=== PATIENT | female | born 1935 | race Caucasian/White ===

== ENCOUNTER 2023-12-22 16:27 | Observation (INO) | payer MEDICARE, OTHER, SELFPAY ==
[2023-12-22 12:46] VITALS: BP 139/81
--- NOTE | 2023-12-22 13:15 | EDRN ---
Patient stated that she tripped and fell during the night. Patient with c/o right rib and right hip pain. Patient stated that she has difficulty walking.
[2023-12-22 13:51] VITALS: BMI 22.0
[2023-12-22] MEDS: TYLENOL 1000 MG PO ×2 (13:51→22:45)
--- NOTE | 2023-12-22 14:22 | ED.GENMED ---
History of Present Illness
General
Chief Complaint: Fall
Source: patient
Time Seen by Provider: 12/22/23 13:06
Travel History
Have you had any contact with someone who has COVID-19?: No
Do you have any symptoms of coronavirus? Fever > 100 degrees, chills, cough, shortness of breath, sore throat, loss of taste or smell, muscle aches, or headache?: No
History of Present Illness
History of Present Illness:
88-year-old female with past medical history of hyperlipidemia, diabetes, valvular disease presenting the emergency department for evaluation after she had an accidental fall around 4 AM last night stating she fell onto the right side of her body
injuring her hip and rib. She states that she was able to get herself up off the ground back into bed and fell back asleep but upon awakening again this morning had continued pain and difficulty ambulating. Patient was brought to the ER for
further evaluation. She denies any head injury, loss consciousness, vomiting, visual changes or any other concerns. Takes an 81 mg aspirin but denies any other anticoagulants. She is denying any headache, visual changes, focal weakness or
numbness or any other problems today.
Past History
Past History
ED Past Medical History: Hypercholesterolemia, IDDM, Valvular disease and Hypothyroidism
ED Past Surgical History: Cardiac and Orthopedic (Right knee replacement)
Social History
Tobacco: Non-smoker
Alcohol: Occasional
Drug: None
Personal:
Living: with family
Employment: Not employed
Family History
Family History: Other (Noncontributory)
Review of Systems
Review of Systems
All Other Systems: ROS reviewed and negative except as documented in HPI and ROS
Phy Exam
Physical Exam
Physical Exam:
GENERAL: Alert , in no apparent distress
EYE: conjunctiva clear
NECK: Supple,
ENT: o/p clr, mmm.
CARDIAC: Regular rate and rhythm, systolic murmur left sternal border
LUNGS: Clear breath sounds bilaterally, no acute respiratory distress, no wheezes/rales/rhonchi
Chest wall: Mild tenderness over the anterolateral right 8th-9th rib without signs of trauma
abdomen: Soft, nontender, nondistended
NEUROLOGICAL: Alert and oriented
SKIN: Warm and dry, skin intact.
MUSCULOSKELETAL: well perfused. Patient allows for full passive range of motion but is having some difficulty with range of motion of the left hip without assistance. Extremities are otherwise neurovascularly intact.
PSYCH: Normal and appropriate interaction.
Scores
Heart Failure Risk
Heart Failure Risk Score: Not Applicable
Heart Score for Chest Pain Patients
STEMI patient?: Not applicable
Withdrawal Assessment of Alcohol
Withdrawal Assessment Completed?: Not applicable
Course
Orders/Labs/Results
Orders:
Orders
12/22/23 12:52
CR Ribs-right 3 Vw W/pa Chest* Urgent
Comment:
Reason For Exam: fall
Hip, Right 2-3 Views [CR Hip - RT w/wo Pel 2-3 Vw*] Urgent
Comment:
Reason For Exam: fall
Include a pelvis x-ray?: Yes
12/22/23 13:45
CT Chest/abd/pel Wo Iv Cont Urgent
Reason For Exam: fall, right sided anterolateral rib pain
PT Consult [Pt Eval And Treat] Urgent
Activity Level: Ambulate
12/22/23 13:46
Acetaminophen [Tylenol] 1,000 mg PO NOW STA
12/22/23 13:47
Acetaminophen [Tylenol] 1,000 mg .ROUTE .STK-MED ONE
12/22/23 14:48
Ibuprofen [Motrin] 600 mg PO NOW STA
Vital Signs
Initial and Last Documented VS:
Initial Vital Signs
Temp Pulse Resp BP Pulse Ox
98.1 F 85 18 139/81 96
12/22/23 12:46 12/22/23 12:46 12/22/23 12:46 12/22/23 12:46 12/22/23 12:46
Last Documented Vital Signs
Temp Pulse Resp BP Pulse Ox
98.1 F 85 18 139/81 96
12/22/23 12:46 12/22/23 12:46 12/22/23 12:46 12/22/23 12:46 12/22/23 12:46
MDM/Problems Addressed
Differential Diagnosis Includes:
Rib fracture, pelvic fracture, hip fracture, contusion
MDM/Problems Addressed:
88-year-old female presenting the emergency department for evaluation after an accidental fall with earlier this morning, was able to get up off the ground and back into bed but having worsening pain throughout the day. X-ray of the hip/pelvis and
ribs were ordered from triage. There does appear to be a older appearing pelvic fracture on x-ray but no acute findings. X-ray of the ribs shows questionable eighth rib fracture. I added on CT of the chest abdomen pelvis to further evaluate.
*Radiology
Radiology exam reviewed: preliminary read by ED provider (Possible pubic rami fracture)
*Pulse Oximetry
Patient hypoxic: no
*Critical Care Note
Total Time (30-74mins, 75-104mins- exclusive of procedures): Not Applicable
Patient Management
Discussion with other providers: Hospitalist
Escalation/DeEscalation of care consider admission/obs:
CT shows pubic rami and body of the symphysis fracture on the right. She was seen by physical therapy and was able to get around with a walker albeit with significant disc. Patient is resistant to taking any opioid medications due to side effects
from these medications in the past. Amenable to an additional dose of Motrin. Patient lives at home with her who was unfortunately seen in the emergency department here earlier today and diagnosed with a debilitating stroke and is
currently in the ICU. Patient has no family living with her other than her , difficult time with stairs and is already a fall risk. While she was able to ambulate with a walker I do have hesitation to send patient home for her own safety
and concern for possible worsening injury. Patient is amenable to being admitted overnight, case management consult and will likely need either a SNF or rehab facility until pain is better controlled. Hospitalist is aware and accepts patient for
continued evaluation and treatment.
ED Attending Note
-
Portions of this chart may have been created with voice recognition software.� Occasional wrong word or��sound alike� substitutions may have occurred due to the inherent limitations of voice recognition software.
Discharge Plan
Departure
Patient Disposition: Admit
Date of Disposition: 12/22/23
Time of Disposition: 15:00
Presentation/result/management discussed w/ accepting MD/DO: Hospitalist
Discharge Problem:
Fracture of ramus of right pubis, Contusion of rib, Accidental fall
Prescriptions:
No Action
levothyroxine 100 MCG tablet
100 mcg PO DAILY
simvastatin 20 MG tablet
20 mg PO DAILY
omega-3 fatty acids Capsule
1 cap PO DAILY Qty: 0
Priti A Day Womens Vitamin
1 tab PO DAILY
ibuprofen 200 mg Tablet
400 mg PO Q6H PRN (Reason: pain)
calcium carbonate-vitamin D3 600-125 mg-unit Tablet
1 tab PO Daily
Rx Instructions:
1200mg Calcium with 1600 D3
PreserVision AREDS-2 250-90-40-1 mg Capsule
2 tab PO DAILY
Toujeo SoloStar U-300 Insulin 300 unit/mL (1.5 mL) Insulin Pen
15 unit SC DAILY
metformin 500 mg Tablet Extended Release 24 Hr
1,000 mg PO DAILY
Hold Instructions: Resume on 01/22/23. Hold Tuesday01/21/23. Restart as previously taking on Tuesday01/22/23 in AM.
insulin aspart U-100 [Novolog FlexPen U-100 Insulin] 100 unit/mL (3 mL) Insulin Pen
6 unit SC .BID @ 1200, 1800
Myrbetriq 50 mg Tablet Extended Release 24 Hr
50 mg PO DAILY
Prolia 60 mg/mL Syringe
60 mg SC [id number]
acetaminophen 325 mg Tablet
650 mg PO Q4HPRN PRN (Reason: MALHOTRA, mild pain, or fever >101F) Qty: 0 0RF
Rx Instructions:
Please purchase over the counter
aspirin 81 mg Tablet,Chewable
81 mg PO DAILY Qty: 0 0RF
Rx Instructions:
Please purchase over the counter
Referrals:
Ryne West MD [Family Provider] -
Interventions
Interventions:
*Risk Screen - Suicide Last Done: 12/22/23 13:05
*Neglect/Abuse Screening Last Done: 12/22/23 13:05
ED- Fall Risk Assessment Last Done: 12/22/23 13:15
ED-Musculoskeletal Assessment Last Done: 12/22/23 13:05
ED- Neurological Assessment Last Done: 12/22/23 13:05
[2023-12-22] MEDS: MOTRIN 600 MG PO ×2 (15:08→23:39)
--- NOTE | 2023-12-22 15:26 | HPS.HSE ---
Family Physician
<ITZEL Rollins - Last Filed: 12/22/23 16:14>
-
Family Physician: Ryne West
Chief Complaint
<ITZEL Rollins - Last Filed: 12/22/23 16:14>
-
fall right hip and right rib pain
History of Present Illness
88-year-old female who reports while getting out of bed at 4 AM last night she fell onto her right side injuring her right hip and right rib. She reports she was able to get back into bed and fell asleep but upon wakening this morning she still
continued with pain and had difficulty ambulating. She denies LOC, headache, blurred vision, chest pain, palpitations, shortness breath, cough, abdominal pain, nausea, vomiting, diarrhea, urinary symptoms. To note her was also brought in
today for stroke requiring IAT. Patient has past medical history of falls with rib fractures, diverticulosis, compression fracture deformity T6 and T7, chronic diastolic CHF, pulm HTN moderate, DM2, hypothyroidism, urinary frequency.
Medical History
<ITZEL Rollins - Last Filed: 12/22/23 16:14>
Past Medical History
Past Medical History: Reports Other
Additional Past Medical History:
falls with rib fractures, diverticulosis, compression fracture deformity T6 and T7, chronic diastolic CHF, pulm HTN moderate, DM2, hypothyroidism, urinary frequency.
Past Surgical History: Reports Other
Additional Past Surgical History:
Right knee arthroscopy 2003, 08/05/2012,
bilateral cataract extraction
TAVR 2021
Social History
Tobacco: Non-smoker
Alcohol: None
Drug: None
Personal:
Living: With Family ()
Employment: Retired
Family History
Family History: Other (father cancer unsure type)
Allergies / Home Medications
Allergies reflects when Allergies were last updated in [facility].
Home Medications with original date entered in [facility]
Allergy/Medication List:
Allergies
Allergy/AdvReac Type Severity Reaction Status Date / Time
Iodinated Contrast Media Allergy Severe Verified 12/22/23 12:46
Prolonged
Itching
Sulfa (Sulfonamide Allergy Rash Verified 12/22/23 12:46
Antibiotics)
Home Medications
simvastatin 20 mg tablet 20 mg PO QPM High cholesterol 07/03/12
insulin glargine U-300 conc 300 unit/mL (1.5 mL) subcutaneous pen (Toujeo SoloStar U-300 Insulin) 15 unit SC DAILY Diabetes 12/03/22
insulin aspart U-100 100 unit/mL (3 mL) subcutaneous pen (Novolog FlexPen U-100 Insulin aspart) 6 unit SC BID Diabetes 01/10/23
metformin 500 mg tablet,extended release 24 hr 1,000 mg PO DAILY Diabetes 01/10/23
mirabegron 50 mg tablet,extended release 24 hr (Myrbetriq) 50 mg PO DAILY Urinary issue 01/10/23
aspirin 81 mg chewable tablet 81 mg PO DAILY Blood Clot Prevention/Tx 12/22/23
calcium carbonate 500 mg-vitamin D3 10 mcg (400 unit) tablet (Calcium 500 + D) 1 tab PO DAILY Supplement 12/22/23
levothyroxine 75 mcg tablet (Synthroid) 75 mcg PO DAILY Thyroid 12/22/23
Review of Systems
Philiplt;ITZEL Rollins - Last Filed: 12/22/23 16:14>
-
History Source: Patient and Family (daughter and son at bedside )
A 12 point ROS was completed and negative except as noted: Yes
Constitutional: Denies Fever or Chills
EENT: Denies Sore Throat or Runny Nose
Respiratory: Denies Cough or Trouble Breathing
Cardiac: Reports Other (right rib pain ); Denies Chest Pain, Diaphoresis, Palpitations or Syncope
Abdomen/GI: Denies Abdominal Pain, Nausea, Vomiting, Diarrhea, Constipated or Bloody Stools
: Denies Dysuria, Frequency, Flank Pain, Incontinence, Difficulty Voiding or Urgency
Musculoskeletal: Reports Joint Pain (right hip/inner groin pain ); Denies Edema
Skin: Denies Itching or Rash
Neurological: Denies Dizzy, Headache or Weakness
Endocrine: Reports No Symptoms
Hematologic/Lymphatic: Reports No Symptoms
Psych: Reports Calm
Physical Exam
<ITZEL Rollins - Last Filed: 12/22/23 16:14>
Vital Signs
Vital Signs
Temp Pulse Resp BP Pulse Ox
98.1 F 85 18 139/81 96
12/22/23 12:46 12/22/23 12:46 12/22/23 12:46 12/22/23 12:46 12/22/23 12:46
Physical Exam
General: Comfortable and Conversant; No Pain, Fever or Chills
HEENT: NormoCephalic, Anicteric, Moist mucous membranes, Atraumatic, PERRLA, [place] Conjunctivae, No Ptosis and Neck Nontender
Respiratory: Clear; No Wheezes, Rales or Rhonchi
Cardiac: S1/S2 and Regular Rhythm; No Murmur, Rub, Gallop or Peripheral Edema
Breast: Deferred by me
GI: Soft, Non Tender, Non Distended, Normal Bowel Sounds and No Hepatosplenomegaly
Rectal: Deferred by Provider
Genito-urinary: Deferred by me
Musculoskeletal: No Clubbing, No Cyanosis, No Edema and Other (right hip inner groin painn no visible contusion or hematoma, right rib pain no visible contusion)
Skin: Warm and Dry; No Rash
Neuro: AO x 3, No Motor Deficits, Nonfocal/grossly intact, Cranial Nerves Intact and No Sensory Deficits; No Slurred Speech, Facial Droop or Tremors
Psych: Calm
Data Reviewed
<ITZEL Rollins - Last Filed: 12/22/23 16:14>
-
CT Scan: Report Reviewed by me
Impression/Plan
<ITZEL Rollins - Last Filed: 12/22/23 16:14>
-
Impression/plan:
OBS MedSurg
#Mechanical fall with right superior pubic ramus fracture
-PT/OT/case management consult
-Pain control tylenol 1000 tid , tramadol 50 mg q6h prn mod severe pain , bowel regimen
-Consult ortho
-Check CBC, CMP
CT chest abdomen pelvis:
1. Subtle nondisplaced fracture involving the superior pubic ramus and right symphysis body
2. Old healed left symphysis fracture
3. Multiple bilateral chronic rib fractures
4.Stable chronic compression fracture deformities T6 and T7
5.Small amount fluid within the esophagus which could reflect reflux or dysmotility
6. Mild nonspecific stable pericarinal adenopathy measuring 11 mm
7. Mild sigmoid diverticulosis
#Prior falls with chronic rib fractures
# chronic fracture T6-T7
#old healed left symphysis fracture
#TAVR 2021
#Chronic diastolic CHF
Follows with [facility]
2D echo 07/07/2023: EF 75%, mild to moderate left LVH, mild MR and dilated left atrium, #23 Fonseca ONDINA aortic valve
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
#DM2
-Accu-Cheks with SSI, check HgbA1c
Continue NovoLog with meals
- consult para educator
#Hypothyroidism
-Continue levothyroxine
-Check TSH with free T4 reflex
# Chronic urinary frequency
-Continue Myrbetriq
DVT prophylaxis
Subcu Lovenox
Full code
<Saira Starkey MD - Last Filed: 12/22/23 16:22>
-
Impression/plan:
OBS MedSurg
#Mechanical fall with right superior pubic ramus fracture
-PT/OT/case management consult
-Pain control tylenol 1000 tid , tramadol 50 mg q6h prn mod severe pain , bowel regimen
-Consult ortho
-Check CBC, CMP
CT chest abdomen pelvis:
1. Subtle nondisplaced fracture involving the superior pubic ramus and right symphysis body
2. Old healed left symphysis fracture
3. Multiple bilateral chronic rib fractures
4.Stable chronic compression fracture deformities T6 and T7
5.Small amount fluid within the esophagus which could reflect reflux or dysmotility
6. Mild nonspecific stable pericarinal adenopathy measuring 11 mm
7. Mild sigmoid diverticulosis
#Prior falls with chronic rib fractures
# chronic fracture T6-T7
#old healed left symphysis fracture
#TAVR 2021
#Chronic diastolic CHF
Follows with [facility]
2D echo 07/07/2023: EF 75%, mild to moderate left LVH, mild MR and dilated left atrium, #23 Fonseca ONDINA aortic valve
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
#DM2
-Accu-Cheks with SSI, check HgbA1c
Continue NovoLog with meals
- consult para educator
#Hypothyroidism
-Continue levothyroxine
-Check TSH with free T4 reflex
# Chronic urinary frequency
-Continue Myrbetriq
DVT prophylaxis
Subcu Lovenox
Full code
I saw and examined the patient.
The CARPENTER MATE or PA's note was reviewed and I agree with the note.
Comment:
88 years old female presented after a fall and was found to have right pubic rami fracture. Patient reported multiple falls in the past. No head trauma. No confusion. No loss of consciousness. Her fall was mechanical.
Physical Exam
General: Comfortable and Conversant; No Pain, Fever or Chills
HEENT: NormoCephalic, Anicteric, Moist mucous membranes, Atraumatic, PERRLA, [place] Conjunctivae, No Ptosis and Neck Nontender
Respiratory: Clear; No Wheezes, Rales or Rhonchi
Cardiac: S1/S2 and Regular Rhythm; No Murmur, Rub, Gallop or Peripheral Edema
GI: Soft, Non Tender, Non Distended, Normal Bowel Sounds and No Hepatosplenomegaly
Rectal: No bleeding
Genito-urinary: No Granda
Musculoskeletal: No Clubbing, No Cyanosis, No Edema and Other (right hip inner groin painn no visible contusion or hematoma, right rib pain no visible contusion)
Skin: Warm and Dry; No Rash
Neuro: AO x 3, No Motor Deficits, Nonfocal/grossly intact, Cranial Nerves Intact and No Sensory Deficits; No Slurred Speech, Facial Droop or Tremors
Psych: Calm
Assessment and plan
# #Acute nondisplaced fracture involving the superior right pubic ramus and right symphysis body.
No evidence of right hip fracture. No abdominal pain.
Pain control with Tylenol [id number]
As needed tramadol
Appreciate orthopedic input
#History of falls. Imaging study showed multiple bilateral chronic rib fractures, chronic compression deformities of T6 and T7.
Consult PT/OT
#TAVR 2021
#Chronic diastolic CHF
Follows with [facility]
2D echo 07/07/2023:�EF 75%, mild to moderate left LVH, mild MR and dilated left atrium, #23 Fonseca ONDINA aortic valve
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
#DM2
-Accu-Cheks with SSI, check HgbA1c
Continue NovoLog with meals
- consult para educator
#Hypothyroidism
-Continue levothyroxine
-Check TSH with free T4 reflex
# Chronic urinary frequency
-Continue Myrbetriq
DVT prophylaxis
Subcu Lovenox
Total time spent to see the patient, examine the patient on the floor, review data and lab results, discuss treatment plan with patient, her son, nursing staff and ER doctor around 75 minutes
--- NOTE | 2023-12-22 17:28 | EDRN ---
Patient taken to see her in ICU prior to going to room 2126 in a wheelchair with carpet technician and family. Spoke to receiving RN and gave updated report.
--- NOTE | 2023-12-22 18:25 | CON.ORTHO ---
Consultation
-
Date/Time Consultation Requested: 12/22/2023 1605
Date/Time Consultation Performed: 12/22/20231814
Requesting Provider: Shazia Celeste
Performing Provider: Jaylan Wynne
Reason for Consultation: R pelvic ring injury
Consultation - Orthopedics
History
Orthopedic Surgery Note
CC: Right hip pain
HPI: 88-year-old female with right groin and pubic pain after sustaining a fall last night. She tripped and landed from a standing height onto carpet. After that she had pain with bearing weight on the right leg. She presented to [facility] emergency department where x-rays and CT showed signs of a nondisplaced fracture of the superior pubic ramus. She denies pain elsewhere throughout her body. Of note, her is being treated after a stroke last night.
PMH/PSH: diverticulosis, CHF, Pulm HTN, DMII, hypothroid
Medications: reviewed
Family History: Family history was reviewed. Noncontributory
Social history: Nonsmoker, no illicit drugs
Exam
General appearance: Pleasant. No acute distress.
Head: Normocephalic/atraumatic
Nose: No lesions or discharge.
Skin: No obvious rashes or open wounds
Lungs: No audible wheezing, no cough or sputum production
Musculoskeletal:
RLE:
full active motion of knee and ankle
sensation intact to light touch distally s/s/sp/dp/t
Toes wwp, 1+ DP
Hip exam defered due to known fracture
Imagin12/22/3023 Right hip and pelvis x-rays performed [facility] emergency department were reviewed by me. I also reviewed a CT scan of the pelvis. This shows a nondisplaced fracture of the superior pubic ramus. No signs of posterior
ring injury. No signs of proximal femur fracture.
AP: 88-year-old female with a nondisplaced superior pubic ramus fracture sustained after a fall overnight. I discussed with the patient treatment options and the natural history of this injury. We discussed weight-bear as tolerated on the right
lower extremity using a walker for 4 weeks. She will limit her activity based on pain. She may follow-up in 4 weeks with repeat x-rays to assess for clinical change. In 4 weeks the plan will be to start outpatient physical therapy. She is
presently undergoing some vestibular therapy which she may continue with and modify with use of walker. All questions were answered.
Jaylan Wynne MD
> 75 minutes was spent reviewing the clinical information, evaluating the patient, and formulating clinical plan.
Allergies / Home Medications
Allergy/AdvReac Type Severity Reaction Status Date / Time
Iodinated Contrast Media Allergy Severe Verified 12/22/23 12:46
Prolonged
Itching
Sulfa (Sulfonamide Allergy Rash Verified 12/22/23 12:46
Antibiotics)
Medication Instructions Recorded
simvastatin 20 mg tablet 20 mg PO QPM High cholesterol 07/03/12
insulin glargine U-300 conc 300 15 unit SC DAILY Diabetes 12/03/22
unit/mL (1.5 mL) subcutaneous pen
(Toujeo SoloStar U-300 Insulin)
insulin aspart U-100 100 unit/mL 6 unit SC BID Diabetes 01/10/23
(3 mL) subcutaneous pen (Novolog
FlexPen U-100 Insulin aspart)
metformin 500 mg tablet,extended 1,000 mg PO DAILY Diabetes 01/10/23
release 24 hr
mirabegron 50 mg tablet,extended 50 mg PO DAILY Urinary issue 01/10/23
release 24 hr (Myrbetriq)
aspirin 81 mg chewable tablet 81 mg PO DAILY Blood Clot 12/22/23
Prevention/Tx
calcium carbonate 500 mg-vitamin 1 tab PO DAILY Supplement 12/22/23
D3 10 mcg (400 unit) tablet
(Calcium 500 + D)
levothyroxine 75 mcg tablet 75 mcg PO DAILY Thyroid 12/22/23
(Synthroid)
Vital Signs / Lab Results
Temp Pulse Resp BP Pulse Ox
98.1 F 85 18 139/81 96
12/22/23 12:46 12/22/23 12:46 12/22/23 12:46 12/22/23 12:46 12/22/23 12:46
--- NOTE | 2023-12-22 18:30 | PTCARENOTE ---
Received patient from ED into room 2125. Patient AAOx3, VSS, x1 assist stand and pivot from wheelchair to bed. Order for activity as tolerated, patient states pain in RLE rated 3-4 upon ambulation and unable to bear full weight on R leg; rolling
walker provided to patient from ED. Patient oriented to room and call [place], educated on importance of ringing for assistance; patient verbalized understanding. Family at bedside, accucheck 152 and dinner ordered for patient, patient states family
member placed new Dexcom on R abdomen earlier. Patient and family state fluctuating blood sugar levels from '50 to 400' over last few weeks; diabetic education consult already ordered in ED. Patient and family state no concerns at this time.
[2023-12-22 18:32] VITALS: BP 170/81; BMI 20.7
[2023-12-22 18:33] LABS: Glucose - Point of Care 152 mg/dl (70-99)
[2023-12-22] MEDS: LIPITOR 10 MG PO (18:46)
[2023-12-22 19:51] LABS: Glucose - Point of Care 136 mg/dl (70-99)
[2023-12-22 20:24] LABS: % Basophils 0.7 % (0-2); % Eosinophils 3.4 % (0-6); % Immature Granulocytes 0.4 % (0-0.5); % Neutrophils 68.5 % (42.2-75.2); Absolute Basophils 0.1 10^3/uL (0-0.2); Absolute Eosinophils 0.3 10^3/uL (0-0.7); Absolute Lymphocytes 1.2 10^3/uL (1.2-3.4); Absolute Monocytes 0.8 10^3/uL (0.1-0.6); Absolute Neutrophils 5.2 10^3/uL (1.4-6.5); Hematocrit 36.3 % (37.0-47.0); Hemoglobin 11.9 g/dL (12.0-16.0); Mean Corp Hgb Conc. 32.8 g/dL (33.0-37.0); Mean Corpuscular Hgb 29.1 pg (27.0-31.0); Mean Corpuscular Volume 88.8 fL (81.0-99.0); Mean Platelet Volume 11.1 fL (7.4-10.4); Nucleated Red Blood Cells % 0 %; Platelet Count 181 10^3/uL (130-400); Red Blood Cell Count 4.09 10^6/uL (4.20-5.40); Red Cell Dist. Width 13.7 % (11.5-14.5); White Blood Cell Count 7.6 10^3/uL (4.8-10.8)
[2023-12-22 20:44] LABS: ALT (SGPT) 19 U/L (0-35); AST (SGOT) 23 U/L (14-36); Albumin 3.7 g/dl (3.5-5.0); Alkaline Phosphatase 62 U/L (38-126); Blood Urea Nitrogen 21 mg/dl (7-17); Calcium 9.1 mg/dl (8.4-10.2); Carbon Dioxide 25 mmol/L (22-30); Chloride 103 mmol/L (98-107); Estimated Creatinine Clearance 40 ml/min; Glucose 165 mg/dl (70-99); Potassium 4.2 mmol/L (3.5-5.1); Sodium 136 mmol/L (135-145); Total Bilirubin 0.7 mg/dl (0.2-1.3); Total Protein 6.4 g/dl (6.3-8.2); eGFR > 60.00
[2023-12-22] MEDS: SENOKOT PO ×2 (22:45→22:49)
[2023-12-22] MEDS: LOVENOX 40 MG SC (22:46)
[2023-12-22 22:55] LABS: Glucose - Point of Care 236 mg/dl (70-99)
[2023-12-22 23:34] VITALS: BP 148/80
[2023-12-23 05:59] VITALS: BMI 20.6
[2023-12-23 06:15] LABS: % Basophils 0.8 % (0-2); % Eosinophils 6.4 % (0-6); % Immature Granulocytes 0.3 % (0-0.5); % Lymphocytes 20.1 % (20.5-51.1); % Monocytes 12.2 % (1.7-9.3); % Neutrophils 60.2 % (42.2-75.2); Absolute Basophils 0.1 10^3/uL (0-0.2); Absolute Eosinophils 0.4 10^3/uL (0-0.7); Absolute Lymphocytes 1.3 10^3/uL (1.2-3.4); Absolute Monocytes 0.8 10^3/uL (0.1-0.6); Absolute Neutrophils 3.7 10^3/uL (1.4-6.5); Hematocrit 32.7 % (37.0-47.0); Hemoglobin 10.8 g/dL (12.0-16.0); Mean Corpuscular Volume 87.9 fL (81.0-99.0); Mean Platelet Volume 11.6 fL (7.4-10.4); Nucleated Red Blood Cells % 0 %; Platelet Count 158 10^3/uL (130-400); Red Blood Cell Count 3.72 10^6/uL (4.20-5.40); Red Cell Dist. Width 13.6 % (11.5-14.5); White Blood Cell Count 6.2 10^3/uL (4.8-10.8)
[2023-12-23] MEDS: SYNTHROID 75 MCG PO (06:30)
[2023-12-23 06:49] LABS: Blood Urea Nitrogen 20 mg/dl (7-17); Calcium 8.3 mg/dl (8.4-10.2); Carbon Dioxide 26 mmol/L (22-30); Chloride 108 mmol/L (98-107); Estimated Creatinine Clearance 40 ml/min; Glucose 171 mg/dl (70-99); Sodium 134 mmol/L (135-145); eGFR > 60.00
[2023-12-23 07:06] LABS: Glucose - Point of Care 142 mg/dl (70-99)
--- NOTE | 2023-12-23 07:12 | W.PN.HOSP.TC ---
Addendum entered and electronically signed by Saira Starkey MD 12/23/23 13:47:
Addendum
Patient was evaluated by physical therapy and bottle caser. Patient wants to go home. Patient reports good family support at home and would rather go home tonight.
Will reach out to case management to arrange discharge
Total discharge time spent to see the patient, examine the patient on the floor, review data and lab results, discuss treatment plan with patient, bottle caser, nursing staff around 65 minutes
Original Note:
Today's Communication/Plan
-
PT /OT
pain control
Assessment / Plan
Assessment / Plan
Physical Exam
General: Comfortable and Conversant; No Pain, Fever or Chills
HEENT: Normocephalic, Anicteric, Moist mucous membranes, Atraumatic, PERRLA, [place] Conjunctivae, No Ptosis and Neck Nontender
Respiratory: Clear; No Wheezes, Rales or Rhonchi
Cardiac: S1/S2
GI: Soft, Non Tender, Non Distended,
Rectal: No bleeding
Genito-urinary: No Granda
Musculoskeletal: No Clubbing, No Cyanosis, No Edema and Other (right hip inner groin painn no visible contusion or hematoma, right rib pain no visible contusion)
Skin: Warm and Dry; No Rash
Neuro: AO x 3, No Motor Deficits, No Slurred Speech, Facial Droop or Tremors
Psych: Calm
#Acute nondisplaced fracture involving the superior right pubic ramus and right symphysis body.
No evidence of right hip fracture.� No abdominal pain.
Pain control with Tylenol [id number] As needed tramadol & Motrin
Weight-bear as tolerated on the right lower extremity using a walker for 4 weeks.�
Appreciate orthopedic input
#History of falls.� Imaging study showed multiple bilateral chronic rib fractures, chronic compression deformities of T6 and T7.
Consult PT/OT
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
Will add PRN hydralazine
#Chronic diastolic CHF
Follows with [facility]ology
2D echo 07/07/2023:�EF 75%, mild to moderate left LVH, mild MR and dilated left atrium, #23 Fonseca ONDINA aortic valve
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
# Hyponatremia, mild.
c/w diet
#DM2
AM blood glucose 142
-Accu-Cheks with SSI, check HgbA1c
Continue NovoLog with meals
Appreciate health educator
#Hypothyroidism
-Continue levothyroxine
# Chronic urinary frequency
-Continue Myrbetriq
DVT prophylaxis
Subcu Lovenox
Total time spent to see the patient, examine the patient on the floor, review data and lab results, discuss treatment plan with patient, her son,� nursing staff around 55 minutes
Anticipated Discharge: 24 - 48 hours
Subjective/Interval History
-
Date of Service: December 23, 2023
Objective Data
-
Labs:
Laboratory Results
12/22/23 12/23/23
20:19 05:00
WBC 7.6 6.2
Hgb 11.9 L 10.8 L
Hct 36.3 L 32.7 L
Plt Count 181 158
Sodium 136 134 L
Potassium 4.2 4.0
Chloride 103 108 H
Carbon Dioxide 25 26
BUN 21 H 20 H
Creatinine 0.8 0.8
Glucose 165 H 171 H
Calcium 9.1 8.3 L
Total Bilirubin 0.7
AST 23
ALT 19
Alkaline Phosphatase 62
Vital Signs:
Vital Signs
Temp Pulse Resp BP Pulse Ox
98.1 F 79 18 148/80 96
12/22/23 23:34 12/22/23 23:34 12/22/23 23:34 12/22/23 23:34 12/22/23 23:34
I&O
12/22/23 12/23/23 12/24/23
06:59 06:59 06:59
Intake Total 480 / 480
Balance 480 / 480
[2023-12-23] MEDS: MYRBETRIQ EXTENDED RELEASE 50 MG PO (07:41)
[2023-12-23] MEDS: LOW STRENGTH ASPIRIN 81 MG PO (07:43)
[2023-12-23] MEDS: OSCAL 500 + D 500 MG PO (07:43)
[2023-12-23] MEDS: TYLENOL 1000 MG PO (07:43)
[2023-12-23] MEDS: SENOKOT 8.59999999999999964 MG PO (07:44)
[2023-12-23 07:58] VITALS: BP 145/73
[2023-12-23] MEDS: NOVOLOG FLEXPEN 4 UNITS SC ×2 (08:27→12:50)
[2023-12-23] MEDS: LANTUS 0.119999999999999996 UNITS SC (08:27)
[2023-12-23 08:45] LABS: Glycohemoglobin (HgbA1c) 8.2 % (4.0-5.6)
--- NOTE | 2023-12-23 10:03 | PN.DE.MGMTRT ---
Insulin Management
- -
12/23/2023 Diabetes Management Consult
Patient admitted 12/21 s/p fall with acute non displaced fx R pubic ramus & R symphysis body. PMH HLD, diabetes, valvular disease. Patient seen at the bedside, her son is also present. A1C is 8.2%, cr .8 and eGFR >60. She is awake alert and
oriented and able to participate in the discussion regarding her diabetes management.
Prior to admission patient states she was taking 14 units of Toujeo in the morning with novolog 6 units with each meal and metformin 1000 mg daily. Patient and son both report that glucose can be 45 one minute then 300 the next with no consistent
pattern. They state that she very often will have low blood sugars defined as less than 50. Aiyana does not count carbs but regardless of what she eats she takes the same dose of insulin.
Discussed with patient that novolog dose will be reduced to 4 units AC, Toujeo will remain 12 units at this time. After discharge she will write down glucose results from before each meal and 2 and 3 hours after each meal. She will call me Tuesday
to further discuss insulin doses.
Diabetes History
- -
Type of Diabetes: 2 requiring insulin
Pre-Admission Diabetes Regimen
12/22/23 12/23/23
20:19 05:00
Creatinine 0.8 0.8
Lab Results
Hemoglobin A1c 8.2 % (4.0-5.6) H 12/23/23 05:00
Insulin Pump Settings
IP Diabetes Regimen
12/22/23 12/22/23 12/22/23
18:31 19:48 20:19
Glucose 165 H
POC Glucose 152 H 136 H
12/22/23 12/23/23 12/23/23
22:53 05:00 07:04
Glucose 171 H
POC Glucose 236 H 142 H
Patient Education
[2023-12-23 12:06] VITALS: BP 172/91; PULSE 80
[2023-12-23 12:07] LABS: Glucose - Point of Care 140 mg/dl (70-99)
--- NOTE | 2023-12-23 13:39 | W.DCSUMMARY ---
Discharge Summary
Discharge Data
Date of Admission: 12/22/23
Date of Discharge: 12/23/23
-
Pending Results: No
Hospital Course
88 years old female presented to the emergency room after a fall. Imaging studies showed nondisplaced fracture involving the superior right pubic ramus at the right symphysis body. No evidence of right hip fracture. No abdominal pain or
hemodynamic instability. Patient was evaluated by orthopedic doctor. Recommended to weight-bear as tolerated on the right lower extremity using a walker for 4 weeks and outpatient follow-up to repeat imaging study. Pain was controlled with
Tylenol. Patient declined tramadol. Motrin was given for severe pain as needed. Patient was evaluated by physical therapy and recommended home health therapy. Patient had good social support at home. Patient had diabetes and reported issues
with diabetes management and control at home. early childhood educator aide was consulted and patient was counseled. Patient verbalized understanding to the instructions. Patient remained hemodynamically stable and was discharged in a stable condition.
Discharge Plan
-
Patient Disposition: Home with Home Care
Discharge Diagnosis/Procedures: Acute nondisplaced fracture involving the superior right pubic ramus and right symphysis body. Weight-bear as tolerated on the right lower extremity using a walker for 4 weeks.
Diet: As tolerated
Activity: With Walker
Referrals:
Ryne West MD [Family Provider] - in one to two weeks
Aaron Wynne MD [Active] - in one month
Prescriptions:
New
acetaminophen [Tylenol Extra Strength] 500 mg Tablet
1,000 mg PO TIDPRN PRN (Reason: mild to moderate pain) Qty: 10 0RF
ibuprofen 200 mg Tablet
200 mg PO Q6HPRN PRN (Reason: severe pain) Qty: 10 0RF
Continued
simvastatin 20 MG tablet
20 mg PO QPM
insulin glargine U-300 conc [Toujeo SoloStar U-300 Insulin] 300 unit/mL (1.5 mL) Insulin Pen
15 unit SC DAILY
metformin 500 mg Tablet Extended Release 24 Hr
1,000 mg PO DAILY
Hold Instructions: Resume on 01/22/23. Hold Tuesday01/21/23. Restart as previously taking on Tuesday01/22/23 in AM.
Myrbetriq 50 mg Tablet Extended Release 24 Hr
50 mg PO DAILY
levothyroxine [Synthroid] 75 mcg Tablet
75 mcg PO DAILY
calcium carbonate-vitamin D3 [Calcium 500 + D] 500 mg-10 mcg (400 unit) Tablet
1 tab PO DAILY
aspirin 81 mg tablet,chewable
81 mg PO DAILY
Changed
insulin aspart U-100 [Novolog FlexPen U-100 Insulin] 100 unit/mL (3 mL) Insulin Pen
4 unit SC AC Qty: 0 0RF
Discharge Orders:
Discharge Patient (As Directed); Ordered 12/23/23
Ordered By: Saira Starkey
--- NOTE | 2023-12-23 15:51 | PTCARENOTE ---
Patient discharged home with VN and PT/OT. This RN reviewed discharge instructions with patient and patient's daughter, both verbalized understanding. No IV access or night monitor on patient. Patient dressed and belongings gathered in room by
daughter, patient taken down to [facility] via staff escort and wheelchair.
--- NOTE | 2023-12-23 15:52 | CM ---
Initial assessment completed with patient and daughter in room. FRONT OFFICE SPEC patient was independent in ADL's, drove, lives with her in a 2 story home with basement with no steps to enter, B/B on 2nd floor and 1/2 bath on 1st, no DME or services, no
psychiatric history. Pharmacy is [facility] in [place], PCP is Dr. Ryne West. Discharge Plan of care is home with [facility] VN/PT/OT and patient's son owns [employer], they will provide aides to assist patient. JUAN M signed.
is currently in ICU.
--- NOTE | 2023-12-23 16:00 | CM ---
Patient has been medically cleared for discharge to home with [facility] VN/PT/OT and patient's son owns [employer], they will provide aides to assist patient. Daughter will transport home. OBS status.
== END 2023-12-23 16:00 | disposition home health service (06) ==
LOC: 2 NORTH 16:27
PROVIDERS: Clinical Nurse Specialist Family Health; ADMITTING PHYSICIAN Internal Medicine; CONSULT PHYSICIAN Orthopaedic Surgery; EMERGENCY PHYSICIAN Emergency Medicine; FAMILY PHYSICIAN Family Medicine
DX: S32.591A Other specified fracture of right pubis, initial encounter for closed fracture (principal); R26.2 Difficulty in walking, not elsewhere classified; E11.9 Type 2 diabetes mellitus without complications; E03.9 Hypothyroidism, unspecified; E78.00 Pure hypercholesterolemia, unspecified; W19.XXXA Unspecified fall, initial encounter; Y93.9 Activity, unspecified; Y92.009 Unspecified place in unspecified non-institutional (private) residence as the place of occurrence of the external cause; R07.81 Pleurodynia; I50.32 Chronic diastolic (congestive) heart failure; E87.1 Hypo-osmolality and hyponatremia; I11.0 Hypertensive heart disease with heart failure; K57.30 Diverticulosis of large intestine without perforation or abscess without bleeding; R59.9 Enlarged lymph nodes, unspecified; M95.4 Acquired deformity of chest and rib; I27.20 Pulmonary hypertension, unspecified; R35.0 Frequency of micturition; Z88.2 Allergy status to sulfonamides; Z79.890 Hormone replacement therapy; Z79.4 Long term (current) use of insulin; Z79.84 Long term (current) use of oral hypoglycemic drugs; Z79.82 Long term (current) use of aspirin; Z91.041 Radiographic dye allergy status; Z95.2 Presence of prosthetic heart valve; Z91.81 History of falling
CPT/HCPCS: 71101; 71250; 73502; 74176; 80048; 80053; 82962; 83036; 85025; 97116; 99285; G0378

== ENCOUNTER → 2024-01-31 09:17 | Outpatient (REF) | payer MEDICARE, OTHER, SELFPAY ==
[2024-01-31 11:06] LABS: ALT (SGPT) 14 U/L (0-35); AST (SGOT) 21 U/L (14-36); Albumin 3.9 g/dl (3.5-5.0); Alkaline Phosphatase 94 U/L (38-126); Blood Urea Nitrogen 20 mg/dl (7-17); Calcium 9.4 mg/dl (8.4-10.2); Carbon Dioxide 25 mmol/L (22-30); Chloride 102 mmol/L (98-107); Glucose 201 mg/dl (70-99); HDL Cholesterol 77 mg/dl; LDL Cholesterol, Calculated 38 mg/dl; Potassium 4.4 mmol/L (3.5-5.1); Sodium 136 mmol/L (135-145); Total Bilirubin 0.6 mg/dl (0.2-1.3); Total Cholesterol 132 mg/dl (50-199); Total Protein 6.5 g/dl (6.3-8.2); Triglyceride 85 mg/dl (10-149); Very Low Density Lipoprotein 17 mg/dl (0-30); eGFR > 60.00
[2024-01-31 11:37] LABS: Glycohemoglobin (HgbA1c) 7.1 % (4.0-5.6)
== END ==
LOC: RCS 09:17
PROVIDERS: ATTENDING PHYSICIAN Family Medicine
DX: E11.65 Type 2 diabetes mellitus with hyperglycemia (principal); Z95.2 Presence of prosthetic heart valve; I35.0 Nonrheumatic aortic (valve) stenosis; I35.1 Nonrheumatic aortic (valve) insufficiency
CPT/HCPCS: 36415; 80053; 80061; 83036; 93306

== ENCOUNTER 2024-04-05 18:37 | Emergency (ER) | payer MEDICARE, OTHER, SELFPAY ==
[2024-04-05] VITALS (11 sets, daily range): BP systolic 142–225; BP diastolic 64–160; BMI 20.1
[2024-04-05 19:25] LABS: % Basophils 0.9 % (0-2); % Eosinophils 1.7 % (0-6); % Immature Granulocytes 0.2 % (0-0.5); % Lymphocytes 11.7 % (20.5-51.1); % Monocytes 5.1 % (1.7-9.3); % Neutrophils 80.4 % (42.2-75.2); Absolute Basophils 0.1 10^3/uL (0-0.2); Absolute Eosinophils 0.1 10^3/uL (0-0.7); Absolute Lymphocytes 0.8 10^3/uL (1.2-3.4); Absolute Monocytes 0.3 10^3/uL (0.1-0.6); Absolute Neutrophils 5.3 10^3/uL (1.4-6.5); Hematocrit 38.4 % (37.0-47.0); Hemoglobin 12.9 g/dL (12.0-16.0); Mean Corp Hgb Conc. 33.6 g/dL (33.0-37.0); Mean Corpuscular Hgb 29.1 pg (27.0-31.0); Mean Corpuscular Volume 86.5 fL (81.0-99.0); Mean Platelet Volume 11.1 fL (7.4-10.4); Nucleated Red Blood Cells % 0 %; Platelet Count 177 10^3/uL (130-400); Red Blood Cell Count 4.44 10^6/uL (4.20-5.40); Red Cell Dist. Width 13.5 % (11.5-14.5); White Blood Cell Count 6.6 10^3/uL (4.8-10.8)
[2024-04-05 19:45] LABS: ALT (SGPT) 16 U/L (0-35); AST (SGOT) 23 U/L (14-36); Albumin 4.3 g/dl (3.5-5.0); Alkaline Phosphatase 90 U/L (38-126); Blood Urea Nitrogen 19 mg/dl (7-17); Calcium 9.5 mg/dl (8.4-10.2); Carbon Dioxide 21 mmol/L (22-30); Estimated Creatinine Clearance 53 ml/min; Glucose 238 mg/dl (70-99); Total Bilirubin 0.7 mg/dl (0.2-1.3); Total Protein 6.9 g/dl (6.3-8.2); eGFR > 60.00
[2024-04-05 20:00] LABS: Chloride 102 mmol/L (98-107); Potassium 4.7 mmol/L (3.5-5.1); Sodium 133 mmol/L (135-145)
[2024-04-05] MEDS: ANTIVERT 25 MG PO (21:15)
--- NOTE | 2024-04-05 22:17 | ED.GENMED ---
History of Present Illness
General
Chief Complaint: Blood Pressure Problem
Source: patient
Exam Limitations: none
Time Seen by Provider: 04/05/24 18:50
History of Present Illness
History of Present Illness:
88-year-old female who presents for evaluation of her blood pressure. 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 The patient states that she has had the symptoms in the past and has
seen vestibular specialist. Patient does have a history of diabetes but her blood pressure is typically much better controlled. No chest pain. No shortness of breath. No vision changes. No motor weakness. No abdominal pain. She has been
nauseous associated with the symptoms. She states laying in bed she feels well when she goes to sit up she feels dizzy and nauseous
Past History
Past History
ED Past Medical History: Hypercholesterolemia, IDDM, Valvular disease and Hypothyroidism
ED Past Surgical History: Cardiac and Orthopedic (Right knee replacement)
Social History
Tobacco: Non-smoker
Alcohol: Occasional
Drug: None
Personal:
Living: with family
Employment: Not employed
Family History
Family History: Other (Noncontributory)
Phy Exam
Physical Exam
Physical Exam:
CONSTITUTIONAL Patient alert and oriented to person, place and time. Well-appearing. Vital signs reviewed.
HEAD atraumatic, normocephalic.
EYES eyelids normal to inspection, Pupils equally round and reactive to light, Extraocular muscles intact, Conjunctiva normal, Sclera normal.
NECK normal range of motion, Trachea midline, no jugular venous distention.
RESPIRATORY CHEST No respiratory distress noted, Chest expansion equal, Bilateral breath sounds clear.
CARDIOVASCULAR regular rate and rhythm, Heart sounds normal.
ABDOMEN abdomen nontender, Bowel sounds normal. No distention.
BACK normal inspection, no obvious deformities
UPPER EXTREMITY range of motion normal, Motor strength normal, no cyanosis, no edema.
LOWER EXTREMITY range of motion normal, Motor strength normal, no cyanosis, no edema.
NEURO Speech normal, No focal motor deficits, [place] coma scale 15, Memory normal, Cranial Nerves intact to screening exam. Normal [id number]. no pronator drift.
SKIN skin warm, dry, and normal in color.
PSYCHIATRIC patient oriented to person place and time, Normal affect.
Course
Orders/Labs/Results
Orders:
Orders
04/05/24 18:40
Electrocardiogram (*1) Urgent
Reason for Study: Tachycardia
04/05/24 18:41
EKG- Treatment ONCE
04/05/24 19:06
Cardiac Monitoring- Treatment ONCE
04/05/24 19:16
Complete Blood Count/With Diff Urgent
Comprehensive Metabolic Panel Urgent
TSH Urgent
04/05/24 20:52
CT Head W/o Iv Contrast Urgent
Comment:
Reason For Exam: dizzy, htn
04/05/24 21:03
Meclizine [Antivert] 25 mg PO NOW STA
Abnormal Lab Results
04/05/24
19:16
MPV 11.1 H fL
(7.4-10.4)
Absolute Lymphs (auto) 0.8 L 10^3/uL
(1.2-3.4)
Neutrophils % 80.4 H %
(42.2-75.2)
Lymphocytes % 11.7 L %
(20.5-51.1)
Sodium 133 L mmol/L
(135-145)
Carbon Dioxide 21 L mmol/L
(22-30)
BUN 19 H mg/dl
(7-17)
Glucose 238 H mg/dl
(70-99)
04/05/24 19:16
04/05/24 19:16
Vital Signs
Initial and Last Documented VS:
Initial Vital Signs
Temp Pulse Resp BP Pulse Ox
98.2 F 145 18 225/160 95
04/05/24 18:38 04/05/24 18:38 04/05/24 18:38 04/05/24 18:38 04/05/24 18:38
Last Documented Vital Signs
Temp Pulse Resp BP Pulse Ox
98.2 F 90 17 160/64 95
04/05/24 18:38 04/05/24 22:15 04/05/24 22:15 04/05/24 22:00 04/05/24 20:30
MDM/Problems Addressed
MDM/Problems Addressed:
hypertension, dizziness, vertigo
*Radiology
Radiology exam reviewed: preliminary read by ED provider (No obvious intracranial hemorrhage) and radiology read reviewed
*Pulse Oximetry
Patient hypoxic: no
*EKG
Interpreted by ED Provider?: Yes
Interpretation: abnormal
Rate: tachycardiac
[place]: left axis deviation
QRS Pattern: poor R-wave progression and left vent hypertrophy
Ischemia: non-specific ST changes
*Character Impersonator Interpretation
Rate: normal
Interpretation: normal
Rhythm: sinus
*Critical Care Note
Total Time (30-74mins, 75-104mins- exclusive of procedures): Not Applicable
Data Reviewed
Source: patient
Further Testing Considered But Not Given:
Consider CTA but no clinical concern for acute vascular occlusion
Patient Management
Escalation/DeEscalation of care consider admission/obs:
Patient already on aspirin. Has had the symptoms in the past. CT noted. Will recommend PCP follow-up. Her exam here is at baseline. Feels much better. Patient would like outpatient management. Blood pressure is improved but will recommend
close follow-up with PCP. Gait is normal. Anion gap is normal. Blood sugar is noted the patient states she has not really eaten anything I do not want to get aggressive with her blood sugar. She is scheduled to have her Lantus and will take it
at home. Do not suspect DKA. No further vomiting. States that after meclizine she feels much improved. Family to observe blood pressure and blood sugar at home. Suspect initial blood pressure measurement was inaccurate as it was repeated by me
shortly after and blood pressure was much lower.
ED Attending Note
-
Portions of this chart may have been created with voice recognition software.� Occasional wrong word or��sound alike� substitutions may have occurred due to the inherent limitations of voice recognition software.
Discharge Plan
Departure
Patient Disposition: Home (Routine Discharge)
Date of Disposition: 04/05/24
Time of Disposition: 22:26
Patient with high blood pressure during this ER visit?: Yes
Discharge Problem:
Uncontrolled hypertension, Dizziness
Instructions: High Blood Pressure (DC), Dizziness, BLOOD PRESSURE
Prescriptions:
New
meclizine 25 mg tablet
25 mg PO TID PRN (Reason: dizziness) Qty: 20 0RF
No Action
simvastatin 20 MG tablet
20 mg PO HS
insulin glargine U-300 conc [Toujeo SoloStar U-300 Insulin] 300 unit/mL (1.5 mL) Insulin Pen
12 unit SC HS
metformin 500 mg Tablet Extended Release 24 Hr
1,000 mg PO DAILY
Hold Instructions: Resume on 01/22/23. Hold Tuesday01/21/23. Restart as previously taking on Tuesday01/22/23 in AM.
mirabegron [Myrbetriq] 50 mg Tablet Extended Release 24 Hr
50 mg PO DAILY
levothyroxine [Synthroid] 75 mcg Tablet
75 mcg PO DAILY
calcium carbonate-vitamin D3 [Calcium 500 + D] 500 mg-10 mcg (400 unit) Tablet
1 tab PO DAILY
aspirin 81 mg tablet,chewable
81 mg PO DAILY
escitalopram oxalate 10 mg tablet
10 mg PO DAILY
acetaminophen [Tylenol Extra Strength] 500 mg tablet
1,000 mg PO TIDPRN PRN (Reason: mild pain)
ibuprofen 200 mg tablet
200 mg PO Q6HPRN PRN (Reason: mild pain)
insulin aspart U-100 [Novolog FlexPen U-100 Insulin] 100 unit/mL (3 mL) insulin pen
6 unit SC BID@1130,1730
Patient Comments:
04/05/2024: Before Lunch & Dinner
Referrals:
Ryne West MD [Family Provider] -
Activity Restrictions/Additional Instructions:
Please continue your current medications. Please see your doctor in the next 2 to 3 days for follow-up and reevaluation. Return immediately for difficulty walking, chest pain, vision changes, motor weakness or any other concerns
Interventions
Interventions:
*Risk Screen - Suicide Last Done: 04/05/24 18:38
*General Assessment Last Done: 04/05/24 18:38
*Neglect/Abuse Screening Last Done: 04/05/24 18:38
ED- Fall Risk Assessment Last Done: 04/05/24 19:00
*ED COVID-19 Vaccine History Last Done: 04/05/24 18:38
ED- Cardiac Assessment Last Done: 04/05/24 19:00
ED- Neurological Assessment Last Done: 04/05/24 19:00
ED- Pulmonary Assessment Last Done: 04/05/24 19:00
Discharge Date and Time
Print Language: SERBIAN
== END 2024-04-05 23:12 | disposition home or self-care (01) ==
LOC: EMR 18:37
PROVIDERS: EMERGENCY PHYSICIAN Emergency Medicine; FAMILY PHYSICIAN Family Medicine
DX: I10 Essential (primary) hypertension (principal); R42 Dizziness and giddiness; R11.0 Nausea; E11.9 Type 2 diabetes mellitus without complications; E78.00 Pure hypercholesterolemia, unspecified; I38 Endocarditis, valve unspecified; E03.9 Hypothyroidism, unspecified; Z96.651 Presence of right artificial knee joint; Z79.4 Long term (current) use of insulin; Z79.82 Long term (current) use of aspirin; Z88.2 Allergy status to sulfonamides; Z91.041 Radiographic dye allergy status
CPT/HCPCS: 99284; 70450; 80053; 84443; 85025; 93005

== ENCOUNTER 2024-04-16 15:44 | Emergency (ER) | payer MEDICARE, OTHER, SELFPAY ==
[2024-04-16 15:46] VITALS: BP 106/66
[2024-04-16 15:49] LABS: Glucose - Point of Care 181 mg/dl (70-99)
[2024-04-16 16:02] LABS: % Basophils 0.4 % (0-2); % Eosinophils 0.4 % (0-6); % Immature Granulocytes 0.3 % (0-0.5); % Lymphocytes 7.4 % (20.5-51.1); % Monocytes 6.6 % (1.7-9.3); % Neutrophils 84.9 % (42.2-75.2); Absolute Lymphocytes 0.8 10^3/uL (1.2-3.4); Absolute Monocytes 0.7 10^3/uL (0.1-0.6); Absolute Neutrophils 8.7 10^3/uL (1.4-6.5); Hematocrit 38.8 % (37.0-47.0); Hemoglobin 12.8 g/dL (12.0-16.0); Mean Corpuscular Volume 87.8 fL (81.0-99.0); Nucleated Red Blood Cells % 0 %; Platelet Count 184 10^3/uL (130-400); Red Blood Cell Count 4.42 10^6/uL (4.20-5.40); Red Cell Dist. Width 13.8 % (11.5-14.5); White Blood Cell Count 10.2 10^3/uL (4.8-10.8)
[2024-04-16 16:19] LABS: ALT (SGPT) 11 U/L (0-35); AST (SGOT) 17 U/L (14-36); Albumin 3.8 g/dl (3.5-5.0); Alkaline Phosphatase 63 U/L (38-126); Blood Urea Nitrogen 24 mg/dl (7-17); Calcium 9.4 mg/dl (8.4-10.2); Carbon Dioxide 25 mmol/L (22-30); Chloride 104 mmol/L (98-107); Glucose 226 mg/dl (70-99); Potassium 5.2 mmol/L (3.5-5.1); Sodium 136 mmol/L (135-145); Total Bilirubin 0.7 mg/dl (0.2-1.3); Total Protein 6.3 g/dl (6.3-8.2); eGFR 54.19
[2024-04-16] MEDS: NSS 1000 IV (18:35)
[2024-04-16 18:37] VITALS: BP 147/64
[2024-04-16 18:55] LABS: Lipase 59 U/L (23-300)
[2024-04-16 21:45] LABS: Urine Albumin Negative (Neg - Trace); Urine Bilirubin Negative (Negative); Urine Character Clear (Clear); Urine Color Yellow; Urine Glucose Negative (Negative); Urine Ketone 1+ (Negative); Urine Leukocyte 1+ (Negative); Urine Nitrite Negative (Negative); Urine Occult Blood Negative (Negative); Urine Urobilinogen Negative (Neg - 1+)
[2024-04-16 21:55] LABS: Urine Bacteria Moderate (Negative); Urine Red Blood Cell 0-2 /HPF (0-2)
[2024-04-16 22:00] VITALS: BP 141/53
[2024-04-16 23:00] VITALS: BP 122/51
--- NOTE | 2024-04-16 23:06 | ED.GENMED ---
History of Present Illness
General
Chief Complaint: Abdominal Symptoms
Source: patient, family and patient care nursing assistant
Exam Limitations: none
Time Seen by Provider: 04/16/24 17:55
Nursing documentation reviewed up to this point in time: agreed with
History of Present Illness
History of Present Illness:
Patient to ED for n/v/d, hypotension. Symptoms started this AM Denies fever/chills. Denies any SOB, cp/pressure. Has not had anything to eat or drink today due to nausea. 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
Past History
Past History
ED Past Medical History: Hypercholesterolemia, IDDM, Valvular disease and Hypothyroidism
ED Past Surgical History: Cardiac and Orthopedic (Right knee replacement)
Social History
Tobacco: Non-smoker
Alcohol: Occasional
Drug: None
Personal:
Living: with family
Employment: Not employed
Family History
Family History: Other (Noncontributory)
Review of Systems
Review of Systems
Allergies reviewed?: Yes
All Other Systems: ROS reviewed and negative except as documented in HPI and ROS
Constitutional: Reports fatigue
EENT: Reports no symptoms
Respiratory: Reports no symptoms
Cardiac: Reports no symptoms
ABD/GI: Reports abdominal pain, nausea, vomiting and diarrhea
: Reports no symptoms
Musculoskeletal: Reports no symptoms
Skin: Reports no symptoms
Neurological: Reports weakness
Psychiatric: Reports no symptoms
Phy Exam
General Physical Exam
General Presentation: well appearing and no apparent distress
General age: appears stated age
General Skin: warm and dry
General Habitus: normal
General Mental: alert
Cardiovascular Exam
Cardiovascular Exam: regular rate/rhythm and no edema
Pulmonary Exam
Pulmonary Exam: lungs clear and no respiratory distress
Gastrointestinal Exam
Gastrointestinal Exam: normal bowel sounds, soft, no organomegaly, no pulsatile mass, non distended and no cva tenderness
Palpation: generalized: Minimal tenderness
Musculoskeletal Exam
Musculoskeletal Exam: full ROM and neuro vasc intact
Skin Exam
Skin Exam: normal color, warm/dry and no rash
Psychiatric Exam
Psychiatric Exam: normal mood/affect
Course
Orders/Labs/Results
Orders:
Orders
04/16/24 15:55
CMP [Comprehensive Metabolic Panel] Urgent
Complete Blood Count/With Diff Urgent
Lipase Urgent
Comment: ADD ON
04/16/24 18:09
Add On- LAB Urgent
Tests Added?: lipase
0.9% Sodium Chloride 1000 ml [Nss] 1,000 ml IV BOLUS
04/16/24 21:29
Urinalysis Reflex To Culture Urgent
Date Specimen was Collected: 04/16/24
Time Specimen was Collected: 20:15
Urine Microscopic Reflex Cult Urgent
Urine Culture Urgent
THERESA Source: U
Specimen Description:
Date Specimen was Collected: 04/16/24
Time Specimen was Collected: 20:15
04/16/24 21:35
CT Abd/pel Without Iv Or Oral Urgent
Comment:
Reason For Exam: diffuse abd. pain
04/17/24 00:12
Cephalexin Monohydrate [Keflex] 500 mg PO NOW STA
Abnormal Lab Results
04/16/24 04/16/24 04/16/24
15:48 15:55 21:29
MPV 11.0 H fL
(7.4-10.4)
Absolute Neuts (auto) 8.7 H 10^3/uL
(1.4-6.5)
Absolute Lymphs (auto) 0.8 L 10^3/uL
(1.2-3.4)
Absolute Monos (auto) 0.7 H 10^3/uL
(0.1-0.6)
Neutrophils % 84.9 H %
(42.2-75.2)
Lymphocytes % 7.4 L %
(20.5-51.1)
Potassium 5.2 H mmol/L
(3.5-5.1)
BUN 24 H mg/dl
(7-17)
Glucose 226 H mg/dl
(70-99)
Urine Ketones 1+ A
(Negative)
Leukocyte Esterase Rfl 1+ A
(Negative)
Urine WBC (Reflex) 11-15 A /HPF
(0-5)
Urine Bacteria (Reflex) Moderate A
(Negative)
POC Glucose 181 H mg/dl
(70-99)
04/16/24 15:55
04/16/24 15:55
Vital Signs
Initial and Last Documented VS:
Initial Vital Signs
Temp Pulse Resp BP Pulse Ox
98.7 F 98 20 106/66 98
04/16/24 15:46 04/16/24 15:46 04/16/24 15:46 04/16/24 15:46 04/16/24 15:46
Last Documented Vital Signs
Temp Pulse Resp BP Pulse Ox
98.7 F 78 18 133/56 97
04/16/24 15:46 04/17/24 00:30 04/17/24 00:30 04/17/24 00:30 04/17/24 00:30
*Radiology
Radiology exam reviewed: radiology read reviewed
*Pulse Oximetry
Patient hypoxic: no
*Critical Care Note
Total Time (30-74mins, 75-104mins- exclusive of procedures): Not Applicable
ED Attending Note
-
Portions of this chart may have been created with voice recognition software.� Occasional wrong word or��sound alike� substitutions may have occurred due to the inherent limitations of voice recognition software.
Discharge Plan
Departure
Patient Disposition: Home (Routine Discharge)
Patient with high blood pressure during this ER visit?: No
Condition: Good
Covid-19: Not Applicable
Discharge Problem:
Vomiting and diarrhea
Instructions: Diarrhea in teens and adults, Dehydration, Adult (DC), Nausea and Vomiting, Adult (DC)
Prescriptions:
New
cephalexin 500 mg capsule
500 mg PO BID 7 Days Qty: 14 0RF
No Action
simvastatin 20 MG tablet
20 mg PO HS
insulin glargine U-300 conc [Toujeo SoloStar U-300 Insulin] 300 unit/mL (1.5 mL) Insulin Pen
12 unit SC HS
metformin 500 mg Tablet Extended Release 24 Hr
1,000 mg PO DAILY
Hold Instructions: Resume on 01/22/23. Hold Tuesday01/21/23. Restart as previously taking on Tuesday01/22/23 in AM.
mirabegron [Myrbetriq] 50 mg Tablet Extended Release 24 Hr
50 mg PO DAILY
levothyroxine [Synthroid] 75 mcg Tablet
75 mcg PO DAILY
calcium carbonate-vitamin D3 [Calcium 500 + D] 500 mg-10 mcg (400 unit) Tablet
1 tab PO DAILY
aspirin 81 mg tablet,chewable
81 mg PO DAILY
escitalopram oxalate 10 mg tablet
10 mg PO DAILY
acetaminophen [Tylenol Extra Strength] 500 mg tablet
1,000 mg PO TIDPRN PRN (Reason: mild pain)
ibuprofen 200 mg tablet
200 mg PO Q6HPRN PRN (Reason: mild pain)
insulin aspart U-100 [Novolog FlexPen U-100 Insulin] 100 unit/mL (3 mL) insulin pen
6 unit SC BID@1130,1730
Patient Comments:
04/05/2024: Before Lunch & Dinner
meclizine 25 mg tablet
25 mg PO TID PRN (Reason: dizziness) Qty: 20 0RF
Referrals:
Ryne West MD [Family Provider] - Tomorrow
Interventions
Interventions:
*Risk Screen - Suicide Last Done: 04/16/24 15:46
*General Assessment Last Done: 04/16/24 15:46
*Neglect/Abuse Screening Last Done: 04/16/24 15:46
ED- Fall Risk Assessment Last Done: 04/16/24 19:00
*ED COVID-19 Vaccine History Last Done: 04/16/24 19:00
*Nursing Disposition Last Done: 04/17/24 02:50
NU-Ltnlvm-Jjedyalotv Assessment Last Done: 04/16/24 19:00
Discharge Date and Time
Discharge Date/Time: 04/17/24 02:51
Print Language: [place]
[2024-04-17 00:30] VITALS: BP 133/56
[2024-04-17] MEDS: KEFLEX 500 MG PO (02:04)
== END 2024-04-17 02:51 | disposition home or self-care (01) ==
LOC: EMR 15:44
PROVIDERS: Emergency Medicine; Nurse Practitioner; EMERGENCY PHYSICIAN Student in an Organized Health Care Education/Training Program; FAMILY PHYSICIAN Family Medicine
DX: R19.7 Diarrhea, unspecified (principal); R11.2 Nausea with vomiting, unspecified; I95.9 Hypotension, unspecified; E11.9 Type 2 diabetes mellitus without complications; E78.00 Pure hypercholesterolemia, unspecified; E03.9 Hypothyroidism, unspecified; N32.81 Overactive bladder; M19.90 Unspecified osteoarthritis, unspecified site; F41.9 Anxiety disorder, unspecified; Z95.2 Presence of prosthetic heart valve; Z88.2 Allergy status to sulfonamides; Z91.041 Radiographic dye allergy status; Z79.82 Long term (current) use of aspirin
CPT/HCPCS: 99284; 96360; 74176; 80053; 81003; 81015; 82962; 83690; 85025; 87086

== ENCOUNTER 2024-07-20 11:56 | Inpatient (IN) | payer MEDICARE, OTHER, SELFPAY ==
[2024-07-20] VITALS (51 sets, daily range): BP systolic 75–129; BP diastolic 35–90; BMI 17.5
[2024-07-20] MEDS: LR 1000 IV ×2 (09:50→11:20)
[2024-07-20] MEDS: CARDIZEM 125 IV ×2 (09:50→19:17)
[2024-07-20 09:51] LABS: Glucose - Point of Care > 600 mg/dl (70-99)
--- NOTE | 2024-07-20 10:08 | ED.GENMED ---
History of Present Illness
General
Chief Complaint: Heart Rate Problem
Time Seen by Provider: 07/20/24 09:34
History of Present Illness
History of Present Illness:
80-year-old female with history of insulin-dependent diabetes and aortic stenosis status post TAVR presents to the emergency department via EMS for eval ration of elevated heart rate and undetectably high blood sugar. Patient notes that she had a
cortisone injection in the right shoulder earlier this week and feels this caused her high sugars. Per EMS the patient's heart rates exceeded 200 and her blood pressure was undetectable, blood glucose was reading as high.,. Normal she lethargic
but oriented fully
Past History
Past History
ED Past Medical History: Hypercholesterolemia, IDDM, Valvular disease and Hypothyroidism
ED Past Surgical History: Cardiac and Orthopedic (Right knee replacement)
Social History
Tobacco: Non-smoker
Alcohol: Occasional
Drug: None
Personal:
Living: with family
Employment: Not employed
Family History
Family History: Other (Noncontributory)
Review of Systems
Review of Systems
Allergies reviewed?: Yes
All Other Systems: ROS reviewed and negative except as documented in HPI and ROS
Phy Exam
Physical Exam
Physical Exam:
GEN: Toxic appearing, lethargic but answers questions appropriately
Eyes: PERRLA, EOMs intact, no scleral icterus
HENT: NCAT, oral mucosa dry
Lungs: Tachypneic and hypercapnic, lungs clear to auscultation
Cardiac: Markedly tachycardic, thready radial pulses, nonpalpable DP pulses
Abdomen: Soft/flat, nontender
Neuro: Lethargic, answers questions appropriately, moves all extremities freely
MSK: No gross deformity or ecchymosis. No edema.
Skin: No rashes, petechiae. Normal color, no pallor or jaundice.
Psych: Calm, cooperative, proper hygiene
Course
Orders/Labs/Results
Orders:
Orders
07/20/24
Electrocardiogram (*1) Stat
Comment: DONE EMR
07/20/24 09:45
Diltiazem 125 mg/125 ml Nss [Cardizem] 125 mg in 125 ml IV PER PROTOCOL
Initial dose in mg/hr, then titrate:: 5
Titrate to keep:: Heart rate 80-100 bpm
Titrate by mg/hr:: 5 mg/hr
Frequency of titrations (minutes):: 15
Maximum dose in mg/hr:: 15
Lactated Ringers [Lr] 1,000 ml IV BOLUS
07/20/24 09:50
Diltiazem 125 mg/125 ml Nss [Cardizem] 125 mg in 125 ml .ROUTE .STK-MED
07/20/24 09:57
Acetone [B-Hydroxybutyrate] Urgent
Complete Blood Count/With Diff Urgent
Comprehensive Metabolic Panel Urgent
Lactic Acid Urgent
Venous Blood Gas Urgent
%Oxygen/Room Air: 98
07/20/24 10:28
CR Chest Portable - 1 View Urgent
Comment:
Reason For Exam: SOB
Reason Study Needs to be Portable: Patient Unstable
07/20/24 10:37
Bedside Glucose- Treatment Q1H
IV Insert/Care/Rem.- Treatment PRN
Cefepime HCl [Maxipime] 2,000 mg IV NOW STA
Insulin Human Regular [Novolin R] 4 units IV NOW STA
Reg Insulin 100 Units/100 ml [Novolin R Insulin Infusion] 100 units in 100 ml IV NOW
Sodium Bicarbonate 100 meq Sterile Water For Inj [Sterile Water For Injection 500 ml] 400 ml IV ONCE
07/20/24 10:38
Lactated Ringers [Lr] 1,000 ml IV BOLUS
07/20/24 10:45
Basic Metabolic Panel Q2H
07/20/24 10:[address] Non Medication Order As Directed
Physician Order: PTT 6 hours after initial start of Heparin infusion
07/20/24 10:59
Granda Placement- Treatment ONCE
Reason for insertion: I&O's Critical Care
07/20/24 11:00
Heparin 26492 Units/250 ml 25,000 units in 250 ml IV PER PROTOCOL
Weight to be used for heparin protocol in kilograms (kg):: 42.1
Protocol:: Cardiac Tx/Acute Coronary
PTT Goal Range to be used:: PTT 73 to 111 seconds
Order type:: Initial
INITIAL Infusion Dose (UNITS/KG/hr) & then follow protocol:: 12 units/kg/hr
Infusion Dose in UNITS/hr & then follow protocol (UNITS/hr):: 500
INFUSION RATE in mL/hr & then follow protocol (mL/hr):: 5
PTT less than or equal to 64 seconds:: Increase rate by 200 units/hr (+ 2 mL/hr)
PTT 64.1 to 72.9 seconds:: Increase rate by 100 units/hr (+ 1 mL/hr)
PTT 73 to 111 seconds:: Target Range. No change in rate.
PTT 111.1 to 130.9 seconds:: Decrease rate by 100 units/hr (- 1 mL/hr)
PTT 131 to 199.9 seconds:: HOLD for 1 hr. Then decrease rate by 200 units/hr (- 2 mL/hr)
PTT greater than or equal to 200 seconds:: HOLD for 2 hrs & Notify Provider. Then decrease by 200 units/hr (-
2 mL/hr)
Lab follow-up:: Each change, PTT q6h until 2 consecutive are therapeutic. Then PTT
daily.
07/20/24 11:23
PTT Urgent
Comment: Obtain baseline before beginning heparin infusion if not already collected
Blood Culture Routine
THERESA Source: Blood/Venous
Specimen Description:
Blood Culture Urgent
THERESA Source: Blood/Venous
Specimen Description:
07/20/24 11:28
0.9% Sodium Chloride 1000 ml [Nss] 1,000 ml IV BOLUS
07/20/24 11:40
Admit/Transfer Patient As Directed
Co-Sign Provider:
Level of Care: Inpatient admission
Assign to:: ICU
Physician / Group: Hospitalist
Diagnosis: DKA
Reason for Hospitalization: .
Expected length of stay greater than two midnights?: Yes
ELOS- Estimated Length of Stay in days: 3
I certify the patient meets the requirements for IP care: Yes
PRN Pain Medication Management As Directed
May give lesser potent ordered pain med per pt: Yes
preference::
Protocol:: Medication orders for pain may be administered in a
manner that supports deferring to patient preference
when the pt is:
- Requesting an ordered lesser potent pain medication.
Least to most potent pain medications are defined
as: acetaminophen < NSAID < tramadol < opioids
(morphine, oxycodone, hydromorphone).
- Requesting a lesser dose of the same medication IF
ORDERED.
- Requesting a less intrusive route of administration
if both routes are prescribed by the provider (PO <
IV).
07/20/24 11:41
Code Status As Directed
Resuscitation Status: Do not resuscitate
Reached after discussion with pt or family/Healthcare POA: Yes
DNR Bracelet Application ONCE
07/20/24 11:44
Consult Cardiology [CARDIOLOGY CONSULT] Routine
Consulting Provider: Cesar Keys
Was physician already notified: Yes
Reason for consult: Afib
Consult Resistance Welder [Resistance Welder Consult] Routine
Consulting Provider: Liana Gaffney
Was physician already notified: Yes
Reason for consult: DKA
Urinalysis Reflex To Culture Urgent
Date Specimen was Collected: 07/20/24
Time Specimen was Collected: 11:43
Urine Microscopic Reflex Cult Urgent
Urine Culture Urgent
THERESA Source: U
Specimen Description:
Date Specimen was Collected: 07/20/24
Time Specimen was Collected: 11:43
07/20/24 12:33
Basic Metabolic Panel Q2H
07/20/24 13:54
0.9% Sodium Chloride 1000 ml [Nss] 1,000 ml IV 250 mls/hr
Reg Insulin 100 Units/100 ml [Novolin R Insulin Infusion] 100 units in 100 ml IV PER PROTOCOL
Currently infusing. Continue current dose and titrate:: Yes
07/20/24 13:54
Bedside Glucose Monitoring As Directed
Frequency: Q1H
Notify MD As Directed
Notify physician if: Nurse to contact provider when glucose reaches 250 to obtain orders for D5 0.45 NaCl
Weight As Directed
Frequency: Daily
07/20/24 14:00
Potassium Q2
Comment: report result to provider till Potassium >/= 3.3 to 5.3 mEq/L
07/20/24 14:19
Basic Metabolic Panel Q2H
07/20/24 16:00
Potassium Q2
Comment: report result to provider till Potassium >/= 3.3 to 5.3 mEq/L
07/20/24 18:00
Potassium Q2
Comment: report result to provider till Potassium >/= 3.3 to 5.3 mEq/L
07/20/24 20:00
Potassium Q2
Comment: report result to provider till Potassium >/= 3.3 to 5.3 mEq/L
07/20/24 22:00
Potassium Q2
Comment: report result to provider till Potassium >/= 3.3 to 5.3 mEq/L
07/21/24 00:00
Potassium Q2
Comment: report result to provider till Potassium >/= 3.3 to 5.3 mEq/L
07/21/24 02:00
Potassium Q2
Comment: report result to provider till Potassium >/= 3.3 to 5.3 mEq/L
07/21/24 04:00
Potassium Q2
Comment: report result to provider till Potassium >/= 3.3 to 5.3 mEq/L
Abnormal Lab Results
07/20/24 07/20/24 07/20/24
09:49 09:57 11:44
WBC 20.3 H 10^3/uL
(4.8-10.8)
MCHC 31.8 L g/dL
(33.0-37.0)
MPV 10.8 H fL
(7.4-10.4)
Abs Immat Gran (auto) 0.6 H 10^3/uL
(0-0.05)
Absolute Neuts (auto) 18.3 H 10^3/uL
(1.4-6.5)
Absolute Lymphs (auto) 0.8 L 10^3/uL
(1.2-3.4)
Immature Gran % 2.7 H %
(0-0.5)
Neutrophils % 90.3 H %
(42.2-75.2)
Lymphocytes % 4.1 L %
(20.5-51.1)
VBG pH 6.90 L*
(7.32-7.43)
VBG pO2 63 H mmHg
(30-50)
VBG HCO3 6.9 L mmol/L
(22-27)
Potassium 6.1 H* mmol/L
(3.5-5.1)
Carbon Dioxide < 5 L* mmol/L
(22-30)
BUN 37 H mg/dl
(7-17)
Creatinine 1.4 H mg/dL
(0.6-1.0)
Glucose 765 H* mg/dl
(70-99)
Lactic Acid 5.4 H* mmol/L
(0.7-2.0)
Urine Ketones 3+ A
(Negative)
Leukocyte Esterase Rfl Trace A
(Negative)
Urine WBC (Reflex) 11-15 A /HPF
(0-5)
Urine Glucose 3+ A
(Negative)
B-Hydroxybutyrate > 9.0 H mmol/L
(0.02-0.27)
POC Glucose > 600 H* mg/dl
(70-99)
07/20/24 09:57
Vital Signs
Initial and Last Documented VS:
Initial Vital Signs
Temp Pulse Resp BP
98 F 170 18 88/62
07/20/24 09:38 07/20/24 09:38 07/20/24 09:38 07/20/24 09:38
Last Documented Vital Signs
Temp Pulse Resp BP Pulse Ox
98 F 134 20 121/64 100
07/20/24 09:38 07/20/24 13:45 07/20/24 13:45 07/20/24 13:30 07/20/24 13:45
MDM/Problems Addressed
MDM/Problems Addressed:
88-year-old female presenting via EMS markedly unstable with heart rate exceeding 160-200 on occasion and low blood pressure. She was noted to be markedly hyperglycemic prehospital. Although this is a new onset of A-fib she is not appropriate
cardioversion candidate due to underlying metabolic derangements. She was started on aggressive IV fluid control and due to markedly elevated heart rates a low-dose Cardizem drip was started with moderate improvement in heart rates as well as
systolic blood pressure. After resolution of VBG and CMP, the patient was started promptly on IV sodium bicarb infusion as well as insulin drip, and a bolus was given due to the hyperkalemia. Lastly heparin was initiated due to the patient being
in a persistent atrial fibrillation. She was admitted to the intensive care unit for further management.
Comment
Comment:
Initial EKG independently interpreted by me shows a rapid atrial fibrillation with diffuse ST depressions consistent with subendocardial injury
*Critical Care Note
Total Time (30-74mins, 75-104mins- exclusive of procedures): 85 minutes
comment:
Critical care time: 85 minutes
Critical care time was exclusive of: Separately billable procedures, treating other patients, and teaching time
Critical care was necessary to treat or prevent imminent or life-threatening deterioration of the following conditions: DKA, unstable rapid atrial fibrillation, metabolic acidosis, hyperkalemia
Critical care time spent personally by me on the following activities:
[x] Review of old charts
[x] Obtaining history from patient or surrogate
[x] Ordering and review of the laboratory studies
[x] Ordering and review of radiographic studies
[x] Ordering and performing treatments and interventions
[x] Patient patient's response to treatment
[x] Development of treatment plan with patient or surrogate
ED Attending Note
-
Portions of this chart may have been created with voice recognition software.� Occasional wrong word or��sound alike� substitutions may have occurred due to the inherent limitations of voice recognition software.
Discharge Plan
Departure
Patient Disposition: Admit
Date of Disposition: 07/20/24
Time of Disposition: 10:55
Admit to: ICU
Presentation/result/management discussed w/ accepting MD/DO: Hospitalist
Discharge Problem:
DKA (diabetic ketoacidosis), Atrial fibrillation with RVR
Interventions
Interventions:
*Risk Screen - Suicide Last Done: 07/20/24 10:30
*General Assessment Last Done: 07/20/24 09:38
*Neglect/Abuse Screening Last Done: 07/20/24 09:38
*ED COVID-19 Vaccine History Last Done: 07/20/24 10:30
*Nursing Disposition Last Done: 07/20/24 14:00
ED- Cardiac Assessment Last Done: 07/20/24 10:30
ED- Pulmonary Assessment Last Done: 07/20/24 10:30
Discharge Date and Time
Discharge Date/Time: 07/20/24 14:01
[2024-07-20 10:11] LABS: % Basophils 0.4 % (0-2); % Immature Granulocytes 2.7 % (0-0.5); % Lymphocytes 4.1 % (20.5-51.1); % Monocytes 2.5 % (1.7-9.3); % Neutrophils 90.3 % (42.2-75.2); Absolute Basophils 0.1 10^3/uL (0-0.2); Absolute Immature Granulocytes 0.6 10^3/uL (0-0.05); Absolute Lymphocytes 0.8 10^3/uL (1.2-3.4); Absolute Monocytes 0.5 10^3/uL (0.1-0.6); Absolute Neutrophils 18.3 10^3/uL (1.4-6.5); Hematocrit 42.8 % (37.0-47.0); Hemoglobin 13.6 g/dL (12.0-16.0); Mean Corp Hgb Conc. 31.8 g/dL (33.0-37.0); Mean Corpuscular Hgb 30.1 pg (27.0-31.0); Mean Corpuscular Volume 94.7 fL (81.0-99.0); Mean Platelet Volume 10.8 fL (7.4-10.4); Nucleated Red Blood Cells % 0 %; Platelet Count 330 10^3/uL (130-400); Red Blood Cell Count 4.52 10^6/uL (4.20-5.40); Red Cell Dist. Width 13.4 % (11.5-14.5); Venous Blood Gas B.E. -25.6 mmol/L (-4 to +4); Venous Blood Gas HCO3 6.9 mmol/L (22-27); Venous Blood Gas O2 Sat % 91.4 %; Venous Blood Gas pCO2 35 mmHg (35-48); Venous Blood Gas pO2 63 mmHg (30-50); White Blood Cell Count 20.3 10^3/uL (4.8-10.8)
[2024-07-20 10:37] LABS: ALT (SGPT) 20 U/L (0-35); AST (SGOT) 22 U/L (14-36); Albumin 4.5 g/dl (3.5-5.0); Alkaline Phosphatase 94 U/L (38-126); Blood Urea Nitrogen 37 mg/dl (7-17); Carbon Dioxide < 5 mmol/L (22-30); Chloride 99 mmol/L (98-107); Estimated Creatinine Clearance 18 ml/min; Potassium 6.1 mmol/L (3.5-5.1); Sodium 137 mmol/L (135-145); Total Bilirubin 0.5 mg/dl (0.2-1.3); Total Protein 6.5 g/dl (6.3-8.2); eGFR 36.19
[2024-07-20 10:38] LABS: Lactic Acid 5.4 mmol/L (0.7-2.0)
[2024-07-20] MEDS: MAXIPIME 2000 MG IV (11:04)
[2024-07-20] MEDS: NOVOLIN R 4 UNITS IV (11:09)
[2024-07-20 11:18] LABS: Glucose 765 mg/dl (70-99)
[2024-07-20] MEDS: NOVOLIN R INSULIN INFUSION 100 IV (11:27)
[2024-07-20] MEDS: HEPARIN 25000 UNITS/250 ML IV (11:29)
[2024-07-20 11:30] LABS: B-Hydroxybutyrate > 9.0 mmol/L (0.02-0.27)
[2024-07-20] MEDS: NSS 1000 IV ×2 (11:31→14:29)
--- NOTE | 2024-07-20 11:40 | HPS.HSE ---
Family Physician
-
Family Physician: Ryne West
Chief Complaint
-
Nausea vomiting with hyperglycemia
History of Present Illness
88 years old female was brought in from home. Patient's caregiver noticed that the patient was having dehydration, vomiting and hyperglycemia. Patient reported that she had diarrhea for 3 days and started to have vomiting last night. She felt
dehydrated with severe weakness. No fevers. No abdominal pain, bloody diarrhea or chest pain. Upon presentation to the ER, she was found in hyperglycemia with acidosis and diagnosed with diabetic ketoacidosis. She was found also rapid atrial
fibrillation started on Cardizem and intravenous heparin. Family reported significant weight loss after of her . Ambulatory dysfunction and recent cortisone injection to the right shoulder for osteoarthritis.
Medical History
Past Medical History
Past Medical History: Reports Other (Gait dysfunction, osteoarthritis, chronic diastolic heart failure, status post TAVR, mitral regurgitation, hyponatremia, diabetes, hypothyroidism, chronic urinary incontinence, weight loss)
Past Surgical History: Reports Other (No recent major surgery)
Social History
Tobacco: Non-smoker
Alcohol: None
Drug: None
Personal:
Living: Alone (With caregiver)
Employment: Retired
Family History
Family History: Not pertinent
Allergies / Home Medications
Allergies reflects when Allergies were last updated in [employer].
Home Medications with original date entered in [employer]
Allergy/Medication List:
Allergies
Allergy/AdvReac Type Severity Reaction Status Date / Time
Iodinated Contrast Media Allergy Severe Verified 04/16/24 15:45
Prolonged
Itching
Sulfa (Sulfonamide Allergy Rash Verified 04/16/24 15:45
Antibiotics)
Home Medications
simvastatin 20 mg tablet 20 mg PO HS High cholesterol 07/03/12
insulin glargine U-300 conc 300 unit/mL (1.5 mL) subcutaneous pen (Toujeo SoloStar U-300 Insulin) 8 unit SC HS Diabetes 12/03/22
metformin 500 mg tablet,extended release 24 hr 1,000 mg PO DAILY Diabetes 01/10/23
mirabegron 50 mg tablet,extended release 24 hr (Myrbetriq) 50 mg PO DAILY Urinary issue 01/10/23
aspirin 81 mg chewable tablet 81 mg PO DAILY Blood Clot Prevention/Tx 12/22/23
calcium 500 mg (as carbonate)-vitamin D3 10 mcg (400 unit) tablet (Calcium 500 + D) 1 tab PO DAILY Supplement 12/22/23
levothyroxine 75 mcg tablet (Synthroid) 75 mcg PO DAILY Thyroid 12/22/23
acetaminophen 500 mg tablet (Tylenol Extra Strength) 1,000 mg PO TIDPRN PRN mild pain 04/05/24
escitalopram oxalate 10 mg tablet 10 mg PO DAILY 04/05/24
insulin aspart U-100 100 unit/mL (3 mL) subcutaneous pen (Novolog FlexPen U-100 Insulin aspart) 6 unit SC AC Diabetes 04/05/24
Review of Systems
-
History Source: Patient
A 12 point ROS was completed and negative except as noted: Yes
Constitutional: Reports Weight Loss; Denies Fever
EENT: Denies Sore Throat
Respiratory: Denies Cough
Cardiac: Denies Chest Pain
Abdomen/GI: Reports Vomiting, Diarrhea (None blood) and Anorexia
: Reports Frequency
Musculoskeletal: Reports Joint Pain (Right shoulder) and Muscle Pain
Skin: Denies Rash
Neurological: Reports Weakness
Endocrine: Denies Temp Intolerance
Hematologic/Lymphatic: Denies Bruising
Psych: Denies Panic Disorder
Physical Exam
Vital Signs
Vital Signs
Temp Pulse Resp BP
98 F 170 18 88/62
07/20/24 09:38 07/20/24 09:38 07/20/24 09:38 07/20/24 09:38
Physical Exam
General: Poor Appetite, Appears Chronically Ill and Cachectic
HEENT: Other (Dry mucous membrane, no deformities)
Respiratory: Decreased Breath Sounds
Cardiac: S1/S2, Irregular Rhythm and Tachycardia
GI: Soft, Non Tender and Non Distended
Genito-urinary: No costovertebral tender
Musculoskeletal: No Cyanosis and No Edema
Skin: No Decubitus Ulcers
Neuro: AO x 3 and Nonfocal/grossly intact
Psych: Calm; No Agitated
Laboratory Results
-
07/20/24 09:57
Laboratory Results
Lactic Acid 5.4 mmol/L (0.7-2.0) H* 07/20/24 09:57
Total Bilirubin 0.5 mg/dl (0.2-1.3) 07/20/24 09:57
AST 22 U/L (14-36) 07/20/24 09:57
ALT 20 U/L (0-35) 07/20/24 09:57
Alkaline Phosphatase 94 U/L (38-126) 07/20/24 09:57
Impression/Plan
-
88 years old female presented diabetic ketoacidosis, acute kidney injury, metabolic acidosis hyperkalemia, atrial fibrillation, leukocytosis, history of nausea/vomiting/diarrhea for a few days duration a
Assessment and plan
# Diabetic ketoacidosis /history of diabetes/insulin-dependent diabetes
Likely precipitated by gastrointestinal etiology versus others
Patient reported history of diarrhea 3 days before the admission with vomiting last 24 hours
Admit the patient to ICU
Start the patient on intravenous insulin drip, Accu-Chek every hour, DKA protocol
Start the patient on intravenous fluid normal saline for now monitor. Potassium and glucose level and adjust fluid appropriately
Blood culture, urine culture
Empiric cefepime given.
Treatment for atrial fibrillation, IV fluid for hypotension.
Check hemoglobin A1c
Consult ICU doctor
# Lactic acidosis/leukocytosis/nausea vomiting, sepsis/septic shock present on admission
So far she meets the criteria for sepsis, until we rule out infectious source, will consider it as sepsis.
Etiology possibly gastrointestinal versus others
No history of cough or respiratory problem. Chest radiography, no active cardiopulmonary disease.
History of nausea/vomiting/diarrhea
No history of dysuria although she has chronic incontinence, follow-up with urine culture
Follow-up with blood culture
Empiric cefepime and vancomycin
Stool testing
Hold metformin, continue with insulin treatment for diabetes
# New onset atrial fibrillation with rapid ventricular response
No history of atrial fibrillation before.
EKG consistent with atrial fibrillation. Some nonspecific ST changes noted
Check troponin
Patient denies chest pain today or in the last few days
Start the patient on intravenous Cardizem as blood pressure tolerates.
Intravenous heparin for stroke prevention. [id number] around 6
Will consult cardiology
# Acute kidney injury, metabolic acidosis/lactic acidosis
Secondary to diabetic ketoacidosis
Start the patient on intravenous fluid, bladder scan, insert Granda for input/output monitoring
Avoid nephrotoxic
Check urine sodium
Avoid potassium containing fluids
# Hyperkalemia
Treat DKA, recheck potassium level. Intravenous insulin will help drive potassium lower.
#History of significant osteoarthritis with recent cortisone injection to right shoulder
History of falls/chronic rib fractures/chronic compression deformities
Follow precautions
Bedrest while critically ill
Eventual PT/OT
# Status post TAVR 2021
Last echo in January 2024 showed well-seated TAVR with peak/mean gradients across the aortic valve at 25/14 mmHg. Trace echo aortic regurgitation.
#Chronic diastolic CHF
Follows with [facility]
She is not in acute failure
Last echo in January 2024 showed LVEF 68%, mild to moderate MR, dilated left atrium, well-seated TAVR, mild aortic regurgitation, mild tricuspid regurgitation, pulmonary artery pressure of 40 mmHg, dilated right atrium.
Currently she is volume depleted, will continue with IV fluid and monitor volume status closely
#Hypothyroidism
-Continue levothyroxine
# Chronic urinary frequency/incontinence
-Continue Myrbetriq when appropriate
# Code status, DNR
Confirmed with family
DVT prophylaxis
Subcu heparin
Total critical time spent to see the patient, examine the patient on the floor, review data and lab results, discuss treatment plan with patient, her son at bed side, daughter on the phone, nursing staff and ER doctor around 85 minutes
[2024-07-20 11:51] LABS: APTT 23.8 Sec (23.4-35.0)
[2024-07-20 12:00] LABS: Urine Albumin Trace (Neg - Trace); Urine Bilirubin Negative (Negative); Urine Character Clear (Clear); Urine Color Yellow; Urine Glucose 3+ (Negative); Urine Ketone 3+ (Negative); Urine Leukocyte Trace (Negative); Urine Nitrite Negative (Negative); Urine Occult Blood Negative (Negative); Urine Specific Gravity 1.015 (<1.030); Urine Urobilinogen Negative (Neg - 1+)
[2024-07-20 12:11] LABS: Urine Hyaline Cast 0-2 /LPF (0-2); Urine Squamous Cell 0-2 /LPF (Few)
[2024-07-20 12:12] LABS: Urine Red Blood Cell None Seen /HPF (0-2)
[2024-07-20] MEDS: SODIUM BICARBONATE 500 MEQ IV (12:19)
[2024-07-20 12:52] LABS: Glucose - Point of Care > 600 mg/dl (70-99)
[2024-07-20] MEDS: ZOFRAN 4 MG IV (13:09)
--- NOTE | 2024-07-20 13:27 | CON.INTV ---
Consultation
Consultation Request
Date/Time Consultation Requested: 07/20/24
Date/Time Consultation Performed: 07/20/24
Performing Provider: Yeimy
Reason for Consultation: ICU
Medical History
-
History of Present Illness:
Patient patient is an 88-year-old female with previous history of chronic diastolic heart failure, TAVR, MR, diabetes brought in from home for dehydration, vomiting and hyperglycemia. Patient reported that she had diarrhea for the past 3 days and
then started to have vomiting overnight. She has severe weakness. She has not eaten over the past 2 months following the of her . She has lost 29 pounds unintentionally. Upon presentation to the ER, she was notably in DKA with
severe acidosis. She has rapid A-fib with RVR started on Cardizem and IV heparin. She admits to severe depression but does not want to seek psychiatric evaluation. She does not wish to continue eating, but has declined artificial means for
nutrition. She received 3L in ER and is started on an insulin drip. She is admitted to ICU with DKA.
.
Allergies / Home Medications
Allergies
Allergy/AdvReac Type Severity Reaction Status Date / Time
Iodinated Contrast Media Allergy Severe Verified 04/16/24 15:45
Prolonged
Itching
Sulfa (Sulfonamide Allergy Rash Verified 04/16/24 15:45
Antibiotics)
Home Medications
�Medication �Instructions �Recorded �Confirmed �Last Taken �Type
simvastatin 20 mg tablet 20 mg PO HS High cholesterol 07/03/12 07/20/24 07/19/24 History
insulin glargine U-300 conc 300 8 unit SC HS Diabetes 12/03/22 07/20/24 07/19/24 History
unit/mL (1.5 mL) subcutaneous pen
(Toujeo SoloStar U-300 Insulin)
metformin 500 mg tablet,extended 1,000 mg PO DAILY Diabetes 01/10/23 07/20/24 07/19/24 History
release 24 hr
mirabegron 50 mg tablet,extended 50 mg PO DAILY Urinary issue 01/10/23 07/20/24 07/19/24 History
release 24 hr (Myrbetriq)
aspirin 81 mg chewable tablet 81 mg PO DAILY Blood Clot 12/22/23 07/20/24 07/19/24 History
Prevention/Tx
calcium 500 mg (as 1 tab PO DAILY Supplement 12/22/23 07/20/24 07/19/24 History
carbonate)-vitamin D3 10 mcg (400
unit) tablet (Calcium 500 + D)
levothyroxine 75 mcg tablet 75 mcg PO DAILY Thyroid 12/22/23 07/20/24 07/19/24 History
(Synthroid)
acetaminophen 500 mg tablet 1,000 mg PO TIDPRN PRN mild pain 04/05/24 07/20/24 Unknown History
(Tylenol Extra Strength)
escitalopram oxalate 10 mg tablet 10 mg PO DAILY 04/05/24 07/20/24 07/19/24 History
insulin aspart U-100 100 unit/mL 6 unit SC AC Diabetes 04/05/24 07/20/24 07/19/24 History
(3 mL) subcutaneous pen (Novolog
FlexPen U-100 Insulin aspart)
Review of Systems
Vitals / Labs / Diagnostic Testing
Vital Signs
Temp Pulse Resp BP
98 F 170 18 88/62
07/20/24 09:38 07/20/24 09:38 07/20/24 09:38 07/20/24 09:38
Lab Data
07/20/24 09:57
Laboratory Results
07/20/24
11:23
APTT 23.8
Diagnostic Testing:
Assessment
-
Patient patient is an 88-year-old female with previous history of chronic diastolic heart failure, TAVR, MR, diabetes brought in from home for dehydration, vomiting and hyperglycemia. Patient reported that she had diarrhea for the past 3 days and
then started to have vomiting overnight. She has severe weakness. She has not eaten over the past 2 months following the of her . She has lost 29 pounds unintentionally. Upon presentation to the ER, she was notably in DKA with
severe acidosis. She has rapid A-fib with RVR started on Cardizem and IV heparin. She admits to severe depression but does not want to seek psychiatric evaluation. She does not wish to continue eating, but has declined artificial means for
nutrition. She received 3L in ER and is started on an insulin drip. She is admitted to ICU with DKA.
DKA
Severe HAGMA
Poor po intake, with unintentional weight loss of 29lbs in the past few months
Severe depression w/ FTT
Leukocytosis
Hyperkalemia
TIMOTHY, creatinine 1.4 (baseline 0.6)
Lactic acidosis
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
Gait dysfunction s/p fall with hip/rib fx
Osteoarthritis
Chronic diastolic heart failure
status post TAVR
Mitral regurgitation
Hyponatremia
Diabetes
Hypothyroidism
Chronic urinary incontinence
Plan
Currently awake/mentating--can answer appropriately
Psychiatric history noted above including severe depression but has not sought treatment
She has stopped eating/does not want to eat moving forward
Denies pain at this time.
Pain/sedation: PRN
RASS goals: 0
Fall risk, multiple fx in past
Hemodynamically stable, not requiring pressors.
Cardiac history reviewed--HTN, TAVR, MR, chronic HF
Prior ECHO reviewed indicating stage II DD
Resume home meds as tolerated
Afib wtih RVR, cards eval, on cardizem gtt
Monitor on telemetry
Oxygen needs: stable on RA
Prior history of lung disease: none
Supplemental O2 as indicated to maintain sats > 89%
CXR/CT reviewed indicating NAD
NPO, resume diet oer DKA protocol
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
Aspiration precautions, HOB > 30 degrees
Speech therapy eval can be considered if at elevated risk
GI prophylaxis if indicated for mechanical ventilation >48 hours, prior history of GERD, stress ulcer formation in the critically ill
She has declined PO intake but has also declined tube feeding, this was discussed with family at bedside
TIMOTHY present
Creat at baseline, 0.6
No history of renal disease
Void trials
Follow urine output, critical I/Os
Replete electrolytes as needed
Given IVFs in ER, 3L
Repeat labs
No signs/symptoms suspicious for infectious etiology at this time
Would observe off antibiotics for now
Follow fever trend, WBC count
Lactate elevated on admission, continue to trend until <2
CBC stable, no signs of bleeding or coagulopathy.
DVT prophylaxis as assessed based on risk, including mechanical SCDs
Can transfuse if indicated for Hb <7, plt < 10
INR WNL
DKA, on insulin
H/o diabetes, can bridge when able
HbA1c 7.1
H/o hypothyroidism, can continue on home synthroid dose
Discussed with family at bedside
Will discuss as family
She is DNR now
Diagnostic Data
Chest X-Ray: 07/20/24- No active cardiopulmonary disease. TAVR type aortic valve prosthetic aortic valve. Osteopenia with old healed fracture of the right humeral neck. Degenerative osteoarthritis of both shoulders with narrowing of the subacromial
spaces suggesting the presence of rotator cuff pathology
CT Scan: CAP 12/22/23- Subtle nondisplaced fracture involving the superior right pubic ramus and right symphysis body. No right hip femoral head or neck fracture. No right hip periacetabular iliac fracture. No acute rib fracture. Multiple bilateral
chronic rib fractures. No vertebral compression deformity. Stable chronic compression deformities of T6 and T7. No evidence to suggest acute intrathoracic, abdominal, or pelvic injury. Small amount of fluid within the esophagus, which could reflect
reflux or dysmotility. Mild nonspecific stable precarinal adenopathy, measuring 11 mm.
Stable chronic compression deformities involving T6 and T7. No acute thoracic vertebral compression deformity. Mild sigmoid diverticulosis without acute diverticulitis. Mild colonic fecal burden.
Mild chronic cortical deformity of the left symphysis, consistent with old healed fracture.
Echo: 01/31/24- Left ventricle is small in size. Mild to moderate concentric LVH. Normal left ventricular systolic function. Normal regional wall motion. Left ventricular ejection fraction is 68 % by Mccormick's method of discs. Stage II diastolic
dysfunction suggestive of abnormal relaxation and increased filling pressures. Mitral valve opens normally. Thickened mitral valve leaflets with posterior
mitral annular calcification. There is at least mild to moderate mitral regurgitation which may have been underestimated due to mitral annular calcification. Moderately dilated left atrium. Indexed LA volume is moderately abnormal (42-48 mL/m2).
Well seated #23 mm Fonseca Curtis TAVR with peak/mean gradients across the aortic valve at 25/14 mmHg, respectively. Trace aortic regurgitation is seen. Tricuspid valve opens normally. Mild tricuspid regurgitation. Estimated pulmonary artery
pressure of 40 mmHg assuming a right atrial pressure of 3 mmHg. Mildly dilated right atrium. Normal right ventricular size and function. Since echocardiogram 07/07/2023, there is no significant change. MR may have worsened slightly from mild to at
least mild-moderate.
PFT's:
Reports and relevant images were personally reviewed.
-----
Critical care time 75 mins -- this includes review of history, physical exam, medications, hemodynamic/ventilator parameters, laboratory data, imaging and discussion with house staff, pharmacy, respiratory therapy, binder stripper hand, and nursing. Discussed
GOC with family.
--- NOTE | 2024-07-20 13:30 | CON.CAR ---
Addendum entered and electronically signed by Alejandro La MD 07/20/24 14:29:
Agree with TIMOTHY Miller's note and assessment
Agree with TIMOTHY Miller's plan
Patient seen and examined
88-year-old female who presents with nausea and vomiting for multiple days after a Medrol Dosepak for shoulder pain. She presents with DKA, severe metabolic acidosis, poor nutrition and currently uninterested in eating, and appears severely
depressed. She recently lost her who is a radiologist here for many decades. She also has new onset atrial fibrillation initial rates in the 170s upon presentation and have calm down to the 120s on IV Cardizem. She is currently on an IV
heparin drip due to elevated stroke risk. I had a discussion with patient at the bedside and she is willing to meet with a psychiatrist to discuss her appropriate grieving and possible major depressive disorder. She currently does not report any
chest pain pressure dyspnea dyspnea exertion. She has a well-seated TAVR at last echocardiogram with normal ejection fraction and a history of diastolic dysfunction. She is also noted to have marked laboratory abnormalities including leukocytosis,
hyperkalemia, elevated creatinine, venous blood gas of 6.9 pH, and is currently on sodium bicarb and saline.
Examination:
Cachectic
Psychomotor depressed
Alert and orient x 3
Otherwise nonfocal neurologically
Core: Irregularly irregular no murmurs rubs or gallops
Lungs are clear to auscultation bilaterally
Abdomen soft nontender positive bowel sounds
No extremity edema
PCP: Ryne West
Lapel Padder Blindstitch: [facility]
Impression:
Presents 07/20/2024 with weakness, excessive thirst, tachycardia and hyperglycemia
DKA
TIMOTHY
Hyperkalemia
Leukocytosis
Lactic acidosis
A-fib with rapid ventricular response, new diagnosis
Hypotension
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
Insulin-dependent diabetes
Hyperlipidemia
Hypothyroidism
DVT
Depression with recent weight loss
Gait dysfunction
Osteoarthritis
Mitral regurgitation
Chronic urinary incontinence
Ambulatory dysfunction with falls
Echo 01/31/2024: EF 68%. Mild to moderate concentric LVH. Stage II DD. Moderately dilated left atrium. Mildly dilated right atrium. Mild to moderate MR. Well seated #23 mm Fonseca Curtis TAVR with peak/mean gradients 25/14 mmHg, trace AI. Mild
TR
Cardiac cath 12/03/2022: LM: Okay. LAD: LI, mid 30% stenosis. Left circumflex: LI. RCA LI.
Plan:
-Presents 07/20/2024 with weakness, excessive thirst, tachycardia and hyperglycemia.
-Found to have DKA with lactic acidosis glucose 765. Currently on insulin drip, IV saline fluid as well as lactated ringer solution.
-Hyperkalemia with potassium 6.1. Would hold on giving any additional potassium at this point. Needs to be followed closely
-TIMOTHY secondary to DKA and recent GI illness with vomiting and diarrhea. Hopefully will improve with repletion of fluids
-Leukocytosis, no clear evidence of infectious process. Did get dose of antibiotics in emergency department. May be secondary to recent steroid injection and then Medrol dose pack which was completed 07/19/2024. Continue to monitor and trend
-Found to have new onset A-fib with rapid ventricular response. Patient was in sinus rhythm at office visit on 07/13/2024. Most likely this is exacerbated by electrolyte derangement and DKA.
-Continue IV diltiazem drip. Hopefully heart rates will improve with correction of hyperglycemia and fluid resuscitation. Would be willing to tolerate elevated heart rates in the 100-140 range forward at least a few days given her metabolic
dyscrasias so do not want to debora overall heart rate too much. Agree with IV hydration for now and careful monitoring of I's and O's.
-Agree with heparin drip to reduce risk of thromboembolic event. Patient has had multiple falls over the last 3 to 4 months. Will need to decide risk versus benefit of long-term anticoagulation.
-Troponin pending. Patient had no significant coronary artery disease on catheterization November 2022.
-I had a discussion with Aiyana at the bedside and she is willing to meet with psychiatry to discuss her probable major depressive episode as well as appropriate grieving. This might be a good start as hopefully she would be within willing to
consider improving her nutrition which would aid management of her DKA and metabolic dyscrasias. We will follow closely with you
Original Note:
Consultation
Consultation Request
Date/Time Consultation Requested: 07/20/2024
Date/Time Consultation Performed: 07/20/2024
Requesting Provider: Dr. Starkey
Performing Provider: Ayde Miller PA-C for Dr. Lawrence
Reason for Consultation: A-fib with rapid ventricular response
Medical History
-
History of Present Illness:
Patient is an 88-year-old female with past medical history of aortic stenosis status post TAVR January 2023, insulin-dependent diabetes, hyperlipidemia, hypothyroidism, depression and prior DVT who presents to emergency department 07/20/2024 with
complaints of nausea, vomiting, diarrhea, excessive thirst, tachycardia and elevated blood sugar. Patient reports she has been dealing with right shoulder injury since May and had steroid injection with orthopedic 07/09/2024. Unfortunately there
was minimal relief and she was placed on Medrol Dosepak 07/14/2024. Following placement of Medrol Dosepak patient's blood sugars became elevated and she noted increased thirst and urination. She became very nauseous within the last 24 hours and had
multiple episodes diarrhea for the past few days and vomiting overnight. Her aide found her blood sugars elevated and she was tachycardic with increased weakness and was brought to the emergency department. Blood sugar on arrival was 765. Weight
cell count was elevated at 20.3, potassium 6.1, mild TIMOTHY with creatinine of 1.4. Venous blood gas pH 6.9. She was found to be in atrial fibrillation with rapid ventricular response and hypotensive. Patient placed on insulin drip as well as sodium
bicarb and saline. She was started on diltiazem drip for atrial fibrillation with some improvement of heart rate. Patient denied chest pain. Troponin is pending.
At time of this evaluation patient looks weak lying in bed. She denies chest pain, shortness of breath or palpitations.
Past medical history:
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
Insulin-dependent diabetes
Hyperlipidemia
Hypothyroidism
DVT
Depression with recent weight loss
Gait dysfunction
Osteoarthritis
Mitral regurgitation
Chronic urinary incontinence
Ambulatory dysfunction with falls
Past Medical History
Past Medical History: Other (See HPI)
Past Surgical History: Cardiac (TAVR #23 mm Fonseca CURTIS valve) and Orthopedic (Arthroscopic knee surgery)
Social History
Tobacco: Non-Smoker
Alcohol: None
Drug: None
Personal:
Living: Other (Aide/caregiver)
Family History
Family History: Other (Father of stomach cancer, mother had diabetes)
Allergies / Home Medications
Allergy/AdvReac Type Severity Reaction Status Date / Time
Iodinated Contrast Media Allergy Severe Verified 04/16/24 15:45
Prolonged
Itching
Sulfa (Sulfonamide Allergy Rash Verified 04/16/24 15:45
Antibiotics)
�Medication �Instructions �Recorded �Confirmed �Type
simvastatin 20 mg tablet 20 mg PO HS High cholesterol 07/03/12 07/20/24 History
insulin glargine U-300 conc 300 8 unit SC HS Diabetes 12/03/22 07/20/24 History
unit/mL (1.5 mL) subcutaneous pen
(Candido SoloStar U-300 Insulin)
metformin 500 mg tablet,extended 1,000 mg PO DAILY Diabetes 01/10/23 07/20/24 History
release 24 hr
mirabegron 50 mg tablet,extended 50 mg PO DAILY Urinary issue 01/10/23 07/20/24 History
release 24 hr (Myrbetriq)
aspirin 81 mg chewable tablet 81 mg PO DAILY Blood Clot 12/22/23 07/20/24 History
Prevention/Tx
calcium 500 mg (as 1 tab PO DAILY Supplement 12/22/23 07/20/24 History
carbonate)-vitamin D3 10 mcg (400
unit) tablet (Calcium 500 + D)
levothyroxine 75 mcg tablet 75 mcg PO DAILY Thyroid 12/22/23 07/20/24 History
(Synthroid)
acetaminophen 500 mg tablet 1,000 mg PO TIDPRN PRN mild pain 04/05/24 07/20/24 History
(Tylenol Extra Strength)
escitalopram oxalate 10 mg tablet 10 mg PO DAILY 04/05/24 07/20/24 History
insulin aspart U-100 100 unit/mL 6 unit SC AC Diabetes 04/05/24 07/20/24 History
(3 mL) subcutaneous pen (Novolog
FlexPen U-100 Insulin aspart)
Review of Systems
-
History Source: Patient
All other systems: Negative unless noted
Physical Exam
Vital Signs
Temp Pulse Resp BP
98 F 170 18 88/62
07/20/24 09:38 07/20/24 09:38 07/20/24 09:38 07/20/24 09:38
GEN: Thin, frail and weak appearing
HEENT: supple, anicteric, mucous membranes dry
LUNGS: CTA, no wheezes/rales
CV: Irregularly irregular, tachycardic, S1/S2, 1/6 murmur, no rub or gallop
ABD: soft, BS+, NT/ND
EXT: No edema, clubbing or cyanosis
NEURO: Gross non-focal, although somewhat lethargic
SKIN: No rash, warm, dry, pink
Lab Results
07/20/24 09:57
Impression / Plan
-
PCP: Ryne West
Lapel Padder Blindstitch: [facility]
Impression:
Presents 07/20/2024 with weakness, excessive thirst, tachycardia and hyperglycemia
DKA
TIMOTHY
Hyperkalemia
Leukocytosis
Lactic acidosis
A-fib with rapid ventricular response, new diagnosis
Hypotension
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
Insulin-dependent diabetes
Hyperlipidemia
Hypothyroidism
DVT
Depression with recent weight loss
Gait dysfunction
Osteoarthritis
Mitral regurgitation
Chronic urinary incontinence
Ambulatory dysfunction with falls
Echo 01/31/2024: EF 68%. Mild to moderate concentric LVH. Stage II DD. Moderately dilated left atrium. Mildly dilated right atrium. Mild to moderate MR. Well seated #23 mm Fonseca Curtis TAVR with peak/mean gradients 25/14 mmHg, trace AI. Mild
TR
Cardiac cath 12/03/2022: LM: Okay. LAD: LI, mid 30% stenosis. Left circumflex: LI. RCA LI.
Plan:
-Presents 07/20/2024 with weakness, excessive thirst, tachycardia and hyperglycemia.
-Found to have DKA with lactic acidosis glucose 765. Currently on insulin drip, IV saline fluid as well as lactated ringer solution.
-Hyperkalemia with potassium 6.1. Would hold on giving any additional potassium at this point. Needs to be followed closely
-TIMOTHY secondary to DKA and recent GI illness with vomiting and diarrhea. Hopefully will improve with repletion of fluids
-Leukocytosis, no clear evidence of infectious process. Did get dose of antibiotics in emergency department. May be secondary to recent steroid injection and then Medrol dose pack which was completed 07/19/2024. Continue to monitor and trend
-Found to have new onset A-fib with rapid ventricular response. Patient was in sinus rhythm at office visit on 07/13/2024. Most likely this is exacerbated by electrolyte derangement and DKA.
-Continue IV diltiazem drip. Hopefully heart rates will improve with correction of hyperglycemia and fluid resuscitation.
-Agree with heparin drip to reduce risk of thromboembolic event. Patient has had multiple falls over the last 3 to 4 months. Will need to decide risk versus benefit of long-term anticoagulation.
-Troponin pending. Patient had no significant coronary artery disease on catheterization November 2022.
-History of TAVR with most recent echo January 2024 preserved ejection fraction with mild to moderate MR and well-seated TAVR.
HPI 07/20/2024:
Patient is an 88-year-old female with past medical history of aortic stenosis status post TAVR January 2023, insulin-dependent diabetes, hyperlipidemia, hypothyroidism, depression and prior DVT who presents to emergency department 07/20/2024 with
complaints of nausea, vomiting, diarrhea, excessive thirst, tachycardia and elevated blood sugar. Patient reports she has been dealing with right shoulder injury since May and had steroid injection with orthopedic 07/09/2024. Unfortunately there
was minimal relief and she was placed on Medrol Dosepak 07/14/2024. Following placement of Medrol Dosepak patient's blood sugars became elevated and she noted increased thirst and urination. She became very nauseous within the last 24 hours and had
multiple episodes diarrhea for the past few days and vomiting overnight. Her aide found her blood sugars elevated and she was tachycardic with increased weakness and was brought to the emergency department. Blood sugar on arrival was 765. Weight
cell count was elevated at 20.3, potassium 6.1, mild TIMOTHY with creatinine of 1.4. Venous blood gas pH 6.9. She was found to be in atrial fibrillation with rapid ventricular response and hypotensive. Patient placed on insulin drip as well as sodium
bicarb and saline. She was started on diltiazem drip for atrial fibrillation with some improvement of heart rate. Patient denied chest pain. Troponin is pending.
At time of this evaluation patient looks weak lying in bed. She denies chest pain, shortness of breath or palpitations.
Data Reviewed
-
EKG: Report Reviewed by me, Discussed with Physician, Discussed with Nurse, Discussed with Patient and Discussed with Family
Radiology: Report Reviewed by me, Discussed with Physician, Discussed with Nurse, Discussed with Patient and Discussed with Family
Labs: Labs Reviewed by me, Discussed with Physician, Discussed with Nurse, Discussed with Patient and Discussed with Family
Old Records: Reviewed
[2024-07-20 13:57] LABS: Troponin I 0.047 ng/ml
[2024-07-20 14:00] LABS: Blood Urea Nitrogen 37 mg/dl (7-17); Calcium 9.1 mg/dl (8.4-10.2); Carbon Dioxide < 5 mmol/L (22-30); Chloride 103 mmol/L (98-107); Estimated Creatinine Clearance 20 ml/min; Glucose 628 mg/dl (70-99); Potassium 5.1 mmol/L (3.5-5.1); Sodium 139 mmol/L (135-145); eGFR 39.55
[2024-07-20 14:19] LABS: Glucose - Point of Care 490 mg/dl (70-99)
--- NOTE | 2024-07-20 15:00 | PHA.VAN.IN ---
Assessment
- Assessment
Renal Function: Appears elevated from baseline (SCR 1.3 vs ~0.8 but possibly trending down from admission of 1.4)
Concomitant Antimicrobials: cefepime
Plan
- Plan
Initial / Loading Dose: 1000mg - administration pending
Maintenance Regimen: dosing by level - give additional 500mg x1 at 2200
Monitorin/5 06
Since TIMOTHY may improve with hydration - will give supplemental dosing to ensure patient maintains levels in first 24H of dosing
Additionally, patient may require higher mg/kg dosing then population PK due to BMI < 20
Pharmacokinetics Vancomycin I
- -
Patient Age: 88
Patient Sex: Female
Vancomycin Day #: 1
Indication: Genito-Urinary Tract
Requesting Provider: Dr. Starkey
Pertinent Antimicrobial Allergies:
sulfonamide antibiotics - rash
Height / Weight:
Height 5 ft 1 in
Actual Weight 42.1 kg
IBW in k.8
Pertinent Past Medical History: BMI ~17.5, DM
- Vital Signs / Lab Results
Temp Pulse Resp BP Pulse Ox
98 F 134 20 121/64 100
07/20/24 09:38 07/20/24 13:45 07/20/24 13:45 07/20/24 13:30 07/20/24 13:45
Lab Results - Hematology
07/20/24
09:57
WBC 20.3 H
Lab Results - Chemistry
07/20/24 07/20/24
09:57 12:33
BUN 37 H 37 H
Creatinine 1.4 H 1.3 H
Estimated Creat Clear 18 20
Albumin 4.5
07/20/24
09:57
Lactic Acid 5.4 H*
Lab Results - Urine
07/20/24
11:44
Urine Nitrite (Reflex) Negative
Leukocyte Esterase Rfl Trace A
Urine WBC (Reflex) 11-15 A
Ur Squamous Epith Cells 0-2
[2024-07-20] MEDS: VANCOCIN 200 IV (15:19)
[2024-07-20 15:21] LABS: Blood Urea Nitrogen 37 mg/dl (7-17); Calcium 8.8 mg/dl (8.4-10.2); Carbon Dioxide 14 mmol/L (22-30); Chloride 102 mmol/L (98-107); Estimated Creatinine Clearance 23 ml/min; Glucose 440 mg/dl (70-99); Potassium 4.5 mmol/L (3.5-5.1); Sodium 140 mmol/L (135-145); eGFR 48.33
[2024-07-20 15:41] LABS: Glucose - Point of Care 372 mg/dl (70-99)
[2024-07-20 16:41] LABS: Glucose - Point of Care 397 mg/dl (70-99)
--- NOTE | 2024-07-20 17:15 | PTCARENOTE ---
Pt received from ED in stretcher, transferred over to unit bed. [facility] cloth bed bath and oral care provided. AAOx3. Denying pain. Pt lethargic and withdrawn. Answers all questions and follows commands. SaO2 98% on 2L NC. Trialed on room air and SaO2
96%; remains on room air. Lungs clear to auscultation. Atrial Fibrillation on bus driver/monitor. HR 110s - 140s. Cardizem gtt infusing @ max rate of 15mg/hr with order to maintain HR < 140. Heparin gtt infusing @ 500 units/hr with goal of PTT
73-111. No edema. Hypoactive bowel sounds. Pt reporting no appetite. States that she has had no desire to eat since of 2 months ago and has lost 29lbs in that time. Passed bedside swallow screening for clear liquid sips. Granda catheter
draining clear yellow urine. Wound care provided to prior to admission left knee and left henderson abrasions. NSS @ 250ml/hr discontinued by Dr. Serrano. Insulin gtt infusing per DKA order. Scheduled labs drawn and sent.
[2024-07-20 17:55] LABS: Glucose - Point of Care 387 mg/dl (70-99)
[2024-07-20 18:35] LABS: APTT 76.8 Sec (23.4-35.0)
[2024-07-20 18:44] LABS: Glucose - Point of Care 369 mg/dl (70-99)
[2024-07-20 18:55] LABS: Blood Urea Nitrogen 37 mg/dl (7-17); Calcium 9.5 mg/dl (8.4-10.2); Carbon Dioxide 14 mmol/L (22-30); Chloride 102 mmol/L (98-107); Estimated Creatinine Clearance 26 ml/min; Glucose 401 mg/dl (70-99); Potassium 4.8 mmol/L (3.5-5.1); Sodium 139 mmol/L (135-145); eGFR 54.19
--- NOTE | 2024-07-20 19:30 | PTCARENOTE ---
Pt is drowsy, wakens to verbal stimuli, able to answer orientation question, flat affect. Uncontrolled Afib on monitor, Cardizem at 15mg, Heparin infusing at 500units/hour, and insulin at 6units/hr. Q1 hour BG checks. Trending troponin and BMP.
Skin tear on left henderson, dressing CDI, and left knee has scabbed area open to air. pt turns self in bed, needs reminders. Granda in place.
[2024-07-20 19:46] LABS: Glucose - Point of Care 279 mg/dl (70-99)
[2024-07-20 20:39] LABS: Glucose - Point of Care 251 mg/dl (70-99)
[2024-07-20] MEDS: NEO-SYNEPHRINE 250 IV (21:29)
[2024-07-20] MEDS: VANCOCIN HCL 500 MG 100 IV (21:33)
[2024-07-20 21:47] LABS: Glucose - Point of Care 215 mg/dl (70-99)
[2024-07-20] MEDS: D5/0.45%NSS with KCL 20 MEQ 1000 IV (22:28)
[2024-07-20 22:38] LABS: Glucose - Point of Care 190 mg/dl (70-99)
[2024-07-20 22:58] LABS: Lactic Acid 1.8 mmol/L (0.7-2.0)
[2024-07-20 23:07] LABS: Blood Urea Nitrogen 36 mg/dl (7-17); Calcium 9.4 mg/dl (8.4-10.2); Carbon Dioxide 18 mmol/L (22-30); Chloride 104 mmol/L (98-107); Estimated Creatinine Clearance 29 ml/min; Glucose 200 mg/dl (70-99); Magnesium 1.5 mg/dl (1.6-2.3); Potassium 4.3 mmol/L (3.5-5.1); Sodium 138 mmol/L (135-145); eGFR > 60.00
[2024-07-20 23:43] LABS: Glucose - Point of Care 235 mg/dl (70-99)
[2024-07-21] VITALS (34 sets, daily range): BP systolic 76–155; BP diastolic 44–130; BMI 18.8
--- NOTE | 2024-07-21 00:30 | PTCARENOTE ---
Pt becoming increasingly, but pleasantly confused over night, still able to answer orientation questions but asking where her is. She removed 2 IVs, 1 was replaced. Phenylephrine started for hypotension. BG trending down, D5 w/ k started.
[2024-07-21] MEDS: STERILE WATER FOR INJECTION 10 ML IV ×2 (00:47→11:51)
[2024-07-21] MEDS: MAXIPIME 1000 MG IV ×2 (00:47→11:51)
[2024-07-21 00:48] LABS: Glucose - Point of Care 246 mg/dl (70-99)
[2024-07-21 01:32] LABS: INR 1.33; PT 16.3 Sec (11.4-14.6)
[2024-07-21 01:33] LABS: APTT 50.4 Sec (23.4-35.0)
[2024-07-21 01:44] LABS: Glucose - Point of Care 248 mg/dl (70-99)
[2024-07-21 01:46] LABS: Blood Urea Nitrogen 34 mg/dl (7-17); Calcium 8.9 mg/dl (8.4-10.2); Carbon Dioxide 20 mmol/L (22-30); Chloride 107 mmol/L (98-107); Estimated Creatinine Clearance 32 ml/min; Glucose 244 mg/dl (70-99); Potassium 4.7 mmol/L (3.5-5.1); Sodium 138 mmol/L (135-145); eGFR > 60.00
[2024-07-21 02:45] LABS: Glucose - Point of Care 211 mg/dl (70-99)
[2024-07-21 03:48] LABS: Glucose - Point of Care 218 mg/dl (70-99)
[2024-07-21] MEDS: D5/0.45%NSS with KCL 20 MEQ 1000 IV ×3 (04:49→19:21)
[2024-07-21] MEDS: CARDIZEM 125 IV (04:49)
[2024-07-21 04:51] LABS: Glucose - Point of Care 192 mg/dl (70-99)
[2024-07-21 05:08] LABS: Venous Blood Gas B.E. -3.2 mmol/L (-4 to +4); Venous Blood Gas HCO3 22.7 mmol/L (22-27); Venous Blood Gas O2 Sat % 99.2 %; Venous Blood Gas pCO2 43 mmHg (35-48); Venous Blood Gas pH 7.33 (7.32-7.43); Venous Blood Gas pO2 83 mmHg (30-50)
[2024-07-21 05:10] LABS: Venous Blood Gas O2 Therapy ROOM AIR
[2024-07-21 05:39] LABS: Hematocrit 30.5 % (37.0-47.0); Hemoglobin 10.6 g/dL (12.0-16.0); Mean Corp Hgb Conc. 34.8 g/dL (33.0-37.0); Mean Corpuscular Hgb 30.9 pg (27.0-31.0); Mean Corpuscular Volume 88.9 fL (81.0-99.0); Mean Platelet Volume 10.9 fL (7.4-10.4); Platelet Count 221 10^3/uL (130-400); Red Blood Cell Count 3.43 10^6/uL (4.20-5.40); Red Cell Dist. Width 13.3 % (11.5-14.5); White Blood Cell Count 26.2 10^3/uL (4.8-10.8)
[2024-07-21 05:47] LABS: Glucose - Point of Care 155 mg/dl (70-99)
[2024-07-21 05:54] LABS: ALT (SGPT) 18 U/L (0-35); AST (SGOT) 25 U/L (14-36); Albumin 2.8 g/dl (3.5-5.0); Alkaline Phosphatase 55 U/L (38-126); Blood Urea Nitrogen 30 mg/dl (7-17); Calcium 8.3 mg/dl (8.4-10.2); Carbon Dioxide 20 mmol/L (22-30); Chloride 107 mmol/L (98-107); Estimated Creatinine Clearance 35 ml/min; Glucose 284 mg/dl (70-99); Magnesium 1.5 mg/dl (1.6-2.3); Phosphorus 1.6 mg/dl (2.5-4.5); Potassium 4.8 mmol/L (3.5-5.1); Sodium 137 mmol/L (135-145); Total Bilirubin 0.2 mg/dl (0.2-1.3); eGFR > 60.00
--- NOTE | 2024-07-21 06:11 | PTCARENOTE ---
Pt remains confused, but follows commands. AFib on monitor, denies pain. bath completed, pt has open sacrum, partially healed with scab and pink margins, cleanses foam applied. q2 turns with pillow, heels elevated. Trops trending downs.
[2024-07-21] MEDS: SYNTHROID 75 MCG PO (06:21)
[2024-07-21] MEDS: MAGNESIUM SULFATE 50 IV (06:22)
[2024-07-21 06:44] LABS: Glucose - Point of Care 162 mg/dl (70-99)
--- NOTE | 2024-07-21 06:45 | W.PN.HOSP.TC ---
Today's Communication/Plan
-
# Likely Type II [place] due to DKA and sepsis
No chest pain
Troponin is coming down
Get EKG this morning
C/W IV heparin gtt
Give aspirin
Pressure support with Levophed gtt
Will order Echo
# DKA, good improvement in labs, pt feels better, denies nausea, will switch back to SQ insulin regimen, will d/w nursing staff
Assessment / Plan
Assessment / Plan
Physical Exam
General: Poor Appetite, Appears Chronically Ill and Cachectic
HEENT: Other (Dry mucous membrane, no deformities)
Respiratory: Decreased Breath Sounds
Cardiac: S1/S2, Irregular Rhythm and Tachycardia
GI: Soft, Non Tender and Non Distended
Genito-urinary: No costovertebral tender
Musculoskeletal: No Cyanosis and No Edema
Skin: No Decubitus Ulcers
Neuro: AO x 3 and Nonfocal/grossly intact
Psych: Calm; No Agitated
88 years old female presented diabetic ketoacidosis, acute kidney injury, metabolic acidosis hyperkalemia, atrial fibrillation, leukocytosis, history of nausea/vomiting/diarrhea for a few days duration a
Assessment and plan
# Diabetic ketoacidosis /history of diabetes/insulin-dependent diabetes
Likely precipitated by gastrointestinal etiology versus others
Patient reported history of diarrhea 3 days before the admission with vomiting last 24 hours
Currently she is less acidotic
On Insulin gtt with D5 potassium gtt
Blood glucose less than 200
No more nausea, we can change to SQ insulin and introduce oral diet
Will follow
# Lactic acidosis/leukocytosis/nausea vomiting, sepsis/septic shock present on admission
She met the criteria for sepsis, until we rule out infectious source, continue with TX of sepsis.
Etiology possibly gastrointestinal versus others
No history of cough or respiratory problem. Chest radiography, no active cardiopulmonary disease.
History of nausea/vomiting/diarrhea which seem to resolve now
No history of dysuria although she has chronic incontinence, follow-up with urine culture
Follow-up with blood culture
Empiric cefepime and vancomycin
Stool testing, doubt C Diff
Held metformin, continue with insulin treatment for diabetes
# New onset atrial fibrillation with rapid ventricular response
No history of atrial fibrillation before.
EKG consistent with atrial fibrillation. Some nonspecific ST changes noted
Check troponin
Patient denies chest pain today or in the last few days
Start the patient on intravenous Cardizem as blood pressure tolerates.
Intravenous heparin for stroke prevention. [id number] around 6
Appreciate cardiology input
# Likely Type II [place] due to DKA and sepsis
No chest pain
Troponin is coming down
Get EKG this morning
C/W IV heparin gtt
Give aspirin
Pressure support with Levophed gtt
Will order Echo
# Acute kidney injury, metabolic acidosis/lactic acidosis
Resolved
# Hyperkalemia
Resolved.
# hypomagnesemia / hypophosphatemia
Replace
#History of significant osteoarthritis with recent cortisone injection to right shoulder
History of falls/chronic rib fractures/chronic compression deformities
Fall precautions
Eventual PT/OT
# Status post TAVR 2021
Last echo in January 2024 showed well-seated TAVR with peak/mean gradients across the aortic valve at 25/14 mmHg. Trace echo aortic regurgitation.
#Chronic diastolic CHF
Follows with [facility] cardiology
Currently she was volume depleted due to GI loos and DKA, will continue with IV fluid and monitor volume status/ weight closely
She is not in acute failure
Last echo in January 2024 showed LVEF 68%, mild to moderate MR, dilated left atrium, well-seated TAVR, mild aortic regurgitation, mild tricuspid regurgitation, pulmonary artery pressure of 40 mmHg, dilated right atrium.
# Severe protein caloric malnutrition
Consulted nutrition
#Hypothyroidism
-Continue levothyroxine
# Chronic urinary frequency/incontinence
-Continue Myrbetriq when appropriate
# Code status, DNR
Confirmed with family
DVT prophylaxis
Subcu heparin
Total time spent to see the patient, examine the patient on the floor, review data and lab results, discuss treatment plan with patient, nursing staff around 85 minutes
Anticipated Discharge: > 48 hours
Subjective/Interval History
-
Date of Service: July 21, 2024
No sob
No chest pain
She denies nausea, diarrhea
Objective Data
-
Labs:
Laboratory Results
07/20/24 07/20/24 07/21/24
18:09 22:36 01:11
WBC
Hgb
Hct
Plt Count
PT 16.3 H
INR 1.33
APTT 50.4 H
Sodium 139 138
Potassium 4.8 4.3
Chloride 102 104
Carbon Dioxide 14 L* 18 L
BUN 37 H 36 H
Creatinine 1.0 0.9
Glucose 401 H 200 H
Calcium 9.5 9.4
Total Bilirubin
AST
ALT
Alkaline Phosphatase
07/21/24 07/21/24 07/21/24
01:11 05:01 08:00
WBC 26.2 H
Hgb 10.6 L D
Hct 30.5 L
Plt Count 221 D
PT
INR
APTT Cancelled Pending
Sodium 138 137
Potassium 4.7 4.8
Chloride 107 107
Carbon Dioxide 20 L 20 L
BUN 34 H 30 H
Creatinine 0.8 0.8
Glucose 244 H 284 H
Calcium 8.9 8.3 L
Total Bilirubin 0.2
AST 25
ALT 18
Alkaline Phosphatase 55
07/21/24 07/21/24 07/21/24
10:00 14:00 18:00
WBC
Hgb
Hct
Plt Count
PT
INR
APTT
Sodium Pending Pending Pending
Potassium Pending Pending Pending
Chloride Pending Pending Pending
Carbon Dioxide Pending Pending Pending
BUN Pending Pending Pending
Creatinine Pending Pending Pending
Glucose Pending Pending Pending
Calcium Pending Pending Pending
Total Bilirubin
AST
ALT
Alkaline Phosphatase
07/21/24
22:00
WBC
Hgb
Hct
Plt Count
PT
INR
APTT
Sodium Pending
Potassium Pending
Chloride Pending
Carbon Dioxide Pending
BUN Pending
Creatinine Pending
Glucose Pending
Calcium Pending
Total Bilirubin
AST
ALT
Alkaline Phosphatase
Vital Signs:
Vital Signs
Temp Pulse Resp BP Pulse Ox
98.2 F 85 21 133/76 94
07/21/24 03:49 07/21/24 06:30 07/21/24 06:30 07/21/24 06:00 07/21/24 06:30
I&O
07/19/24 07/20/24 07/21/24
06:59 06:59 06:59
Intake Total 2157.7 / 2157.7
Output Total 1250 / 1250
Balance 907.7 / 907.7
--- NOTE | 2024-07-21 07:30 | W.PN.INTV ---
Today's Communication / Plan
Recommendations
Wean off pressors and cardizem, resume home meds
Insulin gtt remains, she is still refusing PO intake
DM BISQUE BRUSHER consult
If still not able to tolerate diet, will need to discuss GOC with family again
Assessment
-
Patient patient is an 88-year-old female with previous history of chronic diastolic heart failure, TAVR, MR, diabetes brought in from home for dehydration, vomiting and hyperglycemia. Patient reported that she had diarrhea for the past 3 days and
then started to have vomiting overnight. She has severe weakness. She has not eaten over the past 2 months following the of her . She has lost 29 pounds unintentionally. Upon presentation to the ER, she was notably in DKA with
severe acidosis. She has rapid A-fib with RVR started on Cardizem and IV heparin. She admits to severe depression but does not want to seek psychiatric evaluation. She does not wish to continue eating, but has declined artificial means for
nutrition. She received 3L in ER and is started on an insulin drip. She is admitted to ICU with DKA.
DKA
Severe HAGMA
Poor po intake, with unintentional weight loss of 29lbs in the past few months
Severe depression w/ FTT
Leukocytosis
Hyperkalemia
TIMOTHY, creatinine 1.4 (baseline 0.6)
Lactic acidosis
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
Gait dysfunction s/p fall with hip/rib fx
Osteoarthritis
Chronic diastolic heart failure
status post TAVR
Mitral regurgitation
Hyponatremia
Diabetes
Hypothyroidism
Chronic urinary incontinence
Plan
Currently awake/mentating--can answer appropriately
Psychiatric history noted above including severe depression but has not sought treatment
She has stopped eating/does not want to eat moving forward
Denies pain at this time.
Pain/sedation: PRN
RASS goals: 0
Fall risk, multiple fx in past
Hemodynamically stable, required low dose pressor overnight but weaning off this AM
Cardiac history reviewed--HTN, TAVR, MR, chronic HF
Prior ECHO reviewed indicating stage II DD
Resume home meds as tolerated
Afib wtih RVR, cards eval, on cardizem gtt--wean off
Monitor on telemetry
Oxygen needs: stable on RA
Prior history of lung disease: none
Supplemental O2 as indicated to maintain sats > 89%
CXR/CT reviewed indicating NAD
NPO, resume diet per DKA protocol
She has still declined PO intake
Rn House Supervisor recommendations
Aspiration precautions, HOB > 30 degrees
Speech therapy eval can be considered if at elevated risk
GI prophylaxis if indicated for mechanical ventilation >48 hours, prior history of GERD, stress ulcer formation in the critically ill
If continues to refuse meals, will need to discuss again with family
TIMOTHY present, resolved with IVFs
Creat at baseline, 0.6
No history of renal disease
Void trials
Follow urine output, critical I/Os
Replete electrolytes as needed
No signs/symptoms suspicious for infectious etiology at this time
Would observe off antibiotics for now
Follow fever trend, WBC count
Lactate elevated on admission, continue to trend until <2
CBC stable, no signs of bleeding or coagulopathy.
DVT prophylaxis as assessed based on risk, including mechanical SCDs
Can transfuse if indicated for Hb <7, plt < 10
INR WNL
DKA, on insulin
H/o diabetes, can bridge when able
HbA1c 7.1
H/o hypothyroidism, can continue on home synthroid dose
DM BISQUE BRUSHER consult
Discussed with family at bedside
Will discuss as family
She is DNR now
Diagnostic Data
Chest X-Ray: 07/20/24- No active cardiopulmonary disease. TAVR type aortic valve prosthetic aortic valve. Osteopenia with old healed fracture of the right humeral neck. Degenerative osteoarthritis of both shoulders with narrowing of the subacromial
spaces suggesting the presence of rotator cuff pathology
CT Scan: CAP 12/22/23- Subtle nondisplaced fracture involving the superior right pubic ramus and right symphysis body. No right hip femoral head or neck fracture. No right hip periacetabular iliac fracture. No acute rib fracture. Multiple bilateral
chronic rib fractures. No vertebral compression deformity. Stable chronic compression deformities of T6 and T7. No evidence to suggest acute intrathoracic, abdominal, or pelvic injury. Small amount of fluid within the esophagus, which could reflect
reflux or dysmotility. Mild nonspecific stable precarinal adenopathy, measuring 11 mm.
Stable chronic compression deformities involving T6 and T7. No acute thoracic vertebral compression deformity. Mild sigmoid diverticulosis without acute diverticulitis. Mild colonic fecal burden.
Mild chronic cortical deformity of the left symphysis, consistent with old healed fracture.
Echo: 01/31/24- Left ventricle is small in size. Mild to moderate concentric LVH. Normal left ventricular systolic function. Normal regional wall motion. Left ventricular ejection fraction is 68 % by Mccormick's method of discs. Stage II diastolic
dysfunction suggestive of abnormal relaxation and increased filling pressures. Mitral valve opens normally. Thickened mitral valve leaflets with posterior
mitral annular calcification. There is at least mild to moderate mitral regurgitation which may have been underestimated due to mitral annular calcification. Moderately dilated left atrium. Indexed LA volume is moderately abnormal (42-48 mL/m2).
Well seated #23 mm Fonseca Curtis TAVR with peak/mean gradients across the aortic valve at 25/14 mmHg, respectively. Trace aortic regurgitation is seen. Tricuspid valve opens normally. Mild tricuspid regurgitation. Estimated pulmonary artery
pressure of 40 mmHg assuming a right atrial pressure of 3 mmHg. Mildly dilated right atrium. Normal right ventricular size and function. Since echocardiogram 07/07/2023, there is no significant change. MR may have worsened slightly from mild to at
least mild-moderate.
PFT's:
Reports and relevant images were personally reviewed.
-----
Critical care time 35 mins -- this includes review of history, physical exam, medications, hemodynamic/ventilator parameters, laboratory data, imaging and discussion with house staff, pharmacy, respiratory therapy, farmworker rice, and nursing. Discussed
GOC with family.
Subjective Dataa
Subjective Data
Date of Service:
Date of Service: July 21, 2024
Chief Complaint: Supervisor Frame Assembly Follow Up
Subjective:
Remains on insulin gtt
Cardizem at max dose, pressor needed overnight
Still refusing to eat
Objective Data
Data Reviewed
Vital Signs / I&O / Oxygen:
Vital Signs
Temp Pulse Resp BP Pulse Ox
98.2 F 85 21 133/76 94
07/21/24 03:49 07/21/24 06:30 07/21/24 06:30 07/21/24 06:00 07/21/24 06:30
Intake and Output
07/20/24 07/21/24 07/22/24
06:59 06:59 06:59
Intake Total 2157.7 / 2157.7
Output Total 1250 / 1250
Balance 907.7 / 907.7
SaO2 94
Physical Exam
General: Comfortable and Other (NAD)
HEENT: Normocephalic, Anicteric and Moist Mucous Membranes
Cardiovascular: S1-S2 and Regular Rhythm
Respiratory: Clear and Non-Labored Respirations
GI: Soft, Non Distended and Non Tender
Neurology: Awake, Alert, Oriented, No Motor Deficits and Depressed
Skin: Warm and Dry
Labs/Micro/Reports
Lab Data
07/21/24 05:01
Laboratory Results
07/20/24 07/20/24 07/21/24
11:23 18:09 01:11
PT 16.3 H
INR 1.33
APTT 23.8 76.8 H 50.4 H
07/21/24
01:11
PT
INR
APTT Cancelled
[2024-07-21] MEDS: NEUTRA-PHOS POWDER PACKET 250 MG PO (07:54)
[2024-07-21] MEDS: LEXAPRO 10 MG PO (07:54)
--- NOTE | 2024-07-21 08:26 | PHA.VAN.FU ---
Vancomycin Assessment / Plan
- Assessment
Renal Function: Stable
WBC's are: Trending Up
In the past 24 hrs, patient has been: Afebrile
Concomitant Antimicrobials: CEFEPIME
- Assessment - Therapeutic Drug Monitoring
Random Level: 14
- Dosing Plan
Dosing by Level: Re-dose today (500MG)
- Monitoring Plan
Random Level: 10/6 IN AM
- Follow Up
Pharmacy will continue to follow.
Vancomycin Follow UP
- -
Patient Age: 88
Patient Sex: Female
Vancomycin Day #: 2
Indication: Genito-Urinary Tract
Requesting Provider: Dr. Starkey
Pertinent Antimicrobial Allergies:
sulfonamide antibiotics - rash
Height / Weight:
Height 5 ft 1 in
Actual Weight 45.2 kg
IBW in k.8
Pertinent Past Medical History: BMI ~17.5, DM
- Vital Signs / Lab Results
Temp Pulse Resp BP Pulse Ox
98.2 F 80 22 115/57 96
07/21/24 03:49 07/21/24 08:00 07/21/24 08:00 07/21/24 07:00 07/21/24 08:00
Lab Results - Hematology
07/20/24 07/21/24
09:57 05:01
WBC 20.3 H 26.2 H
Lab Results - Chemistry
07/20/24 07/20/24 07/20/24
09:57 10:45 12:33
BUN 37 H Cancelled 37 H
Creatinine 1.4 H Cancelled 1.3 H
Estimated Creat Clear 18 Cancelled 20
Albumin 4.5
07/20/24 07/20/24 07/20/24
14:19 18:09 22:36
BUN 37 H 37 H 36 H
Creatinine 1.1 H 1.0 0.9
Estimated Creat Clear 23 26 29
Albumin
07/21/24 07/21/24
01:11 05:01
BUN 34 H 30 H
Creatinine 0.8 0.8
Estimated Creat Clear 32 35
Albumin 2.8 L D
07/20/24 07/20/24
09:57 22:36
Lactic Acid 5.4 H* 1.8
Lab Results - Urine
07/20/24
11:44
Urine Nitrite (Reflex) Negative
Leukocyte Esterase Rfl Trace A
Ur Squamous Epith Cells 0-2
Therapeutic Drug Monitoring
Random Vancomycin 14.0 ug/ml 07/21/24 05:01
--- NOTE | 2024-07-21 09:00 | PTCARENOTE ---
pt drowsy , opens eyes , she is confused to place , pleasant , pt Afib on monitor , HR 95- 100s on IV Cardizem , pt seen by cardiology and will order PO Cardizem , pt is now off of IV neosynephrine gtt for map 77 , she continues on insulin gtt , her
anion gap is 10 , labs noted
[2024-07-21] MEDS: CARDIZEM 30 MG PO ×4 (09:47→21:38)
[2024-07-21 10:19] LABS: APTT 49.5 Sec (23.4-35.0)
[2024-07-21 10:49] LABS: Glucose - Point of Care 208 mg/dl (70-99)
[2024-07-21 11:49] LABS: Glucose - Point of Care 219 mg/dl (70-99)
[2024-07-21 12:39] LABS: Glucose - Point of Care 175 mg/dl (70-99)
[2024-07-21] MEDS: NOVOLIN R INSULIN INFUSION 100 IV (13:10)
[2024-07-21] MEDS: NITROSTAT (SUBLINGUAL) 0.4 MG SL ×3 (13:14→13:27)
--- NOTE | 2024-07-21 13:22 | PTCARENOTE ---
pt having acute abdominal and epigastric pain , rate of 8 on scale 1-10 , EKG done , Dr Starkey notified , x 1 SL nitro given now , pt to have troponin level done with next set of labs due at 1400 , no relief from 1 st nitro will given second dose in
5 min , pt family at bedside and updated on current plan of care and condition
[2024-07-21 13:40] LABS: Glucose - Point of Care 177 mg/dl (70-99)
[2024-07-21] MEDS: MORPHINE SULFATE 1 MG IV ×2 (13:50→21:44)
--- NOTE | 2024-07-21 14:05 | PTCARENOTE ---
pt had x 3 of NTG SQ without relief from epigastric pain , she was given 1mg IV morphine at 13:50 , she is now asleep , labs sent for troponin and BMP
[2024-07-21 14:21] LABS: Troponin I 0.855 ng/ml
--- NOTE | 2024-07-21 14:22 | CM ---
CM following re: discharge planning.
Reviewed pt's chart, met with pt. Pt's daughter, 2 sons, caregiver and family friend at bedside.
Pt is a 88 year old female, admitted with primary dx of DKA
Pt lives alone in a 2SH, 2 steps to enter, has 4 supportive children and pt has 24/7 caregiver services at home. Pt ambulates with a walker at baseline. Per daughter, pt has been falling a lot at home in the past months, has VN services and she does
not know the name of VN provider.
PT and OT will evaluate the pt to determine a level of care at discharge.
D/C plan: uncertain at this time. Awaiting for PT/OT evaluations.
CM will follow with discharge plan updates as hospitalization progresses
[2024-07-21] MEDS: VANCOCIN HCL 500 MG 100 IV (14:48)
[2024-07-21 15:01] LABS: Glucose - Point of Care 188 mg/dl (70-99)
[2024-07-21 15:37] LABS: Calcium 8.4 mg/dl (8.4-10.2); Carbon Dioxide 20 mmol/L (22-30); Chloride 107 mmol/L (98-107); Estimated Creatinine Clearance 40 ml/min; Glucose 179 mg/dl (70-99); Potassium 4.4 mmol/L (3.5-5.1); Sodium 136 mmol/L (135-145); eGFR > 60.00
[2024-07-21 15:38] LABS: Blood Urea Nitrogen 20 mg/dl (7-17)
[2024-07-21 15:43] LABS: Glucose - Point of Care 204 mg/dl (70-99)
--- NOTE | 2024-07-21 15:43 | PTCARENOTE ---
pt looks more comfortable , anion gap 9.0 now , troponin 0.855
[2024-07-21 16:25] LABS: Glucose - Point of Care 225 mg/dl (70-99)
[2024-07-21 16:25] LABS: Glucose - Point of Care 162 mg/dl (70-99)
[2024-07-21 16:25] LABS: Glucose - Point of Care 165 mg/dl (70-99)
[2024-07-21 16:44] LABS: Glucose - Point of Care 166 mg/dl (70-99)
[2024-07-21 17:34] LABS: Glucose - Point of Care 177 mg/dl (70-99)
[2024-07-21 17:53] LABS: APTT 143.3 Sec (23.4-35.0)
[2024-07-21 18:37] LABS: Glucose - Point of Care 164 mg/dl (70-99)
--- NOTE | 2024-07-21 18:55 | W.PN.CARDCBS ---
Today's Communication / Plan
-
Transition IV diltiazem to p.o. heart rate goal less than 110 bpm
Continue heparin for cardioembolic prophylaxis, consider transition to Eliquis prior to discharge
Impression / Plan
-
PCP: Ryne West
Tie Worker: Siddharth House
Impression:
Presents 07/20/2024 with weakness, excessive thirst, tachycardia and hyperglycemia
DKA
TIMOTHY
Hyperkalemia
Leukocytosis
Lactic acidosis
A-fib with rapid ventricular response, new diagnosis
Hypotension
Elevated troponin, suspect Nonischemic myocardial injury troponin elevation
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
Insulin-dependent diabetes
Hyperlipidemia
Hypothyroidism
DVT
Depression with recent weight loss
Gait dysfunction
Osteoarthritis
Mitral regurgitation
Chronic urinary incontinence
Ambulatory dysfunction with falls
Echo 01/31/2024: EF 68%. Mild to moderate concentric LVH. Stage II DD. Moderately dilated left atrium. Mildly dilated right atrium. Mild to moderate MR. Well seated #23 mm Fonseca Curtis TAVR with peak/mean gradients 25/14 mmHg, trace AI. Mild
TR
Cardiac cath 12/03/2022: LM: Okay. LAD: LI, mid 30% stenosis. Left circumflex: LI. RCA LI.
Plan:
-Presents 07/20/2024 with weakness, excessive thirst, tachycardia and hyperglycemia.
-Found to have DKA with lactic acidosis glucose 765
-Found to have new onset A-fib with rapid ventricular response. Patient was in sinus rhythm at office visit on 07/13/2024. Most likely this is exacerbated by electrolyte derangement and DKA.
-Transition IV to PO diltiazem, goal HR <110 bpm
-Agree with heparin drip to reduce risk of thromboembolic event. Patient has had multiple falls over the last 3 to 4 months. Will need to decide risk versus benefit of long-term anticoagulation.
-Elevated troponin noted, suspect Nonischemic myocardial injury troponin elevation in the setting of tachycardia and DKA
-History of TAVR with most recent echo January 2024 preserved ejection fraction with mild to moderate MR and well-seated TAVR.
HPI 07/20/2024:
Patient is an 88-year-old female with past medical history of aortic stenosis status post TAVR January 2023, insulin-dependent diabetes, hyperlipidemia, hypothyroidism, depression and prior DVT who presents to emergency department 07/20/2024 with
complaints of nausea, vomiting, diarrhea, excessive thirst, tachycardia and elevated blood sugar. Patient reports she has been dealing with right shoulder injury since May and had steroid injection with orthopedic 07/09/2024. Unfortunately there
was minimal relief and she was placed on Medrol Dosepak 07/14/2024. Following placement of Medrol Dosepak patient's blood sugars became elevated and she noted increased thirst and urination. She became very nauseous within the last 24 hours and had
multiple episodes diarrhea for the past few days and vomiting overnight. Her aide found her blood sugars elevated and she was tachycardic with increased weakness and was brought to the emergency department. Blood sugar on arrival was 765. Weight
cell count was elevated at 20.3, potassium 6.1, mild TIMOTHY with creatinine of 1.4. Venous blood gas pH 6.9. She was found to be in atrial fibrillation with rapid ventricular response and hypotensive. Patient placed on insulin drip as well as sodium
bicarb and saline. She was started on diltiazem drip for atrial fibrillation with some improvement of heart rate. Patient denied chest pain. Troponin is pending.
At time of this evaluation patient looks weak lying in bed. She denies chest pain, shortness of breath or palpitations.
Progress Note - Tie Worker
Subjective
Date of Service: July 21, 2024
Patient seen on morning rounds
Resting comfortably in bed, no cardiac complaints, no palpitations, chest discomfort or shortness of breath
Objective
Labs:
07/21/24 05:01
07/21/24 22:00
Labs
Hgb 10.6 g/dL (12.0-16.0) L D 07/21/24 05:01
Hct 30.5 % (37.0-47.0) L 07/21/24 05:01
Plt Count 221 10^3/uL (130-400) D 07/21/24 05:01
PT 16.3 Sec (11.4-14.6) H 07/21/24 01:11
INR 1.33 07/21/24 01:11
APTT 143.3 Sec (23.4-35.0) H 07/21/24 17:26
Sodium Cancelled 07/21/24 22:00
Potassium Cancelled 07/21/24 22:00
BUN Cancelled 07/21/24 22:00
Creatinine Cancelled 07/21/24 22:00
Glucose Cancelled 07/21/24 22:00
Troponins
07/20/24 07/20/24 07/21/24
12:33 22:36 05:01
Troponin I 0.047 H* 2.480 H* 1.890 H*
07/21/24
13:43
Troponin I 0.855 H*
Vital Signs and I&O:
Vital Signs
Temp Pulse Resp BP Pulse Ox
98.7 F 109 19 90/51 96
07/21/24 15:19 07/21/24 18:30 07/21/24 18:30 07/21/24 18:00 07/21/24 18:30
Vital Signs
Temp Pulse Resp BP Pulse Ox
98.7 F 109 19 90/51 96
07/21/24 15:19 07/21/24 18:30 07/21/24 18:30 07/21/24 18:00 07/21/24 18:30
Intake & Output
07/19/24 07/20/24 07/21/24 07/22/24
06:59 06:59 06:59 06:59
Intake Total 2157.7 / 2326.7 2207 / 2207
Output Total 1250 / 1290 445 / 445
Balance 907.7 / 1036.7 1762 / 1762
Physical Exam
Physical Exam
Gen: NAD, AA
HEENT: NC/AT, sclera anicteric
Neck: No JVD
CV: irregular irregular, NL s1/s2, 2/6 CT at the base
Lungs: CTAB
Abd: S/ND
Ext: No LE edema
Skin: Warm, dry
Neuro: Non-focal
[2024-07-21 19:38] LABS: Glucose - Point of Care 144 mg/dl (70-99)
--- NOTE | 2024-07-21 19:38 | PTCARENOTE ---
Pt Aox2, disoriented to time. Uncontrolled Afib on monitor, denies pain, remains on Insulin gtt, restarted Heparin gtt, continues on IVF. Home pet care associate at the bedside.
[2024-07-21 20:42] LABS: Glucose - Point of Care 170 mg/dl (70-99)
[2024-07-21] MEDS: TYLENOL PO (21:38)
[2024-07-21 21:45] LABS: Glucose - Point of Care 182 mg/dl (70-99)
[2024-07-21 22:43] LABS: Glucose - Point of Care 165 mg/dl (70-99)
[2024-07-21 23:42] LABS: Glucose - Point of Care 145 mg/dl (70-99)
[2024-07-22] VITALS (25 sets, daily range): BP systolic 107–171; BP diastolic 67–124; BMI 19.6
[2024-07-22] MEDS: MAXIPIME 1000 MG IV (00:47)
[2024-07-22] MEDS: STERILE WATER FOR INJECTION 10 ML IV (00:47)
[2024-07-22 00:49] LABS: Glucose - Point of Care 156 mg/dl (70-99)
[2024-07-22] MEDS: HEPARIN 25000 UNITS/250 ML IV (00:53)
[2024-07-22] MEDS: D5/0.45%NSS with KCL 20 MEQ 1000 IV ×4 (01:46→22:43)
[2024-07-22 01:51] LABS: Glucose - Point of Care 209 mg/dl (70-99)
[2024-07-22 02:24] LABS: Hematocrit 32.5 % (37.0-47.0); Hemoglobin 11.2 g/dL (12.0-16.0); Mean Corp Hgb Conc. 34.5 g/dL (33.0-37.0); Mean Corpuscular Hgb 29.9 pg (27.0-31.0); Mean Corpuscular Volume 86.9 fL (81.0-99.0); Mean Platelet Volume 10.8 fL (7.4-10.4); Platelet Count 222 10^3/uL (130-400); Red Blood Cell Count 3.74 10^6/uL (4.20-5.40); Red Cell Dist. Width 14.1 % (11.5-14.5); White Blood Cell Count 20.4 10^3/uL (4.8-10.8)
[2024-07-22 02:35] LABS: APTT 88.9 Sec (23.4-35.0)
[2024-07-22 03:09] LABS: Vancomycin Random 11.6 ug/ml
[2024-07-22 03:17] LABS: Blood Urea Nitrogen 12 mg/dl (7-17); Calcium 8.4 mg/dl (8.4-10.2); Carbon Dioxide 19 mmol/L (22-30); Chloride 105 mmol/L (98-107); Estimated Creatinine Clearance 46 ml/min; Glucose 249 mg/dl (70-99); Potassium 4.8 mmol/L (3.5-5.1); Sodium 134 mmol/L (135-145); eGFR > 60.00
[2024-07-22 03:21] LABS: Glucose - Point of Care 185 mg/dl (70-99)
[2024-07-22 04:28] LABS: Glucose - Point of Care 170 mg/dl (70-99)
[2024-07-22 05:16] LABS: Glucose - Point of Care 191 mg/dl (70-99)
[2024-07-22 06:25] LABS: Glucose - Point of Care 171 mg/dl (70-99)
[2024-07-22] MEDS: SYNTHROID PO (06:39)
--- NOTE | 2024-07-22 06:53 | W.PN.HOSP.TC ---
Addendum entered and electronically signed by Saira Starkey MD 07/22/24 08:59:
Addendum
Will evaluate pt later today for starting SQ insulin.
End
Original Note:
Today's Communication/Plan
-
Stop IV ABx
Hope we can wean off insulin drip but its challenging with lack of oral intake
c/w Cardizem gtt and oral, will add BB to control HR, might need more options as Digoxin depending on HR and BP
GOC discussed with Daughter, Unique, she will continue to help with decisions.
Patient green snot want heroic measures.
Assessment / Plan
Assessment / Plan
Physical Exam
General: Poor Appetite, Appears Chronically Ill and Cachectic
HEENT: Other (Dry mucous membrane, no deformities)
Respiratory: Decreased Breath Sounds
Cardiac: S1/S2, Irregular Rhythm and Tachycardia
GI: Soft, Non Tender and Non Distended
Genito-urinary: No costovertebral tender
Musculoskeletal: No Cyanosis and No Edema
Skin: No Decubitus Ulcers
Neuro: AO x 3 and Nonfocal/grossly intact
Psych: Calm; No Agitated
88 years old female presented diabetic ketoacidosis, acute kidney injury, metabolic acidosis hyperkalemia, atrial fibrillation, leukocytosis, history of nausea/vomiting/diarrhea for a few days duration a
Assessment and plan
# Diabetic ketoacidosis /history of diabetes/insulin-dependent diabetes
Likely precipitated by gastrointestinal etiology versus others
Patient reported history of diarrhea 3 days before the admission with vomiting last 24 hours
Currently she is less acidotic
On Insulin gtt with D5 potassium gtt
Blood glucose less than 200
No more nausea, we can change to SQ insulin and introduce oral diet
Will follow
# Lactic acidosis/leukocytosis/nausea vomiting, sepsis/septic shock present on admission
She met the criteria for sepsis, no source found yet.
Etiology possibly gastrointestinal versus inflammatory response due to severe DKA
No history of cough or respiratory problem. Chest radiography, no active cardiopulmonary disease.
History of nausea/vomiting/diarrhea. No diarrhea in hospital. Nausea mostly related to DKA
No history of dysuria.
Blood & urine cultures no growth
Will stop Empiric cefepime and vancomycin
Stool testing, doubt C Diff
Held metformin, continue with insulin treatment for diabetes
# New onset atrial fibrillation with rapid ventricular response
No history of atrial fibrillation before.
EKG consistent with atrial fibrillation. ST changes noted
Repeat troponin coming down
Patient denies chest pain in the last few days
Start the patient on intravenous Cardizem as blood pressure tolerates. Will add oral BB
Intravenous heparin for stroke prevention. [id number] around 6
Appreciate cardiology input
# Likely Type II DC due to DKA and sepsis
No chest pain
Troponin is coming down
EKG showing ST changes
C/W IV heparin gtt
c/w aspirin
s/p Pressure support with Levophed gtt
Echo is ordered
#Chronic diastolic CHF
Follows with [facility]ology
She was volume depleted due to GI loos and DKA, on IV fluid and monitor volume status/ weight closely
Last echo in January 2024 showed LVEF 68%, mild to moderate MR, dilated left atrium, well-seated TAVR, mild aortic regurgitation, mild tricuspid regurgitation, pulmonary artery pressure of 40 mmHg, dilated right atrium.
She might slip in CHF due to uncontrolled A fib
# Acute kidney injury, metabolic acidosis/lactic acidosis
Resolved
# Hyperkalemia
Resolved.
# hypomagnesemia / hypophosphatemia
Replace
Recheck
#History of significant osteoarthritis with recent cortisone injection to right shoulder
History of falls/chronic rib fractures/chronic compression deformities
Fall precautions
Eventual PT/OT
# Status post TAVR 2021
Last echo in January 2024 showed well-seated TAVR with peak/mean gradients across the aortic valve at 25/14 mmHg. Trace echo aortic regurgitation.
# Severe protein caloric malnutrition
Consulted nutrition
#Hypothyroidism
-Continue levothyroxine
# Chronic urinary frequency/incontinence
-Continue Myrbetriq when appropriate
# Code status, DNR
Confirmed with family
DVT prophylaxis
IV heparin
Total time spent to see the patient, examine the patient on the floor, review data and lab results, discuss treatment plan with patient and her family, nursing staff around 85 minutes
Anticipated Discharge: > 48 hours
Subjective/Interval History
-
Date of Service: July 22, 2024
No chest pain
No sob
No fevers
Objective Data
-
Labs:
Laboratory Results
07/22/24 07/22/24
02:01 09:00
WBC 20.4 H
Hgb 11.2 L
Hct 32.5 L
Plt Count 222
APTT 88.9 H Pending
Sodium 134 L
Potassium 4.8
Chloride 105
Carbon Dioxide 19 L
BUN 12
Creatinine 0.6
Glucose 249 H
Calcium 8.4
Vital Signs:
Vital Signs
Temp Pulse Resp BP Pulse Ox
98.7 F 121 19 142/89 96
07/22/24 04:21 07/22/24 05:30 07/22/24 05:30 07/22/24 05:00 07/22/24 05:30
I&O
07/20/24 07/21/24 07/22/24
06:59 06:59 06:59
Intake Total 2157.7 / 2326.7 4114 / 4114
Output Total 1250 / 1290 995 / 995
Balance 907.7 / 1036.7 3119 / 3119
[2024-07-22 07:12] LABS: Glucose - Point of Care 192 mg/dl (70-99)
--- NOTE | 2024-07-22 07:37 | W.PN.INTV ---
Today's Communication / Plan
Recommendations
Difficulty with PO meds, speech eval
Diet advancement but she is still refusing to eat/DHT placement
Maintained on gtts with no endpoint
GOC discussions today
Assessment
-
Patient patient is an 88-year-old female with previous history of chronic diastolic heart failure, TAVR, MR, diabetes brought in from home for dehydration, vomiting and hyperglycemia. Patient reported that she had diarrhea for the past 3 days and
then started to have vomiting overnight. She has severe weakness. She has not eaten over the past 2 months following the of her . She has lost 29 pounds unintentionally. Upon presentation to the ER, she was notably in DKA with
severe acidosis. She has rapid A-fib with RVR started on Cardizem and IV heparin. She admits to severe depression but does not want to seek psychiatric evaluation. She does not wish to continue eating, but has declined artificial means for
nutrition. She received 3L in ER and is started on an insulin drip. She is admitted to ICU with DKA.
DKA
Severe HAGMA
Poor po intake, with unintentional weight loss of 29lbs in the past few months
Severe depression w/ FTT
Leukocytosis
Hyperkalemia
TIMOTHY, creatinine 1.4 (baseline 0.6)
Lactic acidosis
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
Gait dysfunction s/p fall with hip/rib fx
Osteoarthritis
Chronic diastolic heart failure
status post TAVR
Mitral regurgitation
Hyponatremia
Diabetes
Hypothyroidism
Chronic urinary incontinence
Plan
Currently awake/mentating--can answer appropriately
Psychiatric history noted above including severe depression but has not sought treatment
She has stopped eating/does not want to eat moving forward/still insistent today on not eating
Denies pain at this time.
Pain/sedation: PRN
RASS goals: 0
Fall risk, multiple fx in past
Hemodynamically stable, required low dose pressor overnight but weaning off this AM
Cardiac history reviewed--HTN, TAVR, MR, chronic HF
Prior ECHO reviewed indicating stage II DD
Resume home meds as tolerated
Afib wtih RVR, cards eval, on cardizem gtt--wean off
Monitor on telemetry
Oxygen needs: stable on RA
Prior history of lung disease: none
Supplemental O2 as indicated to maintain sats > 89%
CXR/CT reviewed indicating NAD
Diet advacement
She has still declined PO intake
Telehealth Nurse recommendations
Aspiration precautions, HOB > 30 degrees
Speech therapy eval --difficulty with PO meds
GI prophylaxis if indicated for mechanical ventilation >48 hours, prior history of GERD, stress ulcer formation in the critically ill
If continues to refuse meals, will need to discuss again with family
TIMOTHY present, resolved with IVFs
Creat at baseline, 0.6
No history of renal disease
Void trials
Follow urine output, critical I/Os
Replete electrolytes as needed
No signs/symptoms suspicious for infectious etiology at this time
Would observe off antibiotics for now
Follow fever trend, WBC count
Lactate elevated on admission, continue to trend until <2
CBC stable, no signs of bleeding or coagulopathy.
DVT prophylaxis as assessed based on risk, including mechanical SCDs
Can transfuse if indicated for Hb <7, plt < 10
INR WNL
DKA, on insulin
H/o diabetes, can bridge when able
HbA1c 7.1
H/o hypothyroidism, can continue on home synthroid dose
DM ENGRAVER AUTOMATIC consult
Discussed with family at bedside
Will discuss as family
She is DNR now
Diagnostic Data
Chest X-Ray: 07/20/24- No active cardiopulmonary disease. TAVR type aortic valve prosthetic aortic valve. Osteopenia with old healed fracture of the right humeral neck. Degenerative osteoarthritis of both shoulders with narrowing of the subacromial
spaces suggesting the presence of rotator cuff pathology
CT Scan: [facility] 12/22/23- Subtle nondisplaced fracture involving the superior right pubic ramus and right symphysis body. No right hip femoral head or neck fracture. No right hip periacetabular iliac fracture. No acute rib fracture. Multiple bilateral
chronic rib fractures. No vertebral compression deformity. Stable chronic compression deformities of T6 and T7. No evidence to suggest acute intrathoracic, abdominal, or pelvic injury. Small amount of fluid within the esophagus, which could reflect
reflux or dysmotility. Mild nonspecific stable precarinal adenopathy, measuring 11 mm.
Stable chronic compression deformities involving T6 and T7. No acute thoracic vertebral compression deformity. Mild sigmoid diverticulosis without acute diverticulitis. Mild colonic fecal burden.
Mild chronic cortical deformity of the left symphysis, consistent with old healed fracture.
Echo: 01/31/24- Left ventricle is small in size. Mild to moderate concentric LVH. Normal left ventricular systolic function. Normal regional wall motion. Left ventricular ejection fraction is 68 % by Mccormick's method of discs. Stage II diastolic
dysfunction suggestive of abnormal relaxation and increased filling pressures. Mitral valve opens normally. Thickened mitral valve leaflets with posterior
mitral annular calcification. There is at least mild to moderate mitral regurgitation which may have been underestimated due to mitral annular calcification. Moderately dilated left atrium. Indexed LA volume is moderately abnormal (42-48 mL/m2).
Well seated #23 mm Fonseca Curtis TAVR with peak/mean gradients across the aortic valve at 25/14 mmHg, respectively. Trace aortic regurgitation is seen. Tricuspid valve opens normally. Mild tricuspid regurgitation. Estimated pulmonary artery
pressure of 40 mmHg assuming a right atrial pressure of 3 mmHg. Mildly dilated right atrium. Normal right ventricular size and function. Since echocardiogram 07/07/2023, there is no significant change. MR may have worsened slightly from mild to at
least mild-moderate.
PFT's:
Reports and relevant images were personally reviewed.
-----
Critical care time 35 mins -- this includes review of history, physical exam, medications, hemodynamic/ventilator parameters, laboratory data, imaging and discussion with house staff, pharmacy, respiratory therapy, sawsmith, and nursing. Discussed
GOC with family.
Subjective Dataa
Subjective Data
Date of Service:
Date of Service: July 22, 2024
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
Subjective:
No events ON, remains on insulin gtt
Still refusing to eat, having a difficult time taking PO meds
Objective Data
Data Reviewed
Vital Signs / I&O / Oxygen:
Vital Signs
Temp Pulse Resp BP Pulse Ox
98.7 F 121 19 142/89 96
07/22/24 07:00 07/22/24 05:30 07/22/24 05:30 07/22/24 05:00 07/22/24 05:30
Intake and Output
07/21/24 07/22/24 07/23/24
06:59 06:59 06:59
Intake Total 2157.7 / 2326.7 4114 / 4114
Output Total 1250 / 1290 995 / 995
Balance 907.7 / 1036.7 3119 / 3119
SaO2 96
Physical Exam
General: Comfortable and Other (NAD)
HEENT: Normocephalic, Anicteric and Moist Mucous Membranes
Cardiovascular: S1-S2 and Regular Rhythm
Respiratory: Clear and Non-Labored Respirations
GI: Soft, Non Distended and Non Tender
Neurology: Awake, Alert, Oriented, No Motor Deficits and Depressed
Skin: Warm and Dry
Labs/Micro/Reports
Lab Data
07/22/24 02:01
07/22/24 02:01
Laboratory Results
07/21/24 07/21/24 07/22/24
09:36 17:26 02:01
APTT 49.5 H 143.3 H 88.9 H
Microbiology
07/20/24 11:44 Urine Urine Culture - Final
No Significant Growth
07/20/24 11:23 Blood/Venous Blood Culture - Preliminary
No Growth in 24 hours- Final report to follow
07/20/24 11:23 Blood/Venous Blood Culture - Preliminary
No Growth in 24 hours- Final report to follow
[2024-07-22] MEDS: LEXAPRO 10 MG PO (08:16)
[2024-07-22] MEDS: CARDIZEM 30 MG PO ×4 (08:16→21:29)
[2024-07-22] MEDS: ZOFRAN 4 MG IV ×2 (08:17→15:24)
[2024-07-22 08:18] LABS: Glucose - Point of Care 179 mg/dl (70-99)
[2024-07-22] MEDS: SYNTHROID 75 MCG PO (08:21)
--- NOTE | 2024-07-22 08:28 | PHA.VAN.FU ---
Vancomycin Assessment / Plan
- Assessment
Renal Function: SCR Decreasing
WBC's are: Trending Down
In the past 24 hrs, patient has been: Afebrile
Concomitant Antimicrobials: CEFEPIME
- Assessment - Therapeutic Drug Monitoring
Random Level: 11.6
- Dosing Plan
Adjust Regimen to: 750MG Q24H
New Regimen Predicts: AUC (527), Peak (34.8), Trough (12.6)
- Monitoring Plan
No level(s) ordered at this time: CONSIDER AT STEADY STATE
- Follow Up
Pharmacy will continue to follow.
Vancomycin Follow UP
- -
Patient Age: 88
Patient Sex: Female
Vancomycin Day #: 3
Indication: Genito-Urinary Tract
Requesting Provider: Dr. Starkey
Pertinent Antimicrobial Allergies:
sulfonamide antibiotics - rash
Height / Weight:
Height 5 ft 1 in
Actual Weight 47 kg
IBW in k.8
Pertinent Past Medical History: BMI ~17.5, DM
- Vital Signs / Lab Results
Temp Pulse Resp BP Pulse Ox
98.7 F 130 19 138/76 96
07/22/24 07:00 07/22/24 08:16 07/22/24 05:30 07/22/24 08:16 07/22/24 05:30
Lab Results - Hematology
07/20/24 07/21/24 07/22/24
09:57 05:01 02:01
WBC 20.3 H 26.2 H 20.4 H
Lab Results - Chemistry
07/20/24 07/20/24 07/20/24
09:57 10:45 12:33
BUN 37 H Cancelled 37 H
Creatinine 1.4 H Cancelled 1.3 H
Estimated Creat Clear 18 Cancelled 20
Albumin 4.5
07/20/24 07/20/24 07/20/24
14:19 18:09 22:36
BUN 37 H 37 H 36 H
Creatinine 1.1 H 1.0 0.9
Estimated Creat Clear 23 26 29
Albumin
07/21/24 07/21/24 07/21/24
01:11 05:01 10:00
BUN 34 H 30 H Cancelled
Creatinine 0.8 0.8 Cancelled
Estimated Creat Clear 32 35 Cancelled
Albumin 2.8 L D
07/21/24 07/21/24 07/21/24
13:43 14:00 18:00
BUN 20 H Cancelled Cancelled
Creatinine 0.7 Cancelled Cancelled
Estimated Creat Clear 40 Cancelled Cancelled
Albumin
07/21/24 07/22/24
22:00 02:01
BUN Cancelled 12
Creatinine Cancelled 0.6
Estimated Creat Clear Cancelled 46
Albumin
07/20/24 07/20/24
09:57 22:36
Lactic Acid 5.4 H* 1.8
Microbiology Results
07/20/24 11:44 Urine Culture - Final
Urine No Significant Growth
07/20/24 11:23 Blood Culture - Preliminary
Blood/Venous No Growth in 24 hours- Final report to follow
07/20/24 11:23 Blood Culture - Preliminary
Blood/Venous No Growth in 24 hours- Final report to follow
Therapeutic Drug Monitoring
Random Vancomycin 11.6 ug/ml 07/22/24 02:01
--- NOTE | 2024-07-22 09:00 | PTCARENOTE ---
pt drowsy this am , aware she is in hospital , Afib on monitor , her HR is up to 130s -140s at times before she is due for her oral Cardizem , Dr Jalloh here and aware , pt to start on metroprol for HR control , she has a diet ordered she is
currently refusing any po intake , family at bedside and discussed some GOC for patient , pt daughter here and wants to encourage po intake for patient improvement in outcome , pt speech therapy consulted re pt swallow eval , noted pt gagging with
taking oral medication
[2024-07-22 09:03] LABS: Glucose - Point of Care 174 mg/dl (70-99)
[2024-07-22 10:15] LABS: Glucose - Point of Care 170 mg/dl (70-99)
[2024-07-22] MEDS: LOPRESSOR 25 MG PO ×4 (10:55→23:40)
[2024-07-22] MEDS: VANCOCIN 150 IV (11:07)
[2024-07-22 11:12] LABS: Glucose - Point of Care 191 mg/dl (70-99)
--- NOTE | 2024-07-22 11:39 | PTOTSP ---
ST Acute Care Evaluation
Pt currently presents with clinical symptoms of mild pharyngoesophageal dysphagia characterized by occasional delayed throat clearing following both solids and liquids along with persistent eructation after PO intake.
Recommendations:
- Continue with regular solids, thin liquids, meds whole in puree.
- Aspiration and reflux precautions: HOB upright for all PO intake and for at least 60 minutes after PO intake; small bites/sips; eat/drink slowly; alternate solids/liquids.
- MD to consider reflux medication.
- MD to consider consult to registered dietitian for supplemental nutrition (i.e., pt likes ice cream - Magic cup?).
- SHIFT PRODUCTION ASSOCIATE to f/u re: pt's diet tolerance and airway protection with current diet recommendations as well as to determine whether pt would benefit from an instrumental swallow study.
[2024-07-22 12:37] LABS: Glucose - Point of Care 184 mg/dl (70-99)
--- NOTE | 2024-07-22 12:39 | W.PN.CARDCBS ---
Today's Communication / Plan
-
Continue p.o. diltiazem
Add metoprolol for better rate control of A-fib
Continues on heparin for cardioembolic prophylaxis
Impression / Plan
-
PCP: Ryne West
Nurse Consultant: Siddharth oHuse
Impression:
Presents 07/20/2024 with weakness, excessive thirst, tachycardia and hyperglycemia
DKA
TIMOTHY
Hyperkalemia
Leukocytosis
Lactic acidosis
A-fib with rapid ventricular response, new diagnosis
Hypotension
Elevated troponin, suspect Nonischemic myocardial injury troponin elevation
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
Insulin-dependent diabetes
Hyperlipidemia
Hypothyroidism
DVT
Depression with recent weight loss
Gait dysfunction
Osteoarthritis
Mitral regurgitation
Chronic urinary incontinence
Ambulatory dysfunction with falls
Echo 01/31/2024: EF 68%. Mild to moderate concentric LVH. Stage II DD. Moderately dilated left atrium. Mildly dilated right atrium. Mild to moderate MR. Well seated #23 mm Fonseca Curtis TAVR with peak/mean gradients 25/14 mmHg, trace AI. Mild
TR
Cardiac cath 12/03/2022: LM: Okay. LAD: LI, mid 30% stenosis. Left circumflex: LI. RCA LI.
Plan:
-Presents 07/20/2024 with weakness, excessive thirst, tachycardia and hyperglycemia.
-Found to have DKA with lactic acidosis and glucose 765
-Also new onset A-fib with rapid ventricular response. Patient was in sinus rhythm at office visit on 07/13/2024. Most likely this is exacerbated by electrolyte derangement and DKA.
-Cont PO diltiazem
-Add metoprolol
-Goal HR <110 bpm
-Agree with heparin drip to reduce risk of thromboembolic event. Plan for transition to Eliquis 2.5mg BID on discharge.
-Elevated troponin noted, suspect Nonischemic myocardial injury troponin elevation in the setting of tachycardia and DKA
-History of TAVR with most recent echo January 2024 preserved ejection fraction with mild to moderate MR and well-seated TAVR.
Discussed with nursing
HPI 07/20/2024:
Patient is an 88-year-old female with past medical history of aortic stenosis status post TAVR January 2023, insulin-dependent diabetes, hyperlipidemia, hypothyroidism, depression and prior DVT who presents to emergency department 07/20/2024 with
complaints of nausea, vomiting, diarrhea, excessive thirst, tachycardia and elevated blood sugar. Patient reports she has been dealing with right shoulder injury since May and had steroid injection with orthopedic 07/09/2024. Unfortunately there
was minimal relief and she was placed on Medrol Dosepak 07/14/2024. Following placement of Medrol Dosepak patient's blood sugars became elevated and she noted increased thirst and urination. She became very nauseous within the last 24 hours and had
multiple episodes diarrhea for the past few days and vomiting overnight. Her aide found her blood sugars elevated and she was tachycardic with increased weakness and was brought to the emergency department. Blood sugar on arrival was 765. Weight
cell count was elevated at 20.3, potassium 6.1, mild TIMOTHY with creatinine of 1.4. Venous blood gas pH 6.9. She was found to be in atrial fibrillation with rapid ventricular response and hypotensive. Patient placed on insulin drip as well as sodium
bicarb and saline. She was started on diltiazem drip for atrial fibrillation with some improvement of heart rate. Patient denied chest pain. Troponin is pending.
At time of this evaluation patient looks weak lying in bed. She denies chest pain, shortness of breath or palpitations.
Progress Note - Nurse Consultant
Subjective
Date of Service: July 22, 2024
No acute overnight events. She is resting comfortably in bed in the ICU. Heart rates remain rapid at times.
Objective
Labs:
07/22/24 02:01
07/22/24 02:01
Labs
Hgb 11.2 g/dL (12.0-16.0) L 07/22/24 02:01
Hct 32.5 % (37.0-47.0) L 07/22/24 02:01
Plt Count 222 10^3/uL (130-400) 07/22/24 02:01
PT 16.3 Sec (11.4-14.6) H 07/21/24 01:11
INR 1.33 07/21/24 01:11
APTT Cancelled 07/22/24 12:12
Sodium 134 mmol/L (135-145) L 07/22/24 02:01
Potassium 4.8 mmol/L (3.5-5.1) 07/22/24 02:01
BUN 12 mg/dl (7-17) 07/22/24 02:01
Creatinine 0.6 mg/dL (0.6-1.0) 07/22/24 02:01
Glucose 249 mg/dl (70-99) H 07/22/24 02:01
Troponins
07/20/24 07/20/24 07/21/24
12:33 22:36 05:01
Troponin I 0.047 H* 2.480 H* 1.890 H*
07/21/24
13:43
Troponin I 0.855 H*
Vital Signs and I&O:
Vital Signs
Temp Pulse Resp BP Pulse Ox
98.4 F 119 19 143/97 96
07/22/24 11:00 07/22/24 10:55 07/22/24 05:30 07/22/24 10:55 07/22/24 05:30
Vital Signs
Temp Pulse Resp BP Pulse Ox
98.4 F 119 19 143/97 96
07/22/24 11:00 07/22/24 10:55 07/22/24 05:30 07/22/24 10:55 07/22/24 05:30
Intake & Output
10/04/24 10/05/24 10/06/24 10/07/24
06:59 06:59 06:59 06:59
Intake Total 2157.7 / 2326.7 4114 / 4114
Output Total 1250 / 1290 995 / 995
Balance 907.7 / 1036.7 3119 / 3119
Physical Exam
Physical Exam
Gen: NAD, awake
HEENT: NC/AT, sclera anicteric
Neck: No JVD
CV: irregularly irreuglar
Lungs: CTAB
Abd: S/ND
Ext: No LE edema
Skin: Warm, dry
Neuro: Non-focal
[2024-07-22] MEDS: PROTONIX 40 MG PO (12:52)
[2024-07-22] MEDS: LANTUS 0.15 UNITS SC (12:52)
[2024-07-22 12:57] LABS: APTT 66.6 Sec (23.4-35.0)
[2024-07-22 13:00] LABS: Glucose - Point of Care 169 mg/dl (70-99)
--- NOTE | 2024-07-22 13:53 | PTCARENOTE ---
speech therapy noted pt having some reflux , pt started on a PPI , she is now eating very small amounts of sherbert and ice-cream for her meals she now has a dietary supplement ordered with her meals , daughter and hospice spiritual care coordinator in room to encourage PO
intake , Dr Starkey aware of pts PO status ordered 15 units of lantus , pt continues on IV insulin gt with hourly accu checks , she has been at 2 units of insulin for the day her blood glucoses range from 169-192
[2024-07-22 14:09] LABS: Glucose - Point of Care 206 mg/dl (70-99)
[2024-07-22] MEDS: MORPHINE SULFATE 1 MG IV (16:35)
[2024-07-22 16:52] LABS: Glucose - Point of Care 84 mg/dl (70-99)
--- NOTE | 2024-07-22 19:50 | PTCARENOTE ---
Received pt via handoff. Pt AOx3, able to TOTH but has generalized weakness throughout. A Fib. 95% on RA, slightly diminished bilaterally throughout. Hypoactive bowel sounds in all 4 quadrants. Granda CDI draining clear yellow urine. Skin CDI with
foam on stage 2 sacral injury. Insulin, heparin and fluid gtts running see flowsheet. Call madison within reach, caregiver at bedside. Will continue to monitor.
[2024-07-22 19:51] LABS: APTT 62.8 Sec (23.4-35.0)
[2024-07-22 19:53] LABS: Blood Urea Nitrogen 5 mg/dl (7-17); Calcium 7.7 mg/dl (8.4-10.2); Carbon Dioxide 22 mmol/L (22-30); Chloride 98 mmol/L (98-107); Estimated Creatinine Clearance 48 ml/min; Glucose 186 mg/dl (70-99); Potassium 4.2 mmol/L (3.5-5.1); Sodium 128 mmol/L (135-145); eGFR > 60.00
--- NOTE | 2024-07-22 20:30 | PTCARENOTE ---
Granda removed, labs drawn, hygiene performed, will continue to monitor.
[2024-07-22 22:13] LABS: Glucose - Point of Care 129 mg/dl (70-99)
[2024-07-23] VITALS (33 sets, daily range): BP systolic 90–171; BP diastolic 62–120; PULSE 101; O2SAT 98; BMI 19.7
--- NOTE | 2024-07-23 | PTCARENOTE ---
Reassessed all systems, pt remains asleep, will continue to monitor. Call madison at bedside.
[2024-07-23 00:11] LABS: Glucose - Point of Care 136 mg/dl (70-99)
[2024-07-23 02:07] LABS: APTT 134.1 Sec (23.4-35.0)
[2024-07-23 02:10] LABS: Glucose - Point of Care 130 mg/dl (70-99)
[2024-07-23 02:58] LABS: Hematocrit 32.3 % (37.0-47.0); Hemoglobin 11.1 g/dL (12.0-16.0); Mean Corp Hgb Conc. 34.4 g/dL (33.0-37.0); Mean Corpuscular Volume 87.3 fL (81.0-99.0); Platelet Count 186 10^3/uL (130-400); Red Cell Dist. Width 13.9 % (11.5-14.5); White Blood Cell Count 13.9 10^3/uL (4.8-10.8)
[2024-07-23 03:17] LABS: Blood Urea Nitrogen 5 mg/dl (7-17); Calcium 7.8 mg/dl (8.4-10.2); Carbon Dioxide 22 mmol/L (22-30); Chloride 101 mmol/L (98-107); Estimated Creatinine Clearance 48 ml/min; Glucose 104 mg/dl (70-99); Magnesium 1.6 mg/dl (1.6-2.3); Potassium 4.2 mmol/L (3.5-5.1); Sodium 132 mmol/L (135-145); eGFR > 60.00
[2024-07-23 04:10] LABS: Glucose - Point of Care 143 mg/dl (70-99)
[2024-07-23] MEDS: D5/0.45%NSS with KCL 20 MEQ 1000 IV ×2 (04:59→13:04)
[2024-07-23] MEDS: LOPRESSOR 25 MG PO (05:03)
[2024-07-23] MEDS: VANCOCIN 150 IV (05:03)
[2024-07-23] MEDS: SYNTHROID 75 MCG PO (05:04)
--- NOTE | 2024-07-23 05:14 | PTCARENOTE ---
All systems reassessed, status remains unchanged. Antibiotic gtt started, will continue to monitor.
[2024-07-23 06:13] LABS: Glucose - Point of Care 169 mg/dl (70-99)
--- NOTE | 2024-07-23 07:33 | PN.DE.MGMTRT ---
Insulin Management
- -
07/23/2024: Diabetes Management Consult
88 year old female with PMH: Chronic diastolic HF, TAVR, MR, Insulin dependent T2DM, admitted on 07/20 with weakness, excessive thirst, tachycardia and hyperglycemia. Found to have DKA with lactic acidosis and glucose 765. Also new onset A-fib with
rapid ventricular response.
Pt unable to interview or answer diabetes related questions. All information obtained form chart review and home agent at bedside.
According to the care administrative tech, pt was taking Toujeo 8 units @ HS, NovoLog 6 units AC and Metformin 1000 mg BID INVOICING SPECIALIST.
Pt is noted for poor PO intake prior to admission. She has not eaten over the past 2 months following the of her and has lost 29lbs unintentionally. Evelyn review indicates severe depression but pt does not want to seek psychiatric
evaluation and does not wish to continue eating, but has declined artificial means for nutrition. A1C 8.6%, Cr 0.5, eGFR >60
Pt sleeping in bed, does not open eyes to name calling, unable to discuss diabetes management
Currently on insulin infusion, glucose range 130 to 169, requiring 1-2 units of insulin/hr.
Will transition off drip to SQ insulin. Give Lantus 8 units NOW and turn drip off 1 hr after stopping drip
Pt is ordered a diet but has declined to eat. Will start low corrective Q6 hrs. Cont to follow and make further insulin adjustments if needed
Diabetes History
- -
Type of Diabetes: 2 requiring insulin
Pre-Admission Diabetes Regimen
07/22/24 07/23/24
19:29 02:21
Creatinine 0.5 L 0.5 L
Insulin Pump Settings
IP Diabetes Regimen
07/22/24 07/22/24 07/22/24
08:07 08:52 10:03
Glucose
POC Glucose 179 H 174 H 170 H
07/22/24 07/22/24 07/22/24
11:01 12:25 12:50
Glucose
POC Glucose 191 H 184 H 169 H
07/22/24 07/22/24 07/22/24
13:58 16:41 19:29
Glucose 186 H
POC Glucose 206 H 84
07/22/24 07/23/24 07/23/24
22:02 00:00 01:59
Glucose
POC Glucose 129 H 136 H 130 H
07/23/24 07/23/24 07/23/24
02:21 03:59 06:02
Glucose 104 H
POC Glucose 143 H 169 H
Meal type: Dinner
Meal type: Lunch
Meal type: Breakfast
Amount consumed: 10%
Amount consumed: 5%
Amount consumed: 0
Patient Education
--- NOTE | 2024-07-23 08:00 | PTCARENOTE ---
Received patient from search engine optimization specialist. Patient is sleepy, easily arousable, pleasant cooperative. AAOx3. She is on room air, afib noted on monitor. Patient is on heparin, insulin gtt as documented in handoff. She is pale & thin in appearance.
Currently on 1800 denilson diet but states she has no interest in eating. Patient has had marked weight loss in recent months. Purewick in place draining clear/yellow urine. Will review orders.
[2024-07-23] MEDS: LEXAPRO 10 MG PO (08:06)
[2024-07-23] MEDS: CARDIZEM 30 MG PO (08:06)
[2024-07-23 08:16] LABS: Glucose - Point of Care 195 mg/dl (70-99)
[2024-07-23 08:16] LABS: Glucose - Point of Care 109 mg/dl (70-99)
[2024-07-23 08:19] LABS: Glucose - Point of Care 127 mg/dl (70-99)
[2024-07-23 08:55] LABS: Glycohemoglobin (HgbA1c) 8.6 % (4.0-5.6)
[2024-07-23 10:22] LABS: Glucose - Point of Care 184 mg/dl (70-99)
[2024-07-23] MEDS: LANTUS 0.08 UNITS SC (10:53)
[2024-07-23] MEDS: ZOFRAN 4 MG IV ×2 (11:35→14:02)
--- NOTE | 2024-07-23 11:46 | W.PN.CARDCBS ---
Today's Communication / Plan
-
Transition IV to oral medications
Impression / Plan
-
PCP: Ryne West
Electroneurodiagnostic Technologist: Siddharth House
Impression:
Presents 07/20/2024 with weakness, excessive thirst, tachycardia and hyperglycemia
DKA
TIMOTHY
Hyperkalemia
Leukocytosis
Lactic acidosis
A-fib with rapid ventricular response, new diagnosis
Hypotension
Elevated troponin, suspect Nonischemic myocardial injury troponin elevation
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
Insulin-dependent diabetes
Hyperlipidemia
Hypothyroidism
DVT
Depression with recent weight loss
Gait dysfunction
Osteoarthritis
Mitral regurgitation
Chronic urinary incontinence
Ambulatory dysfunction with falls
Echo 01/31/2024: EF 68%. Mild to moderate concentric LVH. Stage II DD. Moderately dilated left atrium. Mildly dilated right atrium. Mild to moderate MR. Well seated #23 mm Fonseca Curtis TAVR with peak/mean gradients 25/14 mmHg, trace AI. Mild
TR
Cardiac cath 12/03/2022: LM: Okay. LAD: LI, mid 30% stenosis. Left circumflex: LI. RCA LI.
Plan:
Presented 07 20 in diabetic ketoacidosis with acute kidney injury, metabolic acidosis/hyperkalemia with known type 2 diabetes mellitus
-Management per poundmaster/hospitalist and diabetic nurse practitioner
-Patient admits to overall poor appetite and weight loss complicating depression after recent loss of her and a close friend
-Hemoglobin A1c 6.8%
New onset rapid atrial fibrillation, asymptomatic
-Remains in atrial fibrillation with better controlled heart rates
-She was sinus rhythm at office visit on 07/13/2024.
-We reviewed diagnosis, pathophysiology, treatment options as well as stroke risk and stroke risk reduction
-Will transition IV heparin to Eliquis 2.5 mg twice daily for stroke risk reduction
-Will transition short acting diltiazem and metoprolol tartrate to long-acting formulations to improve compliance: Toprol XL 25 mg twice daily; diltiazem CD 120mg daily
-2D echocardiogram ordered and pending today
-Check TSH
- troponin noted, suspect Nonischemic myocardial injury troponin elevation in the setting of tachycardia and DKA
-Denies chest pain or pressure
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
-Check fasting lipid profile
-History of TAVR with most recent echo January 2024 preserved ejection fraction with mild to moderate MR and well-seated TAVR.
-Repeat echocardiogram pending
Depression/anorexia
-Patient has expressed no to staff and family that she has lost her will to keep going
-She did take oral medications this morning although has no desire to eat
-Discussed with poundmaster and family members consult to psychiatry
Plan discussed with daughter and family friend/school psychometrist at bedside
Discussed with poundmaster
Updated patient's outpatient clinical nursing director, Dr. House
HPI 07/20/2024:
Patient is an 88-year-old female with past medical history of aortic stenosis status post TAVR January 2023, insulin-dependent diabetes, hyperlipidemia, hypothyroidism, depression and prior DVT who presents to emergency department 07/20/2024 with
complaints of nausea, vomiting, diarrhea, excessive thirst, tachycardia and elevated blood sugar. Patient reports she has been dealing with right shoulder injury since May and had steroid injection with orthopedic 07/09/2024. Unfortunately there
was minimal relief and she was placed on Medrol Dosepak 07/14/2024. Following placement of Medrol Dosepak patient's blood sugars became elevated and she noted increased thirst and urination. She became very nauseous within the last 24 hours and had
multiple episodes diarrhea for the past few days and vomiting overnight. Her aide found her blood sugars elevated and she was tachycardic with increased weakness and was brought to the emergency department. Blood sugar on arrival was 765. Weight
cell count was elevated at 20.3, potassium 6.1, mild TIMOTHY with creatinine of 1.4. Venous blood gas pH 6.9. She was found to be in atrial fibrillation with rapid ventricular response and hypotensive. Patient placed on insulin drip as well as sodium
bicarb and saline. She was started on diltiazem drip for atrial fibrillation with some improvement of heart rate. Patient denied chest pain. Troponin is pending.
At time of this evaluation patient looks weak lying in bed. She denies chest pain, shortness of breath or palpitations.
Progress Note - Electroneurodiagnostic Technologist
Subjective
Date of Service: July 23, 2024
Seen and examined. Patient offers no specific complaints. Denies chest pain or pressure. No shortness of breath. No palpitations
Objective
Labs:
07/23/24 02:21
07/23/24 02:21
Labs
Hgb 11.1 g/dL (12.0-16.0) L 07/23/24 02:21
Hct 32.3 % (37.0-47.0) L 07/23/24 02:21
Plt Count 186 10^3/uL (130-400) 07/23/24 02:21
PT 16.3 Sec (11.4-14.6) H 07/21/24 01:11
INR 1.33 07/21/24 01:11
APTT 74.0 Sec (23.4-35.0) H 07/23/24 10:06
Sodium 132 mmol/L (135-145) L 07/23/24 02:21
Potassium 4.2 mmol/L (3.5-5.1) 07/23/24 02:21
BUN 5 mg/dl (7-17) L 07/23/24 02:21
Creatinine 0.5 mg/dL (0.6-1.0) L 07/23/24 02:21
Glucose 104 mg/dl (70-99) H 07/23/24 02:21
Troponins
07/20/24 07/20/24 07/21/24
12:33 22:36 05:01
Troponin I 0.047 H* 2.480 H* 1.890 H*
07/21/24
13:43
Troponin I 0.855 H*
Vital Signs and I&O:
Vital Signs
Temp Pulse Resp BP Pulse Ox
98 F 87 18 167/84 95
07/23/24 08:00 07/23/24 08:45 07/23/24 08:45 07/23/24 08:06 07/23/24 09:03
Vital Signs
Temp Pulse Resp BP Pulse Ox
98 F 87 18 167/84 95
07/23/24 08:00 07/23/24 08:45 07/23/24 08:45 07/23/24 08:06 07/23/24 09:03
Intake & Output
07/21/24 07/22/24 07/23/24 07/24/24
06:59 06:59 06:59 06:59
Intake Total 2157.7 / 2326.7 4114 / 4273 4278.0 / 4438.0 479 / 479
Output Total 1250 / 1290 995 / 1195 3675 / 3675 800 / 800
Balance 907.7 / 1036.7 3119 / 3078 603.0 / 763.0 -321 / -321
Physical Exam
Physical Exam
Gen: NAD, AAOx3
HEENT: NC/AT, sclera anicteric
Neck: No JVD
CV: irregularly irregular +S1S2 1/6 SM
Lungs: CTAB
Abd: S/ND
Ext: No LE edema
Skin: Warm, dry
Neuro: Non-focal
[2024-07-23] MEDS: ELIQUIS 2.5 MG PO ×2 (12:02→21:01)
[2024-07-23] MEDS: NOVOLOG FLEXPEN-LOW RESISTANCE SC (12:11)
--- NOTE | 2024-07-23 12:11 | W.PN.INTV ---
Today's Communication / Plan
Recommendations
Transition to subcu insulin
Hopefully patient can start eating
Continue antidepressant
Consider psychiatry evaluation
Follow electrolytes
Goals of cares discussions
Continue heart rate control per atrial fibrillation
To be transition on Eliquis
Physical therapy/Occupational Therapy
Assessment
-
Patient patient is an 88-year-old female with previous history of chronic diastolic heart failure, TAVR, MR, diabetes brought in from home for dehydration, vomiting and hyperglycemia. Patient reported that she had diarrhea for the past 3 days and
then started to have vomiting overnight. She has severe weakness. She has not eaten over the past 2 months following the of her . She has lost 29 pounds unintentionally. Upon presentation to the ER, she was notably in DKA with
severe acidosis. She has rapid A-fib with RVR started on Cardizem and IV heparin. She admits to severe depression but does not want to seek psychiatric evaluation. She does not wish to continue eating, but has declined artificial means for
nutrition. She received 3L in ER and is started on an insulin drip. She is admitted to ICU with DKA.
DKA
Severe HAGMA
Poor po intake, with unintentional weight loss of 29lbs in the past few months
Severe depression w/ FTT
Leukocytosis
Hyperkalemia
TIMOTHY, creatinine 1.4 (baseline 0.6)
Lactic acidosis
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
Gait dysfunction s/p fall with hip/rib fx
Osteoarthritis
Chronic diastolic heart failure
status post TAVR
Mitral regurgitation
Hyponatremia
Diabetes
Hypothyroidism
Chronic urinary incontinence
Plan
No overnight events
Alert, cooperative.
Does not want to eat. Was able to take medications this morning.
Currently awake/mentating--can answer appropriately
Psychiatric history noted above including severe depression but has not sought treatment
Consider psychiatry evaluation.
Currently onLexapro
Denies pain at this time.
Fall risk, multiple fx in past
No longer requiring vasopressors.
Cardiac history reviewed--HTN, TAVR, MR, chronic HF
Prior ECHO reviewed indicating stage II DD
Resume home meds as tolerated
Afib wtih RVR-improved. Cardiology following
Monitor on telemetry to be transition to Eliquis
DKA-resolved.
Back on subcu insulin
HbA1c 7.1
H/o hypothyroidism, can continue on home synthroid dose
DM GENERAL SERVICE TECHNICIAN consult ongoing. Now on subcu insulin
Diet advacement
She has still declined PO intake
Sewer Digger recommendations
Aspiration precautions, HOB > 30 degrees
Speech therapy eval --difficulty with PO meds
If continues to refuse meals, will need to discuss again with family, If continues to refuse to eat may need to place an NG tube.
TIMOTHY present, resolved with IVFs
Creat at baseline, 0.6
No history of renal disease
No signs/symptoms suspicious for infectious etiology at this time
Would observe off antibiotics for now
Follow fever trend, WBC count
Lactate elevated on admission, continue to trend until <2
CBC stable, no signs of bleeding or coagulopathy.
DVT prophylaxis as assessed based on risk, including mechanical SCDs
Can transfuse if indicated for Hb <7, plt < 10
INR WNL
Start physical therapy/Occupational Therapy
Dr. Galvan updated daughter at the bedside 07/23/2024. Patient significantly depressed. Patient herself does not want aggressive care. This is an ongoing discussion.
Dr. Serrano discussed with family at bedside
Case discussed with primary team, cardiology, nursing.
She is DNR now
Diagnostic Data
Chest X-Ray: 07/20/24- No active cardiopulmonary disease. TAVR type aortic valve prosthetic aortic valve. Osteopenia with old healed fracture of the right humeral neck. Degenerative osteoarthritis of both shoulders with narrowing of the subacromial
spaces suggesting the presence of rotator cuff pathology
CT Scan: CAP 12/22/23- Subtle nondisplaced fracture involving the superior right pubic ramus and right symphysis body. No right hip femoral head or neck fracture. No right hip periacetabular iliac fracture. No acute rib fracture. Multiple bilateral
chronic rib fractures. No vertebral compression deformity. Stable chronic compression deformities of T6 and T7. No evidence to suggest acute intrathoracic, abdominal, or pelvic injury. Small amount of fluid within the esophagus, which could reflect
reflux or dysmotility. Mild nonspecific stable precarinal adenopathy, measuring 11 mm.
Stable chronic compression deformities involving T6 and T7. No acute thoracic vertebral compression deformity. Mild sigmoid diverticulosis without acute diverticulitis. Mild colonic fecal burden.
Mild chronic cortical deformity of the left symphysis, consistent with old healed fracture.
Echo: 01/31/24- Left ventricle is small in size. Mild to moderate concentric LVH. Normal left ventricular systolic function. Normal regional wall motion. Left ventricular ejection fraction is 68 % by Mccormick's method of discs. Stage II diastolic
dysfunction suggestive of abnormal relaxation and increased filling pressures. Mitral valve opens normally. Thickened mitral valve leaflets with posterior
mitral annular calcification. There is at least mild to moderate mitral regurgitation which may have been underestimated due to mitral annular calcification. Moderately dilated left atrium. Indexed LA volume is moderately abnormal (42-48 mL/m2).
Well seated #23 mm Fonseca Curtis TAVR with peak/mean gradients across the aortic valve at 25/14 mmHg, respectively. Trace aortic regurgitation is seen. Tricuspid valve opens normally. Mild tricuspid regurgitation. Estimated pulmonary artery
pressure of 40 mmHg assuming a right atrial pressure of 3 mmHg. Mildly dilated right atrium. Normal right ventricular size and function. Since echocardiogram 07/07/2023, there is no significant change. MR may have worsened slightly from mild to at
least mild-moderate.
PFT's:
Reports and relevant images were personally reviewed.
-----
Subjective Dataa
Subjective Data
Date of Service:
Date of Service: July 23, 2024
Chief Complaint: Decorator Inspector Follow Up
Subjective:
She offers no new complaints.
Feeling tired
Does not want to eat, depressed mood
Review of Systems
Cardiopulmonary: Dyspnea (n) and Dyspnea on Exertion (n)
GI: Abdominal Pain (n), Nausea and Vomiting (n)
Objective Data
Data Reviewed
Vital Signs / I&O / Oxygen:
Vital Signs
Temp Pulse Resp BP Pulse Ox
97.7 F 87 18 167/84 95
07/23/24 12:00 07/23/24 08:45 07/23/24 08:45 07/23/24 08:06 07/23/24 09:03
Intake and Output
07/22/24 07/23/24 07/24/24
06:59 06:59 06:59
Intake Total 4114 / 4273 4278.0 / 4438.0 479 / 479
Output Total 995 / 1195 3675 / 3675 800 / 800
Balance 3119 / 3078 603.0 / 763.0 -321 / -321
SaO2 95
Nasal Cannula flow liters per 96
minute
Physical Exam
General: Comfortable and Other (NAD)
HEENT: Normocephalic, Anicteric and Moist Mucous Membranes
Cardiovascular: S1-S2 and Regular Rhythm
Respiratory: Clear and Non-Labored Respirations
GI: Soft, Non Distended and Non Tender
Neurology: Awake, Alert, Oriented, No Motor Deficits and Depressed
Skin: Warm and Dry
Labs/Micro/Reports
Lab Data
07/23/24 02:21
07/23/24 02:21
Laboratory Results
07/22/24 07/22/24 07/22/24
12:12 12:32 19:29
APTT Cancelled 66.6 H 62.8 H
07/23/24 07/23/24
01:45 10:06
APTT 134.1 H 74.0 H
Microbiology
07/20/24 11:23 Blood/Venous Blood Culture - Preliminary
No Growth in 72 hours- Final report to follow
07/20/24 11:23 Blood/Venous Blood Culture - Preliminary
No Growth in 72 hours- Final report to follow
07/20/24 11:44 Urine Urine Culture - Final
No Significant Growth
[2024-07-23] MEDS: TOPROL XL 25 MG PO ×2 (12:15→21:01)
[2024-07-23 12:25] LABS: Glucose - Point of Care 108 mg/dl (70-99)
--- NOTE | 2024-07-23 13:11 | CM ---
CM following re: discharge planning.
Reviewed pt's chart, met with pt and daughter Unique at bedside.
Hospice consult noted. Pt preferred hospice for information.
A referral to hospice made.
D/C plan: uncertain at this time and will depend on pt's progress.
CM will follow with discharge plan updates as hospitalization progresses
--- NOTE | 2024-07-23 13:15 | PTCARENOTE ---
Patient has been transitioned off insulin gtt. Lantus administered. Also off the heparin gtt. Eliquis administered. PAtient was able to eat 75% of 1 yogurt but now feels nauseated. Zofran given. ongoing plan of care discussions with family,
daughter Unique at bedside.
--- NOTE | 2024-07-23 13:33 | W.PN.HOSP.TC ---
Today's Communication/Plan
-
CM/Hospice referral for information
encourage po intake
monitor POC
po meds switched
pt/ot/oob
Assessment / Plan
Assessment / Plan
Physical Exam
General: Poor Appetite, Appears Chronically Ill and Cachectic
HEENT: Other (Dry mucous membrane, no deformities)
Respiratory: Decreased Breath Sounds
Cardiac: S1/S2, Irregular Rhythm and Tachycardia
GI: Soft, Non Tender and Non Distended
Genito-urinary: No costovertebral tender
Musculoskeletal: No Cyanosis and No Edema
Skin: No Decubitus Ulcers
Neuro: AO x 3 and Nonfocal/grossly intact
Psych: Calm; No Agitated, flat affected
88 years old female presented diabetic ketoacidosis, acute kidney injury, metabolic acidosis hyperkalemia, atrial fibrillation, leukocytosis, history of nausea/vomiting/diarrhea for a few days duration a
Assessment and plan
# Diabetic ketoacidosis /history of diabetes/insulin-dependent diabetes
Likely precipitated by gastrointestinal etiology versus others
encourage po intake
off insulin gtt with plan to switch to lantus and ISS for now. Can start bolus regimen based on po intake.
#Septic shock Etiology possibly viral gastroenteritis
No history of cough or respiratory problem. Chest radiography, no active cardiopulmonary disease.
History of nausea/vomiting/diarrhea. No diarrhea in hospital. Nausea mostly related to DKA
No history of dysuria.
Blood & urine cultures no growth
Will stop Empiric cefepime and vancomycin
Stool testing if with diarrhea
#Flat affect/dec po intake ? underlying depression
-will ask Psych for input
# New onset atrial fibrillation with rapid ventricular response
No history of atrial fibrillation before.
EKG consistent with atrial fibrillation. ST changes noted
Repeat troponin coming down
Patient denies chest pain in the last few days
s/p cardizem gtt and now cardizem 120mg and toprol 25mg BID
[id number] around 6 off hep gtt and now on Eliquis
Appreciate cardiology input
# Elevated trop Likely Type II NE due to DKA and sepsis
No chest pain
Troponin is coming down
EKG showing ST changes
c/w aspirin
s/p Pressure support with Levophed gtt
Echo is ordered
#Chronic diastolic CHF
Follows with [facility] cardiology
She was volume depleted due to GI loss and DKA, on IV fluid and monitor volume status/ weight closely
Last echo in January 2024 showed LVEF 68%, mild to moderate MR, dilated left atrium, well-seated TAVR, mild aortic regurgitation, mild tricuspid regurgitation, pulmonary artery pressure of 40 mmHg, dilated right atrium.
# Acute kidney injury, metabolic acidosis/lactic acidosis
Resolved
# Hyperkalemia
Resolved.
# hypomagnesemia / hypophosphatemia
Replace
Recheck
#History of significant osteoarthritis with recent cortisone injection to right shoulder
History of falls/chronic rib fractures/chronic compression deformities
Fall precautions
Eventual PT/OT
# Status post TAVR 2021
Last echo in January 2024 showed well-seated TAVR with peak/mean gradients across the aortic valve at 25/14 mmHg. Trace echo aortic regurgitation.
# Severe protein caloric malnutrition
Consulted nutrition
#Hypothyroidism
-Continue levothyroxine
# Chronic urinary frequency/incontinence
-Continue Myrbetriq when appropriate
# Code status, DNR
Confirmed with family
DVT prophylaxis -Eliquis
d/w wtih daughter at bedside. Pt and daughter would like to get more info on hospice
Anticipated Discharge: > 48 hours
Subjective/Interval History
-
Date of Service: July 23, 2024
remains with poor appetite
will try to eat little bit more
on insulin gtt earlier today
Objective Data
-
Labs:
Laboratory Results
07/23/24 07/23/24 07/23/24
01:45 02:21 10:06
WBC 13.9 H
Hgb 11.1 L
Hct 32.3 L
Plt Count 186
APTT 134.1 H 74.0 H
Sodium 132 L
Potassium 4.2
Chloride 101
Carbon Dioxide 22
BUN 5 L
Creatinine 0.5 L
Glucose 104 H
Calcium 7.8 L
Vital Signs:
Vital Signs
Temp Pulse Resp BP Pulse Ox
97.7 F 106 18 151/89 95
07/23/24 12:00 07/23/24 12:15 07/23/24 08:45 07/23/24 12:15 07/23/24 09:03
I&O
07/22/24 07/23/24 07/24/24
06:59 06:59 06:59
Intake Total 4114 / 4273 4278.0 / 4438.0 639 / 639
Output Total 995 / 1195 3675 / 3675 1550 / 1550
Balance 3119 / 3078 603.0 / 763.0 -911 / -911
Data Reviewed
-
Total Time Spent with Patient (in minutes): 56
--- NOTE | 2024-07-23 14:37 | W.PN.UPDATE ---
Update Note
Progress Note Update
Remains hemodynamically stable
Off insulin drip
Will advance diet as able
Increase activity
Transferred to intermediate care unit
Critical care team will sign off
--- NOTE | 2024-07-23 15:01 | HOSPNOTE ---
Hospice referral received. Spoke to patients daughter. Daughter reports that psych and pt evals are pending. She also reports that her brother Rayray will be in from [place] this evening and advised hospice nurse to call and speak to him tomorrow
regarding hospice. After that, then a family meeting can be arranged. Plan is to call and speak to Rayray tomorrow. More information to follow.
--- NOTE | 2024-07-23 16:12 | PN.CDI ---
CDI
- -
CDI:
Physician Documentation Request
Admit Date: 07/20/24 11:56
Dear Doctor Laurita,
Clinical Indicators:
Patient admitted with DKA and sepsis.
07/21 RN skin wound assessment: Sacrum Stage 2 Pressure Injury, POA
Treatment: Silicone border foam dressing
Physician documentation of the type and location of wounds is required for compliant documentation. Based on the above clinical findings and your assessment, please provide the following in your progress note:
1. Location of the ulcer/wound, including laterality.
2. Type (etiology) of ulcer/wound:
- Pressure (decubitus) ulcer
- Other
- Unable to determine
3. If a pressure ulcer, please also include the stage* of the ulcer:
- Stage 1 - Skin intact, non-blanchable redness
- Stage 2 - Partial thickness loss of dermis, includes intact or open blister
- Stage 3 - Full thickness tissue not including bone, tendon or muscle
- Stage 4 - Full thickness tissue loss, including exposed bone, tendon or muscle
- Unstageable - Full thickness loss in which the base of the ulcer is covered by slough (yellow, grady, ventura, green or brown) and/or eschar (grady, brown or black) in the wound bed.
- Unable to determine
Use of terms such as suspected, likely, concern for, or probable (associated with a specific diagnosis that is being evaluated, monitored, or treated as if it exists) are acceptable and can be coded in the inpatient setting, when documented at the
time of discharge.
Thank you,
Melissa Carey RN BSN
CDI Specialist
available via tiger text
Please use your independent medical judgment in providing your response.
*Source: National Pressure Ulcer Advisory Panel (NPUAP)
--- NOTE | 2024-07-23 16:19 | CS.PSYCHR ---
Consult Summary - Psychiatry
-
Pt is an 88 yo female who presented with dehydration, weakness, severely elevated glucose, admitted with diabetic ketoacidosis and new-onset A fib. Pt has persistent poor po intake, loss of appetite, noted feeling that she has lost the will to
keep going. Pt noted to have significant weight loss since her ( 68 years) at in December of this year. Pt seen with dtr and son present. Pt states she feels overwhelmed, c/o persistent nausea, worse over the past few days.
Dtr reports pt fell and injured her shoulder about one month ago, needed opioid medication to manage the pain. She was given an injection and a steroid dose pack, which may have further complicated her other conditions. Pt was placed on Lexapro
2.5 mg daily a couple months after her , increased to 5 mg daily a couple months ago, then increased to 10 mg QD this admission- starting 07/21/24. Pt is considering Hospice, although she has asked her dtr to make the decision for
her. Family is looking at rehab. Pt states she has lost interest in things, although she is still close with her children and grandchildren, smiles when reminded of them. Pt denies any suicidal ideation. Dtr reports pt's stomach tends to be
sensitive.
PMH: Aortic stenosis S/P TAVR January 2023,Insulin-dependent diabetes, Hyperlipidemia, Hypothyroidism, DVT, Osteoarthritis, Mitral regurgitation, Chronic urinary incontinence, Ambulatory dysfunction with falls
Psych Hx: denied
FHx: son on Sertraline with good response
SH: December 2023 after 68 years of marriage. Has 4 children, grandchildren and great-grandchildren. 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 Resides with 24-hour caregiver.
MSE: cachectic, frail, resting under blankets, making eye contact and answering questions, oriented. Psychomotor slowed, somewhat hard of hearing. Affect dysphoric, blunted, able to smile about her children/grandchildren. Pt reports loss of
interest/enjoyment. Speech/thought coherent/goal-directed. Denies SI
Imp: Unspecified depressive d/o, in setting of bereavement- loss of spouse after many years of marriage
Increased Lexapro could be further worsening appetite/adding to nausea. Family states the 5 mg dose of Lexapro did not give benefit
Rec: Would taper Lexapro back to 5 mg Daily and start low dose of Remeron with possibility of switching over
Psychiatry will follow
[2024-07-23] MEDS: CARDIZEM CD 120 MG PO (17:44)
[2024-07-23 17:45] LABS: Glucose - Point of Care 237 mg/dl (70-99)
--- NOTE | 2024-07-23 18:06 | PTCARENOTE ---
Patient written for IMU status. Continues to not eat any meals. notified Christine Syed of patient's blood sugar 237. Will dose corrective. Called for novolog pen from pharmacy.
[2024-07-23] MEDS: NOVOLOG FLEXPEN-LOW RESISTANCE 3 UNITS SC (20:59)
[2024-07-23] MEDS: REMERON 7.5 MG PO (21:04)
[2024-07-23 21:10] LABS: Glucose - Point of Care 266 mg/dl (70-99)
[2024-07-23] MEDS: NOVOLOG FLEXPEN-LOW RESISTANCE 5 UNITS SC (23:46)
[2024-07-23 23:57] LABS: Glucose - Point of Care 360 mg/dl (70-99)
[2024-07-24] VITALS (25 sets, daily range): BP systolic 75–173; BP diastolic 52–110; BMI 19.7
[2024-07-24] MEDS: NOVOLOG FLEXPEN-LOW RESISTANCE 3 UNITS SC (06:47)
[2024-07-24 07:00] LABS: Glucose - Point of Care 269 mg/dl (70-99)
--- NOTE | 2024-07-24 07:30 | PTCARENOTE ---
Received patient from analyst programmer. No change since prior shift assessment. Patient remains sleepy but arousable. Seems depressed/fatigued. Wishes to sleep and requested I come back with medication at a later time. She is AAOx3, on room air,
oxygen saturation at 95%. Patient is in afib on monitor. She still is refusing breakfast. Denies any appetite, states that her pills 'gag' her. Repositioned patient in bed. Purewick is in place and draining clear yellow urine. Will review
orders and keep patient comfortable.
[2024-07-24] MEDS: LANTUS 0.08 UNITS SC (08:12)
--- NOTE | 2024-07-24 08:14 | PN.DE.MGMTRT ---
Insulin Management
- -
07/24/2024: Diabetes Management Consult Follow up
Patient admitted 07/20 with weakness, excessive thirst, tachycardia and hyperglycemia. Found to have DKA with lactic acidosis and glucose 765. Also new onset A-fib with rapid ventricular response. PMH: Chronic diastolic HF, TAVR, MR, Insulin
dependent T2DM.
Pt unable to interview or answer diabetes related questions. All information obtained form chart review and child psychometrist at bedside.
According to the progressive care nurse, pt was taking Toujeo 8 units @ HS, NovoLog 6 units AC and Metformin 1000 mg BID [employer].
Pt is noted for poor PO intake prior to admission. She has not eaten over the past 2 months following the of her and has lost 29lbs unintentionally. Chart review indicates severe depression but pt does not want to seek psychiatric
evaluation and does not wish to continue eating, but has declined artificial means for nutrition. A1C 8.6%, Cr 0.5, eGFR >60
Pt sleeping in bed, does not open eyes to name calling, unable to discuss diabetes management
Transitioned from insulin infusion to lantus 8 units sq and low corrective insulin, glucose fasting 07/24 269. Will increase corrective insulin to moderate.
Pt is ordered a diet but has declined to eat. Will start low corrective Q6 hrs. Cont to follow and make further insulin adjustments if needed
Diabetes History
- -
Type of Diabetes: 2 requiring insulin
Pre-Admission Diabetes Regimen
07/24/24
05:52
Creatinine Cancelled
Lab Results
Hemoglobin A1c 8.6 % (4.0-5.6) H 07/23/24 02:21
Insulin Pump Settings
IP Diabetes Regimen
07/22/24 07/22/24 07/23/24
18:03 20:01 08:03
Glucose
POC Glucose 109 H 195 H 127 H
07/23/24 07/23/24 07/23/24
10:10 12:08 17:33
Glucose
POC Glucose 184 H 108 H 237 H
07/23/24 07/23/24 07/24/24
20:57 23:46 05:52
Glucose Cancelled
POC Glucose 266 H 360 H
07/24/24
06:47
Glucose
POC Glucose 269 H
Meal type: Lunch
Meal type: Lunch
Amount consumed: 5%
Patient Education
[2024-07-24] MEDS: SYNTHROID 75 MCG PO (08:41)
[2024-07-24] MEDS: TOPROL XL 25 MG PO (08:41)
[2024-07-24] MEDS: LEXAPRO 5 MG PO (08:42)
[2024-07-24] MEDS: CARDIZEM CD 120 MG PO (08:42)
[2024-07-24] MEDS: ELIQUIS 2.5 MG PO ×2 (08:42→21:20)
--- NOTE | 2024-07-24 09:13 | W.PN.CARDCBS ---
Today's Communication / Plan
-
RECOMMENDATION:
-Continue Cardizem CD 120 mg daily
-I gave an additional 25 mg of metoprolol XL this morning and increase standing dose to 50 mg p.o. twice daily
-Continue apixaban
-Will start GI prophylaxis given illness and need for anticoagulation
Impression / Plan
-
PCP: Ryne West
Staffing Program Manager: Siddharth House
Impression:
Presents 07/20/2024 with weakness, excessive thirst, tachycardia and hyperglycemia
DKA
TIMOTHY
Hyperkalemia
Leukocytosis
Lactic acidosis
A-fib with rapid ventricular response, new diagnosis
Hypotension
Elevated troponin, suspect Nonischemic myocardial injury troponin elevation
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
Insulin-dependent diabetes
Hyperlipidemia
Hypothyroidism
DVT
Depression with recent weight loss
Gait dysfunction
Osteoarthritis
Mitral regurgitation
Chronic urinary incontinence
Ambulatory dysfunction with falls
Echo: 07/23/2024: LV: Mild concentric LVH. Small chamber size. EF 55%. Indeterminate diastolic function due to atrial fibrillation. RV: Normal, LA: Severely dilated, RA: Moderately dilated, MV: Moderate MR, AV: A 23 mm Fonseca CURTIS TAVR valve
is in the aortic position with mean gradient of 7. No AI. TV: Mild-moderate TR estimated PAP 27 mmHg.
Echo 01/31/2024: EF 68%. Mild to moderate concentric LVH. Stage II DD. Moderately dilated left atrium. Mildly dilated right atrium. Mild to moderate MR. Well seated #23 mm Fonseca Curtis TAVR with peak/mean gradients 25/14 mmHg, trace AI. Mild
TR
Cardiac cath 12/03/2022: LM: Okay. LAD: LI, mid 30% stenosis. Left circumflex: LI. RCA LI.
Plan:
Presented 10 4 in diabetic ketoacidosis with acute kidney injury, metabolic acidosis/hyperkalemia with known type 2 diabetes mellitus
-Management per pit supervisor/hospitalist and diabetic nurse practitioner
-Patient admits to overall poor appetite and weight loss complicating depression after recent loss of her and a close friend
-Hemoglobin A1c 6.8%
New onset rapid atrial fibrillation, asymptomatic
Remains in atrial fibrillation with better controlled heart rates
She was sinus rhythm at office visit on 07/13/2024.
On Eliquis 2.5 mg bid which is appropriate. HR this am was 110
Hgb is stable, TSH was normal
Toprol XL 25 mg twice daily (increasing to 50mg bid today); diltiazem CD 120mg daily
Blood pressures remain high and have increased Toprol-XL to 50 mg p.o. twice daily
Preserved LVEF
Troponin noted, suspect Nonischemic myocardial injury troponin elevation in the setting of tachycardia and DKA: Normal EF by echo
-Denies chest pain or pressure
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
-Check fasting lipid profile
-History of TAVR with most recent echo January 2024 preserved ejection fraction with mild to moderate MR and well-seated TAVR.
-Repeat echocardiogram pending
Depression/anorexia
-Patient has expressed no to staff and family that she has lost her will to keep going
-She did take oral medications this morning although has no desire to eat
-Discussed with pit supervisor and family members consult to psychiatry
Plan discussed with daughter and family friend/home management supervisor at bedside
Discussed with pit supervisor
Updated patient's outpatient manager architectural, Dr. House
HPI 07/20/2024:
Patient is an 88-year-old female with past medical history of aortic stenosis status post TAVR January 2023, insulin-dependent diabetes, hyperlipidemia, hypothyroidism, depression and prior DVT who presents to emergency department 07/20/2024 with
complaints of nausea, vomiting, diarrhea, excessive thirst, tachycardia and elevated blood sugar. Patient reports she has been dealing with right shoulder injury since May and had steroid injection with orthopedic 07/09/2024. Unfortunately there
was minimal relief and she was placed on Medrol Dosepak 07/14/2024. Following placement of Medrol Dosepak patient's blood sugars became elevated and she noted increased thirst and urination. She became very nauseous within the last 24 hours and had
multiple episodes diarrhea for the past few days and vomiting overnight. Her aide found her blood sugars elevated and she was tachycardic with increased weakness and was brought to the emergency department. Blood sugar on arrival was 765. Weight
cell count was elevated at 20.3, potassium 6.1, mild TIMOTHY with creatinine of 1.4. Venous blood gas pH 6.9. She was found to be in atrial fibrillation with rapid ventricular response and hypotensive. Patient placed on insulin drip as well as sodium
bicarb and saline. She was started on diltiazem drip for atrial fibrillation with some improvement of heart rate. Patient denied chest pain. Troponin is pending.
At time of this evaluation patient looks weak lying in bed. She denies chest pain, shortness of breath or palpitations.
Progress Note - Staffing Program Manager
Subjective
Date of Service: July 24, 2024
Resting comfortably. She arouses but appears quite fatigued and is not interested in engagement. She is appropriate
Objective
Labs:
07/23/24 02:21
Labs
Hgb 11.1 g/dL (12.0-16.0) L 07/23/24 02:21
Hct 32.3 % (37.0-47.0) L 07/23/24 02:21
Plt Count 186 10^3/uL (130-400) 07/23/24 02:21
PT 16.3 Sec (11.4-14.6) H 07/21/24 01:11
INR 1.33 07/21/24 01:11
APTT 74.0 Sec (23.4-35.0) H 07/23/24 10:06
Sodium Cancelled 07/24/24 05:52
Potassium Cancelled 07/24/24 05:52
BUN Cancelled 07/24/24 05:52
Creatinine Cancelled 07/24/24 05:52
Glucose Cancelled 07/24/24 05:52
Troponins
07/21/24
13:43
Troponin I 0.855 H*
Vital Signs and I&O:
Vital Signs
Temp Pulse Resp BP Pulse Ox
98.3 F 128 20 161/89 97
07/24/24 08:04 07/24/24 04:15 07/24/24 04:15 07/24/24 08:41 07/24/24 04:15
Vital Signs
Temp Pulse Resp BP Pulse Ox
98.3 F 128 20 161/89 97
07/24/24 08:04 07/24/24 04:15 07/24/24 04:15 07/24/24 08:41 07/24/24 04:15
Intake & Output
07/21/24 07/22/24 07/23/24 07/24/24
23:59 23:59 23:59 23:59
Intake Total 4183 / 4341 4128.0 / 4128.0 2702 / 2782 120 / 120
Output Total 995 / 1145 2775 / 2775 2700 / 2700 750 / 750
Balance 3188 / 3196 1353.0 / 1353.0 -630 / -630
Physical Exam
Physical Exam
GEN: Elderly thin female lying in bed in no acute distress. She is lying flat. She she will answer questions appropriately and is oriented
HEENT: NC/AT, sclera are anicteric,
LUNGS: Clear in lateral lungs. No wheezing
CV: Irreg Irreg. Tachy Normal S1/S2.
ABD : Soft, Bowel sounds are present.
EXT: No CCE
NEURO: No focal neurologic deficits
--- NOTE | 2024-07-24 10:01 | HOSPNOTE ---
Spoke with son Rayray and discussed hospice and the philosophy. Family would like a psych consult and son would like to speak with his mom and make some decisions. Will continue to follow.
[2024-07-24] MEDS: PROTONIX PO (10:57)
[2024-07-24] MEDS: NOVOLOG FLEXPEN-MODERATE RESISTANCE SC ×2 (12:12→18:09)
[2024-07-24] MEDS: NSS 1000 IV (12:16)
[2024-07-24 12:22] LABS: Glucose - Point of Care 142 mg/dl (70-99)
[2024-07-24 13:24] LABS: ALT (SGPT) 18 U/L (0-35); AST (SGOT) 16 U/L (14-36); Alkaline Phosphatase 74 U/L (38-126); Blood Urea Nitrogen 10 mg/dl (7-17); Calcium 8.8 mg/dl (8.4-10.2); Carbon Dioxide 26 mmol/L (22-30); Chloride 98 mmol/L (98-107); Estimated Creatinine Clearance 41 ml/min; Glucose 191 mg/dl (70-99); HDL Cholesterol 71 mg/dl; LDL Cholesterol, Calculated 80 mg/dl; Potassium 4.1 mmol/L (3.5-5.1); Sodium 130 mmol/L (135-145); Total Bilirubin 0.6 mg/dl (0.2-1.3); Total Cholesterol 175 mg/dl (50-199); Total Protein 5.4 g/dl (6.3-8.2); Triglyceride 120 mg/dl (10-149); Very Low Density Lipoprotein 24 mg/dl (0-30); eGFR > 60.00
--- NOTE | 2024-07-24 13:24 | W.PN.HOSP.TC ---
Today's Communication/Plan
-
Encourage po intake
toprol dose adjusted
Continue remeron
MCC prognosis guarded if remains with decrease po intake
Assessment / Plan
Assessment / Plan
Physical Exam
General: Poor Appetite, Appears Chronically Ill and Cachectic
HEENT: Other (Dry mucous membrane, no deformities)
Respiratory: Decreased Breath Sounds
Cardiac: S1/S2, Irregular Rhythm and Tachycardia
GI: Soft, Non Tender and Non Distended
Genito-urinary: No costovertebral tender
Musculoskeletal: No Cyanosis and No Edema
Skin: No Decubitus Ulcers
Neuro: AO x 3 and Nonfocal/grossly intact
Psych: Calm; No Agitated, flat affected
88 years old female presented diabetic ketoacidosis, acute kidney injury, metabolic acidosis hyperkalemia, atrial fibrillation, leukocytosis, history of nausea/vomiting/diarrhea for a few days duration a
Assessment and plan
# Diabetic ketoacidosis /history of diabetes/insulin-dependent diabetes
Likely precipitated by gastrointestinal etiology versus others
encourage po intake
off insulin gtt with plan to switch to lantus and ISS for now. Can start bolus regimen based on po intake.
#Septic shock Etiology possibly viral gastroenteritis
No history of cough or respiratory problem. Chest radiography, no active cardiopulmonary disease.
History of nausea/vomiting/diarrhea. No diarrhea in hospital. Nausea mostly related to DKA
No history of dysuria.
Blood & urine cultures no growth
Will stop Empiric cefepime and vancomycin
Stool testing if with diarrhea
#Flat affect/dec po intake ? 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
-Psych decreased Lexapro to 5 mg and started remeron 7.5mg qhs. Monitor for side effects/increased sleepiness
-Encourage increased p.o. intake.
# New onset atrial fibrillation with rapid ventricular response
No history of atrial fibrillation before.
s/p cardizem gtt and now cardizem 120mg and toprol increased to 50mg BID
[id number] around 6 off hep gtt and now on Eliquis
Left ventricular EF of 55%. Diastolic function is indeterminate. Severe left atrial dilatation and moderate right atrial dilatation. Moderate mitral regurgitation. No aortic insufficiency. Mild-moderate tricuspid regurgitation.
Appreciate cardiology input
# Elevated trop Likely Type II VT due to DKA and sepsis
No chest pain
Troponin is coming down
EKG showing ST changes
c/w aspirin
s/p Pressure support with Levophed gtt
#Chronic diastolic CHF
Follows with [facility] cardiology
She was volume depleted due to GI loss and DKA, on IV fluid and monitor volume status/ weight closely
# Acute kidney injury, metabolic acidosis/lactic acidosis
Resolved
# Hyperkalemia
Resolved.
# hypomagnesemia / hypophosphatemia
Replete/monitor
#History of significant osteoarthritis with recent cortisone injection to right shoulder
History of falls/chronic rib fractures/chronic compression deformities
Fall precautions
Eventual PT/OT
# Status post TAVR 2021
Last echo in January 2024 showed well-seated TAVR with peak/mean gradients across the aortic valve at 25/14 mmHg. Trace echo aortic regurgitation.
# Severe protein caloric malnutrition
Consulted nutrition
#Hypothyroidism
-Continue levothyroxine
# Chronic urinary frequency/incontinence
-Continue Myrbetriq when appropriate
Sacrum Stage 2 Pressure Injury, POA
wound care
# Code status, DNR
Confirmed with family
DVT prophylaxis -Eliquis
PT/OT/OOB
d/w wtih daughter and 2 sons at bedside.
Anticipated Discharge: > 48 hours
Subjective/Interval History
-
Date of Service: July 24, 2024
remains without much appetite
2 sons at bedside
Objective Data
-
Labs:
Laboratory Results
07/24/24 07/24/24
05:52 11:43
Sodium Cancelled Pending
Potassium Cancelled Pending
Chloride Cancelled Pending
Carbon Dioxide Cancelled Pending
BUN Cancelled Pending
Creatinine Cancelled Pending
Glucose Cancelled Pending
Calcium Cancelled Pending
Total Bilirubin Cancelled Pending
AST Cancelled Pending
ALT Cancelled Pending
Alkaline Phosphatase Cancelled Pending
Vital Signs:
Vital Signs
Temp Pulse Resp BP Pulse Ox
98.3 F 100 19 121/77 95
07/24/24 08:04 07/24/24 11:00 07/24/24 11:00 07/24/24 11:00 07/24/24 11:00
I&O
07/23/24 07/24/24 07/25/24
06:59 06:59 06:59
Intake Total 4278.0 / 4438.0 1559 / 1559 0 / 0
Output Total 3675 / 3675 2300 / 2300
Balance 603.0 / 763.0 -741 / -741 0 / 0
Data Reviewed
-
Total Time Spent with Patient (in minutes): 52
--- NOTE | 2024-07-24 13:27 | PTCARENOTE ---
no change in patient's assessment. patient's family continues to visit. ongoing plan of care discussions. patient does not want to eat/participate in occupational or physical therapy, etc. support provided. Chaplain Leida Rivera came up and
spoke with patient and family. Dr. Shay also came and spoke with family.
--- NOTE | 2024-07-24 14:06 | PN.CDI ---
CDI
- -
CDI:
Physician Documentation Request
Admit Date: 07/20/24 11:56
Dear Doctor Laurita,
Clinical Indicators:
Patient admitted with sepsis/septic shock & DKA.
07/23 Cardiology PN, 'suspect Nonischemic myocardial injury troponin elevation in the setting of tachycardia and DKA: Normal EF by echo-Denies chest pain or pressure.'
07/24 PN, 'Elevated trop Likely Type II W[place] due to DKA and sepsis No chest pain...EKG showing ST changes'
Troponin trend:
07/20/24 07/20/24 07/21/24
12:33 22:36 05:01
Troponin I 0.047 H* 2.480 H* 1.890 H*
07/21/24
13:43
Troponin I 0.855 H*
Due to potentially conflicting documentation, please clarify the etiology of the troponin elevation:
Non ischemic myocardial injury
Type 2 W[place] (documentation complete)
Other, please specify
Use of terms such as suspected, likely, concern for, or probable (associated with a specific diagnosis that is being evaluated, monitored, or treated as if it exists) are acceptable and can be coded in the inpatient setting, when documented at the
time of discharge.
Thank you,
Melissa Carey RN BSN
CDI Specialist
available via tiger text
Please use your independent medical judgment in providing your response.
--- NOTE | 2024-07-24 14:30 | W.PN.UPDATE ---
Update Note
Progress Note Update
Pt seen with son present. She is overall unchanged, still c/o having no appetite, no interest in food. Pt alert and oriented, calm, making eye contact, answering. Started Remeron 7.5 mg last night and decreased Lexapro 5 mg today. Affect is more
full/less flat today. Mood remains depressed. Pt was sleepy through the morning per son- may have been from exhaustion. Pt reportedly having a lot of visitors today.
Imp: Unspecified depressive d/o, in setting of bereavement- loss of spouse earlier this year
loss of appetite, very poor po intake- likely multifactorial
Rec: continue tapered Lexapro 5 mg Daily for now. Continue trial of Remeron 7.5 mg HS, monitor for daytime sedation. Consider further dose titration/switch over, pending tolerability
Psychiatry will follow
--- NOTE | 2024-07-24 16:25 | CHAP ---
Ongoing emotional and spiritual support provided for Mrs. Maciel and family as they wrestle with possibilities and decision. Will continue to follow.
[2024-07-24 18:22] LABS: Glucose - Point of Care 164 mg/dl (70-99)
[2024-07-24] MEDS: REMERON 7.5 MG PO (21:19)
[2024-07-24] MEDS: TOPROL XL 50 MG PO (21:20)
[2024-07-24] MEDS: ZOFRAN 4 MG IV (21:39)
[2024-07-25] VITALS (20 sets, daily range): BP systolic 68–151; BP diastolic 35–91; BMI 19.7
[2024-07-25] MEDS: NOVOLOG FLEXPEN-MODERATE RESISTANCE SC ×2 (00:29→18:27)
[2024-07-25 00:36] LABS: Glucose - Point of Care 112 mg/dl (70-99)
--- NOTE | 2024-07-25 00:52 | PTCARENOTE ---
Pt received as transfer from ICU in bed. AAOx2 (time), flat, withdrawn, limited engagement w/staff. Telemetry = afib. Full physical assessment documented (refer to worklist). Pt attempted to refuse HS meds, stating 'why are you getting me up so
early', reoriented to time. Took meds whole in [place] then immediately states 'I feel nauseated', PRN antiemetic administered (refer to MAR). Purewick external catheter changed and maintained, sacral foam changed. Turned and positioned for
comfort, attempted mouth care --> pt refused. NSS infusing via #22 LFA without complication. Call madison within reach. Plan of care ongoing.
[2024-07-25] MEDS: NSS 1000 IV ×2 (02:41→15:58)
[2024-07-25 05:58] LABS: ALT (SGPT) 18 U/L (0-35); AST (SGOT) 19 U/L (14-36); Albumin 2.9 g/dl (3.5-5.0); Alkaline Phosphatase 76 U/L (38-126); Blood Urea Nitrogen 14 mg/dl (7-17); Calcium 8.7 mg/dl (8.4-10.2); Carbon Dioxide 25 mmol/L (22-30); Chloride 100 mmol/L (98-107); Estimated Creatinine Clearance 36 ml/min; Glucose 170 mg/dl (70-99); Potassium 4.2 mmol/L (3.5-5.1); Sodium 135 mmol/L (135-145); Total Bilirubin 0.4 mg/dl (0.2-1.3); Total Protein 5.3 g/dl (6.3-8.2); eGFR > 60.00
[2024-07-25] MEDS: SYNTHROID PO (06:19)
[2024-07-25] MEDS: NOVOLOG FLEXPEN-MODERATE RESISTANCE 1 UNITS SC (06:27)
[2024-07-25 06:29] LABS: Glucose - Point of Care 162 mg/dl (70-99)
--- NOTE | 2024-07-25 07:34 | PN.DE.MGMTRT ---
Insulin Management
- -
07/25/2024: Diabetes Management Consult Follow up
Patient admitted 07/20 with weakness, excessive thirst, tachycardia and hyperglycemia. Found to have DKA with lactic acidosis and glucose 765. Also new onset A-fib with rapid ventricular response. PMH: Chronic diastolic HF, TAVR, MR, Insulin
dependent T2DM.
Pt unable to interview or answer diabetes related questions. All information obtained form chart review and home service consultant at bedside.
According to the care professional, pt was taking Toujeo 8 units @ HS, NovoLog 6 units AC and Metformin 1000 mg BID [employer].
Pt is noted for poor PO intake prior to admission. She has not eaten over the past 2 months following the of her and has lost 29lbs unintentionally. Chart review indicates severe depression but pt does not want to seek psychiatric
evaluation and does not wish to continue eating, but has declined artificial means for nutrition. A1C 8.6%, Cr 0.8, eGFR >60
Pt sleeping in bed, did open eyes in response to name, dozes right back, unable to discuss diabetes management
Transitioned from insulin infusion to lantus 8 units in AM and low corrective insulin, glucose fasting 07/24 269. Will increase corrective insulin to moderate.
Pt is ordered a diet but has declined to eat.
Will follow and make further insulin adjustments if needed.
Diabetes History
- -
Type of Diabetes: 2 requiring insulin
Pre-Admission Diabetes Regimen
07/24/24 07/25/24
11:43 04:43
Creatinine 0.7 0.8
Lab Results
Hemoglobin A1c 8.6 % (4.0-5.6) H 07/23/24 02:21
Insulin Pump Settings
IP Diabetes Regimen
07/24/24 07/24/24 07/24/24
11:43 12:01 18:06
Glucose 191 H
POC Glucose 142 H 164 H
07/25/24 07/25/24 07/25/24
00:15 04:43 06:18
Glucose 170 H
POC Glucose 112 H 162 H
Meal type: Breakfast
Patient Education
--- NOTE | 2024-07-25 09:05 | W.PN.CARDCBS ---
Today's Communication / Plan
-
Remains in A-fib with adequately controlled rates. Blood pressure remains very labile. Continue Toprol and diltiazem.
Continue Eliquis.
Echo has stable transcatheter aortic valve with moderate MR.
Biggest issue seems to be her depression and not eating.
Continue treatment for diabetes.
Impression / Plan
-
PCP: Ryne West
Automobile Accessories Installer: Siddharth House
Impression:
Presents 07/20/2024 with weakness, excessive thirst, tachycardia and hyperglycemia
DKA
TIMOTHY
Hyperkalemia
Leukocytosis
Lactic acidosis
A-fib with rapid ventricular response, new diagnosis
Hypotension
Elevated troponin, suspect Nonischemic myocardial injury troponin elevation
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
Insulin-dependent diabetes
Hyperlipidemia
Hypothyroidism
DVT
Depression with recent weight loss
Gait dysfunction
Osteoarthritis
Mitral regurgitation
Chronic urinary incontinence
Ambulatory dysfunction with falls
Echo: 07/23/2024: LV: Mild concentric LVH. Small chamber size. EF 55%. Indeterminate diastolic function due to atrial fibrillation. RV: Normal, LA: Severely dilated, RA: Moderately dilated, MV: Moderate MR, AV: A 23 mm Fonseca CURTIS TAVR valve
is in the aortic position with mean gradient of 7. No AI. TV: Mild-moderate TR estimated PAP 27 mmHg.
Echo 01/31/2024: EF 68%. Mild to moderate concentric LVH. Stage II DD. Moderately dilated left atrium. Mildly dilated right atrium. Mild to moderate MR. Well seated #23 mm Fonseca Curtis TAVR with peak/mean gradients 25/14 mmHg, trace AI. Mild
TR
Cardiac cath 12/03/2022: LM: Okay. LAD: LI, mid 30% stenosis. Left circumflex: LI. RCA LI.
Plan:
Presented 10 4 in diabetic ketoacidosis with acute kidney injury, metabolic acidosis/hyperkalemia with known type 2 diabetes mellitus
-Management per embroidery finisher/hospitalist and diabetic nurse practitioner
-Patient admits to overall poor appetite and weight loss complicating depression after recent loss of her and a close friend
-Hemoglobin A1c 6.8%
New onset rapid atrial fibrillation, asymptomatic
Remains in atrial fibrillation with better controlled heart rates
She was sinus rhythm at office visit on 07/13/2024.
Continue Eliquis, Toprol 50 mg p.o. twice daily and diltiazem 120 mg daily. Blood pressure is very labile. Continue to follow.
Troponin noted, suspect Nonischemic myocardial injury troponin elevation in the setting of tachycardia and DKA: Normal EF by echo
-Denies chest pain or pressure
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
-Check fasting lipid profile
-History of TAVR with most recent echo January 2024 preserved ejection fraction with mild to moderate MR and well-seated TAVR.
-Echo 07/23, EF 55%, mod MR, TAVR with mean gr 7, PA 27
Depression/anorexia
-Patient has expressed no to staff and family that she has lost her will to keep going
-She did take oral medications this morning although has no desire to eat
-Discussed with embroidery finisher and family members consult to psychiatry
Plan discussed with daughter and family friend/home builder at bedside
Discussed with embroidery finisher
Updated patient's outpatient internet developer, Dr. House
HPI 07/20/2024:
Patient is an 88-year-old female with past medical history of aortic stenosis status post TAVR January 2023, insulin-dependent diabetes, hyperlipidemia, hypothyroidism, depression and prior DVT who presents to emergency department 07/20/2024 with
complaints of nausea, vomiting, diarrhea, excessive thirst, tachycardia and elevated blood sugar. Patient reports she has been dealing with right shoulder injury since May and had steroid injection with orthopedic 07/09/2024. Unfortunately there
was minimal relief and she was placed on Medrol Dosepak 07/14/2024. Following placement of Medrol Dosepak patient's blood sugars became elevated and she noted increased thirst and urination. She became very nauseous within the last 24 hours and had
multiple episodes diarrhea for the past few days and vomiting overnight. Her aide found her blood sugars elevated and she was tachycardic with increased weakness and was brought to the emergency department. Blood sugar on arrival was 765. Weight
cell count was elevated at 20.3, potassium 6.1, mild TIMOTHY with creatinine of 1.4. Venous blood gas pH 6.9. She was found to be in atrial fibrillation with rapid ventricular response and hypotensive. Patient placed on insulin drip as well as sodium
bicarb and saline. She was started on diltiazem drip for atrial fibrillation with some improvement of heart rate. Patient denied chest pain. Troponin is pending.
At time of this evaluation patient looks weak lying in bed. She denies chest pain, shortness of breath or palpitations.
Progress Note - Automobile Accessories Installer
Subjective
Date of Service: July 25, 2024
Lying in bed, opens eyes but not following commands or answering questions.
Objective
Labs:
07/23/24 02:21
07/25/24 04:43
Labs
Hgb 11.1 g/dL (12.0-16.0) L 07/23/24 02:21
Hct 32.3 % (37.0-47.0) L 07/23/24 02:21
Plt Count 186 10^3/uL (130-400) 07/23/24 02:21
PT 16.3 Sec (11.4-14.6) H 07/21/24 01:11
INR 1.33 07/21/24 01:11
APTT 74.0 Sec (23.4-35.0) H 07/23/24 10:06
Sodium 135 mmol/L (135-145) 07/25/24 04:43
Potassium 4.2 mmol/L (3.5-5.1) 07/25/24 04:43
BUN 14 mg/dl (7-17) 07/25/24 04:43
Creatinine 0.8 mg/dL (0.6-1.0) 07/25/24 04:43
Glucose 170 mg/dl (70-99) H 07/25/24 04:43
Vital Signs and I&O:
Vital Signs
Temp Pulse Resp BP Pulse Ox
97.6 F 100 25 85/55 98
07/25/24 07:58 07/25/24 06:05 07/25/24 06:05 07/25/24 06:05 07/25/24 06:01
Vital Signs
Temp Pulse Resp BP Pulse Ox
97.6 F 100 25 85/55 98
07/25/24 07:58 07/25/24 06:05 07/25/24 06:05 07/25/24 06:05 07/25/24 06:01
Intake & Output
07/23/24 07/24/24 07/25/24 07/26/24
06:59 06:59 06:59 06:59
Intake Total 4278.0 / 4438.0 1559 / 1559 1200 / 1200
Output Total 3675 / 3675 2300 / 2300 150 / 150
Balance 603.0 / 763.0 -741 / -741 1050 / 1050
Physical Exam
Physical Exam
GEN: No distress, not following commands
HEENT: supple, anicteric, mmm
LUNGS: CTA, no wheezes/rales
CV: irreg, S1/S2, 1/6 syst LSB, no gallop
ABD: soft, BS+, NT/ND
EXT: No edema
NEURO: Gross non-focal
SKIN: No rash
[2024-07-25] MEDS: ELIQUIS 2.5 MG PO (09:17)
[2024-07-25] MEDS: TOPROL XL 50 MG PO (09:17)
[2024-07-25] MEDS: SYNTHROID 75 MCG PO (09:17)
[2024-07-25] MEDS: LEXAPRO 5 MG PO (09:17)
[2024-07-25] MEDS: CARDIZEM CD 120 MG PO (09:18)
[2024-07-25] MEDS: PROTONIX 20 MG PO (09:18)
[2024-07-25] MEDS: LANTUS 0.08 UNITS SC (09:47)
[2024-07-25] MEDS: DULCOLAX 10 MG PO (11:13)
[2024-07-25] MEDS: NOVOLOG FLEXPEN-MODERATE RESISTANCE 3 UNITS SC (11:18)
[2024-07-25 11:27] LABS: Glucose - Point of Care 224 mg/dl (70-99)
--- NOTE | 2024-07-25 12:06 | W.PN.HOSP.TC ---
Today's Communication/Plan
-
Encourage po intake
?increase remeron but may need to monitor daytime drowsiness.
OOB
Bowel regimen
Assessment / Plan
Assessment / Plan
Physical Exam
General: Poor Appetite, Appears Chronically Ill and Cachectic
HEENT: Other (Dry mucous membrane, no deformities)
Respiratory: Decreased Breath Sounds
Cardiac: S1/S2, Irregular Rhythm and Tachycardia
GI: Soft, Non Tender and Non Distended
Genito-urinary: No costovertebral tender
Musculoskeletal: No Cyanosis and No Edema
Skin: No Decubitus Ulcers
Neuro: AO x 3 and Nonfocal/grossly intact
Psych: Calm; No Agitated, flat affected
88 years old female presented diabetic ketoacidosis, acute kidney injury, metabolic acidosis hyperkalemia, atrial fibrillation, leukocytosis, history of nausea/vomiting/diarrhea for a few days duration a
Assessment and plan
# Diabetic ketoacidosis /history of diabetes/insulin-dependent diabetes
Likely precipitated by gastrointestinal etiology versus others
encourage po intake
Off insulin gtt with plan to switch to lantus and ISS for now. Can start bolus regimen based on po intake.
#Septic shock Etiology possibly viral gastroenteritis
No history of cough or respiratory problem. Chest radiography, no active cardiopulmonary disease.
History of nausea/vomiting/diarrhea. No diarrhea in hospital. Nausea mostly related to DKA
No history of dysuria.
Blood & urine cultures no growth
Will stop Empiric cefepime and vancomycin
Stool testing if with diarrhea
#Flat affect/dec po intake ? 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
-Psych decreased Lexapro to 5 mg and started remeron 7.5mg qhs. Monitor for side effects/increased sleepiness
-IVF in the interim and can be stopped once appetite improves
-Encourage increased p.o. intake.
-bowel regimen
# New onset atrial fibrillation with rapid ventricular response
No history of atrial fibrillation before.
s/p cardizem gtt and now cardizem 120mg and toprol increased to 50mg BID
ICD6-NF6-BPRv around 6 off hep gtt and now on Eliquis
Left ventricular EF of 55%. Diastolic function is indeterminate. Severe left atrial dilatation and moderate right atrial dilatation. Moderate mitral regurgitation. No aortic insufficiency. Mild-moderate tricuspid regurgitation.
Appreciate cardiology input
# Elevated trop Likely Type II ID due to DKA and sepsis
No chest pain
Troponin is coming down
EKG showing ST changes
c/w aspirin
s/p Pressure support with Levophed gtt
#Chronic diastolic CHF
Follows with [facility]ology
She was volume depleted due to GI loss and DKA, on IV fluid and monitor volume status/ weight closely
# Acute kidney injury, metabolic acidosis/lactic acidosis
Resolved
# Hyperkalemia
Resolved.
# hypomagnesemia / hypophosphatemia
Replete/monitor
#History of significant osteoarthritis with recent cortisone injection to right shoulder
History of falls/chronic rib fractures/chronic compression deformities
Fall precautions
Eventual PT/OT
# Status post TAVR 2021
Last echo in January 2024 showed well-seated TAVR with peak/mean gradients across the aortic valve at 25/14 mmHg. Trace echo aortic regurgitation.
# Severe protein caloric malnutrition
Consulted nutrition
#Hypothyroidism
-Continue levothyroxine
# Chronic urinary frequency/incontinence
-Continue Myrbetriq when appropriate
Sacrum Stage 2 Pressure Injury, POA
wound care
# Code status, DNR
Confirmed with family
DVT prophylaxis -Eliquis
PT/OT/OOB
d/w wtih daughter and multiple other members at bedside.
Anticipated Discharge: > 48 hours
Subjective/Interval History
-
Date of Service: July 25, 2024
remains with poor appetite
ate some yogurt
Objective Data
-
Labs:
Laboratory Results
07/25/24
04:43
Sodium 135
Potassium 4.2
Chloride 100
Carbon Dioxide 25
BUN 14
Creatinine 0.8
Glucose 170 H
Calcium 8.7
Total Bilirubin 0.4
AST 19
ALT 18
Alkaline Phosphatase 76
Vital Signs:
Vital Signs
Temp Pulse Resp BP Pulse Ox
98.6 F 96 20 142/87 98
07/25/24 11:20 07/25/24 08:52 07/25/24 08:52 07/25/24 08:52 07/25/24 08:00
I&O
07/24/24 07/25/24 07/26/24
06:59 06:59 06:59
Intake Total 1559 / 1559 1200 / 1200
Output Total 2300 / 2300 150 / 150
Balance -741 / -741 1050 / 1050
--- NOTE | 2024-07-25 13:33 | HOSPNOTE ---
Met with daughter at her request and discussed hospice and the philosophy. The daughter feels hospice is the appropriate choice and for patient to go home with hospice. The brothers are all not in agreement. The daughter will try to talk with
family this evening and come to a decision. Will continue to follow.
--- NOTE | 2024-07-25 14:38 | STATUS ---
SITUATION:
On BSC, states she doesn't feel good, BP 86/73 becoming diaphoretic BP 68/35 placed back to bed BP 115/74.
BACKGROUND:
Received Dulcolax earlier for no BM x5 days.
ASSESSMENT:
Incontinent loose stool in the recliner chair- assisted to bsc and there became diaphoretic hypotensive. IVF infusing. PLaced back in bed still c/o needing to go to bathroom. BP resolved in bed. Family has been asked not to get her up again.
RECOMMENDATION:
D/w Dr. Shay. No new orders.
--- NOTE | 2024-07-25 16:09 | W.PN.UPDATE ---
Update Note
Progress Note Update
patient seen chart reviewed. spoke with nursing and with hospital manager paper mrs baltazar. the patient was sleeping and i did not wake her. i spoke with the family ...her son and d who were present with their significant other. the family is
struggling to make a decision re hospice or to continue to pursue rx for their mother. son particularly is conflicted feeling he needs to hear from mom whether she wishes to go home on hospice or whether she wants to 'spend more time with her
family'. d said when they asked mom this she replied 'I don'tknow...it is up to you'.i suggested to the family that perhaps mrs ch felt 'guilty ' about wishing to and could not admit it to them. they told me about mrs ch ..how hard it
is to imagine her gone...what a great mother and role model she was. they told me about their father's in december of this year and how devastating that was tto mrs ch. will come by tomorrow to offer support.
--- NOTE | 2024-07-25 16:56 | CM ---
Patient with Dx DKA, septic shock, new Afib, Likely Type II SD. Room air. Receiving IVF.
As per [facility], she met with daughter who agrees with plan for patient to go home with hospice, however the brothers are all not in agreement. Daughter will try to talk with family this evening and come to a decision.
Plan follow up with family tomorrow and Hospice.
--- NOTE | 2024-07-25 18:30 | PTCARENOTE ---
Family came out tearful told me that she finally told them she does not want to at home she wants to stay here and they are ready to make her comfortable. TT to Dr. Shay will discuss with them in am- family agreeable- pt refused accu check at
dinner. She had few incontinent episodes of stool since Dulcolax given. IVF still infusing. PO intake is poor. Turning q 2 with air cushion
--- NOTE | 2024-07-25 20:31 | PTCARENOTE ---
Pt received in bed w/family at bedside. AAOx3, smiling at times, mostly with eyes closed. Attempted to give scheduled medications, pt declined stating 'I just want to go to sleep and for this to be over'. Asked patient if she wishes to go home on
hospice or inpatient, pt responded 'I don't want hospice, I just want to go' Explained hospice model to patient and family, pt then verbalizing she does not want to go home and wants to stay in hospital. Emotional support provided to patient and
family. Full physical assessment competed (refer to worklist). Call [facility] within reach. Family at bedside.
[2024-07-25] MEDS: ELIQUIS PO (20:46)
[2024-07-25] MEDS: SENOKOT-S PO (20:46)
[2024-07-25] MEDS: TOPROL XL PO (20:46)
[2024-07-25] MEDS: REMERON PO (20:47)
[2024-07-25] MEDS: MORPHINE SULFATE 1 MG IV (21:25)
--- NOTE | 2024-07-25 23:06 | PTCARENOTE ---
CNRP covering house made aware of patient refusals.
[2024-07-26] VITALS (13 sets, daily range): BP systolic 77–131; BP diastolic 41–103
[2024-07-26] MEDS: NOVOLOG FLEXPEN-MODERATE RESISTANCE SC ×2 (00:25→07:12)
[2024-07-26] MEDS: NSS 1000 IV ×2 (04:00→17:23)
[2024-07-26] MEDS: SYNTHROID PO (07:12)
--- NOTE | 2024-07-26 08:16 | PN.DE.MGMTRT ---
Insulin Management
- -
07/26/2024: Diabetes Management Consult Follow up
Patient admitted 07/20 with weakness, excessive thirst, tachycardia and hyperglycemia. Found to have DKA with lactic acidosis and glucose 765. Also new onset A-fib with rapid ventricular response. PMH: Chronic diastolic HF, TAVR, MR, Insulin
dependent T2DM. Prior to admission was taking 8 units Toujeo @ HS with novolog 6 units AC and metformin 1000 mg BID. A1C on admission 8.6%, cr .5, EGFR > 60.
Patient is awake alert and oriented today 07/26, states she wants to live, will eat! Remembered my name from previous appointments and inpatient stays.
Pt is noted for poor PO intake prior to admission. She has PO intake has been minimal over the past 2 months following the of her and has lost 29lbs unintentionally. Chart review indicates severe depression but pt does not want to
seek psychiatric evaluation.
07/26 Patient had a muffin and yogurt. Will resume 5 units novolog AC please HOLD if patient does not eat with moderate corrective and lantus 8 units in AM. I spoke with patient nurse.
Will follow
Diabetes History
- -
Type of Diabetes: 2 requiring insulin
Pre-Admission Diabetes Regimen
Lab Results
Hemoglobin A1c 8.6 % (4.0-5.6) H 07/23/24 02:21
Insulin Pump Settings
IP Diabetes Regimen
07/25/24
11:16
POC Glucose 224 H
Meal type: Breakfast
Amount consumed: Patient refused
Patient Education
--- NOTE | 2024-07-26 08:38 | PTCARENOTE ---
Assumed care of patient this morning. She states she is a little hungry and agreed to let me order an apple juice and yogurt. She refused any medications and blood sugar check. Pt was soiled this morning, from loose pure wick but also IV had fallen
out with IVF running. Bathing performed by SN. Assessment, care and VS as charted.
--- NOTE | 2024-07-26 08:50 | PTOTSP ---
SPOKE WITH RN. PATIENT REFUSING MEDS, FOOD AND MAY BE TRANSITIONING TO HOSPICE CARE. WILL DISCHARGE FROM P.T. SERVICES AT THIS TIME.
[2024-07-26] MEDS: ELIQUIS PO (09:05)
[2024-07-26] MEDS: CARDIZEM CD PO (09:05)
[2024-07-26] MEDS: LEXAPRO PO (09:06)
[2024-07-26] MEDS: PROTONIX PO (09:06)
[2024-07-26] MEDS: SENOKOT-S PO ×2 (09:06→19:38)
[2024-07-26] MEDS: LANTUS SC (09:06)
[2024-07-26] MEDS: TOPROL XL PO (09:06)
--- NOTE | 2024-07-26 09:23 | W.PN.CARDCBS ---
Today's Communication / Plan
-
A-fib remains adequately controlled on diltiazem and Toprol.
Blood pressure remains marginal.
She continues to be depressed and is considering hospice.
Echo reveals a stable transcatheter aortic valve and moderate MR. This is stable.
Impression / Plan
-
PCP: Ryne West
Burn Out Scarfing Operator: Siddharth House
Impression:
Presents 07/20/2024 with weakness, excessive thirst, tachycardia and hyperglycemia
DKA
TIMOTHY
Hyperkalemia
Leukocytosis
Lactic acidosis
A-fib with rapid ventricular response, new diagnosis
Hypotension
Elevated troponin, suspect Nonischemic myocardial injury troponin elevation
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
Insulin-dependent diabetes
Hyperlipidemia
Hypothyroidism
DVT
Depression with recent weight loss
Gait dysfunction
Osteoarthritis
Mitral regurgitation
Chronic urinary incontinence
Ambulatory dysfunction with falls
Echo: 07/23/2024: LV: Mild concentric LVH. Small chamber size. EF 55%. Indeterminate diastolic function due to atrial fibrillation. RV: Normal, LA: Severely dilated, RA: Moderately dilated, MV: Moderate MR, AV: A 23 mm Fonseca CURTIS TAVR valve
is in the aortic position with mean gradient of 7. No AI. TV: Mild-moderate TR estimated PAP 27 mmHg.
Echo 01/31/2024: EF 68%. Mild to moderate concentric LVH. Stage II DD. Moderately dilated left atrium. Mildly dilated right atrium. Mild to moderate MR. Well seated #23 mm Fonseca Curtis TAVR with peak/mean gradients 25/14 mmHg, trace AI. Mild
TR
Cardiac cath 12/03/2022: LM: Okay. LAD: LI, mid 30% stenosis. Left circumflex: LI. RCA LI.
Plan:
Presented 10 4 in diabetic ketoacidosis with acute kidney injury, metabolic acidosis/hyperkalemia with known type 2 diabetes mellitus
-Management per bilingual loan processor/hospitalist and diabetic nurse practitioner
-Patient admits to overall poor appetite and weight loss complicating depression after recent loss of her and a close friend
-Hemoglobin A1c 6.8%
New onset rapid atrial fibrillation, asymptomatic
Remains in atrial fibrillation with better controlled heart rates
She was sinus rhythm at office visit on 07/13/2024.
Continue Eliquis, Toprol 50 mg p.o. twice daily and diltiazem 120 mg daily. Blood pressure is very labile. Continue to follow.
Troponin noted, suspect Nonischemic myocardial injury troponin elevation in the setting of tachycardia and DKA: Normal EF by echo
-Denies chest pain or pressure
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
-Check fasting lipid profile
-History of TAVR with most recent echo January 2024 preserved ejection fraction with mild to moderate MR and well-seated TAVR.
-Echo 07/23, EF 55%, mod MR, TAVR with mean gr 7, PA 27
Depression/anorexia
-Patient has expressed no to staff and family that she has lost her will to keep going
-She did take oral medications this morning although has no desire to eat
-Discussed with bilingual loan processor and family members consult to psychiatry
-Considering hospice
HPI 07/20/2024:
Patient is an 88-year-old female with past medical history of aortic stenosis status post TAVR January 2023, insulin-dependent diabetes, hyperlipidemia, hypothyroidism, depression and prior DVT who presents to emergency department 07/20/2024 with
complaints of nausea, vomiting, diarrhea, excessive thirst, tachycardia and elevated blood sugar. Patient reports she has been dealing with right shoulder injury since May and had steroid injection with orthopedic 07/09/2024. Unfortunately there
was minimal relief and she was placed on Medrol Dosepak 07/14/2024. Following placement of Medrol Dosepak patient's blood sugars became elevated and she noted increased thirst and urination. She became very nauseous within the last 24 hours and had
multiple episodes diarrhea for the past few days and vomiting overnight. Her aide found her blood sugars elevated and she was tachycardic with increased weakness and was brought to the emergency department. Blood sugar on arrival was 765. Weight
cell count was elevated at 20.3, potassium 6.1, mild TIMOTHY with creatinine of 1.4. Venous blood gas pH 6.9. She was found to be in atrial fibrillation with rapid ventricular response and hypotensive. Patient placed on insulin drip as well as sodium
bicarb and saline. She was started on diltiazem drip for atrial fibrillation with some improvement of heart rate. Patient denied chest pain. Troponin is pending.
At time of this evaluation patient looks weak lying in bed. She denies chest pain, shortness of breath or palpitations.
Progress Note - Burn Out Scarfing Operator
Subjective
Date of Service: July 26, 2024
More alert today. Still not eating much. Considering hospice
Objective
Labs:
07/23/24 02:21
07/25/24 04:43
Labs
Hgb 11.1 g/dL (12.0-16.0) L 07/23/24 02:21
Hct 32.3 % (37.0-47.0) L 07/23/24 02:21
Plt Count 186 10^3/uL (130-400) 07/23/24 02:21
PT 16.3 Sec (11.4-14.6) H 07/21/24 01:11
INR 1.33 07/21/24 01:11
APTT 74.0 Sec (23.4-35.0) H 07/23/24 10:06
Sodium 135 mmol/L (135-145) 07/25/24 04:43
Potassium 4.2 mmol/L (3.5-5.1) 07/25/24 04:43
BUN 14 mg/dl (7-17) 07/25/24 04:43
Creatinine 0.8 mg/dL (0.6-1.0) 07/25/24 04:43
Glucose 170 mg/dl (70-99) H 07/25/24 04:43
Vital Signs and I&O:
Vital Signs
Temp Pulse Resp BP Pulse Ox
97.8 F 100 18 131/73 96
07/26/24 08:49 07/26/24 08:36 07/26/24 08:36 07/26/24 08:36 07/25/24 12:00
Vital Signs
Temp Pulse Resp BP Pulse Ox
97.8 F 100 18 131/73 96
07/26/24 08:49 07/26/24 08:36 07/26/24 08:36 07/26/24 08:36 07/25/24 12:00
Intake & Output
07/24/24 07/25/24 07/26/24 07/27/24
06:59 06:59 06:59 06:59
Intake Total 1559 / 1559 1200 / 1200 2200 / 2200
Output Total 2300 / 2300 150 / 150 200 / 200
Balance -741 / -741 1050 / 1050 1999 / 1999
Physical Exam
Physical Exam
GEN: No distress, awake
HEENT: supple, anicteric, mmm
LUNGS: CTA, no wheezes/rales
CV: Irreg, S1/S2, 1/6 syst LSB, no gallop
ABD: soft, BS+, NT/ND
EXT: No edema
NEURO: Gross non-focal
SKIN: No rash
--- NOTE | 2024-07-26 09:49 | PTOTSP ---
ST Follow-Up
Chart reviewed. Pt seen by psych. Pt refusing PO meds, oral care, vitals. Pt decided she wants to go on hospice in the hospital. Pt had an episode of hypotension yesterday. Pt afebrile and on room air. No new labs.
Pt seen at bedside with her caregiver. Pt repositioned in bed - HOB raised to an upright position where it would be safer for PO intake. Pt fully awake, alert, and oriented x3. Pt with no recollection of the past few days. Pt pleasantly engaged in
conversation with VAUDEVILLE ACTOR and willingly took PO trials presented to her for dysphagia tx session. Pt's caregiver explained to pt her previously stated wishes - pt was shocked she ever said something like that. When caregiver inquired as to whether she
wanted to live, pt stated yes. When caregiver inquried as to whether she wanted to take her medications, pt stated yes.
Pt seen with PO trials at bedside - regular solids and thin liquids via straw. Oral, pharyngeal, and esophageal phases WFL - no overt s/s of penetration or aspiration noted at bedside. No esophageal s/s. No complaints of any nausea or regurgitation.
Pt presents with oral, pharyngeal, and esophageal parameters that are safe for PO intake of all solids and liquids.
Recommendations:
- Continue with regular solids, thin liquids, and meds as tolerated.
- General aspiration and reflux precautions.
- VAUDEVILLE ACTOR to sign off as no skilled VAUDEVILLE ACTOR services deemed warranted at this time.
[2024-07-26] MEDS: TOPROL XL 50 MG PO ×2 (10:16→20:10)
[2024-07-26] MEDS: LANTUS 0.08 UNITS SC (10:16)
[2024-07-26] MEDS: LEXAPRO 5 MG PO (10:16)
[2024-07-26] MEDS: ELIQUIS 2.5 MG PO ×2 (10:16→20:10)
[2024-07-26] MEDS: CARDIZEM CD 120 MG PO (10:16)
[2024-07-26] MEDS: PROTONIX 20 MG PO (10:17)
[2024-07-26 10:26] LABS: Glucose - Point of Care 228 mg/dl (70-99)
--- NOTE | 2024-07-26 10:41 | PTCARENOTE ---
Hospice contacted and came to bedside. Patient now agreeable to all care and taking medications. Pt reports she wants to live. Medications given orally without difficulty, see MAR. Pt ate some breakfast. Coverage changed per [employer].
--- NOTE | 2024-07-26 10:48 | HOSPNOTE ---
Spoke at length with patient by myself, the patient states she wants to continue living does not wish for hospice care and wants to go home with VN and therapy. I encouraged the patient to try to continue eating and participate in therapy. Will sign
off, if you need further assistance please reach out.
[2024-07-26] MEDS: NOVOLOG FLEXPEN 5 UNITS SC (11:13)
[2024-07-26] MEDS: NOVOLOG FLEXPEN-MODERATE RESISTANCE 3 UNITS SC (11:14)
[2024-07-26 11:49] LABS: Glucose - Point of Care 304 mg/dl (70-99)
--- NOTE | 2024-07-26 12:09 | CM ---
Per hydrate thickener operator, she spoke with patient at length when she was alone; patient stated she wants to continue living; does not wish for hospice care and wants to go home with [facility] and therapy
CM met with patient and her daughter at the bedside; patient is agreeable to Home Health services with [facility] when stable for discharge; referral sent to [facility] liaison via [employer]
Plan: Discharge to home w/ [facility] home health when stable
--- NOTE | 2024-07-26 13:09 | W.PN.UPDATE ---
Update Note
Progress Note Update
reviewed chart and spoke with nursing insurance case manager and patient's 24 hour career resource technician. the patient was sleeping and i did not wake her. bingo cashier felt that there were people in an out all morning and the parade of staff tired mrs ch out. i am
reluctant to have mrs ch tell her story to yet another person at this point. i am told by cm and nursing that patient has made a decision to move forward full throttle with her treatment and go home when medically cleared. she does not want
hospice and she has refused snf. she wants to go home meically cleared. discussed with bingo cashier my recommendations re antidepressant. will dc lexapro. in a week or so consider whether to increase remeron to 15 mg. explained that it does have
anticholinergic side effects and explained what they are but it may be a + in that it can increase appetite. in assessing for level of depression need to keep in mind bereavement and the loss of her of 68 years in december. if mrs ch wants
to talk to psych please let me know and i will return tomorrow otherwise psych i signing off.
--- NOTE | 2024-07-26 13:41 | W.PN.HOSP.TC ---
Today's Communication/Plan
-
monitor poc
basal/bolus reigmen
oob/pt
encourage po intake
Assessment / Plan
Assessment / Plan
Physical Exam
General: Poor Appetite, Appears Chronically Ill and Cachectic
HEENT: Other (Dry mucous membrane, no deformities)
Respiratory: Decreased Breath Sounds
Cardiac: S1/S2, Irregular Rhythm and Tachycardia
GI: Soft, Non Tender and Non Distended
Genito-urinary: No costovertebral tender
Musculoskeletal: No Cyanosis and No Edema
Skin: No Decubitus Ulcers
Neuro: AO x 3 and Nonfocal/grossly intact
Psych: Calm; No Agitated, flat affected
88 years old female presented diabetic ketoacidosis, acute kidney injury, metabolic acidosis hyperkalemia, atrial fibrillation, leukocytosis, history of nausea/vomiting/diarrhea for a few days duration a
Assessment and plan
# Diabetic ketoacidosis /history of diabetes/insulin-dependent diabetes
Likely precipitated by gastrointestinal etiology versus others
Off insulin gtt
Po intake improving
Lantus and premeal added. Hold pre-meal insulin if patient not eating. iss and accucheckes
#Septic shock Etiology possibly viral gastroenteritis
No history of cough or respiratory problem. Chest radiography, no active cardiopulmonary disease.
History of nausea/vomiting/diarrhea. No diarrhea in hospital. Nausea mostly related to DKA
No history of dysuria.
Blood & urine cultures no growth
Will stop Empiric cefepime and vancomycin
Stool testing if with diarrhea
#Flat affect/dec po intake ? 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
-Psych decreased Lexapro to 5 mg and started remeron 7.5mg qhs. Monitor for side effects/increased sleepiness
-IVF stop later today.
-Encourage increased p.o. intake.
-bowel regimen
# New onset atrial fibrillation with rapid ventricular response
No history of atrial fibrillation before.
s/p cardizem gtt and now cardizem 120mg and toprol increased to 50mg BID
[id number] around 6 off hep gtt and now on Eliquis
Left ventricular EF of 55%. Diastolic function is indeterminate. Severe left atrial dilatation and moderate right atrial dilatation. Moderate mitral regurgitation. No aortic insufficiency. Mild-moderate tricuspid regurgitation.
Appreciate cardiology input
# Elevated trop Likely Non ischemic myocardial injury
No chest pain
Troponin is coming down
EKG showing ST changes
c/w aspirin
s/p Pressure support with Levophed gtt
#Chronic diastolic CHF
Follows with [facility]ology
She was volume depleted due to GI loss and DKA, on IV fluid and monitor volume status/ weight closely
# Acute kidney injury, metabolic acidosis/lactic acidosis
Resolved
# Hyperkalemia
Resolved.
# hypomagnesemia / hypophosphatemia
Replete/monitor
#History of significant osteoarthritis with recent cortisone injection to right shoulder
History of falls/chronic rib fractures/chronic compression deformities
Fall precautions
Eventual PT/OT
# Status post TAVR 2021
Last echo in January 2024 showed well-seated TAVR with peak/mean gradients across the aortic valve at 25/14 mmHg. Trace echo aortic regurgitation.
# Severe protein caloric malnutrition
Consulted nutrition
#Hypothyroidism
-Continue levothyroxine
# Chronic urinary frequency/incontinence
-Continue Myrbetriq when appropriate
Sacrum Stage 2 Pressure Injury, POA
wound care
# Code status, DNR
Confirmed with family
DVT prophylaxis -Eliquis
PT/OT/OOB
d/w wtih caregiver at bedside
Anticipated Discharge: > 48 hours
Subjective/Interval History
-
Date of Service: July 26, 2024
awake
smiling and in good spirits
ate muffin and yogurt earlier
Objective Data
-
Vital Signs:
Vital Signs
Temp Pulse Resp BP Pulse Ox
98.7 F 112 15 122/63 96
07/26/24 11:50 07/26/24 10:16 07/26/24 10:00 07/26/24 10:16 07/25/24 12:00
I&O
07/25/24 07/26/24 07/27/24
06:59 06:59 06:59
Intake Total 1200 / 1200 2200 / 2200
Output Total 150 / 150 200 / 200
Balance 1050 / 1050 1999 / 1999
--- NOTE | 2024-07-26 14:52 | VNURNOTE ---
Home Health Liaison met with patient and multiple family members at bedside to discuss [facility] nurse/therapy, visits, schedule and homebound status. Patient is agreeable and understands that visits at home will be 2-3 x per week to assess and teach
medical management.
[facility] brochure provided with contact information. Patient is aware that [facility] will contact them for start of care in 1-2 days after discharge from .
[facility] referral completed in [facility].
[2024-07-26] MEDS: NOVOLOG FLEXPEN 6 UNITS SC (17:22)
[2024-07-26] MEDS: NOVOLOG FLEXPEN-MODERATE RESISTANCE 5 UNITS SC (17:23)
[2024-07-26 17:29] LABS: Glucose - Point of Care 284 mg/dl (70-99)
[2024-07-26] MEDS: REMERON 7.5 MG PO (20:10)
[2024-07-26 21:26] LABS: Glucose - Point of Care 178 mg/dl (70-99)
[2024-07-27] VITALS (15 sets, daily range): BP systolic 92–129; BP diastolic 50–100; PULSE 101–105; O2SAT 96; BMI 20.5
[2024-07-27] MEDS: NSS 1000 IV (05:21)
[2024-07-27] MEDS: SYNTHROID 75 MCG PO (05:21)
--- NOTE | 2024-07-27 06:32 | PTCARENOTE ---
assumed care of patient, pt is AAOx3 but forgetful. bed alarm on. pt given full bed bath, brushed teeth before bed. VSS, able to make needs known. a-fib on the monitor. pt not urinating at all during shift, stated she feels like she is not emptying.
pt assisted to BSC x2- pt knees buckling, unsafe to get on commode at this time. pt tried using bedpan and was only able to get a minimal amount. unable to use PW- pt bladder scanned for >1000ml. notified covering HUMANITIES TEACHER, orders entered for esquivel, 14F
esquivel placed. pt oriented but more forgetful, stating she just wants to go home and see her . care ongoing.
--- NOTE | 2024-07-27 06:36 | W.PN.UPDATE ---
Update Note
Progress Note Update
pt with large volume of urine in bladder (>1000ml). Will have esquivel placed.
--- NOTE | 2024-07-27 07:50 | PN.DE.MGMTRT ---
Insulin Management
- -
07/27/2024: Diabetes Management F/U:
Patient admitted 07/20 with weakness, excessive thirst, tachycardia and hyperglycemia. Found to have DKA with lactic acidosis and glucose 765. Also new onset A-fib with rapid ventricular response. PMH: Chronic diastolic HF, TAVR, MR, Insulin
dependent T2DM. Prior to admission was taking 8 units Toujeo @ HS with NovoLog 6 units AC and metformin 1000 mg BID. A1C on admission 8.6%, cr .5, EGFR > 60.
Patient is awake, A/O, currently working with PT in room, offers no complaints, in home nanny at bedside.
Pt's PO intake has been minimal over past 2 months following the of her .
She is noted for 29 lbs unintentional wt loss. Chart review indicates severe depression but pt does not want to seek psychiatric evaluation.
07/26 glucose trended up to 304 pre-lunch, pt received 5 units AC NovoLog. Glucose remained elevated >200, was 284 pre-dinner. AC dose increased to 6 units, HS blood sugar was 178. Will increase AC NovoLog to 8 units and Lantus to 10 units in AM.
Please HOLD AC NovoLog if patient does not eat 50% of her meal and use moderate corrective.
Discussed with Pt's nurse. Will follow
Diabetes History
- -
Type of Diabetes: 2 requiring insulin
Pre-Admission Diabetes Regimen
Lab Results
Hemoglobin A1c 8.6 % (4.0-5.6) H 07/23/24 02:21
Insulin Pump Settings
IP Diabetes Regimen
07/26/24 07/26/24 07/26/24
10:14 11:38 17:18
POC Glucose 228 H 304 H 284 H
07/26/24
21:15
POC Glucose 178 H
Meal type: Dinner
Meal type: Lunch
Meal type: Breakfast
Amount consumed: 35%
Amount consumed: 30%
Amount consumed: 50%
Patient Education
--- NOTE | 2024-07-27 07:53 | W.PN.CARDCBS ---
Today's Communication / Plan
-
Cardiac status overall improved though heart rate relatively tachycardic
May need to uptitrate diltiazem if blood pressure permits
Continue Eliquis, continue to observe
Impression / Plan
-
PCP: Ryne West
Mica Plate Layer: [facility]
Impression:
DKA
Lactic acidosis
A-fib with rapid ventricular response, new diagnosis
Hypotension
Elevated troponin, suspect Nonischemic myocardial injury troponin elevation
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
Insulin-dependent diabetes
Hyperlipidemia
Hypothyroidism
DVT
Depression/weight loss
Gait dysfunction
Osteoarthritis
Mitral regurgitation, mild-moderate
Chronic urinary incontinence
Ambulatory dysfunction with falls
Echo: 07/23/2024: LV: Mild concentric LVH. Small chamber size. EF 55%. Indeterminate diastolic function due to atrial fibrillation. RV: Normal, LA: Severely dilated, RA: Moderately dilated, MV: Moderate MR, AV: A 23 mm Fonseca CURTIS TAVR valve
is in the aortic position with mean gradient of 7. No AI. TV: Mild-moderate TR estimated PAP 27 mmHg.
Echo 01/31/2024: EF 68%. Mild to moderate concentric LVH. Stage II DD. Moderately dilated left atrium. Mildly dilated right atrium. Mild to moderate MR. Well seated #23 mm Fonseca Curtis TAVR with peak/mean gradients 25/14 mmHg, trace AI. Mild
TR
Cardiac cath 12/03/2022: LM: Okay. LAD: LI, mid 30% stenosis. Left circumflex: LI. RCA LI.
Plan:
At this point she looks reasonably well, is considerably improved, but is very deconditioned. Her acidosis is corrected. There is no evidence of heart failure, and she has no chest pain. Chest pain. Her echocardiogram was reasonable.
Her ventricular response to atrial fibrillation is still somewhat rapid, on metoprolol ER 50 mg twice daily and diltiazem ER 120 mg daily.
Blood pressure is marginal, unclear that she will be able to tolerate more metoprolol or diltiazem.
Continue to observe for now on current regimen. We may need to double diltiazem ER to 120 mg twice daily if blood pressure permits.
Continue Eliquis 2.5 mg twice daily
Increase activity.
Her mood is considerably better, and she wants to press on and get home.
We will arrange for outpatient follow-up.
[facility] 07/20/2024:
Patient is an 88-year-old female with past medical history of aortic stenosis status post TAVR January 2023, insulin-dependent diabetes, hyperlipidemia, hypothyroidism, depression and prior DVT who presents to emergency department 07/20/2024 with
complaints of nausea, vomiting, diarrhea, excessive thirst, tachycardia and elevated blood sugar. Patient reports she has been dealing with right shoulder injury since May and had steroid injection with orthopedic 07/09/2024. Unfortunately there
was minimal relief and she was placed on Medrol Dosepak 07/14/2024. Following placement of Medrol Dosepak patient's blood sugars became elevated and she noted increased thirst and urination. She became very nauseous within the last 24 hours and had
multiple episodes diarrhea for the past few days and vomiting overnight. Her aide found her blood sugars elevated and she was tachycardic with increased weakness and was brought to the emergency department. Blood sugar on arrival was 765. Weight
cell count was elevated at 20.3, potassium 6.1, mild TIMOTHY with creatinine of 1.4. Venous blood gas pH 6.9. She was found to be in atrial fibrillation with rapid ventricular response and hypotensive. Patient placed on insulin drip as well as sodium
bicarb and saline. She was started on diltiazem drip for atrial fibrillation with some improvement of heart rate. Patient denied chest pain. Troponin is pending.
At time of this evaluation patient looks weak lying in bed. She denies chest pain, shortness of breath or palpitations.
Progress Note - Mica Plate Layer
Subjective
Date of Service: July 27, 2024:
PMH/PSH/FH/SH: Reviewed
Allergies: Iodine and sulfa
Outpatient meds: Reviewed, was on metformin
Current medications: Levothyroxine 75 mcg daily, apixaban 2.5 twice daily, diltiazem ER 120 mg a day, Lexapro 5 mg a day, Remeron 7.5 mg a day, metoprolol ER 50 mg twice daily, pantoprazole 20 mg a day, Lantus, 10 mg a day, metformin, insulin
ROS: Negative except as above
126/100, 91/41, pulse 70s to 90s, sats 96% on room air, weight is 49.2 kg, temporal wasting, cachectic, lungs are clear, irregular rate and rhythm, soft systolic murmur, JVD okay, no edema, abdomen benign, neuro nonfocal, psych, mood is brighter,
conversant
Objective
Labs:
07/23/24 02:21
07/25/24 04:43
Labs
Hgb 11.1 g/dL (12.0-16.0) L 07/23/24 02:21
Hct 32.3 % (37.0-47.0) L 07/23/24 02:21
Plt Count 186 10^3/uL (130-400) 07/23/24 02:21
PT 16.3 Sec (11.4-14.6) H 07/21/24 01:11
INR 1.33 07/21/24 01:11
APTT 74.0 Sec (23.4-35.0) H 07/23/24 10:06
Sodium 135 mmol/L (135-145) 07/25/24 04:43
Potassium 4.2 mmol/L (3.5-5.1) 07/25/24 04:43
BUN 14 mg/dl (7-17) 07/25/24 04:43
Creatinine 0.8 mg/dL (0.6-1.0) 07/25/24 04:43
Glucose 170 mg/dl (70-99) H 07/25/24 04:43
Vital Signs and I&O:
Vital Signs
Temp Pulse Resp BP Pulse Ox
36.6 C 105 17 126/100 96
07/27/24 03:02 07/27/24 06:00 07/27/24 06:00 07/27/24 06:00 07/26/24 20:54
Vital Signs
Temp Pulse Resp BP Pulse Ox
36.6 C 105 17 126/100 96
07/27/24 03:02 07/27/24 06:00 07/27/24 06:00 07/27/24 06:00 07/26/24 20:54
Intake & Output
07/24/24 07/25/24 07/26/24 07/27/24
07:59 07:59 07:59 07:59
Intake Total 1399 / 1399 1200 / 1200 2200 / 2200 1380 / 1380
Output Total 2300 / 2300 150 / 150 200 / 200 650 / 650
Balance -901 / -901 1050 / 1050 1999 / 1999 730 / 730
Physical Exam
Physical Exam
See above
[2024-07-27 08:02] LABS: Glucose - Point of Care 186 mg/dl (70-99)
[2024-07-27] MEDS: ELIQUIS 2.5 MG PO ×2 (08:50→20:02)
[2024-07-27] MEDS: CARDIZEM CD 120 MG PO (08:50)
[2024-07-27] MEDS: LEXAPRO 5 MG PO (08:50)
[2024-07-27] MEDS: TOPROL XL 50 MG PO ×2 (08:51→20:02)
[2024-07-27] MEDS: PROTONIX 20 MG PO (08:51)
[2024-07-27] MEDS: SENOKOT-S 1 TABLET PO (08:51)
[2024-07-27] MEDS: NOVOLOG FLEXPEN-MODERATE RESISTANCE 1 UNITS SC ×2 (08:52→13:00)
[2024-07-27] MEDS: NOVOLOG FLEXPEN 8 UNITS SC ×2 (08:53→13:00)
[2024-07-27] MEDS: NOVOLOG FLEXPEN SC ×2 (09:02→18:07)
[2024-07-27] MEDS: GLUCOPHAGE 1000 MG PO (09:02)
[2024-07-27] MEDS: LANTUS 0.1 UNITS SC (09:11)
--- NOTE | 2024-07-27 10:46 | CM ---
Addendum entered by Maricruz Preston RN 07/27/24 16:28:
Discussed family request for [facility] with Dr Shay- Physiatry Consult ordered.
Referral placed for [facility].
Plan follow up with [facility] re; acceptance.
Addendum entered by Maricruz Preston RN 07/27/24 15:37:
Met with daughter Unique and sister in law; they are asking if patient could go to [facility] rather than SNF. Explained that [facility] is a higher level of care and patient would need to be able to tolerate 3 hrs rehab/day and [facility] would need to approve.
Agreed to speak with [facility] Liaison to review for consideration.
Spoke with [facility] Liaison; she will review the patient's chart and let CM know if she may be an appropriate acute rehab referral.
Plan follow up with yTesha from [facility].
Original Note:
Patient with Dx DKA, septic shock possibly viral gastroenteritis, new Afib, Likely Type II RI. Room air. Receiving IVF. [facility]. Seen by Psych for depression. Seen by lamp cleaner for malnutrition. Seen by DM Educator. PT/OT; requires assist of 2,
recommend skilled rehab.
Spoke with patient's belinda Calhoun; discussed patient's current functional status. Daughter hoping patient will improve in her mobility by d/c and be able to go home, however she doesn't want to overload her 24 hr caregiver if her mother still needs
assist of 2 and is mostly non-ambulatory. In that case she would want her mother to go to SNF short term for rehab. Discussed local SNFs near [place] and provided [facility] ratings. Daughter would like SNF list to do some research on the
facilities ---> sent to her email at [email or web address]. She is aware that patient is currently set up with [facility].
Plan follow patient's mobility and follow up with patient/daughter re; SNF vs HH.
--- NOTE | 2024-07-27 11:50 | W.PN.HOSP.TC ---
Today's Communication/Plan
-
OOB/PT
Encourage po intake
dc IVF
Assessment / Plan
Assessment / Plan
Physical Exam
General: Poor Appetite, Appears Chronically Ill and Cachectic
HEENT: Other (Dry mucous membrane, no deformities)
Respiratory: Decreased Breath Sounds
Cardiac: S1/S2, Irregular Rhythm and Tachycardia
GI: Soft, Non Tender and Non Distended
Genito-urinary: No costovertebral tender
Musculoskeletal: No Cyanosis and No Edema
Neuro: AO x 3 and Nonfocal/grossly intact
Psych: Calm; No Agitated, flat affected
88 years old female presented diabetic ketoacidosis, acute kidney injury, metabolic acidosis hyperkalemia, atrial fibrillation, leukocytosis, history of nausea/vomiting/diarrhea for a few days duration a
Assessment and plan
# Diabetic ketoacidosis /history of diabetes/insulin-dependent diabetes
Likely precipitated by gastrointestinal etiology versus others
Off insulin gtt
Po intake improving
Lantus and premeal added. Hold pre-meal insulin if patient not eating. iss and AccuCheck
#Septic shock Etiology possibly viral gastroenteritis
No history of cough or respiratory problem. Chest radiography, no active cardiopulmonary disease.
History of nausea/vomiting/diarrhea. No diarrhea in hospital. Nausea mostly related to DKA
No history of dysuria.
Blood & urine cultures no growth
Will stop Empiric cefepime and vancomycin
Stool testing if with diarrhea
#Flat affect/dec po intake ? 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
-Psych decreased Lexapro to 5 mg and started remeron 7.5mg qhs. Monitor for side effects/increased sleepiness
-IVF stop later today.
-Encourage increased p.o. intake.
-bowel regimen
#Urinary retention likely 2/2 decrease mobility
-Esquivel catheter placed
-TOV prior to dc
-OOB/ambulate
# New onset atrial fibrillation with rapid ventricular response
No history of atrial fibrillation before.
s/p cardizem gtt and now cardizem 120mg and toprol increased to 50mg BID
[id number] around 6 off hep gtt and now on Eliquis
Left ventricular EF of 55%. Diastolic function is indeterminate. Severe left atrial dilatation and moderate right atrial dilatation. Moderate mitral regurgitation. No aortic insufficiency. Mild-moderate tricuspid regurgitation.
Appreciate cardiology input
# Elevated trop Likely Non ischemic myocardial injury
No chest pain
Troponin is coming down
EKG showing ST changes
c/w aspirin
s/p Pressure support with Levophed gtt
#Chronic diastolic CHF
Follows with [facility] cardiology
She was volume depleted due to GI loss and DKA, on IV fluid and monitor volume status/ weight closely
# Acute kidney injury, metabolic acidosis/lactic acidosis
Resolved
# Hyperkalemia
Resolved.
# hypomagnesemia / hypophosphatemia
Replete/monitor
#History of significant osteoarthritis with recent cortisone injection to right shoulder
History of falls/chronic rib fractures/chronic compression deformities
Fall precautions
Eventual PT/OT
# Status post TAVR 2021
Last echo in January 2024 showed well-seated TAVR with peak/mean gradients across the aortic valve at 25/14 mmHg. Trace echo aortic regurgitation.
# Severe protein caloric malnutrition
Consulted nutrition
#Hypothyroidism
-Continue levothyroxine
# Chronic urinary frequency/incontinence
-Continue Myrbetriq when appropriate
Sacrum Stage 2 Pressure Injury, POA
wound care
# Code status, DNR
Confirmed with family
DVT prophylaxis -Eliquis
PT/OT/OOB
d/w wtih caregiver at bedside
Anticipated Discharge: > 48 hours
Subjective/Interval History
-
Date of Service: July 27, 2024
states feeling weak
required esquivel catheter placement overnight
Objective Data
-
Vital Signs:
Vital Signs
Temp Pulse Resp BP Pulse Ox
97.8 F 105 17 126/100 96
07/27/24 03:02 07/27/24 06:00 07/27/24 06:00 07/27/24 06:00 07/26/24 20:54
I&O
07/26/24 07/27/24 07/28/24
06:59 06:59 06:59
Intake Total 2200 / 2200 1380 / 1380
Output Total 200 / 200 650 / 650
Balance 1999 / 1999 730 / 730
[2024-07-27 12:34] LABS: Glucose - Point of Care 163 mg/dl (70-99)
[2024-07-27 17:36] LABS: Glucose - Point of Care 53 mg/dl (70-99)
[2024-07-27 17:57] LABS: Glucose - Point of Care 73 mg/dl (70-99)
[2024-07-27] MEDS: NOVOLOG FLEXPEN-MODERATE RESISTANCE SC (18:05)
[2024-07-27] MEDS: GLUCOPHAGE PO (18:08)
--- NOTE | 2024-07-27 18:30 | PTCARENOTE ---
pts pre dinner blood sugar 53. 4 oz juice given and sugar increased to 73 at 15 minute check. dinnertime insulin not given. diabetic ed made aware .see nursing assessmnet. family at bedside.
[2024-07-27] MEDS: SENOKOT-S PO (19:57)
[2024-07-27 20:01] LABS: Glucose - Point of Care 89 mg/dl (70-99)
[2024-07-27] MEDS: REMERON 7.5 MG PO (20:02)
[2024-07-27 21:25] LABS: Glucose - Point of Care 108 mg/dl (70-99)
[2024-07-28] VITALS (15 sets, daily range): BP systolic 89–138; BP diastolic 42–89; BMI 20.4
[2024-07-28 03:52] LABS: Glucose - Point of Care 167 mg/dl (70-99)
[2024-07-28] MEDS: SYNTHROID PO (05:34)
--- NOTE | 2024-07-28 06:51 | PTCARENOTE ---
no acute events overnight, pt slept all night, refused HS oral care and meds in the morning. accu checks checked per protocol and remained WNL. care ongoing.
[2024-07-28 08:09] LABS: Glucose - Point of Care 202 mg/dl (70-99)
--- NOTE | 2024-07-28 08:17 | W.PN.CARDCBS ---
Today's Communication / Plan
-
Continue a rate control strategy for A-fib. Continue Toprol 50 mg p.o. twice daily and diltiazem 120 mg p.o. daily.
Cont Eliquis.
With blood pressure continues to be labile would accept ventricular rates in the 90-110 range.
Impression / Plan
-
PCP: Ryne West
[facility]: Siddharth House
Impression:
DKA
Lactic acidosis
A-fib with rapid ventricular response, new diagnosis
Hypotension
Elevated troponin, suspect Nonischemic myocardial injury troponin elevation
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
Insulin-dependent diabetes
Hyperlipidemia
Hypothyroidism
DVT
Depression/weight loss
Gait dysfunction
Osteoarthritis
Mitral regurgitation, mild-moderate
Chronic urinary incontinence
Ambulatory dysfunction with falls
Echo: 07/23/2024: LV: Mild concentric LVH. Small chamber size. EF 55%. Indeterminate diastolic function due to atrial fibrillation. RV: Normal, LA: Severely dilated, RA: Moderately dilated, MV: Moderate MR, AV: A 23 mm Fonseca CURTIS TAVR valve
is in the aortic position with mean gradient of 7. No AI. TV: Mild-moderate TR estimated PAP 27 mmHg.
Echo 01/31/2024: EF 68%. Mild to moderate concentric LVH. Stage II DD. Moderately dilated left atrium. Mildly dilated right atrium. Mild to moderate MR. Well seated #23 mm Fonseca Curtis TAVR with peak/mean gradients 25/14 mmHg, trace AI. Mild
TR
Cardiac cath 12/03/2022: LM: Okay. LAD: LI, mid 30% stenosis. Left circumflex: LI. RCA LI.
Plan:
Remains in atrial fibrillation. Her rate control is adequate. Blood pressure continues to be somewhat labile.
For now would continue Toprol 50 mg p.o. twice daily and diltiazem 120 mg daily.
Continue to observe for now on current regimen. We may need to double diltiazem ER to 120 mg twice daily if blood pressure permits.
Continue Eliquis 2.5 mg twice daily
Increase activity.
Her mood seems to be better.
Her echo this admission has a stable transcatheter aortic valve with moderate MR.
HPI 07/20/2024:
Patient is an 88-year-old female with past medical history of aortic stenosis status post TAVR January 2023, insulin-dependent diabetes, hyperlipidemia, hypothyroidism, depression and prior DVT who presents to emergency department 07/20/2024 with
complaints of nausea, vomiting, diarrhea, excessive thirst, tachycardia and elevated blood sugar. Patient reports she has been dealing with right shoulder injury since May and had steroid injection with orthopedic 07/09/2024. Unfortunately there
was minimal relief and she was placed on Medrol Dosepak 07/14/2024. Following placement of Medrol Dosepak patient's blood sugars became elevated and she noted increased thirst and urination. She became very nauseous within the last 24 hours and had
multiple episodes diarrhea for the past few days and vomiting overnight. Her aide found her blood sugars elevated and she was tachycardic with increased weakness and was brought to the emergency department. Blood sugar on arrival was 765. Weight
cell count was elevated at 20.3, potassium 6.1, mild TIMOTHY with creatinine of 1.4. Venous blood gas pH 6.9. She was found to be in atrial fibrillation with rapid ventricular response and hypotensive. Patient placed on insulin drip as well as sodium
bicarb and saline. She was started on diltiazem drip for atrial fibrillation with some improvement of heart rate. Patient denied chest pain. Troponin is pending.
At time of this evaluation patient looks weak lying in bed. She denies chest pain, shortness of breath or palpitations.
Progress Note - [facility]
Subjective
Date of Service: July 28, 2024
Resting in bed. Denies complaints.
Objective
Labs:
07/23/24 02:21
07/25/24 04:43
Labs
Hgb 11.1 g/dL (12.0-16.0) L 07/23/24 02:21
Hct 32.3 % (37.0-47.0) L 07/23/24 02:21
Plt Count 186 10^3/uL (130-400) 07/23/24 02:21
PT 16.3 Sec (11.4-14.6) H 07/21/24 01:11
INR 1.33 07/21/24 01:11
APTT 74.0 Sec (23.4-35.0) H 07/23/24 10:06
Sodium 135 mmol/L (135-145) 07/25/24 04:43
Potassium 4.2 mmol/L (3.5-5.1) 07/25/24 04:43
BUN 14 mg/dl (7-17) 07/25/24 04:43
Creatinine 0.8 mg/dL (0.6-1.0) 07/25/24 04:43
Glucose 170 mg/dl (70-99) H 07/25/24 04:43
Vital Signs and I&O:
Vital Signs
Temp Pulse Resp BP Pulse Ox
97.9 F 84 13 120/68 95
07/28/24 08:01 07/28/24 06:00 07/28/24 06:00 07/28/24 06:00 07/27/24 20:45
Vital Signs
Temp Pulse Resp BP Pulse Ox
97.9 F 84 13 120/68 95
07/28/24 08:01 07/28/24 06:00 07/28/24 06:00 07/28/24 06:00 07/27/24 20:45
Intake & Output
07/26/24 07/27/24 07/28/24 07/29/24
06:59 06:59 06:59 06:59
Intake Total 2200 / 2200 1380 / 1380 240 / 240
Output Total 200 / 200 650 / 650 1075 / 1075
Balance 1999 / 1999 730 / 730 -835 / -835
Physical Exam
Physical Exam
GEN: No distress, opens eyes
HEENT: supple, anicteric, mmm
LUNGS: CTA, no wheezes/rales
CV: irreg, S1/S2, 1/6 syst LSB, no gallop
ABD: soft, BS+, NT/ND
EXT: No edema
NEURO: Gross non-focal
SKIN: No rash
[2024-07-28] MEDS: CARDIZEM CD 120 MG PO (08:30)
[2024-07-28] MEDS: LEXAPRO 5 MG PO (08:30)
[2024-07-28] MEDS: PROTONIX 20 MG PO (08:30)
[2024-07-28] MEDS: GLUCOPHAGE 1000 MG PO ×2 (08:31→17:29)
[2024-07-28] MEDS: NOVOLOG FLEXPEN-MODERATE RESISTANCE 3 UNITS SC (08:31)
[2024-07-28] MEDS: ELIQUIS 2.5 MG PO ×2 (08:31→20:29)
[2024-07-28] MEDS: TOPROL XL 50 MG PO (08:31)
[2024-07-28] MEDS: NOVOLOG FLEXPEN 8 UNITS SC ×3 (08:31→17:30)
[2024-07-28] MEDS: SENOKOT-S PO ×2 (08:38→20:27)
[2024-07-28] MEDS: LANTUS 0.1 UNITS SC (08:49)
[2024-07-28] MEDS: NOVOLOG FLEXPEN-MODERATE RESISTANCE 7 UNITS SC (12:01)
[2024-07-28 12:09] LABS: Glucose - Point of Care 333 mg/dl (70-99)
--- NOTE | 2024-07-28 12:43 | W.PN.HOSP.TC ---
Today's Communication/Plan
-
PMR eval
encourage po intake
poc monitor
ofF ivf
Assessment / Plan
Assessment / Plan
Physical Exam
General: Poor Appetite, Appears Chronically Ill and Cachectic
HEENT: Other (Dry mucous membrane, no deformities)
Respiratory: Decreased Breath Sounds
Cardiac: S1/S2, Irregular Rhythm and Tachycardia
GI: Soft, Non Tender and Non Distended
Genito-urinary: No costovertebral tender
Musculoskeletal: No Cyanosis and No Edema
Neuro: AO x 3 and Nonfocal/grossly intact
Psych: Calm; No Agitated, flat affected
88 years old female presented diabetic ketoacidosis, acute kidney injury, metabolic acidosis hyperkalemia, atrial fibrillation, leukocytosis, history of nausea/vomiting/diarrhea for a few days duration a
Assessment and plan
# Diabetic ketoacidosis /history of diabetes/insulin-dependent diabetes
Likely precipitated by gastrointestinal etiology versus others
Off insulin gtt
Po intake improving
Lantus and premeal added. Hold pre-meal insulin if patient not eating. iss and AccuCheck
#Septic shock Etiology possibly viral gastroenteritis
No history of cough or respiratory problem. Chest radiography, no active cardiopulmonary disease.
History of nausea/vomiting/diarrhea. No diarrhea in hospital. Nausea mostly related to DKA
No history of dysuria.
Blood & urine cultures no growth
Will stop Empiric cefepime and vancomycin
Stool testing if with diarrhea
#Flat affect/dec po intake ? 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
-Psych decreased Lexapro to 5 mg and started remeron 7.5mg qhs. Monitor for side effects/increased sleepiness
-IVF stop
-Encourage increased p.o. intake.
-bowel regimen
#Urinary retention likely 2/2 decrease mobility
-Granda catheter placed
-TOV prior to dc
-OOB/ambulate
# New onset atrial fibrillation with rapid ventricular response
No history of atrial fibrillation before.
s/p cardizem gtt and now cardizem 120mg and toprol increased to 50mg BID
[id number] around 6 off hep gtt and now on Eliquis
Left ventricular EF of 55%. Diastolic function is indeterminate. Severe left atrial dilatation and moderate right atrial dilatation. Moderate mitral regurgitation. No aortic insufficiency. Mild-moderate tricuspid regurgitation.
Appreciate cardiology input
# Elevated trop Likely Non ischemic myocardial injury
No chest pain
Troponin is coming down
EKG showing ST changes
c/w aspirin
s/p Pressure support with Levophed gtt
#Chronic diastolic CHF
Follows with [facility]
She was volume depleted due to GI loss and DKA, on IV fluid and monitor volume status/ weight closely
# Acute kidney injury, metabolic acidosis/lactic acidosis
Resolved
# Hyperkalemia
Resolved.
# hypomagnesemia / hypophosphatemia
Replete/monitor
#History of significant osteoarthritis with recent cortisone injection to right shoulder
History of falls/chronic rib fractures/chronic compression deformities
Fall precautions
Eventual PT/OT
# Status post TAVR 2021
Last echo in January 2024 showed well-seated TAVR with peak/mean gradients across the aortic valve at 25/14 mmHg. Trace echo aortic regurgitation.
# Severe protein caloric malnutrition
Consulted nutrition
#Hypothyroidism
-Continue levothyroxine
# Chronic urinary frequency/incontinence
-Continue Myrbetriq when appropriate
Sacrum Stage 2 Pressure Injury, POA
wound care
# Code status, DNR
DVT prophylaxis -Eliquis
PT/OT/OOB-famiyl requested ARB. PMR Consulted.
d/w wtih caregiver at bedside
Anticipated Discharge: > 48 hours
Subjective/Interval History
-
Date of Service: July 28, 2024
states yogurt and breakfast
Objective Data
-
Vital Signs:
Vital Signs
Temp Pulse Resp BP Pulse Ox
98.1 F 92 18 99/57 95
07/28/24 11:26 07/28/24 10:00 07/28/24 10:00 07/28/24 10:00 07/27/24 20:45
I&O
07/27/24 07/28/24 07/29/24
06:59 06:59 06:59
Intake Total 1380 / 1380 240 / 240
Output Total 650 / 650 1075 / 1075
Balance 730 / 730 -835 / -835
[2024-07-28] MEDS: NOVOLOG FLEXPEN-MODERATE RESISTANCE 1 UNITS SC (17:29)
[2024-07-28 17:39] LABS: Glucose - Point of Care 177 mg/dl (70-99)
--- NOTE | 2024-07-28 20:24 | PTCARENOTE ---
Received pt from sabine RODRIGUEZ. Pt is AAOx3, forgetful @ times. Afib w/ PVCs on the monitor. 1999 Metoprolol held for BP 95/50, HR 86 (ITZEL Hickman notified). On RA, lungs diminished. Granda in place, hygiene provided. Q2T provided. Pt is laying in bed
with call madison in reach.
[2024-07-28] MEDS: REMERON 7.5 MG PO (20:30)
[2024-07-28] MEDS: TOPROL XL PO (20:31)
[2024-07-28 21:01] LABS: Glucose - Point of Care 139 mg/dl (70-99)
[2024-07-29] VITALS (17 sets, daily range): BP systolic 93–121; BP diastolic 43–86; PULSE 102; O2SAT 96; BMI 20.8
[2024-07-29] MEDS: SYNTHROID 75 MCG PO (05:31)
--- NOTE | 2024-07-29 09:28 | W.PN.UPDATE ---
Update Note
Progress Note Update
The patient was resting comfortably this morning so I did not wake her. I reviewed her telemetry with acceptable rate control so continue current medicines and we will follow daily with you while she remains hospitalized
[2024-07-29] MEDS: NOVOLOG FLEXPEN-MODERATE RESISTANCE 5 UNITS SC ×2 (10:02→12:16)
[2024-07-29] MEDS: NOVOLOG FLEXPEN 8 UNITS SC ×3 (10:02→17:51)
[2024-07-29] MEDS: LANTUS 0.1 UNITS SC (10:04)
[2024-07-29] MEDS: ELIQUIS 2.5 MG PO ×2 (10:06→20:13)
[2024-07-29] MEDS: CARDIZEM CD 120 MG PO (10:06)
[2024-07-29] MEDS: PROTONIX 20 MG PO (10:07)
[2024-07-29] MEDS: LEXAPRO 5 MG PO (10:07)
[2024-07-29] MEDS: GLUCOPHAGE 1000 MG PO ×2 (10:07→17:50)
[2024-07-29] MEDS: TOPROL XL 50 MG PO ×2 (10:08→20:13)
[2024-07-29] MEDS: SENOKOT-S PO ×2 (10:08→20:05)
[2024-07-29 10:13] LABS: Glucose - Point of Care 263 mg/dl (70-99)
--- NOTE | 2024-07-29 10:33 | W.PN.HOSP.TC ---
Today's Communication/Plan
-
Await PMR eval
oob
encourage po intake
Assessment / Plan
Assessment / Plan
Physical Exam
General: Poor Appetite, Appears Chronically Ill and Cachectic
HEENT: Other (Dry mucous membrane, no deformities)
Respiratory: Decreased Breath Sounds
Cardiac: S1/S2, Irregular Rhythm and Tachycardia
GI: Soft, Non Tender and Non Distended
Genito-urinary: No costovertebral tender
Musculoskeletal: No Cyanosis and No Edema
Neuro: AO x 3 and Nonfocal/grossly intact
Psych: Calm; No Agitated, flat affected
88 years old female presented diabetic ketoacidosis, acute kidney injury, metabolic acidosis hyperkalemia, atrial fibrillation, leukocytosis, history of nausea/vomiting/diarrhea for a few days duration a
Assessment and plan
# Diabetic ketoacidosis /history of diabetes/insulin-dependent diabetes
Likely precipitated by gastrointestinal etiology versus others
Off insulin gtt
Po intake improving
Lantus and premeal added. Hold pre-meal insulin if patient not eating. iss and AccuCheck
#Septic shock Etiology possibly viral gastroenteritis
No history of cough or respiratory problem. Chest radiography, no active cardiopulmonary disease.
History of nausea/vomiting/diarrhea. No diarrhea in hospital. Nausea mostly related to DKA
No history of dysuria.
Blood & urine cultures no growth
Will stop Empiric cefepime and vancomycin. Remains afebrile.
Stool testing if with diarrhea
#Flat affect/dec po intake ? 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
-Psych decreased Lexapro to 5 mg and started remeron 7.5mg qhs. Monitor for side effects/increased sleepiness
-IVF stop
-Encourage increased p.o. intake.
-bowel regimen
#Urinary retention likely 2/2 decrease mobility
-Granda catheter placed
-TOV prior to dc
-OOB/ambulate
# New onset atrial fibrillation with rapid ventricular response
No history of atrial fibrillation before.
s/p cardizem gtt and now cardizem 120mg and toprol increased to 50mg BID
[id number] around 6 off hep gtt and now on Eliquis
Left ventricular EF of 55%. Diastolic function is indeterminate. Severe left atrial dilatation and moderate right atrial dilatation. Moderate mitral regurgitation. No aortic insufficiency. Mild-moderate tricuspid regurgitation.
Appreciate cardiology input
# Elevated trop Likely Non ischemic myocardial injury
No chest pain
Troponin is coming down
EKG showing ST changes
c/w aspirin
s/p Pressure support with Levophed gtt
#Chronic diastolic CHF
Follows with [facility]
She was volume depleted due to GI loss and DKA, on IV fluid and monitor volume status/ weight closely
# Acute kidney injury, metabolic acidosis/lactic acidosis
Resolved
# Hyperkalemia
Resolved.
# hypomagnesemia / hypophosphatemia
Replete/monitor
#History of significant osteoarthritis with recent cortisone injection to right shoulder
History of falls/chronic rib fractures/chronic compression deformities
Fall precautions
Eventual PT/OT
# Status post TAVR 2021
Last echo in January 2024 showed well-seated TAVR with peak/mean gradients across the aortic valve at 25/14 mmHg. Trace echo aortic regurgitation.
# Severe protein caloric malnutrition
Consulted nutrition
#Hypothyroidism
-Continue levothyroxine
# Chronic urinary frequency/incontinence
-Continue Myrbetriq when appropriate
Sacrum Stage 2 Pressure Injury, POA
wound care
# Code status, DNR
DVT prophylaxis -Eliquis
PT/OT/OOB- family requested ARB. PMR Consulted.
d/w wtih caregiver at bedside
Anticipated Discharge: > 48 hours
Subjective/Interval History
-
Date of Service: July 29, 2024
States now wants to go home
states appetite is improving
Objective Data
-
Vital Signs:
Vital Signs
Temp Pulse Resp BP Pulse Ox
97.9 F 109 23 121/74 90
07/29/24 04:09 07/29/24 10:08 07/29/24 10:00 07/29/24 10:08 07/29/24 00:40
I&O
07/28/24 07/29/24 07/30/24
06:59 06:59 06:59
Intake Total 240 / 240 100 / 100
Output Total 1075 / 1075 220 / 220
Balance -835 / -835 -120 / -120
[2024-07-29] MEDS: TYLENOL 1000 MG PO ×2 (11:26→20:13)
--- NOTE | 2024-07-29 11:59 | PTCARENOTE ---
Patient out of bed to chair with 2 person assist. Moderate Sacral pain treated with Tylenol and relieved with positioned in chair. Patient has good appetite. checkroom attendant at bedside. Patient verbalizing that she wants to go home, notified
hospitalist. Therapeutic communication provided.
[2024-07-29 12:26] LABS: Glucose - Point of Care 261 mg/dl (70-99)
--- NOTE | 2024-07-29 12:42 | PTCARENOTE ---
Addendum entered by Rianna Butler RN 07/29/24 13:57:
Toradol 12.5 administered as per doctors orders. Patient is now objectively and subjectively more comfortable. Out of bed with family. Pain level improved, patient is smiling.
Original Note:
Patient stating that her sacral pain is back. SHe is sitting in a chair and Tylenol was administered. Discussed with Dr. Shay and new orders obtained. Family at bedside , TV on for distraction.
[2024-07-29] MEDS: ULTRAM 12.5 MG PO (12:52)
[2024-07-29 17:01] LABS: Glucose - Point of Care 92 mg/dl (70-99)
[2024-07-29] MEDS: NOVOLOG FLEXPEN-MODERATE RESISTANCE SC (17:03)
[2024-07-29] MEDS: REMERON 7.5 MG PO (20:14)
--- NOTE | 2024-07-29 21:03 | PTCARENOTE ---
Received pt from sabine RODRIGUEZ. Family @ bedside. Pt is AAOx3. Afib w/ PVCs on the monitor. On RA. Granda in place, hygiene provided. Pt assisted x2 to the BSC. Incont of loose stool. Pt c/o sacrum pain, PRN Tylenol given (see MAR). Hygiene and Q2T
provided. Pt is laying in bed with call madison in reach.
[2024-07-29 21:29] LABS: Glucose - Point of Care 49 mg/dl (70-99)
[2024-07-29 21:51] LABS: Glucose - Point of Care 59 mg/dl (70-99)
[2024-07-29 22:13] LABS: Glucose - Point of Care 63 mg/dl (70-99)
--- NOTE | 2024-07-29 22:28 | PTCARENOTE ---
Pt blood sugar was 49, 4 oz juice given. 15 min blood sugar recheck went up to 59, 4 oz juice given. (see worklist).
[2024-07-29] MEDS: IMODIUM 2 MG PO (22:42)
--- NOTE | 2024-07-29 22:53 | PTCARENOTE ---
Pt w/ diarrhea x4, ITZEL Hickman notified. Imodium x1 and stool sample ordered (will receive next time pt goes).
[2024-07-29 23:52] LABS: Glucose - Point of Care 70 mg/dl (70-99)
[2024-07-30] VITALS (14 sets, daily range): BP systolic 91–125; BP diastolic 47–77; BMI 20.5
[2024-07-30 03:02] LABS: Glucose - Point of Care 70 mg/dl (70-99)
[2024-07-30] MEDS: ULTRAM 12.5 MG PO ×2 (03:17→21:16)
[2024-07-30] MEDS: SYNTHROID 75 MCG PO (03:18)
[2024-07-30 03:51] LABS: % Basophils 0.7 % (0-2); % Eosinophils 4.7 % (0-6); % Immature Granulocytes 0.7 % (0-0.5); % Lymphocytes 17.3 % (20.5-51.1); % Monocytes 11.7 % (1.7-9.3); % Neutrophils 64.9 % (42.2-75.2); Absolute Basophils 0.1 10^3/uL (0-0.2); Absolute Eosinophils 0.5 10^3/uL (0-0.7); Absolute Immature Granulocytes 0.1 10^3/uL (0-0.05); Absolute Lymphocytes 1.8 10^3/uL (1.2-3.4); Absolute Monocytes 1.2 10^3/uL (0.1-0.6); Absolute Neutrophils 6.6 10^3/uL (1.4-6.5); Hematocrit 32.7 % (37.0-47.0); Hemoglobin 11.1 g/dL (12.0-16.0); Mean Corp Hgb Conc. 33.9 g/dL (33.0-37.0); Mean Corpuscular Hgb 30.8 pg (27.0-31.0); Mean Corpuscular Volume 90.8 fL (81.0-99.0); Mean Platelet Volume 10.5 fL (7.4-10.4); Nucleated Red Blood Cells % 0 %; Platelet Count 230 10^3/uL (130-400); Red Cell Dist. Width 14.6 % (11.5-14.5); White Blood Cell Count 10.1 10^3/uL (4.8-10.8)
[2024-07-30 04:13] LABS: Blood Urea Nitrogen 15 mg/dl (7-17); Calcium 8.8 mg/dl (8.4-10.2); Carbon Dioxide 22 mmol/L (22-30); Chloride 110 mmol/L (98-107); Estimated Creatinine Clearance 42 ml/min; Glucose 73 mg/dl (70-99); Magnesium 1.2 mg/dl (1.6-2.3); Potassium 3.7 mmol/L (3.5-5.1); Sodium 139 mmol/L (135-145); eGFR > 60.00
[2024-07-30] MEDS: MAGNESIUM SULFATE 100 IV (05:17)
--- NOTE | 2024-07-30 07:05 | W.PN.HOSP.TC ---
Today's Communication/Plan
-
dc planning
Assessment / Plan
Assessment / Plan
Physical Exam
General: Poor Appetite, Appears Chronically Ill and Cachectic
HEENT: Other (normal mucous membrane, no deformities)
Respiratory: Decreased Breath Sounds
Cardiac: S1/S2, Irregular Rhythm and Tachycardia
GI: Soft, Non Tender and Non Distended
Genito-urinary: No costovertebral tender
Musculoskeletal: No Cyanosis and No Edema
Neuro: AO x 3 and Nonfocal/grossly intact
Psych: Calm; No Agitated, flat affected
88 years old female presented diabetic ketoacidosis, acute kidney injury, metabolic acidosis hyperkalemia, atrial fibrillation, leukocytosis, history of nausea/vomiting/diarrhea for a few days duration a
Assessment and plan
# Diabetic ketoacidosis /history of diabetes/insulin-dependent diabetes
Resolved
# DM
Hypoglycemia reported
will hold DM meds for now to let her BG recover and re-introduce slowly
#Septic shock Etiology possibly viral gastroenteritis
No history of cough or respiratory problem. Chest radiography, no active cardiopulmonary disease.
History of nausea/vomiting/diarrhea. No diarrhea in hospital. Nausea mostly related to DKA
No history of dysuria.
Blood & urine cultures no growth
Will stop Empiric cefepime and vancomycin. Remains afebrile.
Stool testing if with diarrhea
#Flat affect/dec po intake- anorexia
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
-Psych decreased Lexapro to 5 mg and started Remeron 7.5mg qhs. Monitored for side effects/increased sleepiness
-IVF stopped
-Encourage increased p.o. intake.
-bowel regimen
#Urinary retention likely 2/2 decrease mobility
-Granda catheter placed
-TOV prior to dc
-OOB/ambulate
# New onset atrial fibrillation with rapid ventricular response
No history of atrial fibrillation before.
s/p cardizem gtt and now cardizem 120mg and toprol increased to 50mg BID
[id number] around 6 off hep gtt and now on Eliquis
Left ventricular EF of 55%. Diastolic function is indeterminate. Severe left atrial dilatation and moderate right atrial dilatation. Moderate mitral regurgitation. No aortic insufficiency. Mild-moderate tricuspid regurgitation.
Appreciate cardiology input
# Elevated trop Likely Non ischemic myocardial injury
No chest pain
Troponin came down
EKG showing ST changes
c/w aspirin
s/p Pressure support with Levophed gtt
#Chronic diastolic CHF
Follows with [facility]
She was volume depleted due to GI loss and DKA, on IV fluid and monitor volume status/ weight closely
# Acute kidney injury, metabolic acidosis/lactic acidosis
Resolved
# Hyperkalemia
Resolved.
# hypomagnesemia / hypophosphatemia
Replete/monitor
#History of significant osteoarthritis with recent cortisone injection to right shoulder
History of falls/chronic rib fractures/chronic compression deformities
Fall precautions
Eventual PT/OT
# Status post TAVR 2021
Last echo in January 2024 showed well-seated TAVR with peak/mean gradients across the aortic valve at 25/14 mmHg. Trace echo aortic regurgitation.
# Severe protein caloric malnutrition
Consulted nutrition
#Hypothyroidism
-Continue levothyroxine
# Chronic urinary frequency/incontinence
-Continue Myrbetriq when appropriate
Sacrum Stage 2 Pressure Injury, POA
wound care
# Code status, DNR
DVT prophylaxis -Eliquis
PT/OT/OOB- family requested ARB. PMR Consulted.
d/w wtih caregiver at bedside
Total time spent to see the patient on the floor, examine the patient, review data and lab results, discuss treatment plan with patient, nursing staff around 55 minutes
Anticipated Discharge: 24 - 48 hours
Subjective/Interval History
-
Date of Service: July 30, 2024
No complaints
No abd pain
No fevers
No chest pain
Objective Data
-
Labs:
Laboratory Results
07/30/24
03:30
WBC 10.1
Hgb 11.1 L
Hct 32.7 L
Plt Count 230
Sodium 139
Potassium 3.7
Chloride 110 H
Carbon Dioxide 22
BUN 15
Creatinine 0.7
Glucose 73
Calcium 8.8
Vital Signs:
Vital Signs
Temp Pulse Resp BP Pulse Ox
97.4 F 77 16 91/57 92
07/30/24 03:45 07/30/24 06:00 07/30/24 06:00 07/30/24 06:00 07/29/24 20:55
I&O
07/29/24 07/30/24 07/31/24
06:59 06:59 06:59
Intake Total 100 / 100 740 / 740
Output Total 220 / 220 1200 / 1200
Balance -120 / -120 -460 / -460
[2024-07-30 08:06] LABS: Glucose - Point of Care 151 mg/dl (70-99)
--- NOTE | 2024-07-30 08:07 | PN.DE.MGMTRT ---
Addendum entered and electronically signed by ITZEL Devlin 07/30/24 13:41:
Received TT message from nurse stating that pt's Pre-lunch blood sugar was 393, pt received 9 units of corrective insulin.
Will resume Lantus 8 units and NovoLog 6 units AC. Will follow and make further insulin adjustments if needed
Original Note:
Insulin Management
- -
07/30/2024: Diabetes Management F/U:
Patient admitted 07/20 with weakness, excessive thirst, tachycardia and hyperglycemia. Found to have DKA with lactic acidosis and glucose 765. Also new onset A-fib with rapid ventricular response. PMH: Chronic diastolic HF, TAVR, MR, Insulin
dependent T2DM. Prior to admission was taking 8 units Toujeo @ HS with NovoLog 6 units AC and metformin 1000 mg BID. A1C on admission 8.6%, cr .5, EGFR > 60.
Pt's PO intake has been minimal over past 2 months following the of her .
She is noted for 29 lbs unintentional wt loss. Chart review indicates severe depression but pt does not want to seek psychiatric evaluation.
Patient is awake, A/O, sitting up in chair, pleasant, offers no complaints, housekeeper home at bedside.
Glucose pre-dinner was 92, pt ate 70% of her dinner, received 8 units of NovoLog. Noted for an episode of Hypoglycemia of 49 @ HS, improved to 70 post-txt.
Current glucose is 150. Will continue to HOLD all her scheduled insulin and use corrective insulin if needed.
Discussed with Pt's nurse. Will follow
Diabetes History
- -
Type of Diabetes: 2 requiring insulin
Pre-Admission Diabetes Regimen
07/30/24
03:30
Creatinine 0.7
Lab Results
Hemoglobin A1c 8.6 % (4.0-5.6) H 07/23/24 02:21
Insulin Pump Settings
IP Diabetes Regimen
07/29/24 07/29/24 07/29/24
10:01 12:13 16:47
Glucose
POC Glucose 263 H 261 H 92
07/29/24 07/29/24 07/29/24
21:17 21:39 22:02
Glucose
POC Glucose 49 L* 59 L 63 L
07/29/24 07/30/24 07/30/24
23:40 02:51 03:30
Glucose 73
POC Glucose 70 70
07/30/24
07:54
Glucose
POC Glucose 151 H
Meal type: Dinner
Meal type: Lunch
Meal type: Breakfast
Amount consumed: 70%
Amount consumed: 100%
Amount consumed: 100%
Patient Education
[2024-07-30] MEDS: NOVOLOG FLEXPEN SC (08:51)
--- NOTE | 2024-07-30 09:05 | PTCARENOTE ---
Patient had multiple loose stools during shift supervisor rn. Cdiff negative. Spoke to Infection control and was advised to remove isolation at this time.
[2024-07-30] MEDS: NOVOLOG FLEXPEN-MODERATE RESISTANCE 1 UNITS SC (09:28)
[2024-07-30] MEDS: PROTONIX 20 MG PO (09:30)
[2024-07-30] MEDS: CARDIZEM CD 120 MG PO (09:30)
[2024-07-30] MEDS: ELIQUIS 2.5 MG PO ×2 (09:30→20:01)
[2024-07-30] MEDS: TYLENOL 1000 MG PO ×2 (09:31→15:59)
[2024-07-30] MEDS: LEXAPRO 5 MG PO (09:31)
[2024-07-30] MEDS: TOPROL XL 50 MG PO ×2 (09:34→20:00)
--- NOTE | 2024-07-30 10:36 | W.PN.CARDCBS ---
Today's Communication / Plan
-
Continue metoprolol and diltiazem.
Ventricular rates are adequate. Continue Eliquis.
Blood pressure remains borderline
Okay to transfer to [facility].
Impression / Plan
-
PCP: Ryne West
Legal Instructor: Siddharth House
Impression:
DKA
Lactic acidosis
A-fib with rapid ventricular response, new diagnosis
Hypotension
Elevated troponin, suspect Nonischemic myocardial injury troponin elevation
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
Insulin-dependent diabetes
Hyperlipidemia
Hypothyroidism
DVT
Depression/weight loss
Gait dysfunction
Osteoarthritis
Mitral regurgitation, mild-moderate
Chronic urinary incontinence
Ambulatory dysfunction with falls
Echo: 07/23/2024: LV: Mild concentric LVH. Small chamber size. EF 55%. Indeterminate diastolic function due to atrial fibrillation. RV: Normal, LA: Severely dilated, RA: Moderately dilated, MV: Moderate MR, AV: A 23 mm Fonseca CURTIS TAVR valve
is in the aortic position with mean gradient of 7. No AI. TV: Mild-moderate TR estimated PAP 27 mmHg.
Echo 01/31/2024: EF 68%. Mild to moderate concentric LVH. Stage II DD. Moderately dilated left atrium. Mildly dilated right atrium. Mild to moderate MR. Well seated #23 mm Fonseca Curtis TAVR with peak/mean gradients 25/14 mmHg, trace AI. Mild
TR
Cardiac cath 12/03/2022: LM: Okay. LAD: LI, mid 30% stenosis. Left circumflex: LI. RCA LI.
Plan:
Remains in atrial fibrillation. Her rate control is adequate. Blood pressure continues to be borderline.
For now would continue Toprol 50 mg p.o. twice daily and diltiazem 120 mg daily.
Continue to observe for now on current regimen. We may need to double diltiazem ER to 120 mg twice daily if blood pressure permits.
Continue Eliquis 2.5 mg twice daily
Increase activity. Okay for transfer to [facility] from cardiac standpoint
Her mood seems to be better.
Her echo this admission has a stable transcatheter aortic valve with moderate MR.
HPI 07/20/2024:
Patient is an 88-year-old female with past medical history of aortic stenosis status post TAVR January 2023, insulin-dependent diabetes, hyperlipidemia, hypothyroidism, depression and prior DVT who presents to emergency department 07/20/2024 with
complaints of nausea, vomiting, diarrhea, excessive thirst, tachycardia and elevated blood sugar. Patient reports she has been dealing with right shoulder injury since May and had steroid injection with orthopedic 07/09/2024. Unfortunately there
was minimal relief and she was placed on Medrol Dosepak 07/14/2024. Following placement of Medrol Dosepak patient's blood sugars became elevated and she noted increased thirst and urination. She became very nauseous within the last 24 hours and had
multiple episodes diarrhea for the past few days and vomiting overnight. Her aide found her blood sugars elevated and she was tachycardic with increased weakness and was brought to the emergency department. Blood sugar on arrival was 765. Weight
cell count was elevated at 20.3, potassium 6.1, mild TIMOTHY with creatinine of 1.4. Venous blood gas pH 6.9. She was found to be in atrial fibrillation with rapid ventricular response and hypotensive. Patient placed on insulin drip as well as sodium
bicarb and saline. She was started on diltiazem drip for atrial fibrillation with some improvement of heart rate. Patient denied chest pain. Troponin is pending.
At time of this evaluation patient looks weak lying in bed. She denies chest pain, shortness of breath or palpitations.
Progress Note - Legal Instructor
Subjective
Date of Service: July 30, 2024
More alert today. Denies palpitations or chest pains.
Objective
Labs:
07/30/24 03:30
07/30/24 03:30
Labs
Hgb 11.1 g/dL (12.0-16.0) L 07/30/24 03:30
Hct 32.7 % (37.0-47.0) L 07/30/24 03:30
Plt Count 230 10^3/uL (130-400) 07/30/24 03:30
PT 16.3 Sec (11.4-14.6) H 07/21/24 01:11
INR 1.33 07/21/24 01:11
APTT 74.0 Sec (23.4-35.0) H 07/23/24 10:06
Sodium 139 mmol/L (135-145) 07/30/24 03:30
Potassium 3.7 mmol/L (3.5-5.1) 07/30/24 03:30
BUN 15 mg/dl (7-17) 07/30/24 03:30
Creatinine 0.7 mg/dL (0.6-1.0) 07/30/24 03:30
Glucose 73 mg/dl (70-99) 07/30/24 03:30
Vital Signs and I&O:
Vital Signs
Temp Pulse Resp BP Pulse Ox
97.6 F 88 16 106/76 92
07/30/24 07:15 07/30/24 09:34 07/30/24 06:00 07/30/24 09:34 07/29/24 20:55
Vital Signs
Temp Pulse Resp BP Pulse Ox
97.6 F 88 16 106/76 92
07/30/24 07:15 07/30/24 09:34 07/30/24 06:00 07/30/24 09:34 07/29/24 20:55
Intake & Output
07/28/24 07/29/24 07/30/24 07/31/24
06:59 06:59 06:59 06:59
Intake Total 240 / 240 100 / 100 740 / 740
Output Total 1075 / 1075 220 / 220 1200 / 1200
Balance -835 / -835 -120 / -120 -460 / -460
Physical Exam
Physical Exam
GEN: No distress, awake,
HEENT: supple, anicteric, mmm
LUNGS: CTA, no wheezes/rales
CV: Irreg, S1/S2, 1/6 syst LSB, no gallop
ABD: soft, BS+, NT/ND
EXT: No edema
NEURO: Gross non-focal
SKIN: No rash
[2024-07-30] MEDS: NOVOLOG FLEXPEN-MODERATE RESISTANCE 9 UNITS SC (12:13)
[2024-07-30 12:23] LABS: Glucose - Point of Care 393 mg/dl (70-99)
--- NOTE | 2024-07-30 12:45 | CM ---
Patient with Dx DKA, septic shock possibly viral gastroenteritis, new Afib, urinary retention, suspect depression. PT/OT recommend skilled rehab. Per nurse assessment; forgetful. Physiatry Eval pending.
Met with patient and her caregiver Fred, and spoke with daughter Unique by phone; daughter asking if [facility] has accepted - provided update that the fish checker will need to evaluate her mother and decide. Daughter confirms that if [facility] declines the
family would want [facility] for rehab.
Spoke with [facility] Liaison; Dr Collazo Why will see the patient.
Plan follow up after Physiatry Eval.
--- NOTE | 2024-07-30 13:42 | PTCARENOTE ---
Patients esquivel catheter was removed this morning. Patient was due to void by 1130. Multiple attempts to void were unsuccessful. Bladder scan 271. Notified Dr. Starkey and was instructed to extend post void time to 1500.
[2024-07-30] MEDS: LANTUS 0.08 UNITS SC (14:51)
--- NOTE | 2024-07-30 15:54 | PTCARENOTE ---
Patient unable to void s/p esquivel removal. Bladder scan 424, straight cath for 300.
[2024-07-30] MEDS: GLUCOPHAGE 1000 MG PO (16:38)
[2024-07-30] MEDS: NOVOLOG FLEXPEN-MODERATE RESISTANCE 7 UNITS SC (16:39)
[2024-07-30] MEDS: NOVOLOG FLEXPEN 6 UNITS SC (16:39)
[2024-07-30 16:52] LABS: Glucose - Point of Care 306 mg/dl (70-99)
[2024-07-30 17:27] LABS: Glucose - Point of Care 355 mg/dl (70-99)
[2024-07-30] MEDS: REMERON 7.5 MG PO (20:00)
[2024-07-30 21:39] LABS: Glucose - Point of Care 166 mg/dl (70-99)
--- NOTE | 2024-07-30 23:59 | PTCARENOTE ---
Pt bladder scanned for 541 ml. Pt refusing straight cath, education provided. ITZEL Hickman notified.
[2024-07-31] VITALS (19 sets, daily range): BP systolic 73–125; BP diastolic 42–94; PULSE 78–80; BMI 21.0
[2024-07-31] MEDS: SYNTHROID 75 MCG PO (05:23)
--- NOTE | 2024-07-31 06:19 | W.PN.HOSP.TC ---
Today's Communication/Plan
-
Patient wants to go to rehab today
Assessment / Plan
Assessment / Plan
Physical Exam
General: Poor Appetite, Appears Chronically Ill and Cachectic
HEENT: Other (normal mucous membrane, no deformities)
Respiratory: Decreased Breath Sounds
Cardiac: S1/S2, Irregular Rhythm and Tachycardia
GI: Soft, Non Tender and Non Distended
Genito-urinary: No costovertebral tender
Musculoskeletal: No Cyanosis and No Edema
Neuro: AO x 3 and Nonfocal/grossly intact
Psych: Calm; No Agitated, pleasant.
88 years old female presented diabetic ketoacidosis, acute kidney injury, metabolic acidosis hyperkalemia, atrial fibrillation, leukocytosis, history of nausea/vomiting/diarrhea for a few days duration a
Assessment and plan
# Diabetic ketoacidosis /history of diabetes/insulin-dependent diabetes
Resolved
# DM
Hypoglycemia reported
better now with adjustment to her insulin regimen.
#Septic shock Etiology possibly viral gastroenteritis
No history of cough or respiratory problem. Chest radiography, no active cardiopulmonary disease.
History of nausea/vomiting/diarrhea. No diarrhea in hospital. Nausea mostly related to DKA
No history of dysuria.
Blood & urine cultures no growth
Finished Empiric cefepime and vancomycin. Remained afebrile.
Stool testing if with diarrhea
#Flat affect/ situational depression, bereavement/ dec po intake- anorexia
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
-Psych decreased Lexapro to 5 mg and started Remeron 7.5mg qhs. Monitored for side effects/increased sleepiness
-IVF stopped
-Encourage increased p.o. intake.
-bowel regimen
#Urinary retention likely 2/2 decrease mobility
-Granda catheter placed then removed,. Had retention and placed on Straight cath PRN. I d/w urologist doctor Dr Contreras, he recommended to continue with PRN cath as needed and to accept high volume around 400-600 cc due to her age and hx of DM.
-OOB/ambulate.
# New onset atrial fibrillation with rapid ventricular response
No history of atrial fibrillation before.
s/p cardizem gtt and now Cardizem 120mg and Toprol increased to 50mg BID
TNH2-YK8-AALj around 6 off hep gtt and now on Eliquis
Left ventricular EF of 55%. Diastolic function is indeterminate. Severe left atrial dilatation and moderate right atrial dilatation. Moderate mitral regurgitation. No aortic insufficiency. Mild-moderate tricuspid regurgitation.
Appreciate cardiology input
# Elevated trop Likely Non ischemic myocardial injury
No chest pain
Troponin came down
EKG showing ST changes
Stopped aspirin
s/p Pressure support with Levophed gtt
#Chronic diastolic CHF
Follows with [facility]
She was volume depleted due to GI loss and DKA, on IV fluid and monitor volume status/ weight closely
# Acute kidney injury, metabolic acidosis/lactic acidosis
Resolved
# Hyperkalemia
Resolved.
# hypomagnesemia / hypophosphatemia
Replete/monitor
#History of significant osteoarthritis with recent cortisone injection to right shoulder
History of falls/chronic rib fractures/chronic compression deformities
Fall precautions
Eventual PT/OT
# Status post TAVR 2021
Last echo in January 2024 showed well-seated TAVR with peak/mean gradients across the aortic valve at 25/14 mmHg. Trace echo aortic regurgitation.
# Severe protein caloric malnutrition
Consulted nutrition
#Hypothyroidism
-Continue levothyroxine
# Chronic urinary frequency/incontinence
-Continue Myrbetriq when appropriate
Sacrum Stage 2 Pressure Injury, POA
wound care
# Code status, DNR
DVT prophylaxis -Eliquis
PT/OT/OOB- family requested [facility]. PMR Consulted.
Total time spent to see the patient on the floor, examine the patient, review data and lab results, discuss treatment plan with patient, nursing staff around 55 minutes
Anticipated Discharge: Today
Subjective/Interval History
-
Date of Service: July 31, 2024
She wants to leave the hospital
Objective Data
-
Vital Signs:
Vital Signs
Temp Pulse Resp BP Pulse Ox
97.7 F 84 22 109/94 96
07/31/24 03:22 07/31/24 06:00 07/31/24 06:00 07/31/24 06:00 07/31/24 04:00
I&O
07/29/24 07/30/24 07/31/24
06:59 06:59 06:59
Intake Total 100 / 100 740 / 740 340 / 340
Output Total 220 / 220 1200 / 1200 300 / 300
Balance -120 / -120 -460 / -460 40 / 40
--- NOTE | 2024-07-31 08:14 | PN.DE.MGMTRT ---
Insulin Management
- -
07/31/2024: Diabetes Management Follow up:
Patient admitted 07/20 with weakness, excessive thirst, tachycardia and hyperglycemia. Found to have DKA with lactic acidosis and glucose 765. Also new onset A-fib with rapid ventricular response. PMH: Chronic diastolic HF, TAVR, MR, Insulin
dependent T2DM. Prior to admission was taking 8 units Toujeo @ HS with NovoLog 6 units AC and metformin 1000 mg BID. A1C on admission 8.6%, cr .5, EGFR > 60.
Pt's PO intake has been minimal over past 2 months following the of her .
She is noted for 29 lbs unintentional wt loss. Chart review indicates severe depression but pt does not want to seek psychiatric evaluation.
Patient is awake, A/O, sitting up in chair, pleasant, offers no complaints.
07/30 Standing lantus and novolog was held due to hypoglycemia. glucose range 151 to 393. 8 units lantus in AM resumed with novolog 6 units AC. HS glucose 166.
07/31 Fasting glucose 130, received 6 units novolog and 8 units lantus this AM. Prior to admission patient was taking Toujeo 8 units @ HS. For patient safety would continue AM dosing.
Will follow for further needed adjustments.
Diabetes History
- -
Type of Diabetes: 2 requiring insulin
Pre-Admission Diabetes Regimen
Lab Results
Hemoglobin A1c 8.6 % (4.0-5.6) H 07/23/24 02:21
Insulin Pump Settings
IP Diabetes Regimen
07/30/24 07/30/24 07/30/24
12:06 16:36 17:15
POC Glucose 393 H 306 H 355 H
07/30/24
21:27
POC Glucose 166 H
Meal type: Lunch
Meal type: Breakfast
Amount consumed: 90%
Amount consumed: 75%
Patient Education
[2024-07-31 08:19] LABS: Glucose - Point of Care 130 mg/dl (70-99)
[2024-07-31] MEDS: PROTONIX 20 MG PO (08:24)
[2024-07-31] MEDS: TOPROL XL 50 MG PO (08:24)
[2024-07-31] MEDS: CARDIZEM CD 120 MG PO (08:27)
[2024-07-31] MEDS: GLUCOPHAGE 1000 MG PO (08:27)
[2024-07-31] MEDS: ELIQUIS 2.5 MG PO ×2 (08:27→21:23)
[2024-07-31] MEDS: LEXAPRO 5 MG PO (08:27)
[2024-07-31] MEDS: NOVOLOG FLEXPEN-MODERATE RESISTANCE SC ×2 (08:56→17:46)
[2024-07-31] MEDS: LANTUS 0.08 UNITS SC (08:57)
[2024-07-31] MEDS: NOVOLOG FLEXPEN 6 UNITS SC ×3 (08:58→17:46)
--- NOTE | 2024-07-31 11:58 | PTCARENOTE ---
Assumed care for pt during the day, received report via RN. AAOx3 slightly anxious states that she 'wants to go home'. Bladder scanned pt got a volume of 870 (see worklist). Pt only voided 120 on her own. Pt adamantly refusing to be straight
catheterized. Dr. Starkey made aware, put in order for esquivel catheter to be placed. Placed a esquivel catheter. Pt A-fib on tele with occasional PVC's. Sacrum red but blanchable. Adhesive foam placed. Pt up and in the chair with family and wealth management advisor
bedside. Pt rings appropriately and makes needs known. [facility] is within reach.
[2024-07-31] MEDS: TYLENOL 1000 MG PO ×2 (12:16→18:49)
[2024-07-31] MEDS: NOVOLOG FLEXPEN-MODERATE RESISTANCE 3 UNITS SC (12:22)
[2024-07-31 12:31] LABS: Glucose - Point of Care 216 mg/dl (70-99)
--- NOTE | 2024-07-31 15:58 | WOUNDNOTE ---
[facility] RN note: Patient admitted with diabetic ketoacidosis, atrial fibrillation.
See H&P for complete history. Has 24 hr caregiver at home.
PMH: IDDM, valve disease, cardiac surgery, hypothyroid, R knee replacement.
Wound Location and type/assessment: Patient admitted with: Stage 3 sacral PI, white base, periwound with pink yeasty appearing skin, blanchable. Patient incontinent of small amt of loose stool that was sitting on perineum/vaginal area. Perineum red
and painful to touch when cleaning. Patient's caregiver assisted with turning patient. L leg with old healing abrasion and scab on L knee. Caregiver confirmed she had gotten that at home when scraped leg on something. Heels are blanchable red. Son
Rayray at bedside, updated this headline writer on plan for [facility].
Appetite: Good. Encouraged increased protein in diet.
Pressure redistribution devices in place: [facility] air bed, keep on air mattress if transferred to floor. Air cushion.
Plan: Sacrum: clean with saline, Dusting of fungal powder to pink yeasty appearing skin followed by skin prep until powder dissolves. Santyl to base of wound, adaptic, 2x2 gauze and silicone foam, change daily. L leg silicone foam applied. Pillow
placed under calves and repositioned patient onto R semi side lying position.
Will confirm orders with hospitalist and updated nurse Elaina and caregiver.
Updated care plan and will follow as needed.
Note to case management of equipment requested for discharge: Air mattress or air overlay
Recommend follow up at wound care center upon discharge.
--- NOTE | 2024-07-31 16:32 | CON.MD ---
Consultation - Medical
-
Referring Provider:�Dr. Starkey
Chief Complaint:�Debility
�
History of Present Illness:�88-year-old female with PMH (as below) presented to [facility] on 07/20/2024 from home with dehydration, vomiting, and hyperglycemia with a 3-day history of diarrhea. Diagnosed with diabetic ketoacidosis and TIMOTHY
with hyperkalemia. Also noted with rapid A-fib and started on Cardizem with IV heparin. Patient has had significant 29 pound weight loss since the of her . Patient recently had a fall and had shoulder injury with multiple images with
a reported right rotator cuff surgery. Saw Dr. Obregon and had an injection of the shoulder to help with pain with oral steroid Dosepak. Shoulder feeling much better but lead to elevated sugars. She notes significant depression a was seen by
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 Plan to lower Lexapro and start Remeron. She declines artificial means for nutrition. Echocardiogram on 07/23 with an EF of 55%. Noted with severe left
atrial and moderate right atrial dilatation and moderate mitral regurgitation. Noted with urinary retention requiring Granda catheter. Also noted with a stage III sacral pressure injury present on admission.
�
Past Medical History:�Gait dysfunction, osteoarthritis, chronic diastolic heart failure, aortic stenosis, mitral regurgitation, hyponatremia, diabetes, hypothyroidism, chronic urinary incontinence, weight loss
Procedure History:�TAVR 2021
Family History:�None pertinent
�
Social History:�
Functional Level Premorbidly:�Assisted with bathing, partial publisher assistant with dressing. Able to toilet feed and groom herself. Supervision for bed mobility. Assisted with transfers and functional mobility with rolling walker. Recent fall with
right shoulder injury. Has wheelchair for outdoor mobility.
Functional Level Currently:�Max assist toileting and lower extremity self-care. Min assist bed mobility. Min assist transfer, min assist ambulating 8 feet x 2 with assist of 2
�
Tobacco:�Denies�
Alcohol:�Denies�
Drug use:�Denies�
�
Lives with:�Alone with 24-hour caregiver,
24-hour assistance available:�Yes
Number of floors:�2
# steps to enter:�0
# steps to second floor: Stair glide
Potential First floor set up:�Yes
Driving:�No
Occupation:�Retired
�
�
Allergies:�
Allergy/AdvReac Type Severity Reaction Status Date / Time
Iodinated Contrast Media Allergy Severe Verified 04/16/24 15:45
Prolonged
Itching
Sulfa (Sulfonamide Allergy Rash Verified 04/16/24 15:45
Antibiotics)
�
Review of Systems:�
Constitutional: (x) abNormal _fatigue, significant recent weight loss over the past few months noted to be 29 pounds. Appetite has picked up the last couple of days per patient and caregiver.
Eye: (x) Normal _
Ear/Nose/Throat: (x) Normal _
Respiratory: (x) Normal _
Cardiovascular: (x) Normal _
Gastrointestinal: (x) abNormal _loose bowels, moving them well
Genitourinary: (x) abNormal _urinary retention requiring Granda, has urinary incontinence at home
Musculoskeletal: (x) abNormal _right rotator cuff injury feeling better after steroid injection and oral steroid dosing.
Integumentary: (x) abNormal _stage III sacral wound, uncomfortable
Neurologic: (x) Normal _
Psychiatric: (x) abNormal _depression over the last year or so, particularly after loss of her .
Endocrine: (x) Normal _
Hematologic/Lymphatic: (x) Normal _
Allergic/Immunologic: (x) Normal _
�
Medications:�
Active Current Visit Medication List
Category Date Time Status
Acetaminophen [Tylenol] Med 07/20/24 13:54 Active
1,000 mg PO Q6HPRN PRN
Apixaban [Eliquis] Med 07/23/24 11:45 Active
2.5 mg PO BID
Collagenase [Santyl Ointment] Med 08/01/24 08:00 Active
See Dose Instructions TOPICAL DAILY
Diltiazem Extended Release [Cardizem Cd] Med 07/23/24 18:00 Active
120 mg PO DAILY
Escitalopram Oxalate [Lexapro] Med 07/24/24 08:00 Active
5 mg PO DAILY
Flush (0.9% Sodium Chloride) [Flush (Nss)] Med 07/20/24 14:00 Active
See Dose Instructions IV PER PROTOCOL
Insulin Aspart Corrective Mod [Novolog Flexpen-Moderate Med 07/26/24 11:30 Active
Resistance]
See Protocol SC AC
Insulin Aspart Pen [Novolog Flexpen] Med 07/30/24 13:44 Active
6 units SC AC
Insulin Glargine Lantus [Lantus] 8 units Med 07/30/24 13:44 Active
Subcutaneous Insulin Syringe [Syringe-Insulin] 0 unit
SC DAILY
Levothyroxine [Synthroid] Med 07/21/24 06:00 Active
75 mcg PO DAILY@0600
METFORMIN HCl [Glucophage] Med 07/27/24 08:00 Active
1,000 mg PO BID@0800,1700
Metoprolol Xl [Toprol Xl] Med 07/24/24 20:00 Active
50 mg PO BID
Miconazole Nitrate [Desenex/Mitrazol/Zeasorb] Med 07/31/24 16:07 Active
See Dose Instructions TOPICAL BIDPRN PRN
Midodrine [ProAmatine] Med 07/31/24 14:14 Active
2.5 mg PO Q4HPRN PRN
Mirtazapine [Remeron] Med 07/23/24 22:00 Active
7.5 mg PO HS
Morphine Sulfate Med 07/21/24 13:05 Active
1 mg IV Q4HPRN PRN
Nitroglycerin Sublingual [Nitrostat (Sublingual)] Med 07/21/24 13:09 Active
0.4 mg SL [id number] PRN
Ondansetron Injectable [Zofran] Med 07/21/24 13:05 Active
4 mg IV Q6HPRN PRN
Pantoprazole [Protonix] Med 07/24/24 10:00 Active
20 mg PO DAILY
Tramadol HCl [Ultram] Med 07/30/24 01:00 Active
12.5 mg PO BIDPRN PRN
�
Vitals:�
Temp Pulse Resp BP Pulse Ox
97.6 F 76 23 125/67 96
07/31/24 15:29 07/31/24 12:00 07/31/24 12:00 07/31/24 08:27 07/31/24 12:00
Height 5 ft 1 in
Actual Weight 50.4 kg
Body Mass Index (BMI) 21.0
�
Physical Exam:�
General Appearance/Observation: Well-developed, thin female in no apparent distress.� Slumped down in bed with shoulders near base of the bed
Pain/Comfort Assessment: Occasional buttocks pain, no shoulder pain currently
Mood/Affect: Appropriate�
�
Integumentary/Operative Site:�
�� Pressure Ulcer Evaluation: Not evaluated today
�
Eyes: Conjunctiva/Lids: normal���� Pupils: pupils equal round and reactive to light and Accommodation�
Ears/Nose/Throat: oral mucosa moist,� throat clear.������������ Lips/Teeth/Gums: normal�
Neck: No muscle spasm or tenderness�
Cardiovascular: Heart: regular, systolic murmur�
Pulses: dorsalis pedis 2+ bilaterally�
Respiratory: Respiratory Effort/Chest Expansion: normal������� Auscultation: Clear to auscultation bilaterally�
Gastrointestinal: abdomen not tender, no distension, normal abdominal bowel sounds
Genitourinary: No Granda�
Extremities:�Edema: None�Cyanosis: None�Trophic�changes: None
�
Neurology Exam:
Orientation: Alert, Oriented to self, Time, Place�
Memory: Intact immediately and at 3 minutes�
Repetition: Intact
Comprehension: Intact
Two step command: Intact
Naming: Intact
Cranial Nerves:
�� CNII:�Pupillary light reflex: Intact��
�� CN III, IV, : Extraocular muscles: Intact�
�� CN VII:�Facial movement: Symmetric
�� CN VIII:�Hearing: Normal
�� CN IX/X:�Speech & swallow: Normal,�Position of Uvula: Midline
�� CN XI:�Shoulder shrug: Symmetric
�� CN XII:�Tongue protrusion: Midline
Sensory:
�� Light touch: Intact in bilateral upper and lower extremities
Musculoskeletal: Motor: (Manual muscle scale 0-5)�
Muscle SA EF WE EE FF FA HF KE DF EHL PF
Right� 4 5 5 4 5 4 3+ 5 4 4 5
Left 4 5 5 4 5 4 3+ 5 4 4 5
�
Tone: Normal in all extremities�
Range of Motion: Passively within normal limits in all extremities�
�
Lab Results
Laboratory Data
07/30/24 03:30
07/30/24 03:30
PT 16.3 Sec (11.4-14.6) H 07/21/24 01:11
INR 1.33 07/21/24 01:11
APTT 74.0 Sec (23.4-35.0) H 07/23/24 10:06
Total Bilirubin 0.4 mg/dl (0.2-1.3) 07/25/24 04:43
AST 19 U/L (14-36) 07/25/24 04:43
ALT 18 U/L (0-35) 07/25/24 04:43
Alkaline Phosphatase 76 U/L (38-126) 07/25/24 04:43
Total Protein 5.3 g/dl (6.3-8.2) L 07/25/24 04:43
Albumin 2.9 g/dl (3.5-5.0) L 07/25/24 04:43
�
Diagnostic Results:�as per HPI�
�
Assessment
88-year-old right-handed F PMH (Gait dysfunction, osteoarthritis, chronic diastolic heart failure, aortic stenosis, mitral regurgitation, hyponatremia, diabetes, hypothyroidism, chronic urinary incontinence, weight loss) with 07/20/2024 diabetic
ketoacidosis and TIMOTHY with hyperkalemia, new rapid A-fib, recent depression with weight loss, recent right shoulder injury with steroid injection, urinary retention requiring Granda catheter, stage II sacral pressure injury resulting in ADL and
amatory dysfunction.
Plan�
PM&R�PT/OT to increase independence with ADLs, improve balance, coordination, endurance, strength, mobility, community reintegration, decreased burden of care on others and family education.�
�
Diabetic ketoacidosis: Fluid resuscitated, insulin ministration, doing better.
Type 2 diabetes: Accu-Cheks, insulin sliding scale, metformin 1000 mg twice daily insulin aspart 6 units with meals and glargine 8 units daily,
�
Atrial fibrillation:�Eliquis anticoagulation and rate control with metoprolol and diltiazem.�������������������������������������������
CHF: EF 55%, beta reilly, monitor fluid status�
DM II: Accu-Cheks, insulin sliding scale, metformin, aspart, lantus.�
Hypothyroidism: levothyroxine�
Stage III sacral pressure ulcer:� Vitamin C, zinc, multivitamin.� Getting collagenase. Weight shifts in wheelchair and bed.� Roho cushion.� Pressure-relief boots.� Lotrimin to fungal rash over buttocks and inguinal region if present.�
Normocytic anemia: Likely multifactorial.� Hemoglobin 11.1 from 11.1. Monitor.
Depression: Psychiatry consulted. Lexapro switched to Remeron 7.5 mg at night. Psychology consult.� Monitor mood, adjust medications as needed.�
FEN: Weight loss: Remeron. Encourage oral intake.
Right rotator cuff tear: Better after steroid injection and oral steroids. PT/OT
Skin: monitor for pressure sores/rashes/lesions.�
Pain: acetaminophen as needed.�
Bowel: Monitor bowels, medication as necessary.
Bladder: Time void, PVRs, PRN straight cath.� Urinary retention required Granda catheter.
GI Prophylaxis: Pantoprazole�
DVT Prophylaxis: mechanical, apixaban
Pulmonary: Incentive spirometry�
Safety: Continue to reinforce assistance with all transfers.�
Code Status:� DNR�
Dispo�(date/plan/equipment needs): Home with family care.� Social history reviewed.�
Functional and Medical Goals:�Modified Independent with ADL�s, ambulation, transfers�
Discharge Destination:�Acute inpatient rehabilitation
�
Summary of recommendations:
-�Discharge Destination:�Acute inpatient rehabilitation
Diabetic ketoacidosis: Fluid resuscitated, insulin ministration, doing better.
�Atrial fibrillation:�Eliquis anticoagulation and rate control with metoprolol and diltiazem.�������������������������������������������
CHF: EF 55%, beta reilly, monitor fluid status�
DM II: Accu-Cheks, insulin sliding scale, metformin, aspart, lantus.�
Stage III sacral pressure ulcer:� Vitamin C, zinc, multivitamin.� Getting collagenase. Weight shifts in wheelchair and bed.� Roho cushion.� Pressure-relief boots.� Lotrimin to fungal rash over buttocks and inguinal region if present.�
Normocytic anemia: Likely multifactorial.� Hemoglobin 11.1 from 11.1. Monitor.
Depression: Psychiatry consulted. Lexapro switched to Remeron 7.5 mg at night. Psychology consult.� Monitor mood, adjust medications as needed.�
DVT Prophylaxis: mechanical, apixaban
Thank you for allowing me to care for your patient. Please contact me with any questions or concerns.
--- NOTE | 2024-07-31 17:44 | CM ---
Patient with Dx DKA, septic shock possibly viral gastroenteritis, new Afib, urinary retention. Seen by wound care nurse- recommend air mattress/air overlay. PT/OT recommend SNF vs Acute.
Message from [facility]ia[facility]; they are able to accept the patient tomorrow.
Spoke with patient's daughter Unique this am and then son Rayray; Rayray made aware that patient was accepted by [facility]. He wants her to go to [facility] in the afternoon as the patient is part of the hospital dedication/celebration tomorrow at 10am the
ambulatory center for patient's Dr Maciel---> nurse made aware.
Plan [facility] tomorrow.
[2024-07-31 18:04] LABS: Glucose - Point of Care 71 mg/dl (70-99)
[2024-07-31] MEDS: GLUCOPHAGE PO (18:04)
[2024-07-31] MEDS: TOPROL XL PO (20:06)
[2024-07-31] MEDS: REMERON 7.5 MG PO (21:23)
[2024-07-31 22:10] LABS: Glucose - Point of Care 91 mg/dl (70-99)
--- NOTE | 2024-07-31 22:39 | PTCARENOTE ---
Pt ambulated from chair to bed with assistx2. Turn schedule in place to prevent further skin breakdown and promote healing of sacral wound. Granda catheter in place, draining clear, yellow urine. Assessment as documented. Call madison within reach. Pt
ringing appropriately.
[2024-08-01] VITALS (9 sets, daily range): BP systolic 91–123; BP diastolic 44–93; BMI 21.1
--- NOTE | 2024-08-01 04:06 | DOWNTIME ---
There was a [employer] Downtime on 08/01/2024 from 0100 to 08/01/2024 at 0355. Downtime documentation of patient's care, including medication administrations, has been reconciled in the electronic record per guidelines. Refer to the
patient's paper chart under the miscellaneous tab to see printed paper medication records and downtime forms.
[2024-08-01] MEDS: SYNTHROID 75 MCG PO (05:34)
--- NOTE | 2024-08-01 06:42 | W.PN.HOSP.TC ---
Today's Communication/Plan
-
dc
Assessment / Plan
Assessment / Plan
Physical Exam
General: Poor Appetite, Appears Chronically Ill and Cachectic
HEENT: Other (normal mucous membrane, no deformities)
Respiratory: Decreased Breath Sounds
Cardiac: S1/S2, Irregular Rhythm and Tachycardia
GI: Soft, Non Tender and Non Distended
Genito-urinary: No costovertebral tender
Musculoskeletal: No Cyanosis and No Edema
Neuro: AO x 3 and Nonfocal/grossly intact
Psych: Calm; No Agitated, pleasant.
88 years old female presented diabetic ketoacidosis, acute kidney injury, metabolic acidosis hyperkalemia, atrial fibrillation, leukocytosis, history of nausea/vomiting/diarrhea for a few days duration a
Assessment and plan
# Diabetic ketoacidosis /history of diabetes/insulin-dependent diabetes
Resolved
# DM
Hypoglycemia reported
better now with adjustment to her insulin regimen.
#Septic shock Etiology possibly viral gastroenteritis
No history of cough or respiratory problem. Chest radiography, no active cardiopulmonary disease.
History of nausea/vomiting/diarrhea. No diarrhea in hospital. Nausea mostly related to DKA
No history of dysuria.
Blood & urine cultures no growth
Finished Empiric cefepime and vancomycin. Remained afebrile.
Stool testing if with diarrhea
# situational depression, bereavement/ dec po intake- anorexia
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
-Psych decreased Lexapro to 5 mg and started Remeron 7.5mg qhs. Monitored for side effects/increased sleepiness
-IVF stopped
- she seems to respond with increasing oral intake
#Urinary retention likely 2/2 decrease mobility
-Granda catheter placed then removed,. Had retention and placed on Straight cath PRN. I d/w urologist doctor Dr Contreras, he recommended to continue with PRN cath as needed and to accept high volume around 400-600 cc due to her age and hx of DM.
-OOB/ambulate.
# New onset atrial fibrillation with rapid ventricular response
No history of atrial fibrillation before.
s/p cardizem gtt and now Cardizem 120mg and Toprol increased to 50mg BID
[id number] around 6 off hep gtt and now on Eliquis
Left ventricular EF of 55%. Diastolic function is indeterminate. Severe left atrial dilatation and moderate right atrial dilatation. Moderate mitral regurgitation. No aortic insufficiency. Mild-moderate tricuspid regurgitation.
Appreciate cardiology input
# Elevated trop Likely Non ischemic myocardial injury
No chest pain
Troponin came down
EKG showing ST changes
Stopped aspirin
s/p Pressure support with Levophed gtt
#Chronic diastolic CHF
Follows with [facility] cardiology
She was volume depleted due to GI loss and DKA, on IV fluid and monitored volume status/ weight closely
# Acute kidney injury, metabolic acidosis/lactic acidosis
Resolved
# Hyperkalemia
Resolved.
# hypomagnesemia / hypophosphatemia
Replete/monitor
#History of significant osteoarthritis with recent cortisone injection to right shoulder
History of falls/chronic rib fractures/chronic compression deformities
Fall precautions
Eventual PT/OT
# Status post TAVR 2021
Last echo in January 2024 showed well-seated TAVR with peak/mean gradients across the aortic valve at 25/14 mmHg. Trace echo aortic regurgitation.
# Severe protein caloric malnutrition
Consulted nutrition
#Hypothyroidism
-Continue levothyroxine
# Chronic urinary frequency/incontinence
-Continue Myrbetriq when appropriate
Sacrum Stage 2 Pressure Injury, POA
wound care
# Code status, DNR
DVT prophylaxis -Eliquis
PT/OT/OOB- family requested [facility]. PMR Consulted.
Total dc time spent to see the patient on the floor, examine the patient, review data and lab results, discuss discharge plan with patient, family, rehab doctor, family service caseworker, nursing staff around 75 minutes
Anticipated Discharge: Today
Subjective/Interval History
-
Date of Service: August 01, 2024
No complaints
wants to keep Granda and avoid PRN cath for now
Objective Data
-
Vital Signs:
Vital Signs
Temp Pulse Resp BP Pulse Ox
97.3 F 86 17 108/62 93
08/01/24 03:18 08/01/24 06:00 08/01/24 06:00 08/01/24 06:00 07/31/24 21:44
I&O
07/30/24 07/31/24 08/01/24
06:59 06:59 06:59
Intake Total 740 / 740 340 / 340 360 / 360
Output Total 1200 / 1200 300 / 300 1720 / 1720
Balance -460 / -460 40 / 40 -1360 / -1360
--- NOTE | 2024-08-01 07:36 | PN.DE.MGMTRT ---
Insulin Management
- -
08/01/2024: Diabetes Management Follow up:
Patient admitted 07/20 with weakness, excessive thirst, tachycardia and hyperglycemia. Found to have DKA with lactic acidosis and glucose 765. Also new onset A-fib with rapid ventricular response. PMH: Chronic diastolic HF, TAVR, MR, Insulin
dependent T2DM. Prior to admission was taking 8 units Toujeo @ HS with NovoLog 6 units AC and metformin 1000 mg BID. A1C on admission 8.6%, cr .5, EGFR > 60.
Pt's PO intake has been minimal over past 2 months following the of her .
She is noted for 29 lbs unintentional wt loss. Chart review indicates severe depression but pt does not want to seek psychiatric evaluation.
Patient is awake, A/O, sitting up in chair, pleasant, offers no complaints.
07/30 Standing lantus and novolog was held due to hypoglycemia. glucose range 151 to 393. 8 units lantus in AM resumed with novolog 6 units AC. HS glucose 166.
07/31 Fasting glucose 130, received 6 units novolog and 8 units lantus this AM. Prior to admission patient was taking Toujeo 8 units @ HS. For patient safety would continue AM dosing. pre meal glucose range 71 to 216.
08/01 Dr. Starkey has decreased AC novolog to 3 units, will reduce corrective insulin from moderate to low. Continue 8 units lantus in AM.
Will follow for further needed adjustments.
Diabetes History
- -
Type of Diabetes: 2 requiring insulin
Pre-Admission Diabetes Regimen
Lab Results
Hemoglobin A1c 8.6 % (4.0-5.6) H 07/23/24 02:21
Insulin Pump Settings
IP Diabetes Regimen
07/31/24 07/31/24 07/31/24
08:08 12:20 17:44
POC Glucose 130 H 216 H 71
07/31/24
21:59
POC Glucose 91
Meal type: Breakfast
Meal type: Breakfast
Amount consumed: 50%
Amount consumed: 70%
Patient Education
[2024-08-01] MEDS: CARDIZEM CD 120 MG PO (08:25)
[2024-08-01] MEDS: GLUCOPHAGE 1000 MG PO (08:25)
[2024-08-01] MEDS: TOPROL XL 50 MG PO (08:25)
[2024-08-01] MEDS: ELIQUIS 2.5 MG PO (08:25)
[2024-08-01] MEDS: LEXAPRO 5 MG PO (08:25)
[2024-08-01] MEDS: PROTONIX 20 MG PO (08:25)
[2024-08-01 08:32] LABS: Glucose - Point of Care 168 mg/dl (70-99)
[2024-08-01] MEDS: NOVOLOG FLEXPEN 3 UNITS SC ×2 (09:12→12:21)
[2024-08-01] MEDS: NOVOLOG FLEXPEN-LOW RESISTANCE 1 UNITS SC (09:12)
[2024-08-01] MEDS: LANTUS 0.08 UNITS SC (09:13)
[2024-08-01] MEDS: NOVOLOG FLEXPEN-MODERATE RESISTANCE SC (11:38)
[2024-08-01 11:50] LABS: Glucose - Point of Care 283 mg/dl (70-99)
--- NOTE | 2024-08-01 12:01 | CM ---
CM reviewed pt with [facility]- confirmed admission today
She confirmed air mattress or overlay to be available per [facility] recs
Bedside meeting with son/Rayray
He is in agreement with plan
IMM verbally completed- he declined copy
Discharge Disposition- [facility]
[2024-08-01] MEDS: NOVOLOG FLEXPEN-LOW RESISTANCE 3 UNITS SC (12:22)
--- NOTE | 2024-08-01 13:20 | PTCARENOTE ---
Assumed care of patient at beginning of this shift from previous RN with private caregiver at bedside. Patient taken to hospital ceremony by Sandra RN from ED via wheelchair accompanying her. Per Dr Starkey, via tiger text, patient does not need to
wear heart monitor to ceremony. Patient discharged to [facility]. Attempted to give report but was told the nurse needed to call back. Per case management room should be ready after 13:00. See worklist for full assessment and vital signs; see MAR
for med administration.
[2024-08-01] MEDS: SANTYL OINTMENT 1 APPLIC TOPICAL (14:32)
--- NOTE | 2024-08-01 14:43 | PTCARENOTE ---
Attempted to give report again; was told the nurse will call be back as she is still discharging a patient.
--- NOTE | 2024-08-01 15:14 | PTCARENOTE ---
Report given to Shazia; she will call when the room is clean.
--- NOTE | 2024-08-01 15:16 | W.DCSUMMARY ---
Discharge Summary
Discharge Data
Date of Admission: 07/20/24
Date of Discharge: 08/01/24
-
Pending Results: No
Hospital Course
88 years old female presented with nausea, vomiting and altered mental status. Patient was diagnosed with diabetic ketoacidosis, metabolic acidosis, acute kidney injury. Patient was not eating well at home. She was also found to be in atrial
fibrillation with rapid ventricular response. Patient was admitted to the intensive care unit. She was treated for diabetic ketoacidosis with intravenous fluid and intravenous insulin. She was started on antiarrhythmic medications for atrial
fibrillation. Patient was followed by furniture rental consultant, drop forge hand. Kidney status started to improve with resolution of acidosis. Subsequently, patient was able to leave the intensive care unit to intermediate unit. Her insulin requirement was
adjusted according to her blood glucose and oral intake. She was followed by health educator. Patient was started on Cardizem and Eliquis for atrial fibrillation. She was evaluated by psychiatrist for depression. Patient was diagnosed with
depression and bereavement following loss of her . Patient started to have urinary retention. Granda catheter was replaced. She failed voiding trial patient refused to have citrate catheterization as needed. Patient was advised to
follow-up with urology in the office. Urology was also consulted for recommendations. patient was evaluated by physical therapy. Physical therapy Recommended acute rehab placement. Patient was evaluated by Dr. Hyman and was accepted to [facility]. Patient remained hemodynamically stable. She was discharged in a stable condition.
Discharge Plan
-
Patient Disposition: Acute Rehab Facility
Discharge Diagnosis/Procedures: Diabetic ketoacidosis /Acute kidney injury, metabolic acidosis/lactic acidosis/ history of diabetes
Failure to thrive, anorexia, Moderate to Severe protein caloric malnutrition
Urinary retention
New onset atrial fibrillation with rapid ventricular response
Chronic diastolic CHF
Status post TAVR 2021
Sacrum Stage 2 Pressure Injury, POA
Condition: Fair
Diet: Diabetic, Carb Controlled
Activity Restrictions/Additional Instructions:
Wound Care Instructions
Sacrum: clean with saline, Dusting of fungal powder to pink yeasty appearing skin followed by skin prep until powder dissolves. Santyl to base of wound, adaptic, 2x2 gauze and silicone foam, change daily.
Perineum: After cleaning with mild soap apply dusting of fungal powder followed by thin layer of barrier cream.
L leg: clean with saline, silicone foam change q 3 days and prn soilage.
Air overlay to hospital bed or air mattress with turning schedule
Air chair cushion or equivalent when sitting, can take upon discharge
Increase protein in diet for wound healing
Control blood sugars for wound healing.
Follow up at wound care center call for an appointment.
Referrals:
Ayde Miller PA-C [Specified Professional Personl] - 08/14/24 2:00 pm (You have a cardiology follow-up appointment at the [place] office with Dr. House's physician congressional assistant, Ayde. Please call with questions)
Stephon Contreras MD [Active] - in two to four weeks
Ryne West MD [Family Provider] -
Prescriptions:
New
diltiazem HCl 120 mg Capsule,Extended Release 24hr
120 mg PO DAILY Qty: 30 0RF
Eliquis 2.5 mg Tablet
2.5 mg PO BID Qty: 60 0RF
metformin 1,000 mg Tablet
1,000 mg PO BID@0800,1700 Qty: 60 0RF
nitroglycerin 0.4 mg Tablet, Sublingual
0.4 mg sublingual [id number] PRN (Reason: Chest pain) Qty: 10 0RF
insulin aspart U-100 100 unit/mL (3 mL) Insulin Pen
3 unit SC AC Qty: 90 0RF
Insulin Glargine Lantus [Lantus] 8 UNITS
Subcutaneous Insulin Syringe [Syringe-Insulin] 0 UNIT
As Directed mls/hr SC DAILY
Ordered By: Saira Starkey MD
Last Taken: 08/01/24 09:13 0.08 mls
pantoprazole 20 mg Tablet,Delayed Release (Dr/Ec)
20 mg PO DAILY Qty: 30 0RF
midodrine 2.5 mg Tablet
2.5 mg PO Q4HPRN PRN (Reason: SBP less than 100) Qty: 10 0RF
Santyl 250 unit/gram Ointment
1 applic topical DAILY Qty: 30 0RF
mirtazapine 7.5 mg Tablet
7.5 mg PO HS Qty: 30 0RF
metoprolol succinate 50 mg Tablet Extended Release 24 Hr
50 mg PO BID Qty: 60 0RF
acetaminophen [Tylenol Extra Strength] 500 mg Tablet
1,000 mg PO Q6HPRN PRN (Reason: mild to mod pain,fever) Qty: 30 0RF
Continued
mirabegron [Myrbetriq] 50 mg Tablet Extended Release 24 Hr
50 mg PO DAILY
levothyroxine [Synthroid] 75 mcg Tablet
75 mcg PO DAILY
Changed
escitalopram oxalate 10 mg tablet
5 mg PO DAILY Qty: 0 0RF
Discontinued
simvastatin 20 MG tablet
20 mg PO HS
insulin glargine U-300 conc [Toujeo SoloStar U-300 Insulin] 300 unit/mL (1.5 mL) Insulin Pen
8 unit SC HS
metformin 500 mg Tablet Extended Release 24 Hr
1,000 mg PO DAILY
calcium carbonate-vitamin D3 [Calcium 500 + D] 500 mg-10 mcg (400 unit) Tablet
1 tab PO DAILY
aspirin 81 mg tablet,chewable
81 mg PO DAILY
acetaminophen [Tylenol Extra Strength] 500 mg tablet
1,000 mg PO TIDPRN PRN (Reason: mild pain)
insulin aspart U-100 [Novolog FlexPen U-100 Insulin] 100 unit/mL (3 mL) insulin pen
6 unit SC AC
Discharge Orders:
Discharge Patient (As Directed); Ordered 08/01/24
Ordered By: Saira Starkey
Discharge Date and Time
Discharge Date/Time: 08/01/24 16:43
Print Language: MACEDONIAN
--- NOTE | 2024-08-01 16:10 | PTCARENOTE ---
Patient transferred to [facility] via stretcher with tangible personal property appraiser accompanying patient and volunteer. Belongings to be brought by Cara ADAMES.
[2024-08-01 20:32] LABS: Glucose - Point of Care 223 mg/dl (70-99)
== END 2024-08-01 16:43 | DRG 871 ==
LOC: IMU 11:56
PROVIDERS: Hospitalist; Internal Medicine Cardiovascular Disease; Nuclear Medicine Nuclear Cardiology; Nurse Practitioner Family; Physician Assistant; ADMITTING PHYSICIAN Internal Medicine; CONSULT PHYSICIAN Internal Medicine; CONSULT PHYSICIAN Physical Medicine & Rehabilitation; EMERGENCY PHYSICIAN Emergency Medicine; FAMILY PHYSICIAN Family Medicine; OTHER PHYSICIAN Internal Medicine Cardiovascular Disease
DX: A41.9 Sepsis, unspecified organism (principal); E11.10 Type 2 diabetes mellitus with ketoacidosis without coma; R65.21 Severe sepsis with septic shock; E43 Unspecified severe protein-calorie malnutrition; L89.153 Pressure ulcer of sacral region, stage 3; E87.1 Hypo-osmolality and hyponatremia; I50.32 Chronic diastolic (congestive) heart failure; N17.9 Acute kidney failure, unspecified; R64 Cachexia; Z68.1 Body mass index [BMI] 19.9 or less, adult; I5A Non-ischemic myocardial injury (non-traumatic); Z66 Do not resuscitate; I11.0 Hypertensive heart disease with heart failure; D64.9 Anemia, unspecified; E03.9 Hypothyroidism, unspecified; F32.9 Major depressive disorder, single episode, unspecified; I08.3 Combined rheumatic disorders of mitral, aortic and tricuspid valves; Z95.2 Presence of prosthetic heart valve; L89.152 Pressure ulcer of sacral region, stage 2; R62.7 Adult failure to thrive; E87.5 Hyperkalemia; E83.39 Other disorders of phosphorus metabolism; E83.42 Hypomagnesemia; E78.00 Pure hypercholesterolemia, unspecified; E86.0 Dehydration; I48.91 Unspecified atrial fibrillation; M19.90 Unspecified osteoarthritis, unspecified site; M75.101 Unspecified rotator cuff tear or rupture of right shoulder, not specified as traumatic; R32 Unspecified urinary incontinence; R35.0 Frequency of micturition; R54 Age-related physical debility; Z91.81 History of falling; R29.6 Repeated falls; K21.9 Gastro-esophageal reflux disease without esophagitis; Z63.4 Disappearance and death of family member; Z79.4 Long term (current) use of insulin; Z79.85 Long-term (current) use of injectable non-insulin antidiabetic drugs; Z79.82 Long term (current) use of aspirin; Z79.890 Hormone replacement therapy; Z79.899 Other long term (current) drug therapy; Z83.3 Family history of diabetes mellitus; Z86.718 Personal history of other venous thrombosis and embolism; Z91.041 Radiographic dye allergy status; Z87.81 Personal history of (healed) traumatic fracture; Z96.651 Presence of right artificial knee joint; Z88.2 Allergy status to sulfonamides
CPT/HCPCS: 51702; 71045; 80048; 80053; 80061; 80202; 81003; 81015; 82010; 82805; 82962; 83036; 83605; 83735; 84100; 84443; 84484; 85025; 85027; 85610; 85730; 87040; 87045; 87046; 87086; 87324; 87427; 87449; 92526; 92610; 93005; 93306; 96365; 96366; 96367; 96375; 97116; 97163; 97164; 97167; 97530; 97535; 99291; 99292

== ENCOUNTER 2024-08-22 11:18 | Inpatient (IN) | payer MEDICARE, OTHER, SELFPAY ==
[2024-08-22] VITALS (13 sets, daily range): BP systolic 94–154; BP diastolic 51–76; PULSE 79; BMI 20.7
--- NOTE | 2024-08-22 08:16 | ED.GENMED ---
History of Present Illness
General
Chief Complaint: Fall
Source: patient
Exam Limitations: none
Time Seen by Provider: 08/22/24 08:03
Nursing documentation reviewed up to this point in time: agreed with
History of Present Illness
History of Present Illness:
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 She claims she went
to the bathroom and slipped on the tile hitting her right hip unable to walk since adamantly denies any head trauma or neck pain.
Past History
Past History
ED Past Medical History: Hypercholesterolemia, IDDM, Valvular disease and Hypothyroidism
ED Past Surgical History: Cardiac and Orthopedic (Right knee replacement)
Social History
Tobacco: Non-smoker
Alcohol: Occasional
Drug: None
Personal:
Living: with family
Employment: Not employed
Family History
Family History: Other (Noncontributory)
Review of Systems
Review of Systems
Allergies reviewed?: Yes
All Other Systems: ROS reviewed and negative except as documented in HPI and ROS
Phy Exam
Physical Exam
Physical Exam:
GENERAL: Alert , in no apparent distress
EYE: pupils equal and reactive
NECK: Supple, no significant adenopathy.
ENT: o/p clr, mmm.
CARDIAC: Regular rate and rhythm .
LUNGS: Clear breath sounds bilaterally, no acute respiratory distress, no wheezes/rales/rhonchi
ABDOMEN: Soft, without focal tenderness, no r/g, no cvat
NEUROLOGICAL: Alert and oriented, no focal neuro deficits 5 out of 5 upper and lower extremity strength normal sensation with palpating bilaterally.
SKIN: Warm and dry, skin intact.
MUSCULOSKELETAL: Right-sided hip pain to palpation and to movement no overlying skin changes., well perfused.
PSYCH: Normal and appropriate interaction.
Course
Orders/Labs/Results
Orders:
Orders
08/22/24 08:15
Hip, Right 2-3 Views [CR Hip - RT w/wo Pel 2-3 Vw*] Urgent
Comment:
Reason For Exam: right hip pain after fall
Include a pelvis x-ray?: Yes
08/22/24 09:13
Case Management Consult ONCE
Case Management Consult: Discharge Planning
Pt Eval And Treat Urgent
Activity Level: Ambulate
08/22/24 09:23
Acetaminophen [Tylenol] 1,000 mg PO NOW STA
08/22/24 09:41
CBC/With Diff [Complete Blood Count/With Diff] Urgent
CMP [Comprehensive Metabolic Panel] Urgent
08/22/24 10:14
Urinalysis Reflex To Culture Urgent
Date Specimen was Collected: 08/22/24
Time Specimen was Collected: 10:12
Urine Microscopic Reflex Cult Urgent
Urine Culture Urgent
THERESA Source: U
Specimen Description:
Obtained by: Random
Date Specimen was Collected: 08/22/24
Time Specimen was Collected: 10:12
Abnormal Lab Results
08/22/24 08/22/24
09:41 10:14
WBC 15.5 H 10^3/uL
(4.8-10.8)
RBC 3.35 L 10^6/uL
(4.20-5.40)
Hgb 10.3 L g/dL
(12.0-16.0)
Hct 31.4 L %
(37.0-47.0)
MCHC 32.8 L g/dL
(33.0-37.0)
MPV 11.1 H fL
(7.4-10.4)
Abs Immat Gran (auto) 0.2 H 10^3/uL
(0-0.05)
Absolute Neuts (auto) 13.5 H 10^3/uL
(1.4-6.5)
Absolute Lymphs (auto) 0.7 L 10^3/uL
(1.2-3.4)
Absolute Monos (auto) 1.0 H 10^3/uL
(0.1-0.6)
Immature Gran % 1.4 H %
(0-0.5)
Neutrophils % 87.1 H %
(42.2-75.2)
Lymphocytes % 4.6 L %
(20.5-51.1)
AST 45 H U/L
(14-36)
Total Protein 6.0 L g/dl
(6.3-8.2)
Albumin 3.4 L g/dl
(3.5-5.0)
Ur Occult Blood Reflex Trace A
(Negative)
Urine Nitrite (Reflex) Positive A
(Negative)
Leukocyte Esterase Rfl 2+ A
(Negative)
Urine Bacteria (Reflex) Many A
(Negative)
08/22/24 09:41
08/22/24 09:41
Vital Signs
Initial and Last Documented VS:
Initial Vital Signs
BP
146/66
08/22/24 07:48
Last Documented Vital Signs
Temp Pulse Resp BP Pulse Ox
98.1 F 68 15 154/68 88
08/22/24 07:53 08/22/24 07:53 08/22/24 07:53 08/22/24 10:00 08/22/24 09:57
MDM/Problems Addressed
MDM/Problems Addressed:
88-year-old female presenting to the emergency department today with concerns of right-sided hip discomfort after a slip and fall in the bathroom prior to arrival. Unable to ambulate since. Pain to the right hip to palpation without overlying skin
changes significant discomfort with movement of the hip no shortening of the leg or rotation of the leg. No abdominal pain back pain adamantly denies any neck pain to palpation or neck injury no head trauma patient is on Eliquis. X-ray showing
superior and inferior pubic rami fracture. Patient at this point unable to walk. Plan to admit for pain control orthopedic consultation and potential placement.
*Critical Care Note
Total Time (30-74mins, 75-104mins- exclusive of procedures): Not Applicable
ED Attending Note
-
Portions of this chart may have been created with voice recognition software.� Occasional wrong word or��sound alike� substitutions may have occurred due to the inherent limitations of voice recognition software.
Discharge Plan
Departure
Patient Disposition: Admit
Date of Disposition: 08/22/24
Time of Disposition: 10:45
Admit to: Telemetry
Admit to doctor: Sal[facility]on
Presentation/result/management discussed w/ accepting MD/DO: Hospitalist
Patient with high blood pressure during this ER visit?: No
Condition: Good
Covid-19: Not Applicable
Discharge Problem:
Closed fracture of pubic ramus, Acute UTI
Prescriptions:
No Action
levothyroxine [Synthroid] 75 mcg Tablet
75 mcg PO DAILY
nitroglycerin 0.4 mg Tablet, Sublingual
0.4 mg sublingual [id number] PRN (Reason: Chest pain) Qty: 10 0RF
tamsulosin 0.4 mg Capsule
0.4 mg PO HS 30 Days Qty: 30 0RF
Januvia 100 mg Tablet
100 mg PO DAILY 30 Days Qty: 30 0RF
magnesium oxide 500 mg magnesium Tablet
500 mg PO DAILY@NOON 30 Days Qty: 30 0RF
clotrimazole [Athlete's Foot (clotrimazole)] 1 % Cream
1 applic topical BID 30 Days Qty: 1 0RF
Insulin Glargine Lantus [Lantus] 11 UNITS
Subcutaneous Insulin Syringe [Syringe-Insulin] 0 UNIT
As Directed mls/hr SC HS
Reason for use: Diabetes
Ordered By: Citlaly Victoria PA-C
Last Taken: Unknown
metoprolol succinate 25 mg Tablet Extended Release 24 Hr
25 mg PO QPM 30 Days Qty: 30 0RF
Santyl 250 unit/gram Ointment
1 applic topical DAILY 30 Days Qty: 30 0RF
multivitamin with folic acid [Tab-A-Nathan] 400 mcg Tablet
1 tab PO DAILY@NOON 30 Days Qty: 30 0RF
acetaminophen 325 mg Tablet
650 mg PO Q6HPRN PRN (Reason: mild to mod pain) 30 Days Qty: 100 0RF
calcitriol 0.25 mcg capsule
0.25 mcg PO DAILY 30 Days Qty: 30 0RF
pantoprazole 20 mg Tablet,Delayed Release (Dr/Ec)
20 mg PO DAILY Qty: 30 0RF
insulin aspart U-100 100 unit/mL (3 mL) Insulin Pen
8 unit SC AC Qty: 90 0RF
mirtazapine 7.5 mg Tablet
7.5 mg PO HS Qty: 30 0RF
diltiazem HCl 120 mg Capsule,Extended Release 24hr
120 mg PO DAILY 30 Days Qty: 30 0RF
escitalopram oxalate 10 mg tablet
5 mg PO DAILY 30 Days Qty: 30 0RF
Eliquis 2.5 mg Tablet
2.5 mg PO BID 30 Days Qty: 60 0RF
Referrals:
Ryne West MD [Family Provider] -
Interventions
Interventions:
*Risk Screen - Suicide Last Done: 08/22/24 07:56
*Neglect/Abuse Screening Last Done: 08/22/24 07:56
*ED COVID-19 Vaccine History Last Done: 08/22/24 07:56
ED-Musculoskeletal Assessment Last Done: 08/22/24 07:58
ED- Neurological Assessment Last Done: 08/22/24 07:58
ED-Skin Assessment Last Done: 08/22/24 07:59
Discharge Date and Time
Print Language: [id number]
[2024-08-22] MEDS: TYLENOL 1000 MG PO (09:30)
--- NOTE | 2024-08-22 09:42 | CM ---
Addendum entered by Nat Machado RN 08/22/24 09:56:
As per ED PA, plan to bring patient into hospital for further work up. PT will evaluate patient after admission/placement in OBS.
Original Note:
CM reviewed medical records. Patient is pending PT evaluation for further recommendations.
[2024-08-22 09:52] LABS: % Basophils 0.3 % (0-2); % Eosinophils 0.3 % (0-6); % Immature Granulocytes 1.4 % (0-0.5); % Lymphocytes 4.6 % (20.5-51.1); % Monocytes 6.3 % (1.7-9.3); % Neutrophils 87.1 % (42.2-75.2); Absolute Basophils 0.1 10^3/uL (0-0.2); Absolute Eosinophils 0.1 10^3/uL (0-0.7); Absolute Immature Granulocytes 0.2 10^3/uL (0-0.05); Absolute Lymphocytes 0.7 10^3/uL (1.2-3.4); Absolute Neutrophils 13.5 10^3/uL (1.4-6.5); Hematocrit 31.4 % (37.0-47.0); Hemoglobin 10.3 g/dL (12.0-16.0); Mean Corp Hgb Conc. 32.8 g/dL (33.0-37.0); Mean Corpuscular Hgb 30.7 pg (27.0-31.0); Mean Corpuscular Volume 93.7 fL (81.0-99.0); Mean Platelet Volume 11.1 fL (7.4-10.4); Nucleated Red Blood Cells % 0 %; Platelet Count 257 10^3/uL (130-400); Red Blood Cell Count 3.35 10^6/uL (4.20-5.40); Red Cell Dist. Width 14.3 % (11.5-14.5); White Blood Cell Count 15.5 10^3/uL (4.8-10.8)
[2024-08-22 10:03] LABS: ALT (SGPT) 33 U/L (0-35); AST (SGOT) 45 U/L (14-36); Albumin 3.4 g/dl (3.5-5.0); Alkaline Phosphatase 97 U/L (38-126); Blood Urea Nitrogen 14 mg/dl (7-17); Calcium 9.5 mg/dl (8.4-10.2); Carbon Dioxide 26 mmol/L (22-30); Chloride 104 mmol/L (98-107); Estimated Creatinine Clearance 36 ml/min; Glucose 90 mg/dl (70-99); Potassium 4.7 mmol/L (3.5-5.1); Sodium 139 mmol/L (135-145); Total Bilirubin 0.4 mg/dl (0.2-1.3); eGFR > 60.00
[2024-08-22 10:32] LABS: Urine Albumin Trace (Neg - Trace); Urine Bilirubin Negative (Negative); Urine Character Slightly Cloudy (Clear); Urine Color Yellow; Urine Glucose Negative (Negative); Urine Ketone Negative (Negative); Urine Leukocyte 2+ (Negative); Urine Nitrite Positive (Negative); Urine Occult Blood Trace (Negative); Urine Specific Gravity 1.005 (<1.030); Urine Urobilinogen Negative (Neg - 1+)
[2024-08-22 10:38] LABS: Urine Bacteria Many (Negative); Urine Red Blood Cell 0-2 /HPF (0-2)
--- NOTE | 2024-08-22 11:11 | HPS.HSE ---
Family Physician
-
Family Physician: Ryne West
Chief Complaint
-
fall
History of Present Illness
88-year-old female with past medical history of atrial fibrillation, CHF, osteoarthritis, TAVR, urinary incontinence, diabetes mellitus, hypertension came to the hospital after a fall with right-sided pain. X-ray consistent with pelvic fracture
which appears was there previously. CT scan was done which showed right acetabular fracture. Patient currently denies any chest pain, shortness of breath. Denies any loss of consciousness. Per patient she went to the bathroom and slipped. 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 She was recently in [place] rehab.
Medical History
Past Medical History
Past Medical History: Reports Other (Hypercholesterolemia, IDDM, Valvular disease and Hypothyroidism)
Past Surgical History: Reports Cardiac, Orthopedic (Right knee replacement) and Other
Social History
Tobacco: Non-smoker
Family History
Family History: Not pertinent
Allergies / Home Medications
Allergies reflects when Allergies were last updated in [employer].
Home Medications with original date entered in [employer]
Allergy/Medication List:
Allergies
Allergy/AdvReac Type Severity Reaction Status Date / Time
Sulfa (Sulfonamide Allergy Severe Rash Verified 08/01/24 17:59
Antibiotics)
Iodinated Contrast Media Allergy Severe Verified 08/01/24 17:59
Prolonged
Itching
Home Medications
levothyroxine 75 mcg tablet (Synthroid) 75 mcg PO DAILY Thyroid 12/22/23
acetaminophen 325 mg tablet 650 mg (2 x 325 mg) PO Q6HPRN PRN mild to mod pain 30 days #100 tabs 08/14/24
apixaban 2.5 mg tablet (Eliquis) 2.5 mg PO BID A-Fib 30 days #60 tabs 08/14/24
calcitriol 0.25 mcg capsule 0.25 mcg PO DAILY supplement 30 days #30 caps 08/14/24
diltiazem HCl 120 mg capsule,extended release 24 hr 120 mg PO DAILY Arrhythmia 30 days #30 caps 08/14/24
escitalopram oxalate 10 mg tablet 5 mg (1/2 x 10 mg) PO DAILY Depression 30 days #30 tabs 08/14/24
metoprolol succinate 25 mg tablet,extended release 24 hr 25 mg PO QPM blood pressure 30 days #30 tabs 08/14/24
mirtazapine 7.5 mg tablet 7.5 mg PO HS #30 tabs 08/14/24
pantoprazole 20 mg tablet,delayed release 20 mg PO DAILY gerd #30 tabs 08/14/24
sitagliptin phosphate 100 mg tablet (Januvia) 100 mg PO DAILY diabtes 30 days #30 tabs 08/14/24
tamsulosin 0.4 mg capsule 0.4 mg PO HS bladder retention 30 days #30 caps 08/14/24
insulin aspart U-100 100 unit/mL (3 mL) subcutaneous pen (Novolog FlexPen U-100 Insulin aspart) 1 sliding scale dose SC AC 08/22/24
insulin glargine 100 unit/mL (3 mL) subcutaneous pen (Lantus Solostar U-100 Insulin) 11 unit SC HS 08/22/24
magnesium oxide 500 mg PO NOON supplement 08/22/24
multivitamin with folic acid 400 mcg tablet (Tab-A-Nathan) 1 tab PO NOON supplement 08/22/24
Review of Systems
-
History Source: Patient and Family
A 12 point ROS was completed and negative except as noted: Yes
Musculoskeletal: Reports Joint Pain
Physical Exam
Vital Signs
Vital Signs
Temp Pulse Resp BP Pulse Ox
98.1 F 68 15 154/68 88
08/22/24 07:53 08/22/24 07:53 08/22/24 07:53 08/22/24 10:00 08/22/24 09:57
Physical Exam
General: Well Nourished and No Apparent Distress
HEENT: Anicteric and Moist mucous membranes
Respiratory: Clear and Non Labored Respirations; No Wheezes
Cardiac: S1/S2 and Regular Rhythm
Breast: Deferred by me
GI: Soft, Non Tender and Non Distended
Rectal: Deferred by Provider
Genito-urinary: No Granda
Musculoskeletal: No Edema
Neuro: Awake, Alert and Oriented
Psych: Calm and Intact Judgment/Insight
Laboratory Results
-
08/22/24 09:41
08/22/24 09:41
Laboratory Results
Total Bilirubin 0.4 mg/dl (0.2-1.3) 08/22/24 09:41
AST 45 U/L (14-36) H 08/22/24:41
ALT 33 U/L (0-35) 08/22/24 09:41
Alkaline Phosphatase 97 U/L (38-126) 08/22/24 09:41
Data Reviewed
-
Diagnostic Radiology: Report Reviewed by me, Discussed with Patient and Discussed with Family
Lab Data: Labs Reviewed by me, Discussed with Patient and Discussed with Family
Impression/Plan
-
Mechanical fall with commuted fracture of right superior and inferior pubic rami and new commuted minimally displaced fracture involving the right acetabulum
Suspect acute traumatic fracture
Spoke with radiology and it appears the pelvic fracture might be old however mildly healing. I did discuss with Dr. Chapman from orthopedics regarding x-ray and CT findings and he recommended conservative management with partial weightbearing with
walker. If develop too much pain then nonweightbearing. and to follow-up outpatient with repeat imaging.
PT/OT
Partial weightbearing right lower extremity
Pain control
Suspected UTI
Continue with antibiotics for now
Check urine culture
History of insulin-dependent diabetes mellitus
Continue with insulin, hold Januvia
Insulin sliding scale, Accu-Cheks
History of urinary retention
Recently removed Granda catheter
Follows with urology outpatient
Bladder scan as needed
History of atrial fibrillation, diagnosed on last admission
Continue with Eliquis, metoprolol
History of hypothyroidism
Continue with Synthroid
Chronic diastolic CHF
Follows with [facility] cardiology
Does not appear to be in any exacerbation
History of significant osteoarthritis with recent cortisone injection to right shoulder
History of falls/chronic rib fractures/chronic compression deformities
Fall precautions
Status post TAVR 2021
Last echo in January 2024 showed well-seated TAVR with peak/mean gradients across the aortic valve at 25/14 mmHg. Trace echo aortic regurgitation
DVT prophylaxis
Eliquis
DNR, confirmed with patient and daughter at bedside
I spent a total of 78 minutes with the patient or on the floor. More than 50% of this time involved counseling and coordination of care.
[2024-08-22] MEDS: ROCEPHIN 1000 MG IV (11:51)
[2024-08-22 13:52] LABS: Glucose - Point of Care 184 mg/dl (70-99)
[2024-08-22] MEDS: NOVOLOG FLEXPEN-LOW RESISTANCE 1 UNITS SC (15:03)
[2024-08-22] MEDS: MAGNESIUM OXIDE 500 MG PO (15:03)
[2024-08-22] MEDS: THERAGRAN 1 TABLET PO (15:03)
[2024-08-22] MEDS: TYLENOL 650 MG PO ×2 (15:07→21:57)
[2024-08-22 16:34] LABS: Glucose - Point of Care 369 mg/dl (70-99)
[2024-08-22] MEDS: NOVOLOG FLEXPEN-LOW RESISTANCE 5 UNITS SC (16:34)
[2024-08-22] MEDS: TOPROL XL 25 MG PO (16:37)
[2024-08-22 21:48] LABS: Glucose - Point of Care 320 mg/dl (70-99)
[2024-08-22] MEDS: LANTUS 0.11 UNITS SC (21:54)
[2024-08-22] MEDS: REMERON 7.5 MG PO (21:54)
[2024-08-22] MEDS: FLOMAX 0.4 MG PO (21:54)
[2024-08-23] VITALS (9 sets, daily range): BP systolic 119–146; BP diastolic 51–68; PULSE 74–75; O2SAT 92
[2024-08-23] MEDS: TYLENOL 650 MG PO ×2 (02:30→08:09)
[2024-08-23] MEDS: SYNTHROID 75 MCG PO (06:00)
[2024-08-23 07:46] LABS: Glucose - Point of Care 140 mg/dl (70-99)
[2024-08-23 07:47] LABS: % Basophils 0.8 % (0-2); % Eosinophils 4.7 % (0-6); % Immature Granulocytes 0.8 % (0-0.5); % Lymphocytes 11.7 % (20.5-51.1); Absolute Basophils 0.1 10^3/uL (0-0.2); Absolute Eosinophils 0.4 10^3/uL (0-0.7); Absolute Immature Granulocytes 0.1 10^3/uL (0-0.05); Absolute Lymphocytes 0.9 10^3/uL (1.2-3.4); Absolute Neutrophils 5.4 10^3/uL (1.4-6.5); Hematocrit 29.2 % (37.0-47.0); Hemoglobin 9.6 g/dL (12.0-16.0); Mean Corp Hgb Conc. 32.9 g/dL (33.0-37.0); Mean Corpuscular Hgb 30.5 pg (27.0-31.0); Mean Corpuscular Volume 92.7 fL (81.0-99.0); Mean Platelet Volume 11.4 fL (7.4-10.4); Nucleated Red Blood Cells % 0 %; Platelet Count 222 10^3/uL (130-400); Red Blood Cell Count 3.15 10^6/uL (4.20-5.40); Red Cell Dist. Width 14.3 % (11.5-14.5); White Blood Cell Count 7.8 10^3/uL (4.8-10.8)
[2024-08-23] MEDS: NOVOLOG FLEXPEN-LOW RESISTANCE SC (07:48)
[2024-08-23 08:04] LABS: ALT (SGPT) 25 U/L (0-35); AST (SGOT) 23 U/L (14-36); Alkaline Phosphatase 92 U/L (38-126); Blood Urea Nitrogen 13 mg/dl (7-17); Calcium 9.1 mg/dl (8.4-10.2); Carbon Dioxide 27 mmol/L (22-30); Chloride 105 mmol/L (98-107); Estimated Creatinine Clearance 39 ml/min; Glucose 130 mg/dl (70-99); Potassium 4.2 mmol/L (3.5-5.1); Sodium 142 mmol/L (135-145); Total Bilirubin 0.5 mg/dl (0.2-1.3); Total Protein 5.5 g/dl (6.3-8.2); eGFR > 60.00
[2024-08-23] MEDS: STERILE WATER FOR INJECTION 10 ML IV (08:08)
[2024-08-23] MEDS: ROCEPHIN 1000 MG IV (08:09)
[2024-08-23] MEDS: CARDIZEM CD 120 MG PO (08:10)
[2024-08-23] MEDS: ELIQUIS 2.5 MG PO ×2 (08:11→20:05)
[2024-08-23] MEDS: ROCALTROL 0.25 MCG PO (08:11)
[2024-08-23] MEDS: PROTONIX 20 MG PO (08:11)
[2024-08-23] MEDS: LEXAPRO 5 MG PO (08:11)
--- NOTE | 2024-08-23 08:40 | VNURNOTE ---
Chart reviewed. Patient is current with [facility] nursing, OT. Will continue to follow hospital course and DC plans.
[2024-08-23 10:19] LABS: Glycohemoglobin (HgbA1c) 7.6 % (4.0-5.6)
[2024-08-23] MEDS: ULTRAM 50 MG PO ×2 (10:30→20:05)
[2024-08-23] MEDS: MAGNESIUM OXIDE 500 MG PO (10:31)
[2024-08-23] MEDS: THERAGRAN 1 TABLET PO (10:31)
[2024-08-23 11:25] LABS: Glucose - Point of Care 284 mg/dl (70-99)
[2024-08-23] MEDS: NOVOLOG FLEXPEN-LOW RESISTANCE 3 UNITS SC ×2 (11:32→18:31)
--- NOTE | 2024-08-23 12:40 | W.PN.HOSP.TC ---
Today's Communication/Plan
-
Monitor vital signs see plan
Start mealtime insulin
Pain control
PT/OT
will need rehab
cw abx
urine cx
Assessment / Plan
Assessment / Plan
General: Well Nourished and No Apparent Distress
HEENT: Anicteric and Moist mucous membranes
Respiratory: Clear and Non Labored Respirations; No Wheezes
Cardiac: S1/S2 and Regular Rhythm
GI: Soft, Non Tender and Non Distended
Genito-urinary: No Granda
Musculoskeletal: No Edema
Neuro: Awake, Alert and Oriented
Psych: Calm and Intact Judgment/Insight
Mechanical fall with commuted fracture of right superior and inferior pubic rami and new commuted minimally displaced fracture involving the right acetabulum
Suspect acute traumatic fracture
Spoke with radiology and it appears the pelvic fracture might be old however mildly healing. I did discuss with Dr. Chapman from orthopedics regarding x-ray and CT findings and he recommended conservative management with partial weightbearing with
walker. If develop too much pain then nonweightbearing. and to follow-up outpatient with repeat imaging.
PT/OT
Partial weightbearing right lower extremity
Pain control; morphine prn; added tramadol prn as well
Suspected UTI
Continue with antibiotics for now
urine cx with gram-negative bacilli, Proteus
History of insulin-dependent diabetes mellitus
Continue with insulin, hold Januvia
Insulin sliding scale, Accu-Cheks
History of urinary retention
Recently removed Granda catheter
Follows with urology outpatient
Bladder scan as needed
History of atrial fibrillation, diagnosed on last admission
Continue with Eliquis, metoprolol
History of hypothyroidism
Continue with Synthroid
Chronic diastolic CHF
Follows with [facility] cardiology
Does not appear to be in any exacerbation
History of significant osteoarthritis with recent cortisone injection to right shoulder
History of falls/chronic rib fractures/chronic compression deformities
Fall precautions
Status post TAVR 2021
Last echo in January 2024 showed well-seated TAVR with peak/mean gradients across the aortic valve at 25/14 mmHg. Trace echo aortic regurgitation
DVT prophylaxis
Eliquis
DNR, confirmed with patient and daughter at bedside
I spent a total of 52 minutes with the patient or on the floor. More than 50% of this time involved counseling and coordination of care.
Anticipated Discharge: 24 - 48 hours
Subjective/Interval History
-
Date of Service: August 23, 2024
Has some pain
Objective Data
-
Labs:
Laboratory Results
08/23/24
07:14
WBC 7.8
Hgb 9.6 L
Hct 29.2 L
Plt Count 222
Sodium 142
Potassium 4.2
Chloride 105
Carbon Dioxide 27
BUN 13
Creatinine 0.8
Glucose 130 H
Calcium 9.1
Total Bilirubin 0.5
AST 23
ALT 25
Alkaline Phosphatase 92
Vital Signs:
Vital Signs
Temp Pulse Resp BP Pulse Ox
98.1 F 73 18 146/68 93
08/23/24 11:31 08/23/24 11:31 08/23/24 11:31 08/23/24 11:31 08/23/24 11:31
I&O
08/22/24 08/23/24 08/24/24
06:59 06:59 06:59
Intake Total 400 / 400
Output Total 1125 / 1125
Balance -725 / -725
--- NOTE | 2024-08-23 14:22 | PN.CDI ---
CDI
- -
CDI:
Physician Documentation Request
Admit Date: 08/22/24 11:18
Dear Doctor Xavier,
Progress notes state 'suspected UTI continue antibiotics for now. urine cx with gram-negative bacilli, Proteus.....recently removed esquivel'
Please clarify if a relationship exist between these conditions:
Yes, UTI is related to/associated with/due to recent esquivel
No, UTI is not related to/associated with/due to recent esquivel
Unable to determine
Use of terms such as suspected, likely, concern for, or probable (associated with a specific diagnosis that is being evaluated, monitored, or treated as if it exists) are acceptable and can be coded in the inpatient setting, when documented at the
time of discharge.
Thank you,
Terra Montero RN, BSN
CDI Specialist
tiger text
Please use your independent medical judgment in providing your response.
--- NOTE | 2024-08-23 14:58 | CM ---
CM reviewed chart, met with patient and daughter, Unique, bedside. Patient resides in a multiple story home, no steps to enter, one step to kitchen, stair glide to second floor. Patient has two walkers, wheelchair, stool in shower. Patient reports
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 Patient PCP Ryne Godinez, pharmacy [facility], confirms prescription coverage. Patient denies insecurities at home. Daughter reports patient recently discharged from [facility] to
home with services. CM discussed PT recommendations of Acute vs SNF, daughter and patient requesting PMR consult, TT to Hospitalist. CM will continue to follow for all discharge planning needs.
Plan; Acute vs SNF, will need PMR consult.
--- NOTE | 2024-08-23 16:03 | CON.MD ---
Documented by User: Citlaly Victoria PA-C 08/23/24 19:33
Consultation - Medical
-
Referral: [facility] Hansen
Chief Complaint:�ambulatory dysfunction
�
History of Present Illness:�88-year-old female with PMH of ( atrial fibrillation, CHF, osteoarthritis, TAVR, urinary incontinence, diabetes mellitus, hypertension came to the hospital after a mechanical fall with right-sided pain. She reported to
have slipped while going back from the bathroom . X-ray consistent with comminuted fracture of right superior and inferior pubic rami which appears was there previously. CT scan showed new comminuted minimally displaced fracture involving the
right acetabulum. Patient currently denies any chest pain, shortness of breath. Denies any loss of consciousness. She is currently with 09/05 home twister tender paper. Orthopedics recommended conservative management with partial weightbearing with walker.
If develops too much pain then nonweightbearing. Plan to follow-up outpatient with repeat imaging.
Patient complaining of pain with movement rated to be near a 10/10. No complaint of pain with staying still in bed. Denies painin the legs, numbness, tingling. Was taking Tylenol initially then decided to accept Tramadol which she says is not doing
anything. She is now willing to try Morphine.
�
Past Medical History:�Gait dysfunction, osteoarthritis, chronic diastolic heart failure, aortic stenosis, mitral regurgitation, hyponatremia, diabetes, hypothyroidism, chronic urinary incontinence, weight loss
Procedure History:�TAVR 2021
Family History:�None pertinent
�
Social History:�
Functional Level Premorbidly:�Assisted with bathing, partial virtual assistant with dressing. Able to toilet feed and groom herself. Supervision for bed mobility. Assisted with transfers and functional mobility with rolling walker. Has wheelchair for
outdoor mobility.
Functional Level Currently:�bed mobility- max assist, toileting, lower extremity care-dependent, eating-independent.
�
Tobacco:�Denies�
Alcohol:�Denies�
Drug use:�Denies�
�
Lives with:�Alone with 24-hour caregiver,
24-hour assistance available:�Yes
Number of floors:�2
# steps to enter:�0
# steps to second floor: Stair glide
Potential First floor set up:�Yes
Driving:�No
Occupation:�Retired
�
�
Allergies:�
Allergy/AdvReac Type Severity Reaction Status Date / Time
Iodinated Contrast Media Allergy Severe Verified 04/16/24 15:45
Prolonged
Itching
Sulfa (Sulfonamide Allergy Rash Verified 04/16/24 15:45
Antibiotics)
�
Review of Systems:��
Constitutional: (x) abNormal _fatigue, significant recent weight loss over the past few months noted to be 29 pounds.
Eye: (x) Normal _
Ear/Nose/Throat: (x) Normal _
Respiratory: (x) Normal _
Cardiovascular: (x) Normal _
Gastrointestinal: (x) normal
Genitourinary: (x) abNormal _urinary retention requiring Granda, has urinary incontinence at home, uti
Musculoskeletal: (x) abNormal _right rotator cuff injury feeling better after steroid injection and oral, pelvic fractures, ambulatory dysfunction
Integumentary: (x) abNormal _stage III sacral wound, uncomfortable
Neurologic: (x) Normal _
Psychiatric: (x) abNormal _depression over the last year or so, particularly after loss of her .
Endocrine: (x) Normal _
Hematologic/Lymphatic: (x) Normal _
Allergic/Immunologic: (x) Normal _
�
Medications:��
Active Current Visit Medication List
Category Date Time Status
Acetaminophen [Tylenol] Med 08/22/24 13:45 Active
650 mg PO Q6HPRN PRN
Apixaban [Eliquis] Med 08/23/24 08:00 Active
2.5 mg PO BID
Bisacodyl [Dulcolax] Med 08/22/24 13:45 Active
10 mg RECTAL [id number] PRN
Calcitriol [Rocaltrol] Med 08/23/24 08:00 Active
0.25 mcg PO DAILY
CefTRIAXone [Rocephin] Med 08/23/24 08:00 Active
1,000 mg IV Q24H
Dextrose 50%-Water [Dextrose 50% Syringe] Med 08/22/24 13:45 Active
12.5 grams IV [id number] PRN
Diltiazem Extended Release [Cardizem Cd] Med 08/23/24 08:00 Active
120 mg PO DAILY
Docusate W/Senna [Senokot-S] Med 08/22/24 13:45 Active
1 tablet PO BIDPRN PRN
Escitalopram Oxalate [Lexapro] Med 08/23/24 08:00 Active
5 mg PO DAILY
Flush (0.9% Sodium Chloride) [Flush (Nss)] Med 08/22/24 15:00 Active
See Dose Instructions IV PER PROTOCOL
Glucagon [GlucaGen] Med 08/22/24 13:45 Active
1 mg IM PRN PRN
Insulin Aspart Corrective Low [Novolog Flexpen-Low Med 08/22/24 13:45 Active
Resistance]
See Protocol SC AC
Insulin Aspart Pen [Novolog Flexpen] Med 08/23/24 16:30 Active
2 units SC AC
Insulin Glargine Lantus [Lantus] 11 units Med 08/22/24 22:00 Active
Subcutaneous Insulin Syringe [Syringe-Insulin] 0 unit
SC HS
Levothyroxine [Synthroid] Med 08/23/24 06:00 Active
75 mcg PO DAILY@0600
Magnesium Oxide Med 08/22/24 13:45 Active
500 mg PO NOON
Metoprolol Xl [Toprol Xl] Med 08/22/24 18:00 Active
25 mg PO QPM
Mirtazapine [Remeron] Med 08/22/24 22:00 Active
7.5 mg PO HS
Morphine Sulfate Med 08/23/24 09:19 Active
1 mg IV Q4HPRN PRN
Multivitamin [Theragran] Med 08/22/24 13:45 Active
1 tablet PO NOON
Pantoprazole [Protonix] Med 08/23/24 08:00 Active
20 mg PO DAILY
Polyethylene Glycol Powder [Miralax] Med 08/22/24 13:45 Active
17 grams PO DAILYPRN PRN
Sterile Water [Sterile Water For Injection] Med 08/23/24 08:00 Active
10 ml IV Q24H
Tamsulosin [Flomax] Med 08/22/24 22:00 Active
0.4 mg PO HS
Tramadol HCl [Ultram] Med 08/23/24 09:16 Active
50 mg PO Q6HPRN PRN
�
Vitals:��
Temp Pulse Resp BP Pulse Ox
98.4 F 71 14 130/51 95
08/23/24 14:32 08/23/24 14:32 08/23/24 14:32 08/23/24 14:32 08/23/24 14:32
Height 5 ft 3 in
Actual Weight 51.284 kg
Body Mass Index (BMI) 20.0
Physical Exam:��
General Appearance/Observation: Well-developed, thin female in no apparent distress.�
Pain/Comfort Assessment: pelvic pain
Mood/Affect: Appropriate�
�
Integumentary/Operative Site:�No lesions noted over heels.
�� Pressure Ulcer Evaluation: unstageable sacral ulcer with slough.
�
Eyes: Conjunctiva/Lids: normal���� Pupils: pupils equal round and reactive to light and Accommodation�
Ears/Nose/Throat: oral mucosa moist,� throat clear.������������ Lips/Teeth/Gums: normal�
Neck: No muscle spasm or tenderness�
Cardiovascular: Heart: regular, systolic murmur�
Pulses: dorsalis pedis 2+ bilaterally�
Respiratory: Respiratory Effort/Chest Expansion: normal������� Auscultation: Clear to auscultation bilaterally�
Gastrointestinal: abdomen not tender, no distension, normal abdominal bowel sounds
Genitourinary: No Granda�
Extremities:�Edema: None�Cyanosis: None�Trophic�changes: None
�
Neurology Exam:
Orientation: Alert, Oriented to self, Time, Place�
Memory: Intact for immediate medical concerns
Comprehension: Intact
Two step command: Intact
Naming: Intact
Cranial Nerves:
�� CNII:�Pupillary light reflex: Intact��
�� CN III, IV, : Extraocular muscles: Intact�
�� CN VII:�Facial movement: Symmetric
�� CN VIII:�Hearing: Normal
�� CN IX/X:�Speech & swallow: Normal,�Position of Uvula: Midline
�� CN XI:�Shoulder shrug: Symmetric
�� CN XII:�Tongue protrusion: Midline
Sensory:
�� Light touch: Intact in bilateral upper and lower extremities
Musculoskeletal: Motor: (Manual muscle scale 0-5)�
Muscle SA EF WE EE FF FA HF KE DF EHL PF
Right� 4 5 5 5 2 2 5 4 5
Left 4 5 5 5 4 4 5 4 5
�
Tone: Normal in all extremities�
Range of Motion: Passively within normal limits in all extremities, limited bilateral leg due to pelvic fracture
�
Lab Results:�
Labs
WBC 7.8 10^3/uL (4.8-10.8) 08/23/24 07:14
RBC 3.15 10^6/uL (4.20-5.40) L 08/23/24 07:14
Hgb 9.6 g/dL (12.0-16.0) L 08/23/24 07:14
Hct 29.2 % (37.0-47.0) L 08/23/24 07:14
MCV 92.7 fL (81.0-99.0) 08/23/24 07:14
MCH 30.5 pg (27.0-31.0) 08/23/24 07:14
MCHC 32.9 g/dL (33.0-37.0) L 08/23/24 07:14
RDW 14.3 % (11.5-14.5) 08/23/24 07:14
Plt Count 222 10^3/uL (130-400) 08/23/24 07:14
MPV 11.4 fL (7.4-10.4) H 08/23/24 07:14
Abs Immat Gran (auto) 0.1 10^3/uL (0-0.05) H 08/23/24 07:14
Absolute Neuts (auto) 5.4 10^3/uL (1.4-6.5) 08/23/24 07:14
Absolute Lymphs (auto) 0.9 10^3/uL (1.2-3.4) L 08/23/24 07:14
Absolute Monos (auto) 1.0 10^3/uL (0.1-0.6) H 08/23/24 07:14
Absolute Eos (auto) 0.4 10^3/uL (0-0.7) 08/23/24 07:14
Absolute Basos (auto) 0.1 10^3/uL (0-0.2) 08/23/24 07:14
Immature Gran % 0.8 % (0-0.5) H 08/23/24 07:14
Neutrophils % 69.0 % (42.2-75.2) 08/23/24 07:14
Lymphocytes % 11.7 % (20.5-51.1) L 08/23/24 07:14
Monocytes % 13.0 % (1.7-9.3) H 08/23/24 07:14
Eosinophils % 4.7 % (0-6) 08/23/24 07:14
Basophils % 0.8 % (0-2) 08/23/24 07:14
Nucleated RBC % 0 % 08/23/24 07:14
Sodium 142 mmol/L (135-145) 08/23/24 07:14
Potassium 4.2 mmol/L (3.5-5.1) 08/23/24 07:14
Chloride 105 mmol/L (98-107) 08/23/24 07:14
Carbon Dioxide 27 mmol/L (22-30) 08/23/24 07:14
BUN 13 mg/dl (7-17) 08/23/24 07:14
Creatinine 0.8 mg/dL (0.6-1.0) 08/23/24 07:14
Estimated Creat Clear 39 ml/min 08/23/24 07:14
eGFR > 60.00 08/23/24 07:14
Glucose 130 mg/dl (70-99) H 08/23/24 07:14
Hemoglobin A1c 7.6 % (4.0-5.6) H 08/23/24 07:14
Calcium 9.1 mg/dl (8.4-10.2) 08/23/24 07:14
Total Bilirubin 0.5 mg/dl (0.2-1.3) 08/23/24 07:14
AST 23 U/L (14-36) 08/23/24 07:14
ALT 25 U/L (0-35) 08/23/24 07:14
Alkaline Phosphatase 92 U/L (38-126) 08/23/24 07:14
Total Protein 5.5 g/dl (6.3-8.2) L 08/23/24 07:14
Albumin 3.0 g/dl (3.5-5.0) L 08/23/24 07:14
Urine Color Yellow 08/22/24 10:14
Urine Clarity Slightly cloudy (Clear) 08/22/24 10:14
Urine pH 7.0 (5.0-9.0) 08/22/24 10:14
Ur Specific Onia 1.005 (<1.030) 08/22/24 10:14
Urine Ketones Negative (Negative) 08/22/24 10:14
Ur Occult Blood Reflex Trace (Negative) A 08/22/24 10:14
Urine Nitrite (Reflex) Positive (Negative) A 08/22/24 10:14
Urine Bilirubin Negative (Negative) 08/22/24 10:14
Urine Urobilinogen Negative (Neg - 1+) 08/22/24 10:14
Leukocyte Esterase Rfl 2+ (Negative) A 08/22/24 10:14
Urine RBC 0-2 /HPF (0-2) 08/22/24 10:14
Urine WBC (Reflex) 6-10 /HPF (0-5) 08/22/24 10:14
Urine Bacteria (Reflex) Many (Negative) A 08/22/24 10:14
Urine Glucose Negative (Negative) 08/22/24 10:14
Urine Albumin (Reflex) Trace (Neg - Trace) 08/22/24 10:14
POC Glucose 284 mg/dl (70-99) H 08/23/24 11:23
�Diagnostic Results: As per HPI��
CT scan of abdomen - 08/22: Re-demonstration of comminuted fractures of the right superior and inferior pubic rami without significant interval healing.
There is a separate new comminuted minimally displaced fracture involving the right acetabulum anterior and posterior columns, with intra-articular extension. Associated small right hip joint effusion with probable blood products also expanding the
right obturator musculature.
No dislocations. Mild to moderate degenerative changes of the pubis symphysis, both hips, bilateral sacroiliac joints and partially visualized lower lumbar spine.
xray of right pelvic: 08/22-Comminuted fractures of the right superior and inferior pubic rami.
Assessment
88-year-old right-handed F PMH (Gait dysfunction, osteoarthritis, chronic diastolic heart failure, aortic stenosis, mitral regurgitation, hyponatremia, diabetes, hypothyroidism, chronic urinary incontinence, weight loss, h/o diabeticketoacidosis and
TIMOTHY with hyperkalemia, new rapid A-fib, recent depression with weight loss, recent right shoulder injury with steroid injection, urinary retention, stage III sacral pressure injury, with recent fall found to have comminuted fracture of right
superior and inferior pubic rami which appears was there previously. CT scan showed new comminuted minimally displaced fracture involving the right acetabulum.
�
Plan�
PT/OT/ to improve balance, coordination, endurance, strength, mobility, decreased burden of care on others and family education.��
�
Ambulatory Dysfunction/pelvic fractures:conservative management with partial weightbearing with walker per ortho and nonweightbearing if too much pain. OP follow up with repeat imaging
Pain: morphine prn; added tramadol prn as well
Suspected UTI
Continue with Rocephin 1000mg IV q 24 hour
urine cx with gram-negative bacilli, Proteus
Insulin-dependent diabetes mellitus
Continue with insulin, hold Januvia
Insulin sliding scale, Accu-Cheks
History of urinary retention
Recently removed Granda catheter
Follows with urology outpatient
Bladder scan as needed, time void, PVRs, straight cath prn
Atrial fibrillation, diagnosed on last admission
Continue with Eliquis, Diltiazem, metoprolol xl 25mg qpm
Hypothyroidism
Continue with Synthroid 75mcg qd
Chronic diastolic CHF
Follows with [facility]
Does not appear to be in any exacerbation
History of significant osteoarthritis with recent cortisone injection to right shoulder
History of falls/chronic rib fractures/chronic compression deformities
Fall precautions
Status post TAVR 2021
Last echo in January 2024 showed well-seated TAVR with peak/mean gradients across the aortic valve at 25/14 mmHg. Trace echo aortic regurgitation
H/o unstageable sacral ulcer: continue wound care as prior, daveo cushion, weight shift q 2 hours
Skin: monitor for pressure sores/rashes/lesions.�
Bowel: Monitor bowels, medication as necessary.
GI Prophylaxis: Pantoprazole 20mg qd�
DVT Prophylaxis: mechanical, and apixaban
Pulmonary: Incentive spirometry�
Safety: Continue to reinforce assistance with all transfers.�
Code Status:� DNR�
Dispo�(date/plan/equipment needs): Home with family care.� Social history reviewed.
Discharge Destination:� SNF vs Home with home care
Summary Recommendations: SNF vs Home care with continuation of PT/OT has patient will not be able to tolerate 3 hours of intense therapy with pelvic fractures and pain
Ambulatory Dysfunction/pelvic fractures:conservative management with partial weightbearing with walker per ortho and nonweightbearing if too much pain. OP follow up with repeat imaging
Pain: morphine 1mg IV prn ; added tramadol prn as well. Patient is willing to try morphine now. If does not tolerate could try oxycodone 5mg q 4 hours prn, cont Tylenol and could add gabapentin if needed. Ice pack as needed.
GI Prophylaxis: Pantoprazole 20mg qd�
DVT Prophylaxis: mechanical, and apixaban
Pulmonary: Incentive spirometry�
Safety: Continue to reinforce assistance with all transfers.�

Documented by User: Siddharth Hyman MD 08/24/24 14:42
Consultation - Medical
-
Referral: Reagan Hansen
Chief Complaint:�ambulatory dysfunction
�
History of Present Illness:�88-year-old female with PMH of ( atrial fibrillation, CHF, osteoarthritis, TAVR, urinary incontinence, diabetes mellitus, hypertension came to the hospital after a mechanical fall with right-sided pain. She reported to
have slipped while going back from the bathroom . X-ray consistent with comminuted fracture of right superior and inferior pubic rami which appears was there previously. CT scan showed new comminuted minimally displaced fracture involving the
right acetabulum. Patient currently denies any chest pain, shortness of breath. Denies any loss of consciousness. She is currently with 09/05 home twister tender paper. Orthopedics recommended conservative management with partial weightbearing with walker.
If develops too much pain then nonweightbearing. Plan to follow-up outpatient with repeat imaging.
Patient complaining of pain with movement rated to be near a 10/10. No complaint of pain with staying still in bed. Denies painin the legs, numbness, tingling. Was taking Tylenol initially then decided to accept Tramadol which she says is not doing
anything. She is now willing to try Morphine.
�
Past Medical History:�Gait dysfunction, osteoarthritis, chronic diastolic heart failure, aortic stenosis, mitral regurgitation, hyponatremia, diabetes, hypothyroidism, chronic urinary incontinence, weight loss
Procedure History:�TAVR 2021
Family History:�None pertinent
�
Social History:�
Functional Level Premorbidly:�Assisted with bathing, partial virtual assistant with dressing. Able to toilet feed and groom herself. Supervision for bed mobility. Assisted with transfers and functional mobility with rolling walker. Has wheelchair for
outdoor mobility.
Functional Level Currently:�bed mobility- max assist, toileting, lower extremity care-dependent, eating-independent.
�
Tobacco:�Denies�
Alcohol:�Denies�
Drug use:�Denies�
�
Lives with:�Alone with 24-hour caregiver,
24-hour assistance available:�Yes
Number of floors:�2
# steps to enter:�0
# steps to second floor: Stair glide
Potential First floor set up:�Yes
Driving:�No
Occupation:�Retired
�
�
Allergies:�
Allergy/AdvReac Type Severity Reaction Status Date / Time
Iodinated Contrast Media Allergy Severe Verified 04/16/24 15:45
Prolonged
Itching
Sulfa (Sulfonamide Allergy Rash Verified 04/16/24 15:45
Antibiotics)
�
Review of Systems:��
Constitutional: (x) abNormal _fatigue, significant recent weight loss over the past few months noted to be 29 pounds.
Eye: (x) Normal _
Ear/Nose/Throat: (x) Normal _
Respiratory: (x) Normal _
Cardiovascular: (x) Normal _
Gastrointestinal: (x) normal
Genitourinary: (x) abNormal _urinary retention requiring Granda, has urinary incontinence at home, uti
Musculoskeletal: (x) abNormal _right rotator cuff injury feeling better after steroid injection and oral, pelvic fractures, ambulatory dysfunction
Integumentary: (x) abNormal _stage III sacral wound, uncomfortable
Neurologic: (x) Normal _
Psychiatric: (x) abNormal _depression over the last year or so, particularly after loss of her .
Endocrine: (x) Normal _
Hematologic/Lymphatic: (x) Normal _
Allergic/Immunologic: (x) Normal _
�
Medications:��
Active Current Visit Medication List
Category Date Time Status
Acetaminophen [Tylenol] Med 08/22/24 13:45 Active
650 mg PO Q6HPRN PRN
Apixaban [Eliquis] Med 08/23/24 08:00 Active
2.5 mg PO BID
Bisacodyl [Dulcolax] Med 08/22/24 13:45 Active
10 mg RECTAL [id number] PRN
Calcitriol [Rocaltrol] Med 08/23/24 08:00 Active
0.25 mcg PO DAILY
CefTRIAXone [Rocephin] Med 08/23/24 08:00 Active
1,000 mg IV Q24H
Dextrose 50%-Water [Dextrose 50% Syringe] Med 08/22/24 13:45 Active
12.5 grams IV [id number] PRN
Diltiazem Extended Release [Cardizem Cd] Med 08/23/24 08:00 Active
120 mg PO DAILY
Docusate W/Senna [Senokot-S] Med 08/22/24 13:45 Active
1 tablet PO BIDPRN PRN
Escitalopram Oxalate [Lexapro] Med 08/23/24 08:00 Active
5 mg PO DAILY
Flush (0.9% Sodium Chloride) [Flush (Nss)] Med 08/22/24 15:00 Active
See Dose Instructions IV PER PROTOCOL
Glucagon [GlucaGen] Med 08/22/24 13:45 Active
1 mg IM PRN PRN
Insulin Aspart Corrective Low [Novolog Flexpen-Low Med 08/22/24 13:45 Active
Resistance]
See Protocol SC AC
Insulin Aspart Pen [Novolog Flexpen] Med 08/23/24 16:30 Active
2 units SC AC
Insulin Glargine Lantus [Lantus] 11 units Med 08/22/24 22:00 Active
Subcutaneous Insulin Syringe [Syringe-Insulin] 0 unit
SC HS
Levothyroxine [Synthroid] Med 08/23/24 06:00 Active
75 mcg PO DAILY@0600
Magnesium Oxide Med 08/22/24 13:45 Active
500 mg PO NOON
Metoprolol Xl [Toprol Xl] Med 08/22/24 18:00 Active
25 mg PO QPM
Mirtazapine [Remeron] Med 08/22/24 22:00 Active
7.5 mg PO HS
Morphine Sulfate Med 08/23/24 09:19 Active
1 mg IV Q4HPRN PRN
Multivitamin [Theragran] Med 08/22/24 13:45 Active
1 tablet PO NOON
Pantoprazole [Protonix] Med 08/23/24 08:00 Active
20 mg PO DAILY
Polyethylene Glycol Powder [Miralax] Med 08/22/24 13:45 Active
17 grams PO DAILYPRN PRN
Sterile Water [Sterile Water For Injection] Med 08/23/24 08:00 Active
10 ml IV Q24H
Tamsulosin [Flomax] Med 08/22/24 22:00 Active
0.4 mg PO HS
Tramadol HCl [Ultram] Med 08/23/24 09:16 Active
50 mg PO Q6HPRN PRN
�
Vitals:��
Temp Pulse Resp BP Pulse Ox
98.4 F 71 14 130/51 95
08/23/24 14:32 08/23/24 14:32 08/23/24 14:32 08/23/24 14:32 08/23/24 14:32
Height 5 ft 3 in
Actual Weight 51.284 kg
Body Mass Index (BMI) 20.0
Physical Exam:��
General Appearance/Observation: Well-developed, thin female in no apparent distress.�
Pain/Comfort Assessment: pelvic pain
Mood/Affect: Appropriate�
�
Integumentary/Operative Site:�No lesions noted over heels.
�� Pressure Ulcer Evaluation: unstageable sacral ulcer with slough appears similar in size to her discharge from [facility]. Minimal maceration around the edge.
�
Eyes: Conjunctiva/Lids: normal���� Pupils: pupils equal round and reactive to light and Accommodation�
Ears/Nose/Throat: oral mucosa moist,� throat clear.������������ Lips/Teeth/Gums: normal�
Cardiovascular: Heart: regular, systolic murmur�
Pulses: dorsalis pedis 2+ bilaterally�
Respiratory: Respiratory Effort/Chest Expansion: normal������� Auscultation: Clear to auscultation bilaterally�
Gastrointestinal: abdomen not tender, no distension, normal abdominal bowel sounds
Genitourinary: No Granda�
Extremities:�Edema: None�Cyanosis: None�Trophic�changes: None
�
Neurology Exam:
Orientation: Alert, Oriented to self, Time, Place�
Memory: Intact for immediate medical concerns
Comprehension: Intact
Two step command: Intact
Naming: Intact
Cranial Nerves:
�� CNII:�Pupillary light reflex: Intact��
�� CN III, IV, : Extraocular muscles: Intact�
�� CN VII:�Facial movement: Symmetric
�� CN VIII:�Hearing: Normal
�� CN IX/X:�Speech & swallow: Normal,�Position of Uvula: Midline
�� CN XI:�Shoulder shrug: Symmetric
�� CN XII:�Tongue protrusion: Midline
Sensory:
�� Light touch: Intact in bilateral upper and lower extremities
Musculoskeletal: Motor: (Manual muscle scale 0-5)�
Muscle SA EF WE EE FF FA HF KE DF EHL PF
Right� 4 5 5 5 2 2 5 4 5
Left 4 5 5 5 4 4 5 4 5
�
Tone: Normal in all extremities�
Range of Motion: Passively within normal limits in all extremities, limited bilateral leg due to pelvic fracture
�
Lab Results:�
Labs
WBC 7.8 10^3/uL (4.8-10.8) 08/23/24 07:14
RBC 3.15 10^6/uL (4.20-5.40) L 08/23/24 07:14
Hgb 9.6 g/dL (12.0-16.0) L 08/23/24 07:14
Hct 29.2 % (37.0-47.0) L 08/23/24 07:14
MCV 92.7 fL (81.0-99.0) 08/23/24 07:14
MCH 30.5 pg (27.0-31.0) 08/23/24 07:14
MCHC 32.9 g/dL (33.0-37.0) L 08/23/24 07:14
RDW 14.3 % (11.5-14.5) 08/23/24 07:14
Plt Count 222 10^3/uL (130-400) 08/23/24 07:14
MPV 11.4 fL (7.4-10.4) H 08/23/24 07:14
Abs Immat Gran (auto) 0.1 10^3/uL (0-0.05) H 08/23/24 07:14
Absolute Neuts (auto) 5.4 10^3/uL (1.4-6.5) 08/23/24 07:14
Absolute Lymphs (auto) 0.9 10^3/uL (1.2-3.4) L 08/23/24 07:14
Absolute Monos (auto) 1.0 10^3/uL (0.1-0.6) H 08/23/24 07:14
Absolute Eos (auto) 0.4 10^3/uL (0-0.7) 08/23/24 07:14
Absolute Basos (auto) 0.1 10^3/uL (0-0.2) 08/23/24 07:14
Immature Gran % 0.8 % (0-0.5) H 08/23/24 07:14
Neutrophils % 69.0 % (42.2-75.2) 08/23/24 07:14
Lymphocytes % 11.7 % (20.5-51.1) L 08/23/24 07:14
Monocytes % 13.0 % (1.7-9.3) H 08/23/24 07:14
Eosinophils % 4.7 % (0-6) 08/23/24 07:14
Basophils % 0.8 % (0-2) 08/23/24 07:14
Nucleated RBC % 0 % 08/23/24 07:14
Sodium 142 mmol/L (135-145) 08/23/24 07:14
Potassium 4.2 mmol/L (3.5-5.1) 08/23/24 07:14
Chloride 105 mmol/L (98-107) 08/23/24 07:14
Carbon Dioxide 27 mmol/L (22-30) 08/23/24 07:14
BUN 13 mg/dl (7-17) 08/23/24 07:14
Creatinine 0.8 mg/dL (0.6-1.0) 08/23/24 07:14
Estimated Creat Clear 39 ml/min 08/23/24 07:14
eGFR > 60.00 08/23/24 07:14
Glucose 130 mg/dl (70-99) H 08/23/24 07:14
Hemoglobin A1c 7.6 % (4.0-5.6) H 08/23/24 07:14
Calcium 9.1 mg/dl (8.4-10.2) 08/23/24 07:14
Total Bilirubin 0.5 mg/dl (0.2-1.3) 08/23/24 07:14
AST 23 U/L (14-36) 08/23/24 07:14
ALT 25 U/L (0-35) 08/23/24 07:14
Alkaline Phosphatase 92 U/L (38-126) 08/23/24 07:14
Total Protein 5.5 g/dl (6.3-8.2) L 08/23/24 07:14
Albumin 3.0 g/dl (3.5-5.0) L 08/23/24 07:14
Urine Color Yellow 08/22/24 10:14
Urine Clarity Slightly cloudy (Clear) 08/22/24 10:14
Urine pH 7.0 (5.0-9.0) 08/22/24 10:14
Ur Specific Onia 1.005 (<1.030) 08/22/24 10:14
Urine Ketones Negative (Negative) 08/22/24 10:14
Ur Occult Blood Reflex Trace (Negative) A 08/22/24 10:14
Urine Nitrite (Reflex) Positive (Negative) A 08/22/24 10:14
Urine Bilirubin Negative (Negative) 08/22/24 10:14
Urine Urobilinogen Negative (Neg - 1+) 08/22/24 10:14
Leukocyte Esterase Rfl 2+ (Negative) A 08/22/24 10:14
Urine RBC 0-2 /HPF (0-2) 08/22/24 10:14
Urine WBC (Reflex) 6-10 /HPF (0-5) 08/22/24 10:14
Urine Bacteria (Reflex) Many (Negative) A 08/22/24 10:14
Urine Glucose Negative (Negative) 08/22/24 10:14
Urine Albumin (Reflex) Trace (Neg - Trace) 08/22/24 10:14
POC Glucose 284 mg/dl (70-99) H 08/23/24 11:23
�Diagnostic Results: As per HPI��
CT scan of abdomen - 08/22: Re-demonstration of comminuted fractures of the right superior and inferior pubic rami without significant interval healing.
There is a separate new comminuted minimally displaced fracture involving the right acetabulum anterior and posterior columns, with intra-articular extension. Associated small right hip joint effusion with probable blood products also expanding the
right obturator musculature.
No dislocations. Mild to moderate degenerative changes of the pubis symphysis, both hips, bilateral sacroiliac joints and partially visualized lower lumbar spine.
xray of right pelvic: 08/22-Comminuted fractures of the right superior and inferior pubic rami.
Assessment
88-year-old right-handed F PMH (Gait dysfunction, osteoarthritis, chronic diastolic heart failure, aortic stenosis, mitral regurgitation, hyponatremia, diabetes, hypothyroidism, chronic urinary incontinence, weight loss, h/o diabeticketoacidosis and
TIMOTHY with hyperkalemia, new rapid A-fib, recent depression with weight loss, recent right shoulder injury with steroid injection, urinary retention, stage III sacral pressure injury, with recent fall found to have comminuted fracture of right
superior and inferior pubic rami which appears was there previously. CT scan showed new comminuted minimally displaced fracture involving the right acetabulum.
�
Plan�
PT/OT/ to improve balance, coordination, endurance, strength, mobility, decreased burden of care on others and family education.��
�
Pelvic fractures:conservative management with partial weightbearing with walker per ortho and nonweightbearing if too much pain. OP follow up with repeat imaging
Pain: morphine prn; added tramadol prn as well
Suspected UTI
Continue with Rocephin 1000mg IV q 24 hour
urine cx with gram-negative bacilli, Proteus
Insulin-dependent diabetes mellitus
Continue with insulin, hold Januvia
Insulin sliding scale, Accu-Cheks
History of urinary retention
Recently removed Granda catheter
Follows with urology outpatient
Bladder scan as needed, time void, PVRs, straight cath prn
Atrial fibrillation, diagnosed on last admission
Continue with Eliquis, Diltiazem, metoprolol xl 25mg qpm
Hypothyroidism
Continue with Synthroid 75mcg qd
Chronic diastolic CHF
Follows with [facility] cardiology
Does not appear to be in any exacerbation
History of significant osteoarthritis with recent cortisone injection to right shoulder
History of falls/chronic rib fractures/chronic compression deformities
Fall precautions
Status post TAVR 2021
Last echo in January 2024 showed well-seated TAVR with peak/mean gradients across the aortic valve at 25/14 mmHg. Trace echo aortic regurgitation
H/o unstageable sacral ulcer: continue wound care making sure to stay off the sacral wound, no sacral slouching as discussed. Can use pillow or wedge to go [id number]. Continue with Santyl with minimal amounts to prevent maceration., roho
cushion, weight shift q 2 hours. No fungal or sacral/gluteal skin concerns aside from the ulcer.
Skin: monitor for pressure sores/rashes/lesions.�
Bowel: Monitor bowels, medication as necessary.
GI Prophylaxis: Pantoprazole 20mg qd�
DVT Prophylaxis: mechanical, and apixaban
Pulmonary: Incentive spirometry�
Safety: Continue to reinforce assistance with all transfers.� She will need to have someone with her for all transfers and make sure that she contact somebody every single time she needs to get up. Did review with her and her long-term caregiver
Code Status:� DNR�
Dispo�(date/plan/equipment needs): Home with family care.� Social history reviewed.
Discharge Destination:� SNF
Summary Recommendations: SNFwith continuation of PT/OT has patient will not be able to tolerate 3 hours of intense therapy with pelvic fractures and pain
Ambulatory Dysfunction/pelvic fractures:conservative management with partial weightbearing with walker per ortho and nonweightbearing if too much pain. OP follow up with repeat imaging
Pain: morphine 1mg IV prn ; added tramadol prn as well. Patient is willing to try morphine now. If does not tolerate could try oxycodone 5mg q 4 hours prn, cont Tylenol and could add gabapentin if needed. Ice pack as needed.
GI Prophylaxis: Pantoprazole 20mg qd�
DVT Prophylaxis: mechanical, and apixaban
Pulmonary: Incentive spirometry�
Safety: Continue to reinforce assistance with all transfers.�
Attending Statement:
I saw and examined the patient today. Reviewed care plan with patient, therapy, nursing, and physician virtual assistant. I agree with the above subjective and physical exam, and plan as documented by DEJA Victoria with adjustments made as necessary.
[2024-08-23 17:39] LABS: Glucose - Point of Care 266 mg/dl (70-99)
[2024-08-23] MEDS: TOPROL XL 25 MG PO (18:19)
[2024-08-23] MEDS: NOVOLOG FLEXPEN 2 UNITS SC (18:30)
[2024-08-23] MEDS: REMERON 7.5 MG PO (22:10)
[2024-08-23] MEDS: FLOMAX 0.4 MG PO (22:10)
[2024-08-23] MEDS: LANTUS 0.11 UNITS SC (22:10)
[2024-08-23 22:17] LABS: Glucose - Point of Care 274 mg/dl (70-99)
[2024-08-24] VITALS (9 sets, daily range): BP systolic 102–146; BP diastolic 46–64; PULSE 63; O2SAT 90
[2024-08-24] MEDS: SYNTHROID 75 MCG PO (05:45)
[2024-08-24 06:58] LABS: % Basophils 1.3 % (0-2); % Eosinophils 4.8 % (0-6); % Immature Granulocytes 1.3 % (0-0.5); % Lymphocytes 11.2 % (20.5-51.1); % Monocytes 11.3 % (1.7-9.3); % Neutrophils 70.1 % (42.2-75.2); Absolute Basophils 0.1 10^3/uL (0-0.2); Absolute Eosinophils 0.4 10^3/uL (0-0.7); Absolute Immature Granulocytes 0.1 10^3/uL (0-0.05); Absolute Neutrophils 6.1 10^3/uL (1.4-6.5); Hematocrit 31.9 % (37.0-47.0); Hemoglobin 10.6 g/dL (12.0-16.0); Mean Corp Hgb Conc. 33.2 g/dL (33.0-37.0); Mean Corpuscular Hgb 30.9 pg (27.0-31.0); Mean Platelet Volume 11.5 fL (7.4-10.4); Nucleated Red Blood Cells % 0 %; Platelet Count 214 10^3/uL (130-400); Red Blood Cell Count 3.43 10^6/uL (4.20-5.40); Red Cell Dist. Width 14.2 % (11.5-14.5); White Blood Cell Count 8.7 10^3/uL (4.8-10.8)
[2024-08-24 07:20] LABS: ALT (SGPT) 21 U/L (0-35); AST (SGOT) 18 U/L (14-36); Albumin 3.2 g/dl (3.5-5.0); Alkaline Phosphatase 108 U/L (38-126); Blood Urea Nitrogen 14 mg/dl (7-17); Calcium 9.5 mg/dl (8.4-10.2); Carbon Dioxide 27 mmol/L (22-30); Chloride 103 mmol/L (98-107); Estimated Creatinine Clearance 39 ml/min; Glucose 302 mg/dl (70-99); Potassium 4.6 mmol/L (3.5-5.1); Sodium 137 mmol/L (135-145); Total Bilirubin 0.5 mg/dl (0.2-1.3); Total Protein 5.8 g/dl (6.3-8.2); eGFR > 60.00
[2024-08-24 07:47] LABS: Glucose - Point of Care 280 mg/dl (70-99)
[2024-08-24] MEDS: CARDIZEM CD 120 MG PO (08:40)
[2024-08-24] MEDS: ELIQUIS 2.5 MG PO ×2 (08:40→21:00)
[2024-08-24] MEDS: NOVOLOG FLEXPEN-LOW RESISTANCE 3 UNITS SC (08:40)
[2024-08-24] MEDS: NOVOLOG FLEXPEN 2 UNITS SC (08:40)
[2024-08-24] MEDS: PROTONIX 20 MG PO (08:41)
[2024-08-24] MEDS: STERILE WATER FOR INJECTION 10 ML IV (08:41)
[2024-08-24] MEDS: ROCALTROL 0.25 MCG PO (08:41)
[2024-08-24] MEDS: LEXAPRO 5 MG PO (08:41)
[2024-08-24] MEDS: ROCEPHIN 1000 MG IV (08:41)
[2024-08-24] MEDS: ULTRAM 50 MG PO (09:01)
[2024-08-24] MEDS: TYLENOL 650 MG PO (09:02)
[2024-08-24 11:37] LABS: Glucose - Point of Care 365 mg/dl (70-99)
--- NOTE | 2024-08-24 12:29 | W.PN.HOSP.TC ---
Today's Communication/Plan
-
Monitor vital signs
see plan
Increase insulin
PT/OT
Pain control
Discussed with daughter over the phone; needs SNF
Assessment / Plan
Assessment / Plan
General: Well Nourished and No Apparent Distress
HEENT: Anicteric and Moist mucous membranes
Respiratory: Clear and Non Labored Respirations; No Wheezes
Cardiac: S1/S2 and Regular Rhythm
GI: Soft, Non Tender and Non Distended
Genito-urinary: No Granda
Musculoskeletal: No Edema
Neuro: Awake, Alert and Oriented
Psych: Calm and Intact Judgment/Insight
Mechanical fall with commuted fracture of right superior and inferior pubic rami and new commuted minimally displaced fracture involving the right acetabulum
Suspect acute traumatic fracture
Spoke with radiology and it appears the pelvic fracture might be old however mildly healing. I did discuss with Dr. Chapman from orthopedics regarding x-ray and CT findings and he recommended conservative management with partial weightbearing with
walker. If develop too much pain then nonweightbearing. and to follow-up outpatient with repeat imaging.
PT/OT recommending acute versus SNF, PM&R does not think patient would prefer to tolerate 3 hours of therapy.
Partial weightbearing right lower extremity
Pain control; morphine prn; added tramadol prn as well
UTI
Do not think UTI is related to recent Granda
urine cx with ecoli
Switch to cefdinir to complete course
History of insulin-dependent diabetes mellitus
Continue with insulin, hold Januvia
Insulin sliding scale, Accu-Cheks
History of urinary retention
Recently removed Granda catheter
Follows with urology outpatient
Bladder scan as needed
History of atrial fibrillation, diagnosed on last admission
Continue with Eliquis, metoprolol
History of hypothyroidism
Continue with Synthroid
Chronic diastolic CHF
Follows with [facility] cardiology
Does not appear to be in any exacerbation
History of significant osteoarthritis with recent cortisone injection to right shoulder
History of falls/chronic rib fractures/chronic compression deformities
Fall precautions
Status post TAVR 2021
Last echo in January 2024 showed well-seated TAVR with peak/mean gradients across the aortic valve at 25/14 mmHg. Trace echo aortic regurgitation
DVT prophylaxis
Eliquis
DNR, confirmed with patient and daughter at bedside
I spent a total of 52 minutes with the patient or on the floor. More than 50% of this time involved counseling and coordination of care.
Anticipated Discharge: Within 24 hours
Subjective/Interval History
-
Date of Service: August 24, 2024
has some pain
Objective Data
-
Labs:
Laboratory Results
08/24/24
06:14
WBC 8.7
Hgb 10.6 L
Hct 31.9 L
Plt Count 214
Sodium 137
Potassium 4.6
Chloride 103
Carbon Dioxide 27
BUN 14
Creatinine 0.8
Glucose 302 H
Calcium 9.5
Total Bilirubin 0.5
AST 18
ALT 21
Alkaline Phosphatase 108
Vital Signs:
Vital Signs
Temp Pulse Resp BP Pulse Ox
98.1 F 69 16 122/52 95
08/24/24 11:00 08/24/24 11:00 08/24/24 11:00 08/24/24 11:00 08/24/24 11:00
I&O
08/23/24 08/24/24 08/25/24
06:59 06:59 06:59
Intake Total 400 / 400 480 / 480
Output Total 1125 / 1125
Balance -725 / -725 480 / 480
[2024-08-24] MEDS: THERAGRAN 1 TABLET PO (12:30)
[2024-08-24] MEDS: MAGNESIUM OXIDE 500 MG PO (12:30)
[2024-08-24] MEDS: NOVOLOG FLEXPEN-LOW RESISTANCE 5 UNITS SC (12:32)
[2024-08-24] MEDS: NOVOLOG FLEXPEN SC (12:34)
[2024-08-24] MEDS: NOVOLOG FLEXPEN 5 UNITS SC ×2 (13:00→18:10)
[2024-08-24] MEDS: MORPHINE SULFATE 1 MG IV (13:00)
--- NOTE | 2024-08-24 15:35 | CM ---
Reviewed the chart notes and spoke with the patient's daughter Unique via telephone. Family at this point feel that the can not accommodate the patient in her home at this time. Family feels SNF is appropriate at this time. Requested referrals be
placed to [facility] and [facility]. Referral to be sent with [facility]. CM continues to be available to patient/family and is monitoring medical plan for needs at discharge.
Plan: Discharge to SNF/rehab when bed found and medically stable. No precert will be required.
[2024-08-24 17:04] LABS: Glucose - Point of Care 180 mg/dl (70-99)
[2024-08-24] MEDS: NOVOLOG FLEXPEN-LOW RESISTANCE 1 UNITS SC (18:09)
[2024-08-24] MEDS: TOPROL XL 25 MG PO (18:11)
[2024-08-24] MEDS: FLOMAX 0.4 MG PO (21:00)
[2024-08-24] MEDS: SENOKOT-S 1 TABLET PO (21:00)
[2024-08-24] MEDS: REMERON 7.5 MG PO (21:00)
[2024-08-24 21:14] LABS: Glucose - Point of Care 359 mg/dl (70-99)
[2024-08-24] MEDS: LANTUS 0.14 UNITS SC (21:17)
[2024-08-25] VITALS (8 sets, daily range): BP systolic 115–164; BP diastolic 50–74; PULSE 76–78; O2SAT 92; BMI 19.8
[2024-08-25] MEDS: ULTRAM 50 MG PO ×3 (03:48→17:15)
[2024-08-25 05:00] LABS: % Basophils 0.7 % (0-2); % Eosinophils 5.7 % (0-6); % Immature Granulocytes 1.3 % (0-0.5); % Monocytes 9.8 % (1.7-9.3); % Neutrophils 67.5 % (42.2-75.2); Absolute Basophils 0.1 10^3/uL (0-0.2); Absolute Eosinophils 0.5 10^3/uL (0-0.7); Absolute Immature Granulocytes 0.1 10^3/uL (0-0.05); Absolute Lymphocytes 1.3 10^3/uL (1.2-3.4); Absolute Monocytes 0.8 10^3/uL (0.1-0.6); Absolute Neutrophils 5.7 10^3/uL (1.4-6.5); Hematocrit 35.3 % (37.0-47.0); Hemoglobin 11.2 g/dL (12.0-16.0); Mean Corp Hgb Conc. 31.7 g/dL (33.0-37.0); Mean Corpuscular Hgb 30.3 pg (27.0-31.0); Mean Corpuscular Volume 95.4 fL (81.0-99.0); Mean Platelet Volume 11.3 fL (7.4-10.4); Nucleated Red Blood Cells % 0 %; Platelet Count 223 10^3/uL (130-400); Red Cell Dist. Width 14.1 % (11.5-14.5); White Blood Cell Count 8.5 10^3/uL (4.8-10.8)
[2024-08-25 05:21] LABS: ALT (SGPT) 18 U/L (0-35); AST (SGOT) 17 U/L (14-36); Albumin 3.2 g/dl (3.5-5.0); Alkaline Phosphatase 99 U/L (38-126); Blood Urea Nitrogen 17 mg/dl (7-17); Calcium 9.3 mg/dl (8.4-10.2); Carbon Dioxide 27 mmol/L (22-30); Chloride 102 mmol/L (98-107); Estimated Creatinine Clearance 45 ml/min; Glucose 244 mg/dl (70-99); Potassium 4.5 mmol/L (3.5-5.1); Sodium 139 mmol/L (135-145); Total Bilirubin 0.3 mg/dl (0.2-1.3); Total Protein 5.9 g/dl (6.3-8.2); eGFR > 60.00
[2024-08-25] MEDS: SYNTHROID 75 MCG PO (05:32)
[2024-08-25 08:02] LABS: Glucose - Point of Care 222 mg/dl (70-99)
[2024-08-25] MEDS: ROCALTROL 0.25 MCG PO (08:24)
[2024-08-25] MEDS: OMNICEF 300 MG PO ×2 (08:24→20:06)
[2024-08-25] MEDS: CARDIZEM CD 120 MG PO (08:24)
[2024-08-25] MEDS: PROTONIX 20 MG PO (08:24)
[2024-08-25] MEDS: LEXAPRO 5 MG PO (08:24)
[2024-08-25] MEDS: ELIQUIS 2.5 MG PO ×2 (08:25→20:06)
[2024-08-25] MEDS: NOVOLOG FLEXPEN 5 UNITS SC ×3 (08:25→17:13)
[2024-08-25] MEDS: NOVOLOG FLEXPEN-LOW RESISTANCE 2 UNITS SC ×2 (08:26→17:13)
--- NOTE | 2024-08-25 10:28 | W.PN.HOSP.TC ---
Today's Communication/Plan
-
Monitor vital signs
see plan
Make tramadol standing, morphine as needed, Tylenol
PT/OT
Continue with antibiotics
Discharge planning
Assessment / Plan
Assessment / Plan
General: Well Nourished and No Apparent Distress
HEENT: Anicteric and Moist mucous membranes
Respiratory: Clear and Non Labored Respirations; No Wheezes
Cardiac: S1/S2 and Regular Rhythm
GI: Soft, Non Tender and Non Distended
Genito-urinary: No Granda
Musculoskeletal: No Edema
Neuro: Awake, Alert and Oriented
Psych: Calm and Intact Judgment/Insight
Mechanical fall with commuted fracture of right superior and inferior pubic rami and new commuted minimally displaced fracture involving the right acetabulum
Suspect acute traumatic fracture
Spoke with radiology and it appears the pelvic fracture might be old however mildly healing. I did discuss with Dr. Chapman from orthopedics regarding x-ray and CT findings and he recommended conservative management with partial weightbearing with
walker. If develop too much pain then nonweightbearing. and to follow-up outpatient with repeat imaging.
PT/OT recommending acute versus SNF, PM&R does not think patient would prefer to tolerate 3 hours of therapy. Plan now for SNF
Partial weightbearing right lower extremity
Pain control; morphine prn; make tramadol standing
UTI
Do not think UTI is related to recent Granda
urine cx with ecoli
Switched to cefdinir to complete course
History of insulin-dependent diabetes mellitus
Continue with insulin, hold Januvia
Insulin sliding scale, Accu-Cheks
History of urinary retention
Recently removed Granda catheter
Follows with urology outpatient
Bladder scan as needed
History of atrial fibrillation, diagnosed on last admission
Continue with Eliquis, metoprolol
History of hypothyroidism
Continue with Synthroid
Chronic diastolic CHF
Follows with [facility] cardiology
Does not appear to be in any exacerbation
History of significant osteoarthritis with recent cortisone injection to right shoulder
History of falls/chronic rib fractures/chronic compression deformities
Fall precautions
Status post TAVR 2021
Last echo in January 2024 showed well-seated TAVR with peak/mean gradients across the aortic valve at 25/14 mmHg. Trace echo aortic regurgitation
DVT prophylaxis
Eliquis
DNR, confirmed with patient and daughter at bedside
Anticipated Discharge: Within 24 hours
Subjective/Interval History
-
Date of Service: August 25, 2024
Still has pain
Objective Data
-
Labs:
Laboratory Results
08/25/24
04:09
WBC 8.5
Hgb 11.2 L
Hct 35.3 L
Plt Count 223
Sodium 139
Potassium 4.5
Chloride 102
Carbon Dioxide 27
BUN 17
Creatinine 0.7
Glucose 244 H
Calcium 9.3
Total Bilirubin 0.3
AST 17
ALT 18
Alkaline Phosphatase 99
Vital Signs:
Vital Signs
Temp Pulse Resp BP Pulse Ox
98.0 F 71 16 151/66 94
08/25/24 07:45 08/25/24 07:45 08/25/24 07:45 08/25/24 07:45 08/25/24 07:45
I&O
08/24/24 08/25/24 08/26/24
06:59 06:59 06:59
Intake Total 480 / 480 590 / 590
Output Total 900 / 900
Balance 480 / 480 -310 / -310
[2024-08-25 12:31] LABS: Glucose - Point of Care 309 mg/dl (70-99)
[2024-08-25] MEDS: NOVOLOG FLEXPEN-LOW RESISTANCE 4 UNITS SC (12:31)
[2024-08-25] MEDS: THERAGRAN 1 TABLET PO (12:33)
[2024-08-25] MEDS: MAGNESIUM OXIDE 500 MG PO (12:34)
--- NOTE | 2024-08-25 16:04 | CHAP ---
Aiyana greeted me with a smile, but said she has a lot of pain, and is frustrated because she can't do what she wants to do, including her PT exercises. 'I'm used to being up and doing for others,' she said. She welcomed prayer. Emotional and
spiritual support provided.
[2024-08-25 16:51] LABS: Glucose - Point of Care 243 mg/dl (70-99)
[2024-08-25] MEDS: TOPROL XL 25 MG PO (17:13)
[2024-08-25] MEDS: FLOMAX 0.4 MG PO (20:06)
[2024-08-25 21:39] LABS: Glucose - Point of Care 290 mg/dl (70-99)
[2024-08-25] MEDS: LANTUS 0.15 UNITS SC (22:10)
[2024-08-25] MEDS: REMERON 7.5 MG PO (22:10)
[2024-08-26] MEDS: ULTRAM PO ×2 (03:14→16:41)
[2024-08-26 03:35] VITALS: BP 168/75
[2024-08-26 06:00] VITALS: BMI 19.8
[2024-08-26] MEDS: SYNTHROID 75 MCG PO (06:22)
[2024-08-26 06:28] LABS: % Eosinophils 5.9 % (0-6); % Immature Granulocytes 1.2 % (0-0.5); % Lymphocytes 15.2 % (20.5-51.1); % Monocytes 10.7 % (1.7-9.3); Absolute Basophils 0.1 10^3/uL (0-0.2); Absolute Eosinophils 0.5 10^3/uL (0-0.7); Absolute Immature Granulocytes 0.1 10^3/uL (0-0.05); Absolute Lymphocytes 1.4 10^3/uL (1.2-3.4); Absolute Neutrophils 6.1 10^3/uL (1.4-6.5); Hematocrit 34.1 % (37.0-47.0); Hemoglobin 10.8 g/dL (12.0-16.0); Mean Corp Hgb Conc. 31.7 g/dL (33.0-37.0); Mean Corpuscular Hgb 30.3 pg (27.0-31.0); Mean Corpuscular Volume 95.8 fL (81.0-99.0); Mean Platelet Volume 11.4 fL (7.4-10.4); Nucleated Red Blood Cells % 0 %; Platelet Count 211 10^3/uL (130-400); Red Blood Cell Count 3.56 10^6/uL (4.20-5.40); Red Cell Dist. Width 13.9 % (11.5-14.5); White Blood Cell Count 9.2 10^3/uL (4.8-10.8)
[2024-08-26 06:47] LABS: ALT (SGPT) 18 U/L (0-35); AST (SGOT) 21 U/L (14-36); Albumin 3.1 g/dl (3.5-5.0); Alkaline Phosphatase 99 U/L (38-126); Blood Urea Nitrogen 21 mg/dl (7-17); Calcium 9.3 mg/dl (8.4-10.2); Carbon Dioxide 24 mmol/L (22-30); Chloride 104 mmol/L (98-107); Estimated Creatinine Clearance 39 ml/min; Glucose 238 mg/dl (70-99); Potassium 4.5 mmol/L (3.5-5.1); Sodium 138 mmol/L (135-145); Total Bilirubin 0.4 mg/dl (0.2-1.3); Total Protein 5.8 g/dl (6.3-8.2); eGFR > 60.00
[2024-08-26 07:40] VITALS: BP 131/70
[2024-08-26 07:41] LABS: Glucose - Point of Care 216 mg/dl (70-99)
[2024-08-26] MEDS: OMNICEF 300 MG PO ×2 (08:19→21:14)
[2024-08-26] MEDS: NOVOLOG FLEXPEN-LOW RESISTANCE 2 UNITS SC (08:19)
[2024-08-26] MEDS: PROTONIX 20 MG PO (08:19)
[2024-08-26] MEDS: CARDIZEM CD 120 MG PO (08:19)
[2024-08-26] MEDS: ROCALTROL 0.25 MCG PO (08:19)
[2024-08-26] MEDS: LEXAPRO 5 MG PO (08:19)
[2024-08-26] MEDS: ELIQUIS 2.5 MG PO ×2 (08:19→21:14)
[2024-08-26] MEDS: NOVOLOG FLEXPEN 5 UNITS SC ×4 (08:20→21:14)
[2024-08-26] MEDS: ULTRAM 50 MG PO (08:59)
--- NOTE | 2024-08-26 11:00 | W.PN.HOSP.TC ---
Today's Communication/Plan
-
Monitor vital signs see plan
Patient will work with PT/OT today
Pain control
Discharge planning
Assessment / Plan
Assessment / Plan
General: Well Nourished and No Apparent Distress
HEENT: Anicteric and Moist mucous membranes
Respiratory: Clear and Non Labored Respirations; No Wheezes
Cardiac: S1/S2 and Regular Rhythm
GI: Soft, Non Tender and Non Distended
Genito-urinary: No Granda
Musculoskeletal: No Edema
Neuro: Awake, Alert and Oriented
Psych: Calm and Intact Judgment/Insight
Mechanical fall with commuted fracture of right superior and inferior pubic rami and new commuted minimally displaced fracture involving the right acetabulum
Suspect acute traumatic fracture
Spoke with radiology and it appears the pelvic fracture might be old however mildly healing. I did discuss with Dr. Chapman from orthopedics regarding x-ray and CT findings and he recommended conservative management with partial weightbearing with
walker. If develop too much pain then nonweightbearing. and to follow-up outpatient with repeat imaging.
PT/OT recommending acute versus SNF, PM&R does not think patient would prefer to tolerate 3 hours of therapy. Plan now for SNF
Partial weightbearing right lower extremity
Pain control; morphine prn; made tramadol standing; spoke with patient today, she will work with PT today
UTI
Do not think UTI is related to recent Granda
urine cx with ecoli
Switched to cefdinir to complete course
History of insulin-dependent diabetes mellitus
Continue with insulin, hold Januvia
Insulin sliding scale, Accu-Cheks
History of urinary retention
Recently removed Granda catheter
Follows with urology outpatient
Bladder scan as needed
History of atrial fibrillation, diagnosed on last admission
Continue with Eliquis, metoprolol
History of hypothyroidism
Continue with Synthroid
Chronic diastolic CHF
Follows with [facility] cardiology
Does not appear to be in any exacerbation
History of significant osteoarthritis with recent cortisone injection to right shoulder
History of falls/chronic rib fractures/chronic compression deformities
Fall precautions
Status post TAVR 2021
Last echo in January 2024 showed well-seated TAVR with peak/mean gradients across the aortic valve at 25/14 mmHg. Trace echo aortic regurgitation
DVT prophylaxis
Eliquis
DNR, confirmed with patient and daughter at bedside
Anticipated Discharge: Within 24 hours
Subjective/Interval History
-
Date of Service: August 26, 2024
still in some pain
Objective Data
-
Labs:
Laboratory Results
08/26/24
05:11
WBC 9.2
Hgb 10.8 L
Hct 34.1 L
Plt Count 211
Sodium 138
Potassium 4.5
Chloride 104
Carbon Dioxide 24
BUN 21 H
Creatinine 0.8
Glucose 238 H
Calcium 9.3
Total Bilirubin 0.4
AST 21
ALT 18
Alkaline Phosphatase 99
Vital Signs:
Vital Signs
Temp Pulse Resp BP Pulse Ox
98.0 F 69 16 131/70 93
08/26/24 07:40 08/26/24 07:40 08/26/24 07:40 08/26/24 07:40 08/26/24 08:00
I&O
08/25/24 08/26/24 08/27/24
06:59 06:59 06:59
Intake Total 590 / 590 720 / 720
Output Total 900 / 900
Balance -310 / -310 720 / 720
[2024-08-26 11:38] LABS: Glucose - Point of Care 310 mg/dl (70-99)
[2024-08-26] MEDS: NOVOLOG FLEXPEN-LOW RESISTANCE 4 UNITS SC (11:39)
[2024-08-26] MEDS: THERAGRAN 1 TABLET PO (11:39)
[2024-08-26] MEDS: MAGNESIUM OXIDE 500 MG PO (11:39)
[2024-08-26] MEDS: MORPHINE SULFATE 1 MG IV (12:08)
[2024-08-26] MEDS: FLUSH (NSS) 2 FLUSH IV (12:09)
--- NOTE | 2024-08-26 12:30 | PTCARENOTE ---
Pt oob in chair and worked with PT. Morphine 1mg given prior to PT per pt's request. Currently placed back into bed. Difficulty in transfer back. Sat in chair for 1.5hrs. Will cont to monitor.
[2024-08-26 13:42] VITALS: BP 126/58; PULSE 72
[2024-08-26 13:55] VITALS: BP 126/58; PULSE 73; O2SAT 94
[2024-08-26 15:40] VITALS: BP 112/55
[2024-08-26 17:01] LABS: Glucose - Point of Care 296 mg/dl (70-99)
[2024-08-26] MEDS: NOVOLOG FLEXPEN-LOW RESISTANCE 3 UNITS SC (17:30)
[2024-08-26] MEDS: TOPROL XL 25 MG PO (17:31)
[2024-08-26 20:50] LABS: Glucose - Point of Care 387 mg/dl (70-99)
[2024-08-26] MEDS: LANTUS 0.15 UNITS SC (21:13)
[2024-08-26] MEDS: FLOMAX 0.4 MG PO (21:14)
[2024-08-26] MEDS: REMERON 7.5 MG PO (21:14)
[2024-08-26 23:34] LABS: Glucose - Point of Care 307 mg/dl (70-99)
[2024-08-26 23:37] VITALS: BP 123/49
[2024-08-26] MEDS: NOVOLOG FLEXPEN 3 UNITS SC (23:48)
[2024-08-27 01:34] LABS: Glucose - Point of Care 246 mg/dl (70-99)
[2024-08-27] MEDS: ULTRAM PO (02:32)
[2024-08-27 06:00] VITALS: BMI 19.4
[2024-08-27] MEDS: SYNTHROID 75 MCG PO (06:32)
[2024-08-27 06:39] LABS: % Basophils 0.9 % (0-2); % Lymphocytes 13.1 % (20.5-51.1); % Monocytes 10.1 % (1.7-9.3); % Neutrophils 69.9 % (42.2-75.2); Absolute Basophils 0.1 10^3/uL (0-0.2); Absolute Eosinophils 0.6 10^3/uL (0-0.7); Absolute Immature Granulocytes 0.1 10^3/uL (0-0.05); Absolute Lymphocytes 1.5 10^3/uL (1.2-3.4); Absolute Monocytes 1.1 10^3/uL (0.1-0.6); Absolute Neutrophils 7.7 10^3/uL (1.4-6.5); Hematocrit 33.1 % (37.0-47.0); Hemoglobin 10.5 g/dL (12.0-16.0); Mean Corp Hgb Conc. 31.7 g/dL (33.0-37.0); Mean Corpuscular Hgb 30.2 pg (27.0-31.0); Mean Corpuscular Volume 95.1 fL (81.0-99.0); Mean Platelet Volume 11.3 fL (7.4-10.4); Nucleated Red Blood Cells % 0 %; Platelet Count 235 10^3/uL (130-400); Red Blood Cell Count 3.48 10^6/uL (4.20-5.40); White Blood Cell Count 11.1 10^3/uL (4.8-10.8)
[2024-08-27 07:03] LABS: ALT (SGPT) 20 U/L (0-35); AST (SGOT) 22 U/L (14-36); Albumin 3.1 g/dl (3.5-5.0); Alkaline Phosphatase 99 U/L (38-126); Blood Urea Nitrogen 20 mg/dl (7-17); Calcium 9.3 mg/dl (8.4-10.2); Carbon Dioxide 26 mmol/L (22-30); Chloride 103 mmol/L (98-107); Estimated Creatinine Clearance 38 ml/min; Glucose 195 mg/dl (70-99); Potassium 4.6 mmol/L (3.5-5.1); Sodium 142 mmol/L (135-145); Total Bilirubin 0.4 mg/dl (0.2-1.3); Total Protein 5.8 g/dl (6.3-8.2); eGFR > 60.00
[2024-08-27 07:50] VITALS: BP 151/66
[2024-08-27 08:02] LABS: Glucose - Point of Care 178 mg/dl (70-99)
[2024-08-27] MEDS: MORPHINE SULFATE 1 MG IV (08:09)
[2024-08-27] MEDS: LEXAPRO 5 MG PO (08:12)
[2024-08-27] MEDS: SENOKOT-S 1 TABLET PO (08:12)
[2024-08-27] MEDS: ROCALTROL 0.25 MCG PO (08:12)
[2024-08-27] MEDS: CARDIZEM CD 120 MG PO (08:12)
[2024-08-27] MEDS: ELIQUIS 2.5 MG PO (08:12)
[2024-08-27] MEDS: PROTONIX 20 MG PO (08:12)
[2024-08-27] MEDS: NOVOLOG FLEXPEN 5 UNITS SC (08:13)
[2024-08-27] MEDS: NOVOLOG FLEXPEN-LOW RESISTANCE 1 UNITS SC (08:13)
[2024-08-27] MEDS: ULTRAM 50 MG PO (10:30)
[2024-08-27 10:42] VITALS: BP 141/60; PULSE 72; O2SAT 96
[2024-08-27 10:43] VITALS: BP 141/60; PULSE 72; O2SAT 96
--- NOTE | 2024-08-27 10:49 | W.PN.HOSP.TC ---
Today's Communication/Plan
-
Adjust insulin
Discharge planning
Assessment / Plan
Assessment / Plan
General: Well Nourished and No Apparent Distress
HEENT: Anicteric and Moist mucous membranes
Respiratory: Clear and Non Labored Respirations; No Wheezes
Cardiac: S1/S2 and Regular Rhythm
GI: Soft, Non Tender and Non Distended
Genito-urinary: No Granda
Musculoskeletal: No Edema
Neuro: Awake, Alert and Oriented
Psych: Calm and Intact Judgment/Insight
Mechanical fall with acute commuted fracture of right superior and inferior pubic rami and new commuted minimally displaced fracture involving the right acetabulum
Suspect acute traumatic fracture due to fall, osteoporosis.
Spoke with radiology and it appears the pelvic fracture might be old however mildly healing. I did discuss with Dr. Chapman from orthopedics regarding x-ray and CT findings and he recommended conservative management with partial weightbearing with
walker. If develop too much pain then nonweightbearing. and to follow-up outpatient with repeat imaging.
PT/OT recommending acute versus SNF, PM&R does not think patient would prefer to tolerate 3 hours of therapy. Plan now for SNF
Partial weightbearing right lower extremity
Change tramadol to 50 mg every 6 hours as needed pain. Stop IV morphine.
UTI
Do not think UTI is related to recent Granda
urine cx with ecoli
Completed course of antibiotics.
DM2 with hyperglycemia -hemoglobin A1c 7.6%. Glucose 195 this morning. Continue Lantus 15 units at bedtime, increase NovoLog to 8 units AC.
Continue with insulin, hold Januvia
Insulin sliding scale, Accu-Cheks
History of urinary retention
Recently removed Granda catheter
Follows with urology outpatient
Bladder scan as needed
History of atrial fibrillation, diagnosed on last admission
Continue with Eliquis, metoprolol
History of hypothyroidism
Continue with Synthroid
Chronic diastolic CHF
Follows with [facility] cardiology
Does not appear to be in any exacerbation
History of significant osteoarthritis with recent cortisone injection to right shoulder
History of falls/chronic rib fractures/chronic compression deformities
Fall precautions
Status post TAVR 2021
Last echo in January 2024 showed well-seated TAVR with peak/mean gradients across the aortic valve at 25/14 mmHg. Trace echo aortic regurgitation
DVT prophylaxis
Eliquis
DNR, confirmed with patient and daughter at bedside
Dispo -medically stable for discharge to SNF. Case management aware. Updated daughter at the bedside.
Anticipated Discharge: Within 24 hours
Subjective/Interval History
-
Date of Service: August 27, 2024
Patient seen and examined. Complaining of incomplete bowel movement.
Objective Data
-
Labs:
Laboratory Results
08/27/24
06:10
WBC 11.1 H
Hgb 10.5 L
Hct 33.1 L
Plt Count 235
Sodium 142
Potassium 4.6
Chloride 103
Carbon Dioxide 26
BUN 20 H
Creatinine 0.8
Glucose 195 H
Calcium 9.3
Total Bilirubin 0.4
AST 22
ALT 20
Alkaline Phosphatase 99
Vital Signs:
Vital Signs
Temp Pulse Resp BP Pulse Ox
98.5 F 75 16 151/66 97
08/27/24 07:50 08/27/24 08:12 08/27/24 07:50 08/27/24 08:12 08/27/24 07:50
I&O
08/26/24 08/27/24 08/28/24
06:59 06:59 06:59
Intake Total 720 / 720 1240 / 1240
Output Total 650 / 650
Balance 720 / 720 590 / 590
Review of Systems
-
History Source: Patient
All other systems: Reviewed and negative
--- NOTE | 2024-08-27 11:10 | PTCARENOTE ---
pt aaox3. forgetful at times. states pain in right hip. pain med given as ordered. pt inc of BM states she feels like its not all coming out and she cant push. stool softener given. pt now oob in chair states she feels much better.
[2024-08-27 12:07] LABS: Glucose - Point of Care 397 mg/dl (70-99)
[2024-08-27] MEDS: NOVOLOG FLEXPEN-LOW RESISTANCE 5 UNITS SC (12:07)
[2024-08-27] MEDS: MAGNESIUM OXIDE 500 MG PO (12:07)
[2024-08-27] MEDS: THERAGRAN 1 TABLET PO (12:07)
[2024-08-27] MEDS: NOVOLOG FLEXPEN 8 UNITS SC (12:07)
--- NOTE | 2024-08-27 12:23 | CM ---
Reviewed the chart notes and spoke with the patient and her daughter at the bedside. IMM signed and placed on chart. [facility] has accepted the patient. Patient and daughter in agreement. RN and attending updated. Patient's daughter will provide
transportation. CM continues to be available to patient/family and is monitoring medical plan for needs at discharge.
Plan: Discharge to [facility] today.
Call report to: [phone]
Fax report to: [phone]
--- NOTE | 2024-08-27 12:32 | W.DS.TRANS ---
DC Summary - Field Hand
-
Discharge Instructions:
Sleep Apnea Risk Low
Discharge Diagnosis/Procedures Mechanical fall with commuted fracture of right
superior and inferior pubic rami and new
commuted minimally displaced fracture involving
the right acetabulum
Urinary tract infection
Diet Regular
Activity With Walker
Additional Activity Partial weightbearing
Driving Restrictions Not until seen by your Dr
Bathing Restrictions None
Instructions:
Stand-Alone Forms:
Changes to Home Medications: No
Discharge Medications:
DC Medications w/original date entered in [employer]
levothyroxine 75 mcg tablet (Synthroid) 75 mcg PO DAILY Thyroid 12/22/23
acetaminophen 325 mg tablet 650 mg (2 x 325 mg) PO Q6HPRN PRN mild to mod pain 30 days #100 tabs 08/14/24
apixaban 2.5 mg tablet (Eliquis) 2.5 mg PO BID A-Fib 30 days #60 tabs 08/14/24
calcitriol 0.25 mcg capsule 0.25 mcg PO DAILY supplement 30 days #30 caps 08/14/24
diltiazem HCl 120 mg capsule,extended release 24 hr 120 mg PO DAILY Arrhythmia 30 days #30 caps 08/14/24
escitalopram oxalate 10 mg tablet 5 mg (1/2 x 10 mg) PO DAILY Depression 30 days #30 tabs 08/14/24
metoprolol succinate 25 mg tablet,extended release 24 hr 25 mg PO QPM blood pressure 30 days #30 tabs 08/14/24
mirtazapine 7.5 mg tablet 7.5 mg PO HS #30 tabs 08/14/24
pantoprazole 20 mg tablet,delayed release 20 mg PO DAILY gerd #30 tabs 08/14/24
sitagliptin phosphate 100 mg tablet (Januvia) 100 mg PO DAILY diabtes 30 days #30 tabs 08/14/24
tamsulosin 0.4 mg capsule 0.4 mg PO HS bladder retention 30 days #30 caps 08/14/24
magnesium oxide 500 mg PO NOON supplement 08/22/24
multivitamin with folic acid 400 mcg tablet (Tab-A-Nathan) 1 tab PO NOON supplement 08/22/24
Insulin Glargine Lantus [Lantus] 15 units As Directed mls/hr SC HS 08/27/24
insulin aspart U-100 100 unit/mL (3 mL) subcutaneous pen 8 unit (0.08 mL) SC AC #0 mL 08/27/24
polyethylene glycol 3350 17 gram oral powder packet (HealthyLax) 17 g PO DAILYPRN PRN constipation #0 ea 08/27/24
sennosides 8.6 mg-docusate sodium 50 mg tablet 1 tab PO BIDPRN PRN constipation #0 tabs 08/27/24
tramadol 50 mg tablet 50 mg PO Q6HPRN PRN severe pain #8 tabs 08/27/24
Home Medication Changes
Pending Results: No
[2024-08-27 13:17] VITALS: BP 134/54
== END 2024-08-27 13:28 | DRG 536 ==
LOC: 2 NORTH 11:18
PROVIDERS: Physician Assistant; ADMITTING PHYSICIAN Internal Medicine; ATTENDING PHYSICIAN Hospitalist; CONSULT PHYSICIAN Physical Medicine & Rehabilitation; EMERGENCY PHYSICIAN Emergency Medicine; FAMILY PHYSICIAN Family Medicine
DX: S32.431A Displaced fracture of anterior column [iliopubic] of right acetabulum, initial encounter for closed fracture (principal); I50.32 Chronic diastolic (congestive) heart failure; N39.0 Urinary tract infection, site not specified; S32.441A Displaced fracture of posterior column [ilioischial] of right acetabulum, initial encounter for closed fracture; Z66 Do not resuscitate; I11.0 Hypertensive heart disease with heart failure; I48.91 Unspecified atrial fibrillation; R26.89 Other abnormalities of gait and mobility; I08.0 Rheumatic disorders of both mitral and aortic valves; E11.65 Type 2 diabetes mellitus with hyperglycemia; E03.9 Hypothyroidism, unspecified; E78.00 Pure hypercholesterolemia, unspecified; M19.90 Unspecified osteoarthritis, unspecified site; Z95.2 Presence of prosthetic heart valve; Z96.651 Presence of right artificial knee joint; Z79.01 Long term (current) use of anticoagulants; Z79.4 Long term (current) use of insulin; Z79.84 Long term (current) use of oral hypoglycemic drugs; Z88.2 Allergy status to sulfonamides; W01.0XXA Fall on same level from slipping, tripping and stumbling without subsequent striking against object, initial encounter
CPT/HCPCS: 51701; 72192; 73502; 80053; 81003; 81015; 82962; 83036; 85025; 87077; 87086; 87186; 96374; 97110; 97163; 97167; 97530; 97535; 99285

== ENCOUNTER → 2024-08-30 11:08 | Outpatient (REF) | payer OTHER, MEDICARE, SELFPAY ==
[2024-08-30 12:11] LABS: % Basophils 1.1 % (0-2); % Eosinophils 7.6 % (0-6); % Lymphocytes 12.5 % (20.5-51.1); % Neutrophils 66.8 % (42.2-75.2); Absolute Basophils 0.1 10^3/uL (0-0.2); Absolute Eosinophils 0.6 10^3/uL (0-0.7); Absolute Immature Granulocytes 0.1 10^3/uL (0-0.05); Absolute Monocytes 0.9 10^3/uL (0.1-0.6); Absolute Neutrophils 5.6 10^3/uL (1.4-6.5); Hematocrit 29.9 % (37.0-47.0); Hemoglobin 9.8 g/dL (12.0-16.0); Mean Corp Hgb Conc. 32.8 g/dL (33.0-37.0); Mean Corpuscular Hgb 29.9 pg (27.0-31.0); Mean Corpuscular Volume 91.2 fL (81.0-99.0); Mean Platelet Volume 11.5 fL (7.4-10.4); Nucleated Red Blood Cells % 0 %; Platelet Count 249 10^3/uL (130-400); Red Blood Cell Count 3.28 10^6/uL (4.20-5.40); Red Cell Dist. Width 13.6 % (11.5-14.5); White Blood Cell Count 8.3 10^3/uL (4.8-10.8)
[2024-08-30 12:22] LABS: ALT (SGPT) 17 U/L (0-35); AST (SGOT) 20 U/L (14-36); Albumin 3.2 g/dl (3.5-5.0); Alkaline Phosphatase 89 U/L (38-126); Blood Urea Nitrogen 29 mg/dl (7-17); Calcium 9.5 mg/dl (8.4-10.2); Carbon Dioxide 27 mmol/L (22-30); Chloride 103 mmol/L (98-107); Glucose 87 mg/dl (70-99); Potassium 4.8 mmol/L (3.5-5.1); Sodium 141 mmol/L (135-145); Total Bilirubin 0.4 mg/dl (0.2-1.3); Total Protein 5.9 g/dl (6.3-8.2); eGFR > 60.00
== END ==
LOC: OLABP 11:08
PROVIDERS: ATTENDING PHYSICIAN Family Medicine
DX: I50.32 Chronic diastolic (congestive) heart failure (principal); I48.91 Unspecified atrial fibrillation; E11.65 Type 2 diabetes mellitus with hyperglycemia
CPT/HCPCS: 36415; 80053; 85025

== ENCOUNTER 2024-09-15 09:51 | Inpatient (IN) | payer MEDICARE, OTHER, SELFPAY ==
--- NOTE | 2024-09-11 17:30 | ED.GENMED ---
History of Present Illness
General
Chief Complaint: Blood Sugar Problem
Source: patient
Exam Limitations: none
Time Seen by Provider: 09/11/24 17:23
History of Present Illness
History of Present Illness:
See MDM
Past History
Past History
ED Past Medical History: Hypercholesterolemia, IDDM, Valvular disease and Hypothyroidism
ED Past Surgical History: Cardiac and Orthopedic (Right knee replacement)
Social History
Tobacco: Non-smoker
Alcohol: Occasional
Drug: None
Personal:
Living: with family
Employment: Not employed
Family History
Family History: Other (Noncontributory)
Phy Exam
Physical Exam
Physical Exam:
See MDM
Course
Orders/Labs/Results
Orders:
Orders
09/11/24 17:22
Electrocardiogram (*1) Urgent
Reason for Study: Chest Pain
Cardiac Monitoring- Treatment ONCE
EKG- Treatment ONCE
IV Insert/Care/Rem.- Treatment PRN
09/11/24 17:26
0.9% Sodium Chloride 1000 ml [Nss] 1,000 ml IV BOLUS
09/11/24 17:27
Urinalysis Reflex To Culture Urgent
09/11/24 17:41
B-Hydroxybutyrate Urgent
Complete Blood Count/With Diff Urgent
Comprehensive Metabolic Panel Urgent
Venous Blood Gas Urgent
%Oxygen/Room Air: Room
09/11/24 18:23
Insulin Human Regular [Novolin R] 6 units IV NOW STA
Abnormal Lab Results
09/11/24 09/11/24
17:37 17:41
RBC 3.45 L 10^6/uL
(4.20-5.40)
Hgb 10.2 L g/dL
(12.0-16.0)
Hct 32.6 L %
(37.0-47.0)
MCHC 31.3 L g/dL
(33.0-37.0)
MPV 10.9 H fL
(7.4-10.4)
Abs Immat Gran (auto) 0.1 H 10^3/uL
(0-0.05)
Absolute Lymphs (auto) 1.1 L 10^3/uL
(1.2-3.4)
Immature Gran % 0.7 H %
(0-0.5)
Lymphocytes % 15.4 L %
(20.5-51.1)
Sodium 128 L mmol/L
(135-145)
Chloride 94 L mmol/L
(98-107)
BUN 25 H mg/dl
(7-17)
Glucose 560 H* mg/dl
(70-99)
Alkaline Phosphatase 148 H U/L
(38-126)
B-Hydroxybutyrate 1.50 H mmol/L
(0.02-0.27)
POC Glucose 556 H* mg/dl
(70-99)
09/11/24 17:41
09/11/24 17:41
Vital Signs
Initial and Last Documented VS:
Initial Vital Signs
Pulse Resp BP Pulse Ox
72 17 145/62 92
09/11/24 17:32 09/11/24 17:32 09/11/24 17:32 09/11/24 17:32
Last Documented Vital Signs
Temp Pulse Resp BP Pulse Ox
98.2 F 71 16 145/62 93
09/11/24 17:50 09/11/24 17:45 09/11/24 17:45 09/11/24 17:32 09/11/24 17:45
MDM/Problems Addressed
Differential Diagnosis Includes:
HPI and MDM Narrative:
88-year-old female presenting for evaluation of elevated blood sugar. Patient points of generalized weakness and fatigue. Prior records indicate that she was recently admitted for a trip and fall and found have a pelvic fracture and UTI. Patient
states her diabetic medication was recently switched to Januvia. She states that she has a Dexcom but it sometimes malfunctions. She states the facility removed it
Based on the elevated blood sugar, will obtain basic blood work to rule out DKA
Physical exam
General: Weak and fatigued
HEENT: protecting airway. Dry mucous membranes
Neck: appears supple
CV: No evidence of cyanosis
Resp: No accessory muscle use
Abd: Non-distended and nontender
Extremities: No deformities. No leg edema
Neuro: alert
Psych: Normal affect
Skin: Intact
Problems Addressed including Acute and Chronic Conditions affecting care:
1. Hyperglycemia
Acuity: acute
Prognosis: unstable
Details: Potentially related to recent medication changes. Will obtain basic blood work including VBG and beta hydroxybutyrate to rule out DKA
Updates
Patient found to have a blood sugar of 560 with elevated beta hydroxybutyrate. However, pH is 7.32 and bicarb normal. Will give IV dose of insulin and admit
Differential Diagnosis (but not limited to): DKA, hyperglycemia, UTI
Testing considered: Troponin but she denies chest pain or shortness of breath
Drug therapy (if applicable): OTC meds, please see d/c instruction regarding Rx drugs
Amount and/or Complexity of Data Reviewed
Clinical info obtained from: Patient. Son at bedside stating that she is a brittle diabetic
External data reviewed: N/A
Labs I independently reviewed (but not limited to): Hyperglycemia
Radiology: N/A
Pulse Ox: not hypoxic
EKG independently reviewed: Sinus rhythm, normal axis, ST depressions laterally
Perforator Operator Oil Well: Sinus rhythm
Critical Care: N/A
Risk of Complication:
Social Determinants of health: Good social support
Discussed with other providers: Hospitalist
Escalation of Care includes Admit/Obs: Given the uncontrolled hyperglycemia, will admit
Occasional wrong word or 'sound a like' substitutions may have occurred due to the inherent limitations of voice recognition software. Read the chart carefully and recognize, using context, where substitutions have occurred.
*Critical Care Note
Total Time (30-74mins, 75-104mins- exclusive of procedures): Not Applicable
ED Attending Note
-
Portions of this chart may have been created with voice recognition software.� Occasional wrong word or��sound alike� substitutions may have occurred due to the inherent limitations of voice recognition software.
Discharge Plan
Departure
Patient Disposition: Admit
Date of Disposition: 09/11/24
Time of Disposition: 18:38
Admit to: Telemetry
Presentation/result/management discussed w/ accepting MD/DO: Hospitalist
Discharge Problem:
Acute hyperglycemia
Prescriptions:
No Action
levothyroxine [Synthroid] 75 mcg Tablet
75 mcg PO DAILY
magnesium oxide 500 mg magnesium tablet
500 mg PO NOON
multivitamin with folic acid [Tab-A-Nathan] 400 mcg tablet
1 tab PO NOON
polyethylene glycol 3350 [HealthyLax] 17 gram Powder In Packet
17 g PO DAILYPRN PRN (Reason: constipation) Qty: 0 0RF
insulin aspart U-100 100 unit/mL (3 mL) Insulin Pen
8 unit SC AC Qty: 0 0RF
magnesium hydroxide [Milk of Magnesia] 400 mg/5 mL Suspension
30 ml PO DAILYPRN PRN (Reason: constipation)
bisacodyl [Dulcolax (bisacodyl)] 10 mg Suppository
10 mg CA DAILYPRN PRN (Reason: constipation)
Fleet Enema 19-7 gram/118 mL Enema
118 ml CA DAILYPRN PRN (Reason: constipation)
oxycodone 5 mg Tablet
5 mg PO BID
oxycodone 5 mg Tablet
5 mg PO HSPRN PRN (Reason: moderate to severe pain)
insulin glargine [Lantus Solostar U-100 Insulin] 100 unit/mL (3 mL) Insulin Pen
15 unit SC HS
acetaminophen 325 mg tablet
650 mg PO Q4HPRN PRN (Reason: mild pain/fever)
sennosides-docusate sodium 8.6-50 mg tablet
1 tab PO DAILYPRN PRN (Reason: constipation)
escitalopram oxalate 10 mg tablet
10 mg PO DAILY
tamsulosin 0.4 mg Capsule
0.4 mg PO HS 30 Days Qty: 30 0RF
Januvia 100 mg Tablet
100 mg PO DAILY 30 Days Qty: 30 0RF
metoprolol succinate 25 mg Tablet Extended Release 24 Hr
25 mg PO QPM 30 Days Qty: 30 0RF
calcitriol 0.25 mcg capsule
0.25 mcg PO DAILY 30 Days Qty: 30 0RF
pantoprazole 20 mg Tablet,Delayed Release (Dr/Ec)
20 mg PO DAILY Qty: 30 0RF
mirtazapine 7.5 mg Tablet
7.5 mg PO HS Qty: 30 0RF
diltiazem HCl 120 mg Capsule,Extended Release 24hr
120 mg PO DAILY 30 Days Qty: 30 0RF
Eliquis 2.5 mg Tablet
2.5 mg PO BID 30 Days Qty: 60 0RF
Interventions
Interventions:
*Risk Screen - Suicide Last Done: 09/11/24 17:50
*General Assessment Last Done: 09/11/24 17:50
*Neglect/Abuse Screening Last Done: 09/11/24 17:50
ED- Fall Risk Assessment Last Done: 09/11/24 18:03
*ED COVID-19 Vaccine History Last Done: 09/11/24 18:03
ED- Neurological Assessment Last Done: 09/11/24 18:21
Discharge Date and Time
Print Language: URDU
[2024-09-11 17:32] VITALS: BP 145/62
[2024-09-11 17:40] LABS: Glucose - Point of Care 556 mg/dl (70-99)
[2024-09-11 17:47] LABS: Venous Blood Gas B.E. -2.5 mmol/L (-4 to +4); Venous Blood Gas HCO3 23.7 mmol/L (22-27); Venous Blood Gas O2 Sat % 64.3 %; Venous Blood Gas pCO2 46 mmHg (35-48); Venous Blood Gas pH 7.32 (7.32-7.43); Venous Blood Gas pO2 40 mmHg (30-50)
[2024-09-11 17:48] LABS: % Basophils 0.7 % (0-2); % Eosinophils 4.8 % (0-6); % Immature Granulocytes 0.7 % (0-0.5); % Lymphocytes 15.4 % (20.5-51.1); % Neutrophils 69.4 % (42.2-75.2); Absolute Basophils 0.1 10^3/uL (0-0.2); Absolute Eosinophils 0.3 10^3/uL (0-0.7); Absolute Immature Granulocytes 0.1 10^3/uL (0-0.05); Absolute Lymphocytes 1.1 10^3/uL (1.2-3.4); Absolute Monocytes 0.6 10^3/uL (0.1-0.6); Hematocrit 32.6 % (37.0-47.0); Hemoglobin 10.2 g/dL (12.0-16.0); Mean Corp Hgb Conc. 31.3 g/dL (33.0-37.0); Mean Corpuscular Hgb 29.6 pg (27.0-31.0); Mean Corpuscular Volume 94.5 fL (81.0-99.0); Mean Platelet Volume 10.9 fL (7.4-10.4); Nucleated Red Blood Cells % 0 %; Platelet Count 261 10^3/uL (130-400); Red Blood Cell Count 3.45 10^6/uL (4.20-5.40); Red Cell Dist. Width 13.5 % (11.5-14.5); White Blood Cell Count 7.1 10^3/uL (4.8-10.8)
[2024-09-11] MEDS: NSS 1000 IV ×2 (18:02→21:37)
[2024-09-11 18:07] LABS: ALT (SGPT) 16 U/L (0-35); AST (SGOT) 21 U/L (14-36); Albumin 3.7 g/dl (3.5-5.0); Alkaline Phosphatase 148 U/L (38-126); Blood Urea Nitrogen 25 mg/dl (7-17); Carbon Dioxide 23 mmol/L (22-30); Chloride 94 mmol/L (98-107); Glucose 560 mg/dl (70-99); Potassium 4.6 mmol/L (3.5-5.1); Sodium 128 mmol/L (135-145); Total Bilirubin 0.3 mg/dl (0.2-1.3); Total Protein 6.5 g/dl (6.3-8.2); eGFR > 60.00
[2024-09-11 18:18] VITALS: BMI 22.5
--- NOTE | 2024-09-11 18:30 | EDRN ---
dr. Mcdonough in room w/ pt, caregiver and son at this time.
[2024-09-11] MEDS: NOVOLIN R 6 UNITS IV (18:34)
--- NOTE | 2024-09-11 18:34 | EDRN ---
Pt is aware urine spec is needed.
[2024-09-11 19:00] VITALS: BP 128/59
--- NOTE | 2024-09-11 19:30 | HPS.HSE ---
Family Physician
-
Family Physician: Nasim Funes MD
Chief Complaint
-
Hyperglycemia
History of Present Illness
This is an 88-year-old with past medical history of insulin-dependent diabetes, hypertension, atrial fibrillation on anticoagulation chronic pain recent pelvic fracture presenting to the emergency department with uncontrolled blood glucose from her
rehab facility.
Patient reported that over the last few days she has had a more liberal diet. She does have breakthrough and difficult to control diabetes at baseline. She reports that glucose levels have been increasing steadily. This morning a.m. glucose was
over 400. Throughout the date increased for the with each meal. The nursing staff at noon the blood glucose was 500 he was given 24 units of aspart, then at 2 PM it was over 600 she was given 15 units of aspart again and it continued to remain
elevated throughout the day. She received a total of 73 units of short acting insulin today. She does not have any fevers or chills. She does not have any new urinary symptoms. She is not on any steroids. No other medication changes except for
initiation of Januvia recently.
In the emergency department she was afebrile blood pressure was stable and pulse was 71. She was satting 93% on room air. ECG showed normal sinus rhythm with T wave inversions in V3 through 6 but otherwise unremarkable. Chemistries notable for a
blood glucose of 560 and a sodium of 128 the rest of the electrolytes BUN/creatinine were normal. bHB 1.5. Bicarb normal. Corrected Na 135.
Medical History
Past Medical History
Past Medical History: Reports Hypothyroidism and Other
Additional Past Medical History:
Paroxysmal atrial fibrillation
Hypertension
Insulin-dependent diabetes
Past Surgical History: Reports Orthopedic
Social History
Tobacco: Non-smoker
Alcohol: None
Drug: None
Personal: Single
Living: Residential
Family History
Family History: Not pertinent
Allergies / Home Medications
Allergies reflects when Allergies were last updated in [employer].
Home Medications with original date entered in [employer]
Allergy/Medication List:
Allergies
Allergy/AdvReac Type Severity Reaction Status Date / Time
Sulfa (Sulfonamide Allergy Severe Rash Verified 09/11/24 17:27
Antibiotics)
Iodinated Contrast Media Allergy Severe Verified 09/11/24 17:27
Prolonged
Itching
Home Medications
levothyroxine 75 mcg tablet (Synthroid) 75 mcg PO DAILY Thyroid 12/22/23
apixaban 2.5 mg tablet (Eliquis) 2.5 mg PO BID A-Fib 30 days #60 tabs 08/14/24
calcitriol 0.25 mcg capsule 0.25 mcg PO DAILY supplement 30 days #30 caps 08/14/24
diltiazem HCl 120 mg capsule,extended release 24 hr 120 mg PO DAILY Arrhythmia 30 days #30 caps 08/14/24
metoprolol succinate 25 mg tablet,extended release 24 hr 25 mg PO QPM blood pressure 30 days #30 tabs 08/14/24
mirtazapine 7.5 mg tablet 7.5 mg PO HS #30 tabs 08/14/24
pantoprazole 20 mg tablet,delayed release 20 mg PO DAILY gerd #30 tabs 08/14/24
sitagliptin phosphate 100 mg tablet (Januvia) 100 mg PO DAILY diabtes 30 days #30 tabs 08/14/24
tamsulosin 0.4 mg capsule 0.4 mg PO HS bladder retention 30 days #30 caps 08/14/24
magnesium oxide 500 mg PO NOON supplement 08/22/24
multivitamin with folic acid 400 mcg tablet (Tab-A-Nathan) 1 tab PO NOON supplement 08/22/24
insulin aspart U-100 100 unit/mL (3 mL) subcutaneous pen 8 unit (0.08 mL) SC AC #0 mL 08/27/24
polyethylene glycol 3350 17 gram oral powder packet (HealthyLax) 17 g PO DAILYPRN PRN constipation #0 ea 08/27/24
acetaminophen 325 mg tablet 650 mg PO Q4HPRN PRN mild pain/fever 09/11/24
bisacodyl 10 mg rectal suppository (Dulcolax (bisacodyl)) 10 mg NH DAILYPRN PRN constipation 09/11/24
escitalopram oxalate 10 mg tablet 10 mg PO DAILY Depression 09/11/24
insulin glargine 100 unit/mL (3 mL) subcutaneous pen (Lantus Solostar U-100 Insulin) 15 unit SC HS 09/11/24
magnesium hydroxide 400 mg/5 mL oral suspension (Milk of Magnesia) 30 ml PO DAILYPRN PRN constipation 09/11/24
oxycodone 5 mg tablet 5 mg PO BID 09/11/24
oxycodone 5 mg tablet 5 mg PO HSPRN PRN moderate to severe pain 09/11/24
sennosides 8.6 mg-docusate sodium 50 mg tablet 1 tab PO DAILYPRN PRN constipation 09/11/24
sodium phosphates 19 gram-7 gram/118 mL enema (Fleet Enema) 118 ml NH DAILYPRN PRN constipation 09/11/24
Review of Systems
-
History Source: Patient, Family and Residential
Constitutional: Reports No Symptoms
EENT: Reports No Symptoms
Respiratory: Reports No Symptoms
Cardiac: Reports No Symptoms
Abdomen/GI: Reports No Symptoms
: Reports No Symptoms
Musculoskeletal: Reports No Symptoms
Skin: Reports No Symptoms
Neurological: Reports No Symptoms
Endocrine: Reports No Symptoms
Psych: Reports No Symptoms
Physical Exam
Vital Signs
Vital Signs
Temp Pulse Resp BP Pulse Ox
98.2 F 72 18 128/59 93
09/11/24 17:50 09/11/24 19:00 09/11/24 19:00 09/11/24 19:00 09/11/24 17:45
Physical Exam
General: Well Developed, Well Nourished, No Apparent Distress and Comfortable
HEENT: NormoCephalic, Anicteric, Moist mucous membranes and Atraumatic
Respiratory: Clear
Cardiac: S1/S2 and Regular Rhythm
Breast: Deferred by me
GI: Soft, Non Tender, Non Distended and Normal Bowel Sounds
Rectal: Deferred by Provider
Genito-urinary: Deferred by me
Musculoskeletal: No Clubbing and No Cyanosis
Skin: Warm
Neuro: AO x 3
Hematologic/Lymphatic: No Lymphadenopathy
Psych: Calm
Laboratory Results
-
09/11/24 17:41
09/11/24 17:41
Laboratory Results
Total Bilirubin 0.3 mg/dl (0.2-1.3) 09/11/24 17:41
AST 21 U/L (14-36) 09/11/24 17:41
ALT 16 U/L (0-35) 09/11/24 17:41
Alkaline Phosphatase 148 U/L (38-126) H 09/11/24 17:41
Data Reviewed
-
Medical Tests (Nuc Med, Echo, EKG etc): Image Personally Visualized and interpreted
Lab Data: Labs Reviewed by me
Old Records: Reviewed
Impression/Plan
-
IMPRESSION:
Uncontrolled Hyperglycemia w/o DKA. Well appearing and stable. Unlikley HHS. 6 units of insulin regular given in ED.
PLAN:
1. Hyperglycemia - Brittle diabetic. Suspect diet related. No Cardiac issues and no obvious infection. Pain appears well controlled.
- admit to med/surg
- lantus 10 units hs with high sliding scale q 6 hours until ac
- aspart 10 ac for now, hold for blood glucose less than 100
- IV NS at 100 ml/hr
- a1c, bhb, tsh and diabetes consult in am
2. AFIB
- continue metoprolol, diltiazem and eliquis
3. Hip Fracture
- PT eval
- case management
Code Status DNR
[2024-09-11 19:58] LABS: Glucose - Point of Care 351 mg/dl (70-99)
[2024-09-11 20:00] VITALS: BP 129/60
[2024-09-11 20:03] LABS: Urine Albumin Negative (Neg - Trace); Urine Bilirubin Negative (Negative); Urine Character Clear (Clear); Urine Color Yellow; Urine Glucose 3+ (Negative); Urine Ketone 1+ (Negative); Urine Leukocyte Trace (Negative); Urine Nitrite Negative (Negative); Urine Occult Blood 1+ (Negative); Urine Urobilinogen Negative (Neg - 1+)
[2024-09-11 20:14] LABS: Urine Bacteria Few (Negative); Urine Squamous Cell 0-2 /LPF (Few); Urine White Cell 0-2 /HPF (0-5)
[2024-09-11 20:15] LABS: Urine Red Blood Cell 16-20 /HPF (0-2)
[2024-09-11] MEDS: ROXICODONE 5 MG PO (20:26)
[2024-09-11 21:15] VITALS: BP 125/56
[2024-09-11 21:18] LABS: Glucose - Point of Care 340 mg/dl (70-99)
[2024-09-11 21:29] VITALS: BMI 21.3
[2024-09-11] MEDS: LANTUS 0.1 UNITS SC (22:11)
[2024-09-11] MEDS: ELIQUIS 2.5 MG PO (22:11)
[2024-09-11] MEDS: REMERON 7.5 MG PO (22:11)
[2024-09-11] MEDS: FLOMAX 0.4 MG PO (22:11)
[2024-09-11] MEDS: NOVOLOG FLEXPEN 10 UNITS SC (22:31)
[2024-09-11 23:37] VITALS: BP 116/50
[2024-09-12 00:38] LABS: Glucose - Point of Care 202 mg/dl (70-99)
[2024-09-12 04:33] LABS: Glucose - Point of Care 146 mg/dl (70-99)
[2024-09-12 06:00] VITALS: BMI 21.3
[2024-09-12] MEDS: SYNTHROID 75 MCG PO (06:51)
[2024-09-12 07:38] LABS: Glucose - Point of Care 142 mg/dl (70-99)
[2024-09-12 07:49] LABS: Glucose - Point of Care 174 mg/dl (70-99)
[2024-09-12 08:05] VITALS: BP 165/73
[2024-09-12 08:18] LABS: Osmolality Serum 292 mOsm/kg (275-300)
[2024-09-12 08:25] VITALS: BP 168/82
--- NOTE | 2024-09-12 08:25 | W.PN.HOSP.TC ---
Today's Communication/Plan
-
See PN, possible D/C in AM depending on BS levels
Assessment / Plan
Assessment / Plan
88yo F with PMHx of hypothyroidism, s/p TAVR, HFpEF, Afib on ELiquis, anxiety, recent pelvic Fx, DM came from rehab with elevated blood glucose. As per patient there was a change in her DM regimen, however she is not sure about how much insulin
was given to her in rehab. She also is confusion Januvia with insulin. Responded well to IVF and subq insulin.
A/P:
#DM type 2 with hyperglycemia, unclear if HHS on admission
Intensify Basal/bolus
Accuchekcs, insulin SS
DM RN consult
#Cough
XR chest
COVID-19, Influenza PCR
#Recent pelvic Fx
PT/OT
was scheduled for d/c from rehab on 09/13/24, possibly will go home
#Mild anemia
w/u with PCP
#Pseudohyponatremia
corrected serum Na >130
Follow BMP
#Afib, persistent
#Hypothyroidism
#Chronic HFpEF
#DJD
# s/p TAVR
cont home meds
#Hx of urinary retention with recent UTI
No pyuria on UA, no dysuria symptoms, completed Abx previously. No fever or WBC- no indication of the recurrent UTI
#Mild Alk.phos elevation
most likely 2/2 Fx
no Abx pain
monitor LFT
DVT ppx Eliquis
DNR/DNI
I have spent at least 58min reviewing chart, test results, communication with consultants and direct patient care
Anticipated Discharge: Within 24 hours
Subjective/Interval History
-
Date of Service: September 12, 2024
Objective Data
-
Labs:
Laboratory Results
09/12/24
07:16
Sodium Pending
Potassium Pending
Chloride Pending
Carbon Dioxide Pending
BUN Pending
Creatinine Pending
Glucose Pending
Calcium Pending
Total Bilirubin Pending
AST Pending
ALT Pending
Alkaline Phosphatase Pending
Vital Signs:
Vital Signs
Temp Pulse Resp BP Pulse Ox
98.2 F 76 18 165/73 92
09/12/24 08:05 09/12/24 08:05 09/12/24 08:05 09/12/24 08:05 09/12/24 08:05
I&O
09/11/24 09/12/24 09/13/24
06:59 06:59 06:59
Intake Total 120 / 120
Balance 120 / 120
Review of Systems
-
History Source: Patient
All other systems: Reviewed and negative
Physical Exam
-
General: No Apparent Distress
HEENT: Normocephalic
Respiratory: Clear to Auscultation
Cardiac: Irregular Rhythm and Murmur
GI: Soft, Nontender and Nondistended
Musculoskeletal: No Clubbing, No Cyanosis and No Edema
Neuro: Awake, Alert, Oriented and AO x 3
Psych: Calm
--- NOTE | 2024-09-12 08:38 | VNURNOTE ---
Chart reviewed. Patient is current with [facility] nursing, OT. Will continue to follow hospital course and DC plans.
[2024-09-12] MEDS: NOVOLOG FLEXPEN 10 UNITS SC ×2 (08:53→12:45)
[2024-09-12] MEDS: NOVOLOG FLEXPEN-HIGH RESISTANCE 2 UNITS SC ×2 (08:53→12:45)
[2024-09-12] MEDS: LANTUS 0.1 UNITS SC ×2 (08:54→21:41)
[2024-09-12] MEDS: LEXAPRO 10 MG PO (08:56)
[2024-09-12] MEDS: ELIQUIS 2.5 MG PO ×2 (08:57→20:02)
[2024-09-12] MEDS: CARDIZEM CD 120 MG PO (08:57)
[2024-09-12] MEDS: ROCALTROL 0.25 MCG PO (08:57)
[2024-09-12] MEDS: JANUVIA 100 MG PO (08:57)
[2024-09-12] MEDS: ROXICODONE 5 MG PO ×2 (08:57→20:02)
[2024-09-12 09:04] LABS: ALT (SGPT) 16 U/L (0-35); AST (SGOT) 25 U/L (14-36); Albumin 3.1 g/dl (3.5-5.0); Alkaline Phosphatase 106 U/L (38-126); Blood Urea Nitrogen 19 mg/dl (7-17); Calcium 9.2 mg/dl (8.4-10.2); Carbon Dioxide 23 mmol/L (22-30); Chloride 105 mmol/L (98-107); Direct Bilirubin 0.1 mg/dl (0.0-0.4); Estimated Creatinine Clearance 40 ml/min; Glucose 177 mg/dl (70-99); Potassium 4.3 mmol/L (3.5-5.1); Sodium 137 mmol/L (135-145); Total Bilirubin 0.4 mg/dl (0.2-1.3); Total Protein 5.9 g/dl (6.3-8.2); eGFR > 60.00
[2024-09-12 09:13] LABS: B-Hydroxybutyrate 0.51 mmol/L (0.02-0.27)
[2024-09-12 09:42] LABS: TSH Reflex To Free T4 2.33 uIU/ml (0.47-4.68)
--- NOTE | 2024-09-12 10:19 | CM ---
Reviewed the chart notes and spoke with the patient and her caregiver at the bedside. The patient is admitted under observational status. The [facility] letter was provided and explained. The patient had no questions with regards to the letter.
The patient was recently hospitalized (08/22-08/27) and discharged to [facility]. The patient reports she anticipated being discharged from [facility] tomorrow. The patient resides in a two story home with caregivers from [facility]. There is a
stair glide to second level. The patient has a rolling walker, wheelchair, and shower seat. The patient has had [facility] in the past. The patient confirmed [facility]. continues to be available to
patient/family and is monitoring medical plan for needs at discharge.
Plan: Discharge plans will depend on the patient's progress. Patient is hopeful to return home with caregivers and VN support. Patient agreeable to [facility] if discharging to home.
[2024-09-12 11:01] LABS: Glucose - Point of Care 181 mg/dl (70-99)
[2024-09-12] MEDS: THERAGRAN 1 TABLET PO (12:46)
--- NOTE | 2024-09-12 14:08 | PN.DE.MGMTRT ---
Insulin Management
- -
09/12/24 Diabetes Management Consult
Patient admitted 09/11 for hyperglycemia from [facility]. Patient known to diabetes team from previous admissions, has been inpt 07/20 to 08/01 for DKA then 08/01 to 08/15 in [facility], 08/22 to 08/27 for pelvic fracture. Prior to admission was receiving
Januvia 100 mg daily, metformin 1000 mg daily lantus 11 units @ hs with novolog 4 units AC. Glucose on admission 556, A1C 7.6, cr .8, eGFR > 60.
Aiyana is awake alert and oriented OOB in chair, Able to discuss diabetes management, her caregiver is also at the bedside.Currently ordered Januvia 100 mg daily lantus 10 units BID with novolog 10 AC and high corrective. Glucose improved 2:30AM
142, fasting 174 and pre lunch 181. Will restart metformin 500mg BID rather than daily.
Discussed with Aiyana and her son who arrived during my visit and caregiver that range of 150 to 180 is acceptable. Goal is to prevent hypoglycemia. I reduced the corrective from high to moderate.
Discussed with nurse: she will TT me pre dinner glucose and further adjustments will be made it necessary
Diabetes History
- -
Type of Diabetes: 2 requiring insulin
Pre-Admission Diabetes Regimen
09/11/24 09/12/24
17:41 07:16
Creatinine 0.9 0.8
Insulin Pump Settings
IP Diabetes Regimen
09/11/24 09/11/24 09/11/24
17:37 17:41 19:57
Glucose 560 H*
POC Glucose 556 H* 351 H
09/11/24 09/12/24 09/12/24
21:17 00:36 02:28
Glucose
POC Glucose 340 H 202 H 142 H
09/12/24 09/12/24 09/12/24
04:31 07:16 07:48
Glucose 177 H
POC Glucose 146 H 174 H
09/12/24
11:00
Glucose
POC Glucose 181 H
Meal type: Dinner
Amount consumed: 50%
Patient Education
[2024-09-12 15:30] VITALS: BP 114/51
[2024-09-12 17:22] LABS: Glucose - Point of Care 49 mg/dl (70-99)
[2024-09-12] MEDS: NOVOLOG FLEXPEN SC (17:28)
[2024-09-12 17:43] LABS: Glucose - Point of Care 55 mg/dl (70-99)
[2024-09-12] MEDS: TOPROL XL 25 MG PO (18:00)
[2024-09-12 18:06] LABS: Glucose - Point of Care 103 mg/dl (70-99)
[2024-09-12] MEDS: NOVOLOG FLEXPEN-LOW RESISTANCE SC (18:38)
[2024-09-12 21:27] LABS: Glucose - Point of Care 153 mg/dl (70-99)
[2024-09-12] MEDS: FLOMAX 0.4 MG PO (21:44)
[2024-09-12] MEDS: REMERON 7.5 MG PO (21:44)
[2024-09-12 23:53] VITALS: BP 117/48
[2024-09-13 03:26] LABS: Glucose - Point of Care 46 mg/dl (70-99)
[2024-09-13 03:49] LABS: Glucose - Point of Care 63 mg/dl (70-99)
[2024-09-13 04:03] LABS: Glucose - Point of Care 93 mg/dl (70-99)
[2024-09-13 04:35] VITALS: BP 144/84
--- NOTE | 2024-09-13 04:35 | FALL ---
Description of Fall:
Pt rang for toileting assistance, after she took a few steps felt weak and lost balance while ambulating with a walker and staff's assistance. The nurse standing behind patient was able to hold patient and slowly positioned her on the floor. VS
144/84, 83, 20, 97.1, 94% RA, blood sugar 93.
Injuries Noted:
None.
Action Taken:
call specialist [employer] made aware. Pt offered pain med- refused. Advised to use bedside commode during night d/t weakness and unsteady gait. Assist x2 with transfers.
Name of Provider Notified: ITZEL Marley.
[2024-09-13 06:03] LABS: Glucose - Point of Care 92 mg/dl (70-99)
--- NOTE | 2024-09-13 06:25 | W.PN.UPDATE ---
Update Note
Progress Note Update
RN reported patient was slowly placed on the floor in a sitting position with the support of the another RN. Reports patient lost balance while walking to the bathroom by herself. Pt did not hit head or body, old scabs and bruises from old fall, no
new bruises, cuts, swelling noted. BS at that time 93, prior to that was 46 per RN. Will order neurochecks per unit protocol, maintain fall precautions. May need insulin adjustments. Stable VS.
[2024-09-13] MEDS: SYNTHROID 75 MCG PO (06:28)
[2024-09-13 06:55] LABS: % Basophils 0.7 % (0-2); % Eosinophils 3.3 % (0-6); % Immature Granulocytes 0.7 % (0-0.5); % Lymphocytes 12.4 % (20.5-51.1); % Monocytes 9.1 % (1.7-9.3); % Neutrophils 73.8 % (42.2-75.2); Absolute Basophils 0.1 10^3/uL (0-0.2); Absolute Eosinophils 0.3 10^3/uL (0-0.7); Absolute Immature Granulocytes 0.1 10^3/uL (0-0.05); Absolute Lymphocytes 0.9 10^3/uL (1.2-3.4); Absolute Monocytes 0.7 10^3/uL (0.1-0.6); Absolute Neutrophils 5.5 10^3/uL (1.4-6.5); Hematocrit 31.7 % (37.0-47.0); Mean Corp Hgb Conc. 31.5 g/dL (33.0-37.0); Mean Corpuscular Hgb 29.3 pg (27.0-31.0); Mean Platelet Volume 11.1 fL (7.4-10.4); Nucleated Red Blood Cells % 0 %; Platelet Count 267 10^3/uL (130-400); Red Blood Cell Count 3.41 10^6/uL (4.20-5.40); Red Cell Dist. Width 13.5 % (11.5-14.5); White Blood Cell Count 7.5 10^3/uL (4.8-10.8)
[2024-09-13 07:25] VITALS: BP 158/71
[2024-09-13 07:26] LABS: ALT (SGPT) 15 U/L (0-35); AST (SGOT) 26 U/L (14-36); Albumin 3.2 g/dl (3.5-5.0); Alkaline Phosphatase 91 U/L (38-126); Blood Urea Nitrogen 19 mg/dl (7-17); Calcium 9.3 mg/dl (8.4-10.2); Carbon Dioxide 25 mmol/L (22-30); Chloride 106 mmol/L (98-107); Estimated Creatinine Clearance 40 ml/min; Glucose 85 mg/dl (70-99); Sodium 140 mmol/L (135-145); Total Bilirubin 0.2 mg/dl (0.2-1.3); Total Protein 5.9 g/dl (6.3-8.2); eGFR > 60.00
--- NOTE | 2024-09-13 07:50 | W.PN.HOSP.TC ---
Today's Communication/Plan
-
Decreased AM Premeal insulin and to be held today
Stopped Metformin
Stopped AM Lantus
cont to monitor BS
Assessment / Plan
Assessment / Plan
88yo F with PMHx of hypothyroidism, s/p TAVR, HFpEF, Afib on ELiquis, anxiety, recent pelvic Fx, DM came from rehab with elevated blood glucose. As per patient there was a change in her DM regimen, however she is not sure about how much insulin
was given to her in rehab. She also is confusion Januvia with insulin. Responded well to IVF and subq insulin.
A/P:
#DM type 2 with hyperglycemia, unclear if HHS on admission, subsequent hypoglycemia, brittle DM
Adjust
AccuCheck, insulin SS
DM RN consult
As per pt - Metformin caused her to have diarrhea, that resolved with its cessation
#Cough
XR chest
COVID-19
Influenza PCR Neg
#Recent pelvic Fx
PT/OT
was scheduled for d/c from rehab on 09/13/24, possibly will go home
#Mild anemia
w/u with PCP
#Pseudohyponatremia
corrected serum Na >130
Follow BMP
#Afib, persistent
#Hypothyroidism
#Chronic HFpEF
#DJD
# s/p TAVR
cont home meds
#Hx of urinary retention with recent UTI
No pyuria on UA, no dysuria symptoms, completed Abx previously. No fever or WBC- no indication of the recurrent UTI
#Mild Alk.phos elevation - resolved
DVT ppx Eliquis
DNR/DNI
I have spent at least 38min reviewing chart, test results, communication with consultants and direct patient care
Anticipated Discharge: 24 - 48 hours
Subjective/Interval History
-
Date of Service: September 13, 2024
Objective Data
-
Labs:
Laboratory Results
09/13/24
06:05
WBC 7.5
Hgb 10.0 L
Hct 31.7 L
Plt Count 267
Sodium 140
Potassium 5.0
Chloride 106
Carbon Dioxide 25
BUN 19 H
Creatinine 0.8
Glucose 85
Calcium 9.3
Total Bilirubin 0.2
AST 26
ALT 15
Alkaline Phosphatase 91
Vital Signs:
Vital Signs
Temp Pulse Resp BP Pulse Ox
97.1 F 83 20 144/84 94
09/13/24 04:35 09/13/24 04:35 09/13/24 04:35 09/13/24 04:35 09/13/24 04:35
I&O
09/12/24 09/13/24 09/14/24
06:59 06:59 06:59
Intake Total 120 / 120 2640 / 2640
Balance 120 / 120 2640 / 2640
Review of Systems
-
History Source: Patient
All other systems: Reviewed and negative
Physical Exam
-
General: Comfortable
Respiratory: Clear to Auscultation
Cardiac: Regular Rhythm
Musculoskeletal: No Clubbing, No Cyanosis and No Edema
Neuro: Awake, Alert, Oriented and AO x 3
Psych: Calm
[2024-09-13 08:31] LABS: Glucose - Point of Care 93 mg/dl (70-99)
[2024-09-13] MEDS: NOVOLOG FLEXPEN-LOW RESISTANCE SC ×3 (08:50→17:05)
[2024-09-13] MEDS: ROXICODONE 5 MG PO ×2 (09:02→20:36)
[2024-09-13] MEDS: JANUVIA 100 MG PO (09:02)
[2024-09-13] MEDS: ELIQUIS 2.5 MG PO ×2 (09:02→20:36)
[2024-09-13] MEDS: ROCALTROL 0.25 MCG PO (09:02)
[2024-09-13] MEDS: LEXAPRO 10 MG PO (09:02)
[2024-09-13] MEDS: CARDIZEM CD 120 MG PO (09:04)
[2024-09-13 09:30] LABS: COVID-19 Antigen Negative (Negative)
[2024-09-13 11:46] LABS: Glucose - Point of Care 228 mg/dl (70-99)
[2024-09-13] MEDS: NOVOLOG FLEXPEN 5 UNITS SC (12:40)
[2024-09-13] MEDS: THERAGRAN 1 TABLET PO (12:43)
[2024-09-13 15:25] VITALS: BP 132/63
[2024-09-13 16:59] LABS: Glucose - Point of Care 67 mg/dl (70-99)
[2024-09-13] MEDS: TOPROL XL 25 MG PO (17:12)
[2024-09-13 17:27] LABS: Glucose - Point of Care 83 mg/dl (70-99)
[2024-09-13 20:21] LABS: Glucose - Point of Care 385 mg/dl (70-99)
[2024-09-13] MEDS: FLOMAX 0.4 MG PO (20:36)
[2024-09-13] MEDS: LANTUS 0.07 UNITS SC (20:36)
[2024-09-13] MEDS: REMERON 7.5 MG PO (20:36)
[2024-09-13 21:30] LABS: Glucose - Point of Care 335 mg/dl (70-99)
[2024-09-13 23:29] VITALS: BP 139/59
[2024-09-14 00:18] LABS: Glucose - Point of Care 243 mg/dl (70-99)
[2024-09-14 04:12] LABS: Glucose - Point of Care 145 mg/dl (70-99)
[2024-09-14] MEDS: SYNTHROID 75 MCG PO (05:39)
[2024-09-14] MEDS: ROXICODONE 5 MG PO ×2 (05:39→20:27)
[2024-09-14 06:00] VITALS: BMI 20.4
[2024-09-14 07:30] VITALS: BP 156/109
[2024-09-14 07:52] LABS: Glucose - Point of Care 121 mg/dl (70-99)
[2024-09-14] MEDS: NOVOLOG FLEXPEN-LOW RESISTANCE SC (08:00)
--- NOTE | 2024-09-14 08:12 | W.PN.HOSP.TC ---
Today's Communication/Plan
-
Adjusted Lantus 7units BID , cont Lispro 5units at breakfast, 6 units at lunch and 5 units at dinner
PT/OT to reeval
Assessment / Plan
Assessment / Plan
88yo F with PMHx of hypothyroidism, s/p TAVR, HFpEF, Afib on ELiquis, anxiety, recent pelvic Fx, DM came from rehab with elevated blood glucose. As per patient there was a change in her DM regimen, however she is not sure about how much insulin
was given to her in rehab. She also is confusion Januvia with insulin. Responded well to IVF and subq insulin.
A/P:
#DM type 2 with hyperglycemia, unclear if HHS on admission, subsequent hypoglycemia, brittle DM
Previously at home used Lantus BID 5units and premeal before lunch and dinner only Humalog 8 units
Adjust
AccuCheck, insulin SS
DM RN consult
As per pt - Metformin caused her to have diarrhea, that resolved with its cessation
#Cough
XR chest neg for acute disease
COVID-19 neg
Influenza PCR Neg
#Recent pelvic Fx
PT/OT
was scheduled for d/c from rehab on 09/13/24, as per PT/OT - if family can provide Min assist to patient - can go home, otherwise - back to rehab
#Mild anemia
w/u with PCP
#Pseudohyponatremia
corrected serum Na >130
Follow BMP
#Afib, persistent
#Hypothyroidism
#Chronic HFpEF
#DJD
# s/p TAVR
cont home meds
#Hx of urinary retention with recent UTI
No pyuria on UA, no dysuria symptoms, completed Abx previously. No fever or WBC- no indication of the recurrent UTI
#Mild Alk.phos elevation - resolved
DVT ppx Eliquis
DNR/DNI
I have spent at least 38min reviewing chart, test results, communication with consultants and direct patient care
Anticipated Discharge: Within 24 hours
Subjective/Interval History
-
Date of Service: September 14, 2024
Objective Data
-
Vital Signs:
Vital Signs
Temp Pulse Resp BP Pulse Ox
98.4 F 74 17 139/59 95
09/13/24 23:29 09/13/24 23:29 09/13/24 23:29 09/13/24 23:29 09/14/24 00:13
I&O
09/13/24 09/14/24 09/15/24
06:59 06:59 06:59
Intake Total 2640 / 2640 1620 / 1620
Balance 2640 / 2640 1620 / 1620
Review of Systems
-
History Source: Patient
All other systems: Reviewed and negative
Physical Exam
-
General: No Apparent Distress
HEENT: Normocephalic
Respiratory: Clear to Auscultation
GI: Soft, Nontender and Nondistended
Neuro: Awake, Alert, Oriented and AO x 3
Psych: Calm
[2024-09-14] MEDS: CARDIZEM CD 120 MG PO (08:57)
[2024-09-14] MEDS: ELIQUIS 2.5 MG PO ×2 (08:57→20:27)
[2024-09-14] MEDS: ROCALTROL 0.25 MCG PO (08:57)
[2024-09-14] MEDS: LEXAPRO 10 MG PO (08:57)
[2024-09-14] MEDS: JANUVIA 100 MG PO (08:58)
--- NOTE | 2024-09-14 09:27 | PN.DE.MGMTRT ---
Insulin Management
- -
09/14/24 Diabetes Management F/U:
Patient admitted 09/11 for hyperglycemia from [facility]. Patient known to diabetes team from previous admissions, has been inpt 07/20 to 08/01 for DKA then 08/01 to 08/15 in [facility], 08/22 to 08/27 for pelvic fracture. Prior to admission was receiving
Januvia 100 mg daily, metformin 1000 mg daily Lantus 11 units @ hs with NovoLog 4 units AC. Glucose on admission 556, A1C 7.6, cr .8, eGFR > 60.
Aiyana is awake alert and oriented, restin gin bed, Able to discuss diabetes management, no family at the bedside.
Currently ordered Januvia 100 mg daily Lantus 7 units BID with NovoLog 8units/breakfast, 5 units/lunch, 6 units/dinner and high corrective.
Noted for an episode of Hypoglycemia t 16:57 as low as 67, Glucose improved to 83 after treatment.
FBG 121 this AM, pre lunch blood sugar is 271. Will change AC NovoLog to 4 units. Pt states that she had severe SE to metformin and is requesting it not be resumed. Will STOP Metformin at this time.
Will cont low dose Lantus 7 units BID as ordered by the hospitalist, Januvia 100mg daily and low corrective, Goal is to prevent hypoglycemia in this patient with advanced age. Plan of care discussed with Aiyana
Diabetes History
- -
Type of Diabetes: 2 requiring insulin
Pre-Admission Diabetes Regimen
Insulin Pump Settings
IP Diabetes Regimen
09/13/24 09/13/24 09/13/24
11:44 16:57 17:25
POC Glucose 228 H 67 L 83
09/13/24 09/13/24 09/14/24
20:18 21:25 00:14
POC Glucose 385 H 335 H 243 H
09/14/24 09/14/24
04:11 07:50
POC Glucose 145 H 121 H
Meal type: Dinner
Meal type: Lunch
Meal type: Breakfast
Amount consumed: 60%
Amount consumed: 75%
Amount consumed: 50%
Patient Education
[2024-09-14 09:44] VITALS: BP 150/71
[2024-09-14] MEDS: LANTUS 0.07 UNITS SC ×2 (10:04→21:36)
[2024-09-14 10:05] LABS: Glucose - Point of Care 140 mg/dl (70-99)
--- NOTE | 2024-09-14 11:06 | CM ---
Reviewed the chart notes and spoke with the patient, her son, and her caregiver at the bedside. The patient anticipates being discharged to home with resumption of caregivers 09/05 through [facility] and VN services. CM continues to be
available to patient/family and is monitoring medical plan for needs at discharge.
Plan: Discharge to home when medically stable on [facility] service and continuation of caregivers through [facility].
[2024-09-14 11:26] LABS: Glucose - Point of Care 271 mg/dl (70-99)
[2024-09-14] MEDS: NOVOLOG FLEXPEN-LOW RESISTANCE 3 UNITS SC (12:04)
[2024-09-14] MEDS: THERAGRAN 1 TABLET PO (12:04)
[2024-09-14 15:30] VITALS: BP 147/66
[2024-09-14 16:05] VITALS: BP 147/63; PULSE 68
[2024-09-14 17:05] LABS: Glucose - Point of Care 217 mg/dl (70-99)
[2024-09-14] MEDS: NOVOLOG FLEXPEN 4 UNITS SC (17:17)
[2024-09-14] MEDS: NOVOLOG FLEXPEN-LOW RESISTANCE 2 UNITS SC (17:18)
[2024-09-14] MEDS: TOPROL XL 25 MG PO (17:18)
[2024-09-14] MEDS: REMERON 7.5 MG PO (21:27)
[2024-09-14] MEDS: FLOMAX 0.4 MG PO (21:28)
[2024-09-14 21:40] LABS: Glucose - Point of Care 122 mg/dl (70-99)
[2024-09-14 23:49] VITALS: BP 117/58
[2024-09-15] MEDS: SYNTHROID 75 MCG PO (05:28)
[2024-09-15 06:00] VITALS: BMI 20.6
[2024-09-15 08:05] LABS: Glucose - Point of Care 119 mg/dl (70-99)
[2024-09-15 08:34] VITALS: BP 163/77
[2024-09-15] MEDS: NOVOLOG FLEXPEN-LOW RESISTANCE SC ×2 (08:42→11:41)
[2024-09-15] MEDS: NOVOLOG FLEXPEN 4 UNITS SC ×2 (08:43→11:42)
[2024-09-15] MEDS: LEXAPRO 10 MG PO (08:44)
[2024-09-15] MEDS: ROCALTROL 0.25 MCG PO (08:44)
[2024-09-15] MEDS: LANTUS 0.07 UNITS SC (08:44)
[2024-09-15] MEDS: ELIQUIS 2.5 MG PO (08:44)
[2024-09-15] MEDS: JANUVIA 100 MG PO (08:45)
[2024-09-15] MEDS: CARDIZEM CD 120 MG PO (08:45)
[2024-09-15] MEDS: ROXICODONE 5 MG PO (08:45)
--- NOTE | 2024-09-15 09:43 | W.PN.HOSP.TC ---
Today's Communication/Plan
-
dc
Assessment / Plan
Assessment / Plan
88yo F with PMHx of hypothyroidism, s/p TAVR, HFpEF, Afib on ELiquis, anxiety, recent pelvic Fx, DM came from rehab with elevated blood glucose. As per patient there was a change in her DM regimen, however she is not sure about how much insulin
was given to her in rehab. She also is confusion Januvia with insulin. Responded well to IVF and subq insulin. Had episodes of hypoglycemia in the hospital, that resolved with improved basal/bolus regimen. Lantus 7units BID, Lispro 5units in with
breakfast, 7 units with llunch and 5 units with dinner advised 2/2 mid-day hyperglycemia. Patient to keep a log of her BG measurements that she has to do AC and HS and will work with her PCP for the further adjustment. Medically stable for d/c and
family would like to take a patient home and will provide needed minimal assist
A/P:
#DM type 2 with hyperglycemia, unclear if HHS on admission, subsequent hypoglycemia, brittle DM
Previously at home used Lantus BID 5units and premeal before lunch and dinner only Humalog 8 units
Adjust
AccuCheck, insulin SS
DM RN consult
As per pt - Metformin caused her to have diarrhea, that resolved with its cessation
#Cough
resolved
XR chest neg for acute disease
COVID-19 neg
Influenza PCR Neg
#Recent pelvic Fx
PT/OT
was scheduled for d/c from rehab on 09/13/24, as per PT/OT - if family can provide Min assist to patient - can go home, otherwise - back to rehab
#Mild anemia
w/u with PCP
#Pseudohyponatremia
corrected serum Na >130
Follow BMP
#Afib, persistent
#Hypothyroidism
#Chronic HFpEF
#DJD
# s/p TAVR
cont home meds
#Hx of urinary retention with recent UTI
No pyuria on UA, no dysuria symptoms, completed Abx previously. No fever or WBC- no indication of the recurrent UTI
#Mild Alk.phos elevation - resolved
DVT ppx Eliquis
DNR/DNI
I have spent at least 38min reviewing chart, test results, communication with consultants and direct patient care
Anticipated Discharge: Today
Subjective/Interval History
-
Date of Service: September 15, 2024
Objective Data
-
Vital Signs:
Vital Signs
Temp Pulse Resp BP Pulse Ox
98.3 F 81 16 163/77 97
09/15/24 08:34 09/15/24 08:45 09/15/24 08:34 09/15/24 08:45 09/15/24 08:34
I&O
09/14/24 09/15/24 09/16/24
06:59 06:59 06:59
Intake Total 1620 / 1620 1020 / 1020
Balance 1620 / 1620 1020 / 1020
Review of Systems
-
History Source: Patient
All other systems: Reviewed and negative
Physical Exam
-
General: No Apparent Distress
Respiratory: Clear to Auscultation
Cardiac: Regular Rhythm
Genito-urinary: No Costovertebral Tender
Musculoskeletal: No Clubbing, No Cyanosis and No Edema
Psych: Calm
--- NOTE | 2024-09-15 09:53 | W.DCSUMMARY ---
Discharge Summary
Discharge Data
Date of Admission: 09/11/24
Date of Discharge: 09/15/24
-
Pending Results: No
Hospital Course
88yo F with PMHx of hypothyroidism, s/p TAVR, HFpEF, Afib on ELiquis, anxiety, recent pelvic Fx, DM came from rehab with elevated blood glucose. As per patient there was a change in her DM regimen, however she is not sure about how much insulin
was given to her in rehab. She also is confusion Januvia with insulin. Responded well to IVF and subq insulin. Had episodes of hypoglycemia in the hospital, that resolved with improved basal/bolus regimen. Lantus 7units BID, Lispro 4units with meals
advised 2/2 mid-day hyperglycemia. Patient to keep a log of her BG measurements that she has to do AC and HS and will work with her PCP for the further adjustment. Medically stable for d/c and family would like to take a patient home and will
provide needed minimal assist
I have spent at least 38min reviewing chart, test results, communication with consultants and direct patient care
Patient was managed for:
#DM type 2 with hyperglycemia, unclear if HHS on admission, subsequent hypoglycemia, brittle DM
#Cough
#Recent pelvic Fx
#Mild anemia
#Pseudohyponatremia
#Afib, persistent
#Hypothyroidism
#Chronic HFpEF
#DJD
# s/p TAVR
#Hx of urinary retention with recent UTI
#Mild Alk.phos elevation - resolved
Discharge Plan
-
Patient Disposition: Home with Home Care
Discharge Diagnosis/Procedures: poor blood glucose control
Diet: Diabetic, Carb Controlled
Activity: As tolerated
Driving Restrictions: As prior to admission
Referrals:
Nasim Funes MD [Family Provider] -
Prescriptions:
Continued
levothyroxine [Synthroid] 75 mcg Tablet
75 mcg PO DAILY
magnesium oxide 500 mg magnesium tablet
500 mg PO NOON
multivitamin with folic acid [Tab-A-Nathan] 400 mcg tablet
1 tab PO NOON
polyethylene glycol 3350 [HealthyLax] 17 gram Powder In Packet
17 g PO DAILYPRN PRN (Reason: constipation) Qty: 0 0RF
magnesium hydroxide [Milk of Magnesia] 400 mg/5 mL Suspension
30 ml PO DAILYPRN PRN (Reason: constipation)
bisacodyl [Dulcolax (bisacodyl)] 10 mg Suppository
10 mg IA DAILYPRN PRN (Reason: constipation)
Fleet Enema 19-7 gram/118 mL Enema
118 ml IA DAILYPRN PRN (Reason: constipation)
oxycodone 5 mg Tablet
5 mg PO BID
oxycodone 5 mg Tablet
5 mg PO HSPRN PRN (Reason: moderate to severe pain)
acetaminophen 325 mg tablet
650 mg PO Q4HPRN PRN (Reason: mild pain/fever)
sennosides-docusate sodium 8.6-50 mg tablet
1 tab PO DAILYPRN PRN (Reason: constipation)
escitalopram oxalate 10 mg tablet
10 mg PO DAILY
tamsulosin 0.4 mg Capsule
0.4 mg PO HS 30 Days Qty: 30 0RF
Januvia 100 mg Tablet
100 mg PO DAILY 30 Days Qty: 30 0RF
metoprolol succinate 25 mg Tablet Extended Release 24 Hr
25 mg PO QPM 30 Days Qty: 30 0RF
calcitriol 0.25 mcg capsule
0.25 mcg PO DAILY 30 Days Qty: 30 0RF
pantoprazole 20 mg Tablet,Delayed Release (Dr/Ec)
20 mg PO DAILY Qty: 30 0RF
mirtazapine 7.5 mg Tablet
7.5 mg PO HS Qty: 30 0RF
diltiazem HCl 120 mg Capsule,Extended Release 24hr
120 mg PO DAILY 30 Days Qty: 30 0RF
Eliquis 2.5 mg Tablet
2.5 mg PO BID 30 Days Qty: 60 0RF
Changed
insulin aspart U-100 100 unit/mL (3 mL) Insulin Pen
4 unit SC AC Qty: 0 0RF
insulin glargine [Lantus Solostar U-100 Insulin] 100 unit/mL (3 mL) Insulin Pen
7 unit SC BID@0800,2000 Qty: 0 0RF
Discharge Date and Time
Print Language: BOLIVIAN
[2024-09-15 11:35] LABS: Glucose - Point of Care 141 mg/dl (70-99)
[2024-09-15 11:36] VITALS: BP 114/49
[2024-09-15] MEDS: THERAGRAN 1 TABLET PO (11:42)
== END 2024-09-15 13:21 | disposition home health service (06) | DRG 638 ==
LOC: 2 NORTH 09:51
PROVIDERS: ADMITTING PHYSICIAN Internal Medicine; ATTENDING PHYSICIAN Internal Medicine; EMERGENCY PHYSICIAN Student in an Organized Health Care Education/Training Program; FAMILY PHYSICIAN Family Medicine
DX: E11.65 Type 2 diabetes mellitus with hyperglycemia (principal); I48.19 Other persistent atrial fibrillation; I50.32 Chronic diastolic (congestive) heart failure; D64.9 Anemia, unspecified; E03.9 Hypothyroidism, unspecified; I11.0 Hypertensive heart disease with heart failure; M19.90 Unspecified osteoarthritis, unspecified site; Z95.2 Presence of prosthetic heart valve; E78.00 Pure hypercholesterolemia, unspecified; Z79.01 Long term (current) use of anticoagulants; Z79.4 Long term (current) use of insulin; Z96.651 Presence of right artificial knee joint; Z11.52 Encounter for screening for COVID-19; E11.649 Type 2 diabetes mellitus with hypoglycemia without coma
CPT/HCPCS: 71046; 80053; 81003; 81015; 82010; 82248; 82805; 82962; 83930; 84443; 85025; 87070; 87502; 87811; 93005; 96360; 96372; 97116; 97162; 97166; 97530; 97535; 99285

== ENCOUNTER → 2024-11-21 09:57 | Outpatient (REF) | payer MEDICARE, OTHER, SELFPAY ==
[2024-11-21 11:18] LABS: % Basophils 0.9 % (0-2); % Eosinophils 8.3 % (0-6); % Immature Granulocytes 1.5 % (0-0.5); % Lymphocytes 16.3 % (20.5-51.1); % Monocytes 10.5 % (1.7-9.3); % Neutrophils 62.5 % (42.2-75.2); Absolute Basophils 0.1 10^3/uL (0-0.2); Absolute Eosinophils 0.5 10^3/uL (0-0.7); Absolute Immature Granulocytes 0.1 10^3/uL (0-0.05); Absolute Monocytes 0.6 10^3/uL (0.1-0.6); Absolute Neutrophils 3.7 10^3/uL (1.4-6.5); Hematocrit 36.3 % (37.0-47.0); Hemoglobin 11.5 g/dL (12.0-16.0); Mean Corp Hgb Conc. 31.7 g/dL (33.0-37.0); Mean Corpuscular Hgb 27.5 pg (27.0-31.0); Mean Corpuscular Volume 86.8 fL (81.0-99.0); Nucleated Red Blood Cells % 0 %; Platelet Count 176 10^3/uL (130-400); Red Blood Cell Count 4.18 10^6/uL (4.20-5.40); Red Cell Dist. Width 14.6 % (11.5-14.5); White Blood Cell Count 5.9 10^3/uL (4.8-10.8)
[2024-11-21 11:38] LABS: Glycohemoglobin (HgbA1c) 8.4 % (4.0-5.6)
[2024-11-21 14:37] LABS: ALT (SGPT) 17 U/L (0-35); AST (SGOT) 21 U/L (14-36); Albumin 3.8 g/dl (3.5-5.0); Alkaline Phosphatase 82 U/L (38-126); Blood Urea Nitrogen 16 mg/dl (7-17); Calcium 9.5 mg/dl (8.4-10.2); Carbon Dioxide 27 mmol/L (22-30); Chloride 106 mmol/L (98-107); Glucose 81 mg/dl (70-99); Potassium 4.4 mmol/L (3.5-5.1); Sodium 140 mmol/L (135-145); Total Bilirubin 0.6 mg/dl (0.2-1.3); Total Protein 6.3 g/dl (6.3-8.2); eGFR 53.85
== END ==
LOC: REG 09:57
PROVIDERS: ATTENDING PHYSICIAN Physician Assistant; FAMILY PHYSICIAN Family Medicine
DX: E11.65 Type 2 diabetes mellitus with hyperglycemia (principal)
CPT/HCPCS: 36415; 80053; 83036; 85025

== ENCOUNTER → 2025-04-01 11:43 | Outpatient (REF) | payer MEDICARE, OTHER, SELFPAY ==
[2025-04-01 12:33] LABS: % Immature Granulocytes 0.3 % (0-0.5); % Lymphocytes 15.8 % (20.5-51.1); % Monocytes 8.1 % (1.7-9.3); % Neutrophils 71.8 % (42.2-75.2); Absolute Basophils 0.1 10^3/uL (0-0.2); Absolute Eosinophils 0.3 10^3/uL (0-0.7); Absolute Lymphocytes 1.4 10^3/uL (1.2-3.4); Absolute Monocytes 0.7 10^3/uL (0.1-0.6); Absolute Neutrophils 6.5 10^3/uL (1.4-6.5); Hemoglobin 12.6 g/dL (12.0-16.0); Mean Corp Hgb Conc. 32.3 g/dL (33.0-37.0); Mean Corpuscular Hgb 28.5 pg (27.0-31.0); Mean Corpuscular Volume 88.2 fL (81.0-99.0); Mean Platelet Volume 12.1 fL (7.4-10.4); Nucleated Red Blood Cells % 0 %; Platelet Count 188 10^3/uL (130-400); Red Blood Cell Count 4.42 10^6/uL (4.20-5.40); Red Cell Dist. Width 13.9 % (11.5-14.5); White Blood Cell Count 9.1 10^3/uL (4.8-10.8)
[2025-04-01 15:08] LABS: Free T4 1.39 ng/dl (0.78-2.19)
[2025-04-01 15:22] LABS: TSH 2.78 uIU/ml (0.47-4.68)
[2025-04-01 15:54] LABS: ALT (SGPT) 20 U/L (0-35); AST (SGOT) 21 U/L (14-36); Albumin 4.2 g/dl (3.5-5.0); Alkaline Phosphatase 56 U/L (38-126); Blood Urea Nitrogen 26 mg/dl (7-17); Calcium 9.4 mg/dl (8.4-10.2); Carbon Dioxide 24 mmol/L (22-30); Chloride 112 mmol/L (98-107); Glucose 61 mg/dl (70-99); HDL Cholesterol 60 mg/dl; LDL Cholesterol, Calculated 68 mg/dl; Potassium 4.2 mmol/L (3.5-5.1); Sodium 144 mmol/L (135-145); Total Bilirubin 0.5 mg/dl (0.2-1.3); Total Cholesterol 145 mg/dl (50-199); Total Protein 6.9 g/dl (6.3-8.2); Triglyceride 87 mg/dl (10-149); Very Low Density Lipoprotein 17 mg/dl (0-30); eGFR 48.03
[2025-04-02 09:35] LABS: Glycohemoglobin (HgbA1c) 8.4 % (4.0-5.6)
== END ==
LOC: REG 11:43
PROVIDERS: ATTENDING PHYSICIAN Physician Assistant; FAMILY PHYSICIAN Family Medicine
DX: E11.69 Type 2 diabetes mellitus with other specified complication (principal); E83.42 Hypomagnesemia; E03.9 Hypothyroidism, unspecified; E78.2 Mixed hyperlipidemia; E11.65 Type 2 diabetes mellitus with hyperglycemia
CPT/HCPCS: 36415; 80053; 80061; 83036; 83735; 84439; 84443; 85025